=== PATIENT | female | born 1955 | race African-American/Black ===

== ENCOUNTER 2016-12-28 20:18 | Emergency (ER) | payer MEDICARE, MEDICAID ==
--- NOTE | 2016-12-28 20:53 | EKG REPORT ---
SEVERITY:- BORDERLINE ECG - SINUS ARRHYTHMIA, RATE 65-99 PROBABLE LEFT ATRIAL ABNORMALITY BORDERLINE PROLONGED QT INTERVAL : Confirmed by: Deidre Hadley 28-Dec-2016 20:52:47
[2016-12-28] MEDS ORDERED: ASPIRIN 81 MG TABLET, CHEWABLE PO ONE (21:45)
--- NOTE | 2016-12-28 22:20 | RADIOLOGY REPORT (SQ) ---
EXAM DESCRIPTION: CHEST SINGLE VIEW COMPLETED DATE/TIME: 12/28/2016 10:03 pm REASON FOR STUDY: chest pain/cough COMPARISON: 10/28/2015 EXAM PARAMETERS: NUMBER OF VIEWS: One view. TECHNIQUE: Single frontal radiographic view of the chest acquired. RADIATION DOSE: NA LIMITATIONS: None. FINDINGS: LUNGS AND PLEURA: No opacities, masses or pneumothorax. No pleural effusion. MEDIASTINUM AND HILAR STRUCTURES: No masses. Contour normal. HEART AND VASCULAR STRUCTURES: Heart normal in size. Normal vasculature. BONES: No acute findings. HARDWARE: None in the chest. OTHER: No other significant finding. IMPRESSION: NO ACUTE RADIOGRAPHIC FINDING IN THE CHEST. TECHNICAL DOCUMENTATION: JOB ID: [id number]
[2016-12-28 22:25] LABS: ABSOLUTE BASOPHILS # (AUTO) 0.1 10^3/uL (0.0-0.2); ABSOLUTE EOSINOPHILS # (AUTO) 0.2 10^3/uL (0.0-0.6); ABSOLUTE LYMPHOCYTES (AUTO) 3.6 10^3/uL (0.5-4.7); ABSOLUTE MONOCYTES (AUTO) 0.5 10^3/uL (0.1-1.4); ABSOLUTE NEUT (AUTO) 5.3 10^3/uL (1.7-8.2); BASOPHILS % (AUTO) 0.7 % (0-2); EOSINOPHILS % (AUTO) 2.3 % (0-6); HEMATOCRIT 38.8 % (36.0-47.0); HEMOGLOBIN 12.9 g/dL (12.0-15.5); HGB HCT DIFFERENCE -0.1; LYMPHOCYTES % (AUTO) 36.8 % (13-45); MEAN CORPUSCULAR HGB CONC 33.3 g/dL (32.0-36.0); MEAN CORPUSCULAR VOLUME 93 fl (80-97); MONOCYTES % (AUTO) 5.7 % (3-13); RED BLOOD COUNT 4.16 10^6/uL (3.72-5.28); RED CELL DISTRIBUTION WIDTH 13.1 % (11.5-14.0); SEGMENTED NEUTROPHILS % (AUTO) 54.5 % (42-78); WHITE BLOOD COUNT 9.7 10^3/uL (4.0-10.5)
[2016-12-28 22:39] LABS: ALANINE AMINOTRANSFERASE 29 U/L (9-52); ALBUMIN 4.2 g/dL (3.5-5.0); ALKALINE PHOSPHATASE 75 U/L (38-126); ANION GAP 11 (5-19); ASPARTATE AMINO TRANSFERASE 19 U/L (14-36); BILIRUBIN,DIRECT 0.3 mg/dL (0.0-0.4); BILIRUBIN,TOTAL 0.4 mg/dL (0.2-1.3); BLOOD UREA NITROGEN 18 mg/dL (7-20); CALCIUM 9.7 mg/dL (8.4-10.2); CARBON DIOXIDE 29 mmol/L (22-30); CHLORIDE 102 mmol/L (98-107); CREATINE KINASE 91 U/L (30-135); GLUCOSE 157 mg/dL (75-110); POTASSIUM 4.3 mmol/L (3.6-5.0); SODIUM 141.8 mmol/L (137-145); TOTAL PROTEIN 7.5 g/dL (6.3-8.2)
[2016-12-28 22:51] LABS: CREATINE KINASE MB 0.98 ng/mL (<4.55); TROPONIN I < 0.012 ng/mL
[2016-12-28] MEDS ORDERED: IPRATROPIUM/ALBUTEROL 0.5-2.5 MG/3 ML AMPUL NEB ONE ×2 (22:56→22:57)
[2016-12-28] MEDS ORDERED: PREDNISONE 20 MG TABLET PO ONE (22:56)
[2016-12-28] MEDS ORDERED: HYDROCODONE/ACETAMINOPHEN 5-325 MG TABLET PO ONE (22:57)
--- NOTE | 2016-12-28 23:04 | ER Document Report ---
ED Respiratory Problem - General Chief Complaint: Cough Stated Complaint: CHEST AND NECK PAIN Time Seen by Provider: 12/28/16 22:49 Notes: Patient is a 61-year-old female comes emergency department for chief complaint of cough with wheezing and painful cough since yesterday. She states she has coughed up some gaming sputum. She smokes, she states she "probably has COPD", she denies asthma, she denies inhaler use. She also states that she has history of diabetes and was newly placed on a diabetic medication today. She denies any fevers, she denies chest pain outside of cough, she states she feels like she strained her neck with a coughing episode earlier. TRAVEL OUTSIDE OF THE [place] IN LAST 30 DAYS: No - Related Data Allergies/Adverse Reactions: No Known Allergies Allergy (Verified 06/11/16 07:17) Past Medical History - General Information source: Patient - Social History Smoking Status: Current Every Day Smoker Smoking Education Provided: Yes - <3 min Frequency of alcohol use: None Drug Abuse: None Lives with: Family Family History: Reviewed & Not Pertinent Patient has suicidal ideation: No Patient has homicidal ideation: No - Past Medical History Cardiac Medical History: Reports: Hx Hypertension Denies: Hx Heart Attack Pulmonary Medical History: Reports: Hx COPD Denies: Hx Asthma Neurological Medical History: Reports: Hx Migraine. Denies: Hx Cerebrovascular Accident, Hx Seizures Endocrine Medical History: Reports: Hx Diabetes Mellitus Type 2 Renal/ Medical History: Denies: Hx Peritoneal Dialysis GI Medical History: Denies: Hx Hepatitis, Hx Hiatal Hernia, Hx Ulcer Musculoskeltal Medical History: Reports Hx Arthritis - osteoarthritis Psychiatric Medical History: Reports: Hx Anxiety, Hx Depression Infectious Medical History: Denies: Hx Hepatitis Past Surgical History: Reports: Hx Section - 3, Hx Orthopedic Surgery. Denies: Hx Mastectomy, Hx Open Heart Surgery, Hx Pacemaker - Immunizations Immunizations up to date: Yes Hx Diphtheria, Pertussis, Tetanus Vaccination: Yes Hx Pneumococcal Vaccination: 05/31/11 Review of Systems - Review of Systems Constitutional: No symptoms reported EENT: No symptoms reported Cardiovascular: No symptoms reported Respiratory: See HPI Gastrointestinal: No symptoms reported Genitourinary: No symptoms reported Female Genitourinary: No symptoms reported Musculoskeletal: No symptoms reported Skin: No symptoms reported Hematologic/Lymphatic: No symptoms reported Neurological/Psychological: No symptoms reported Physical Exam - Vital signs Vitals: Temp Pulse Resp BP Pulse Ox 98.8 F 71 25 H 185/79 H 94 12/28/16 20:26 12/28/16 20:26 12/28/16 20:26 12/28/16 20:26 12/28/16 20:26 Interpretation: Normal - General General appearance: Appears well In distress: None - HEENT Head: Normocephalic, Atraumatic Eyes: Normal Conjunctiva: Normal Extraocular movements intact: Yes Eyelashes: Normal Pupils: PERRL Mouth/Lips: Normal Mucous membranes: Normal Pharynx: Normal Neck: Normal - Respiratory Respiratory status: No respiratory distress. No: Labored, Tachypnea Chest status: Nontender Breath sounds: Decreased air movement, Wheezing - expiratory wheezes throughout ; occassional congested cough Chest palpation: Normal - Cardiovascular Rhythm: Regular Heart sounds: Normal auscultation Murmur: No - Abdominal Inspection: Normal Distension: No distension Bowel sounds: Normal Tenderness: Nontender. No: Tender Organomegaly: No organomegaly - Back Back: Tender - tender in right trapezius and paracervical muscles (mild); normal back and spine exam otherwise - Extremities General upper extremity: Normal inspection, Nontender, Normal color, Normal ROM , Normal temperature General lower extremity: Normal inspection, Nontender, Normal color, Normal ROM , Normal temperature, Normal weight bearing. No: Shawn's sign - Neurological Neuro grossly intact: Yes Cognition: Normal Orientation: AAOx4 [place] Coma Scale Eye Opening: Spontaneous [place] Coma Scale Verbal: Oriented [place] Coma Scale Motor: Obeys Commands [place] Coma Scale Total: 15 Speech: Normal Motor strength normal: LUE, RUE, LLE, RLE Sensory: Normal - Psychological Associated symptoms: Normal affect, Normal mood - Skin Skin Temperature: Warm Skin Moisture: Dry Skin Color: Normal Course - Re-evaluation Re-evalutation: Some mild tenderness over the chest wall and in the right trapezius area on examination, patient does not have tachypnea, hypoxia, or signs of respiratory distress. Patient has bilateral expiratory wheezes on examination, congested sounding cough. EKG with no ischemic findings, troponin unremarkable, CBC and CMP unremarkable. Chest x-ray does not show pneumonia. Patient examination is consistent with COPD exacerbation. After treatment patient's symptoms completely resolved. She states she feels great and she wants to go home. Discussed prednisone use, patient states she has had good results with this in the past, states she will watch her sugars, patient will be given a quicker taper because of her diabetes , provided with inhaler, discussed close follow-up, discussed return precautions , patient states satisfaction and agreement. - Vital Signs Vital signs: Temp Pulse Resp BP Pulse Ox 98.6 F 83 18 180/92 H 97 12/29/16 00:14 12/29/16 00:14 12/29/16 00:14 12/29/16 00:14 12/29/16 00:14 - Laboratory Result Diagrams: 12/28/16 22:11 12/28/16 22:11 Laboratory results interpreted by me: 12/28/16 22:11 Glucose 157 H Discharge - Discharge Clinical Impression: Wheezing, Cough, Tobacco abuse Condition: Stable Disposition: HOME, SELF-CARE Additional Instructions: Examination is consistent with a COPD exacerbation, take the prednisone as prescribed, avoid sugary foods while taking this, use the provided inhaler, take the [place] if needed for pain/cough, take the stool softener Colace if you do take the pain medicine. Follow-up closely with your primary care provider. Emergency department immediately if you worsen including difficulty breathing, spiking fever, chest pain, or any other concerning symptoms. Prescriptions: Albuterol Sulfate [Proair HFA Inhalation Aerosol 8.5 gm MDI] 2 puff IH Q4H PRN # 1 mdi PRN Reason: Docusate Sodium [Colace 100 mg Capsule] 100 mg PO DAILY #30 capsule Hydrocodone/Acetaminophen [[place] 5-325 mg Tablet] 1 - 2 tab PO ASDIR #8 tablet Prednisone [Deltasone 10 mg Tablet] 10 mg PO ASDIR PRN #21 tablet PRN Reason: Forms: Elevated Blood Pressure
[2016-12-28] MEDS ORDERED: HYDROCODONE/ACETAMINOPHEN 5-325 MG 6 TAB/DSPK PO PRN (23:59)
[2016-12-28] MEDS ORDERED: ALBUTEROL SULFATE HFA (90 MCG/PUFF) 8 GM MDI (1 MDI/ER DISP) IH ONE (23:59)
[2016-12-29 00:15] VITALS: BP 180/92
== END 2016-12-29 00:14 | disposition home or self-care (01) ==
LOC: ER 20:18
DX: J44.9 Chronic obstructive pulmonary disease, unspecified (principal); R05 Cough; F17.200 Nicotine dependence, unspecified, uncomplicated; E11.9 Type 2 diabetes mellitus without complications; I10 Essential (primary) hypertension
CPT/HCPCS: 93005; 94640 ×2; 99284; 36415; 82553; 82550; 85025; 80053; 84484; 71010; 93010; A9270 ×5; J3490; J7512; J7620

== ENCOUNTER → 2017-01-28 | Outpatient (CLI) | payer MEDICARE ==
[2017-01-28 20:07] LABS: ANION GAP 11 (5-19); BLOOD UREA NITROGEN 20 mg/dL (7-20); CALCIUM 9.9 mg/dL (8.4-10.2); CARBON DIOXIDE 28 mmol/L (22-30); CHLORIDE 101 mmol/L (98-107); CREATININE RESULT 0.98 mg/dL (0.52-1.25); GLUCOSE 114 mg/dL (75-110); POTASSIUM 4.6 mmol/L (3.6-5.0); SODIUM 140.4 mmol/L (137-145)
[2017-01-30 11:40] LABS: CREATININE URINE 130.1 mg/dL (Not Estab.); MICROALBUMIN URINE 130.2 ug/mL (Not Estab.)
[2017-01-31 14:40] LABS: EPINEPHRINE <15 pg/mL (0-62); NOREPINEPHRINE 336 pg/mL (0-874)
[2017-01-31 14:58] LABS: DOPAMINE <30 pg/mL (0-48)
[2017-02-01 22:37] LABS: NORMETANEPHRINE 70 pg/mL (0-145)
[2017-02-02 10:48] LABS: METANEPHRINE <10 pg/mL (0-62)
[2017-02-02 10:51] LABS: ALDOSTERONE 5.3 ng/dL (0.0-30.0)
== END ==
LOC: LAB 18:59
PROVIDERS: ATTEND Internal Medicine Nephrology
DX: I10 Essential (primary) hypertension (principal); N28.9 Disorder of kidney and ureter, unspecified
CPT/HCPCS: 36415; 80048; 82043; 82088; 82383; 82533; 82570; 83835; 84244

== ENCOUNTER 2017-04-03 10:14 | Emergency (ER) | payer MEDICARE, MEDICAID ==
--- NOTE | 2017-04-03 10:47 | ER Document Report ---
ED Medical Screen (RME) - General Chief Complaint: Abdominal Pain Stated Complaint: ABDOMINAL PAIN Time Seen by Provider: 04/03/17 10:29 Mode of Arrival: Wheelchair Information source: Patient TRAVEL OUTSIDE OF THE [place] IN LAST 30 DAYS: No - HPI Patient complains to provider of: Abdominal pain, nausea, diarrhea Notes: 04/03/17 10:45 Patient is a 61-year-old female presenting to the emergency room complaining of diffuse crampy abdominal pain with nausea and diarrhea, patient reports that on March 05 of this year she had a left-sided carotid endarterectomy at [facility], since then she has been having trouble having bowel movements, therefore yesterday evening she drank some apple juice and took some milk of magnesia, this morning when she woke up she started having dark colored stools with abdominal pain and nausea - Related Data Allergies/Adverse Reactions: lisinopril Allergy (Verified 04/03/17 10:42) Past Medical History - Past Medical History Cardiac Medical History: Reports: Hx Hypertension Denies: Hx Heart Attack Pulmonary Medical History: Reports: Hx COPD Denies: Hx Asthma Neurological Medical History: Reports: Hx Migraine. Denies: Hx Cerebrovascular Accident, Hx Seizures Endocrine Medical History: Reports: Hx Diabetes Mellitus Type 2 Renal/ Medical History: Denies: Hx Peritoneal Dialysis GI Medical History: Denies: Hx Hepatitis, Hx Hiatal Hernia, Hx Ulcer Musculoskeltal Medical History: Reports Hx Arthritis - osteoarthritis Psychiatric Medical History: Reports: Hx Anxiety, Hx Depression Infectious Medical History: Denies: Hx Hepatitis Past Surgical History: Reports: Hx Section - 3, Hx Orthopedic Surgery. Denies: Hx Mastectomy, Hx Open Heart Surgery, Hx Pacemaker - Immunizations Immunizations up to date: Yes Hx Diphtheria, Pertussis, Tetanus Vaccination: Yes Physical Exam - Vital signs Vitals: Temp Pulse Resp BP Pulse Ox 98.7 F 72 18 159/77 H 96 04/03/17 10:20 04/03/17 10:20 04/03/17 10:20 04/03/17 10:20 04/03/17 10:20 Course - Vital Signs Vital signs: Temp Pulse Resp BP Pulse Ox 98.7 F 72 18 159/77 H 96 04/03/17 10:20 04/03/17 10:20 04/03/17 10:20 04/03/17 10:20 04/03/17 10:20
[2017-04-03 11:31] LABS: ABSOLUTE BASOPHILS # (AUTO) 0.1 10^3/uL (0.0-0.2); ABSOLUTE EOSINOPHILS # (AUTO) 0.1 10^3/uL (0.0-0.6); ABSOLUTE LYMPHOCYTES (AUTO) 2.2 10^3/uL (0.5-4.7); ABSOLUTE MONOCYTES (AUTO) 0.5 10^3/uL (0.1-1.4); ABSOLUTE NEUT (AUTO) 5.6 10^3/uL (1.7-8.2); BASOPHILS % (AUTO) 1.1 % (0-2); EOSINOPHILS % (AUTO) 1.2 % (0-6); HEMATOCRIT 39.2 % (36.0-47.0); HEMOGLOBIN 13.4 g/dL (12.0-15.5); LYMPHOCYTES % (AUTO) 26.4 % (13-45); MEAN CORPUSCULAR HEMOGLOBIN 31.1 pg (27.0-33.4); MEAN CORPUSCULAR VOLUME 91 fl (80-97); MONOCYTES % (AUTO) 5.5 % (3-13); RED BLOOD COUNT 4.29 10^6/uL (3.72-5.28); RED CELL DISTRIBUTION WIDTH 14.1 % (11.5-14.0); SEGMENTED NEUTROPHILS % (AUTO) 65.8 % (42-78); WHITE BLOOD COUNT 8.5 10^3/uL (4.0-10.5)
[2017-04-03 11:39] LABS: PROTHROMBIN TIME 12.9 SEC (11.4-15.4)
[2017-04-03 11:40] LABS: AMORPHOUS SEDIMENT,URINE TRACE /HPF; APPEARANCE,URINE CLOUDY; BILIRUBIN,URINE NEGATIVE (NEGATIVE); GLUCOSE, URINE NEGATIVE (NEGATIVE); KETONES,URINE NEGATIVE (NEGATIVE); LEUKOCYTE ESTERASE,URINE NEGATIVE (NEGATIVE); NITRITE,URINE NEGATIVE (NEGATIVE); PARTIAL THROMBOPLASTIN TIME 33.7 SEC (23.5-35.8); PROTEIN,URINE 100 mg/dL (NEGATIVE); URINE SPECIFIC GRAVITY 1.012; UROBILINOGEN,URINE NEGATIVE mg/dL (<2.0)
[2017-04-03 11:52] LABS: ALANINE AMINOTRANSFERASE 31 U/L (9-52); ALBUMIN 4.9 g/dL (3.5-5.0); ALKALINE PHOSPHATASE 74 U/L (38-126); ANION GAP 12 (5-19); ASPARTATE AMINO TRANSFERASE 22 U/L (14-36); BILIRUBIN,DIRECT 0.3 mg/dL (0.0-0.4); BILIRUBIN,TOTAL 0.5 mg/dL (0.2-1.3); BLOOD UREA NITROGEN 20 mg/dL (7-20); CALCIUM 10.8 mg/dL (8.4-10.2); CARBON DIOXIDE 30 mmol/L (22-30); CHLORIDE 98 mmol/L (98-107); CREATININE RESULT 0.85 mg/dL (0.52-1.25); GLUCOSE 123 mg/dL (75-110); LIPASE 104.1 U/L (23-300); POTASSIUM 4.7 mmol/L (3.6-5.0); SODIUM 140.4 mmol/L (137-145); TOTAL PROTEIN 8.2 g/dL (6.3-8.2)
[2017-04-03] MEDS ORDERED: KETOROLAC TROMETHAMINE INJ/PF 30 MG/1 ML SDV IV ONE (12:40)
[2017-04-03] MEDS ORDERED: ONDANSETRON HCL INJ/PF 4 MG/2 ML SDV IV ONE (12:40)
[2017-04-03] MEDS ORDERED: NORMAL SALINE 1000 ML 1,000 ML IV ONE (12:41)
--- NOTE | 2017-04-03 14:18 | RADIOLOGY REPORT (SQ) ---
EXAM DESCRIPTION: CT ABD/PELVIS WITH IV ONLY COMPLETED DATE/TIME: 04/03/2017 2:03 pm REASON FOR STUDY: abd pain COMPARISON: [address] TECHNIQUE: CT scan of the abdomen and pelvis performed using helical scanning technique with dynamic intravenous contrast injection. No oral contrast. Images reviewed with lung, soft tissue, and bone windows. Reconstructed coronal and sagittal MPR images reviewed. Delayed images for evaluation of the urinary system also acquired. All images stored on PACS. All CT scanners at this facility use dose modulation, iterative reconstruction, and/or weight based d osing when appropriate to reduce radiation dose to as low as reasonably achievable (ALARA). [facility]: Dose Right [facility]: CareDose [facility]: Dose Right [facility]: Teradose 4D [facility]: Virax CONTRAST TYPE AND DOSE: contrast/concentration: Isovue 370.00 mg/ml; Total Contrast Delivered: 100.0 ml; Total Saline Delivered: 52.6 ml RENAL FUNCTION: Creatinine 0.85 RADIATION DOSE: Up-to-date CT equipment and radiation dose reduction techniques were employed. CTDIv ol: 19.5 - 20.6 mGy. DLP: 1984 mGy-cm.. LIMITATIONS: None. FINDINGS: LOWER CHEST: No significant findings. No nodules or infiltrates. LIVER: Normal size. No masses. No dilated ducts. SPLEEN: Normal size. No focal lesions. PANCREAS: No masses. No significant calcifications. No adjacent inflammation or peripancreatic fluid collections. Pancreatic duct not dilated. GALLBLADDER: No identified stones by CT criteria. No inflammatory changes to suggest cholecystitis. ADRENAL GLANDS: No significant masses or asymmetry. RIGHT KIDNEY AND URETER: No solid masses. No significant calcification. No hydronephrosis or hydroure ter. LEFT KIDNEY AND URETER: No solid masses. No significant calcification. No hydronephrosis or hydrouret er. AORTA AND VESSELS: Atherosclerotic non aneurysmal aorta. No dissection. Generally patent major zeus rial branches. No venous clot pre RETROPERITONEUM: No retroperitoneal adenopathy, hemorrhage or masses. BOWEL AND PERITONEAL CAVITY: Moderate stool throughout the proximal 2/3 of the colon. Variable fluid throughout relatively nondistended loops of small bowel. No suspicious wall thickening. No bowel r elated inflammatory process detected. No ascites or abnormal gas. APPENDIX: Normal. PELVIS: Bladder unremarkable. No pelvic mass or free fluid. ABDOMINAL WALL: Small fat containing umbilical hernia. No bowel containing hernia evident. No abdom inal wall mass. BONES: No significant or acute findings. OTHER: No other significant finding. IMPRESSION: No acute or suspicious abdominopelvic abnormality. TECHNICAL DOCUMENTATION: JOB ID: [id number] Quality ID # [id number]: Final reports with documentation of one or more dose reduction techniques (e.g., Au tomated exposure control, adjustment of the mA and/or kV according to patient size, use of iterative reconstruction technique) 2010 [employer]- All Rights Reserved
[2017-04-03 14:22] VITALS: BP 166/109
--- NOTE | 2017-04-03 15:02 | ER Document Report ---
ED General - General Chief Complaint: Abdominal Pain Stated Complaint: ABDOMINAL PAIN Time Seen by Provider: 04/03/17 10:29 Mode of Arrival: Wheelchair TRAVEL OUTSIDE OF THE [place] IN LAST 30 DAYS: No - HPI Patient complains to provider of: Abdominal pain Notes: Patient coming in for evaluation of abdominal pain. Patient states abdominal pain ongoing for quite a few days with intermittent nausea and diarrhea. Patient states last night did take a laxative patient states abdominal pain worsened today therefore came to the ER for further evaluation. Denies any fevers chills chest pain denies any recent antibiotics trauma or recent travel. - Related Data Allergies/Adverse Reactions: lisinopril Allergy (Verified 04/03/17 10:42) Past Medical History - General Information source: Patient - Social History Smoking Status: Former Smoker Chew tobacco use (# tins/day): No Frequency of alcohol use: None Drug Abuse: None Family History: Reviewed & Not Pertinent - Past Medical History Cardiac Medical History: Reports: Hx Hypertension Denies: Hx Heart Attack Pulmonary Medical History: Reports: Hx COPD Denies: Hx Asthma Neurological Medical History: Reports: Hx Migraine. Denies: Hx Cerebrovascular Accident, Hx Seizures Endocrine Medical History: Reports: Hx Diabetes Mellitus Type 2 Renal/ Medical History: Denies: Hx Peritoneal Dialysis GI Medical History: Denies: Hx Hepatitis, Hx Hiatal Hernia, Hx Ulcer Musculoskeltal Medical History: Reports Hx Arthritis - osteoarthritis Psychiatric Medical History: Reports: Hx Anxiety, Hx Depression Infectious Medical History: Denies: Hx Hepatitis Past Surgical History: Reports: Hx Section - 3, Hx Orthopedic Surgery. Denies: Hx Mastectomy, Hx Open Heart Surgery, Hx Pacemaker - Immunizations Immunizations up to date: Yes Hx Diphtheria, Pertussis, Tetanus Vaccination: Yes Hx Pneumococcal Vaccination: 05/31/11 Review of Systems - Review of Systems Constitutional: No symptoms reported EENT: No symptoms reported Cardiovascular: No symptoms reported Respiratory: No symptoms reported Gastrointestinal: Abdominal pain, Diarrhea, Nausea Genitourinary: No symptoms reported Female Genitourinary: No symptoms reported Musculoskeletal: No symptoms reported Skin: No symptoms reported Hematologic/Lymphatic: No symptoms reported Neurological/Psychological: No symptoms reported Physical Exam - Vital signs Vitals: Temp Pulse Resp BP Pulse Ox 98.7 F 72 18 159/77 H 96 04/03/17 10:20 04/03/17 10:20 04/03/17 10:20 04/03/17 10:20 04/03/17 10:20 Interpretation: Normal - General General appearance: Appears well, Alert - HEENT Head: Normocephalic, Atraumatic Eyes: Normal Pupils: PERRL - Respiratory Respiratory status: No respiratory distress Chest status: Nontender Breath sounds: Normal Chest palpation: Normal - Cardiovascular Rhythm: Regular Heart sounds: Normal auscultation Murmur: No - Abdominal Inspection: Normal Distension: No distension Bowel sounds: Normal Tenderness: Nontender Organomegaly: No organomegaly - Back Back: Normal, Nontender - Extremities General upper extremity: Normal inspection, Nontender, Normal color, Normal ROM , Normal temperature General lower extremity: Normal inspection, Nontender, Normal color, Normal ROM , Normal temperature, Normal weight bearing. No: Shawn's sign - Neurological Neuro grossly intact: Yes Cognition: Normal Orientation: AAOx4 [place] Coma Scale Eye Opening: Spontaneous [place] Coma Scale Verbal: Oriented [place] Coma Scale Motor: Obeys Commands [place] Coma Scale Total: 15 Speech: Normal Motor strength normal: LUE, RUE, LLE, RLE Sensory: Normal - Psychological Associated symptoms: Normal affect, Normal mood - Skin Skin Temperature: Warm Skin Moisture: Dry Skin Color: Normal Course - Re-evaluation Re-evalutation: 04/03/17 14:59 The patient presents with abdominal pain without signs of peritonitis or other life-threatening or serious etiology. The patient appears stable for discharge and has been instructed to return immediately if the symptoms worsen in any way , or in 8-12hr if not improved for re-evaluation. The patient has been instructed to return if the symptoms worsen or change in any way. Will treat patient with Grant and Elvis patient was encouraged take stool softener - Vital Signs Vital signs: Temp Pulse Resp BP Pulse Ox 98.7 F 88 16 166/109 H 97 04/03/17 10:20 04/03/17 12:14 04/03/17 14:00 04/03/17 13:02 04/03/17 14:00 - Laboratory Result Diagrams: 04/03/17 11:05 04/03/17 11:05 Laboratory results interpreted by me: 04/03/17 04/03/17 04/03/17 11:05 11:05 11:05 RDW 14.1 H Glucose 123 H Calcium 10.8 H Urine Protein 100 H Discharge - Discharge Clinical Impression: Abdominal pain Qualifiers: Abdominal location: generalized Qualified Code(s): R10.84 - Generalized abdominal pain Constipation Qualifiers: Constipation type: unspecified constipation type Qualified Code(s): K59.00 - Constipation, unspecified Condition: Good Disposition: HOME, SELF-CARE Instructions: Abdominal Pain ([facility]), Constipation ([facility]) Additional Instructions: Your CAT scan today only shows stool retention on the right side of the colon. I recommend drinking plenty of water taking medication Bentyl and Zofran for pain and nausea control also would recommend taking a stool softener. Please follow-up with your primary care physician. Prescriptions: Dicyclomine HCl [Bentyl 20 mg Tablet] 20 mg PO QID #40 tablet Docusate Sodium [Colace 100 mg Capsule] 100 mg PO DAILY #30 capsule Ondansetron [Zofran Odt 4 mg Tablet] 1 - 2 tab PO Q4H PRN #15 tab.rapdis PRN Reason: For Nausea/Vomiting Referrals: RACIEL MONROY MD [Primary Care Provider] - Follow up as needed
== END 2017-04-03 15:13 | disposition home or self-care (01) ==
LOC: ER 10:14
DX: K59.00 Constipation, unspecified (principal); R10.84 Generalized abdominal pain; R11.0 Nausea; R19.7 Diarrhea, unspecified; I10 Essential (primary) hypertension; J44.9 Chronic obstructive pulmonary disease, unspecified; E11.9 Type 2 diabetes mellitus without complications; Z88.8 Allergy status to other drugs, medicaments and biological substances; Z87.891 Personal history of nicotine dependence
CPT/HCPCS: 99284; 96361; 96374; 96375; 36415; 87086; 83690; 85025; 85610; 85730; 80053; 81001; 74177; J1885; J2405; J7030

== ENCOUNTER 2017-04-16 19:40 | Emergency (ER) | payer MEDICARE, MEDICAID ==
--- NOTE | 2017-04-16 22:06 | ER Document Report ---
ED General - General Chief Complaint: High Blood Pressure Stated Complaint: BLOOD PRESSURE PROBLEM Time Seen by Provider: 04/16/17 22:04 Notes: Patient is 61-year-old female presents with complaint of pain in her head. She was at her primary care physician's office. She was also very hypertensive at that time. They therefore called the ambulance and sent her here. Her primary care doctor told her to get a CT scan of her head because of the headache with high blood pressure. She was given labetalol in the paramedics. Her blood pressure since normalized. She says that she has had this recurrent tightness in her head ever since her left carotid endarterectomy which was performed on March 03 of this year. She denies any weakness or numbness into extremities. She denies any slurred speech. She also has a second complaint of some left upper quadrant abdominal pain with some associated loose stools. She said the loose stool started today around 3 PM. She said that approximately a week ago she started Colace because of constipation. She says now that she is going to the bathroom frequently with loose stools. No watery diarrhea. No blood in her stool. He also says that since starting the blood thinner she has felt cold. TRAVEL OUTSIDE OF THE [place] IN LAST 30 DAYS: No - Related Data Allergies/Adverse Reactions: lisinopril Allergy (Verified 04/03/17 10:42) Past Medical History - Social History Smoking Status: Never Smoker Frequency of alcohol use: None Drug Abuse: None Family History: Reviewed & Not Pertinent - Past Medical History Cardiac Medical History: Reports: Hx Hypertension Denies: Hx Heart Attack Pulmonary Medical History: Reports: Hx COPD Denies: Hx Asthma Neurological Medical History: Reports: Hx Migraine. Denies: Hx Cerebrovascular Accident, Hx Seizures Endocrine Medical History: Reports: Hx Diabetes Mellitus Type 2 Renal/ Medical History: Denies: Hx Peritoneal Dialysis GI Medical History: Denies: Hx Hepatitis, Hx Hiatal Hernia, Hx Ulcer Musculoskeltal Medical History: Reports Hx Arthritis - osteoarthritis Psychiatric Medical History: Reports: Hx Anxiety, Hx Depression Infectious Medical History: Denies: Hx Hepatitis Past Surgical History: Reports: Hx Section - 3, Hx Orthopedic Surgery. Denies: Hx Mastectomy, Hx Open Heart Surgery, Hx Pacemaker - Immunizations Immunizations up to date: Yes Hx Diphtheria, Pertussis, Tetanus Vaccination: Yes Hx Pneumococcal Vaccination: 05/31/11 Review of Systems - Review of Systems Notes: My Normal Review Basic REVIEW OF SYSTEMS: CONSTITUTIONAL : Denies fever, chills, or sweats. Denies recent illness. EENT: Denies eye, ear, throat, or mouth pain or symptoms. Denies nasal or sinus congestion. CARDIOVASCULAR: Denies chest pain. RESPIRATORY: Denies cough, cold, or chest congestion. Denies shortness of breath, difficulty breathing, or wheezing. GASTROINTESTINAL: Some abdominal pain. Loose stools. GENITOURINARY: Denies difficulty urinating, painful urination, burning, frequency, or blood in urine. MUSCULOSKELETAL: Denies neck or back pain or joint pain or swelling. SKIN: Denies rash or skin lesions. NEUROLOGICAL: Denies altered mental status or loss of consciousness. Had a headache. Denies weakness or paralysis or loss of use of either side. Denies problems with gait or speech. Denies sensory or motor loss. ALL OTHER SYSTEMS REVIEWED AND NEGATIVE. Physical Exam - Vital signs Vitals: Resp 17 04/16/17 19:48 - Notes Notes: General Appearance: Well nourished, alert, cooperative, no acute distress, no obvious discomfort. Vitals: reviewed, See vital signs table. Head: no swelling or tenderness to the head Eyes: PERRL, EOMI, Conjuctiva clear Mouth: No decreasd moisture Neck: Well-healed incision site to the left neck. No significant swelling. Lungs: No wheezing, No rales, No rhonci, No accessory muscle use, good air exchange bilaterally. Heart: Normal rate, Regular rythm, No murmur, no rub Abdomen: Normal BS, soft, No rigidity, mild left upper quadrant abdominal tenderness palpation. Extremities: strength 5/5 in all extremities, good pulses in all extremities, no swelling or tenderness in the extremities, no edema. Skin: warm, dry, appropriate color, no rash Neuro: speech clear, oriented x 3, normal affect, responds appropriately to questions. Cranial nerves II through XII are intact. Distal sensation intact. Patient moves all extremities without difficulty. Course - Re-evaluation Re-evalutation: 04/16/17 23:40 Patient's family is very upset with the weight. They also upset that patient has had multiple bowel movements and that is when they requested for someone to change the the bedside commode there was a delay in the amount time it took for someone to come change to bedside commode. I attempted to apologize for the delay. Patient is now saying that she is cold. She also mentions that she has been cold ever since starting the blood thinners. She is not anemic and she has had no signs of bleeding. Patient now adds that she has numbness over the incision site of her left neck. When asked if this is been there since the incision she says "I do not know". When I tried to evaluate the patient earlier I will pulled on the blanket to try to evaluate her. She would merely pulled the blanket back up and say that she was cold. I informed her that I need to have the blanket down to be able to properly evaluate her. She eventually let people down the blanket briefly to evaluate her but then was very vague with her responses during my evaluation. I talked her length about the numbness in her neck. It is very hard for me to tell if this is something it has been going on since surgery or if this is something new being that the patient will not give me a true answer. I informed her that if this is something new that we should do a CT scan. Patient then rolls her eyes and says rather get the CT scan tomorrow. Family then becomes upset and says that she needs it now. I informed the patient that if this is a new sensation in her neck that we should just do a scan to make sure that the vasculature of her neck looks okay being that she did have surgery just over a month ago. Patient then tells me that the numbness is old and then after arguing with her family changes her mind and says that it is may be in new. Again it is completely unclear if this numbness is old or new. She is in no distress. She now wants the CT scan. She has had CT scans with IV contrast before. I will obtain a CTA of her neck. 04/17/17 00:[address] of the neck showed no acute concerning findings. I informed parents on the she does have some stenosis of the right carotid artery. I encouraged him to continue follow-up with her doctor in regards to this. I suspect that the vascular surgeon is probably already aware of this being that he does perform surgery in the left carotid artery. Vertebral arteries are patent. Patient mentions now that sometimes she does get dizzy that she was told it could be related to the vessels in her neck. I informed him that the vertebral arteries are normal. And that conclusions of these would typically cause dizziness. Informed her that if she continues to have dizziness despite recovery from her surgery that she should eventually talk to her doctor referral to ear nose and throat doctor to make sure it is not a vestibular problem that is causing her dizziness. They agree with this plan. I suspect that her loose stools is probably related to her chronic Colace use over the last week. I encourage her to continue to withhold the Colace. I will give her some Prilosec being that she did have some left upper quadrant abdominal pain as well. Her doctor just increased her blood pressure medication today after she arrived there with hypertension. I encourage her to take the new dose of blood pressure medication as prescribed into keep a log of her blood pressures this week and to bring this log to her primary care doctor. Encouraged her return to ER immediately if she has severe worsening headache, vomiting, or feels unwell. Dictation of this chart was performed using voice recognition software; therefore, there may be some unintended grammatical errors. - Vital Signs Vital signs: Temp Pulse Resp BP Pulse Ox 22 H 143/81 H 89 L 04/16/17 23:01 04/16/17 23:53 04/16/17 23:52 - Laboratory Result Diagrams: 04/16/17 22:35 04/16/17 22:35 Laboratory results interpreted by me: 04/16/17 22:35 RBC 3.71 L Hgb 11.7 L Hct 34.0 L - EKG Interpretation by Me Additional EKG results interpreted by me: 04/16/17 22:04 EKG is reviewed and interpreted by me. EKG shows normal sinus rhythm with rate of [address] segment elevation or depression. No ischemic T-wave inversions. [place] interval, QRS duration, QTc intervals are within normal range. Old EKG for comparison is from December 28, 2016. Discharge - Discharge Clinical Impression: Dizziness High blood pressure Qualifiers: Hypertension type: unspecified Qualified Code(s): I10 - Essential (primary) hypertension Headache Qualifiers: Headache type: unspecified Headache chronicity pattern: episodic headache Intractability: not intractable Qualified Code(s): R51 - Headache Frequent loose stools Qualifiers: Diarrhea type: unspecified type Qualified Code(s): R19.7 - Diarrhea, unspecified Condition: Good Disposition: HOME, SELF-CARE Additional Instructions: Please keep a log of your blood pressures and bring the log to your doctor. Please check your blood pressure twice a day for a week. Please talke to your doctor about possible referral to a ENT physician if you continue to have dizziness. Please return to the ER if you have intractable headaches, worsening abdominal pain, recurrent vomiting, or worsening diarrhea. Please continue to stop using the Colace. Prescriptions: Omeprazole Magnesium [Prilosec Otc] 20 mg PO DAILY #30 tablet. Referrals: RACIEL MONROY MD [Primary Care Provider] - Follow up in 1 week
[2017-04-16 22:58] LABS: ABSOLUTE BASOPHILS # (AUTO) 0.1 10^3/uL (0.0-0.2); ABSOLUTE EOSINOPHILS # (AUTO) 0.2 10^3/uL (0.0-0.6); ABSOLUTE LYMPHOCYTES (AUTO) 3.3 10^3/uL (0.5-4.7); ABSOLUTE MONOCYTES (AUTO) 0.5 10^3/uL (0.1-1.4); ABSOLUTE NEUT (AUTO) 5.1 10^3/uL (1.7-8.2); BASOPHILS % (AUTO) 0.9 % (0-2); HEMOGLOBIN 11.7 g/dL (12.0-15.5); HGB HCT DIFFERENCE 1.1; LYMPHOCYTES % (AUTO) 36.1 % (13-45); MEAN CORPUSCULAR HEMOGLOBIN 31.5 pg (27.0-33.4); MEAN CORPUSCULAR HGB CONC 34.3 g/dL (32.0-36.0); MEAN CORPUSCULAR VOLUME 92 fl (80-97); MONOCYTES % (AUTO) 5.9 % (3-13); RED BLOOD COUNT 3.71 10^6/uL (3.72-5.28); RED CELL DISTRIBUTION WIDTH 13.7 % (11.5-14.0); SEGMENTED NEUTROPHILS % (AUTO) 55.1 % (42-78); WHITE BLOOD COUNT 9.2 10^3/uL (4.0-10.5)
[2017-04-16 23:17] LABS: ALANINE AMINOTRANSFERASE 40 U/L (9-52); ALKALINE PHOSPHATASE 51 U/L (38-126); ANION GAP 14 (5-19); ASPARTATE AMINO TRANSFERASE 22 U/L (14-36); BILIRUBIN,DIRECT 0.4 mg/dL (0.0-0.4); BILIRUBIN,TOTAL 0.4 mg/dL (0.2-1.3); BLOOD UREA NITROGEN 16 mg/dL (7-20); CALCIUM 9.7 mg/dL (8.4-10.2); CARBON DIOXIDE 24 mmol/L (22-30); CHLORIDE 105 mmol/L (98-107); GLUCOSE 106 mg/dL (75-110); POTASSIUM 3.8 mmol/L (3.6-5.0); SODIUM 142.5 mmol/L (137-145); TOTAL PROTEIN 6.9 g/dL (6.3-8.2)
--- NOTE | 2017-04-16 23:17 | RADIOLOGY REPORT (SQ) ---
EXAM DESCRIPTION: CT HEAD WITHOUT COMPLETED DATE/TIME: 04/16/2017 10:24 pm REASON FOR STUDY: headache COMPARISON: 04/20/2016 TECHNIQUE: Axial images acquired through the brain without intravenous contrast. Images reviewed wi th bone, brain and subdural windows. Images stored on PACS. All CT scanners at this facility use dose modulation, iterative reconstruction, and/or weight based d osing when appropriate to reduce radiation dose to as low as reasonably achievable (ALARA). [facility]: Dose Right [facility]: CareDose [facility]: Dose Right [facility]: Teradose 4D [facility]: [employer] RADIATION DOSE: Up-to-date CT equipment and radiation dose reduction techniques were employed. CTDIv ol: 64.6 mGy. DLP: 1034 mGy-cm.mGy. LIMITATIONS: None. FINDINGS: VENTRICLES: Age-appropriate. CEREBRUM: No masses. No hemorrhage. No midline shift. Areas of low density in the white matter mos t likely due to chronic micro-vascular ischemic change. No evidence for acute infarction. CEREBELLUM: No masses. No hemorrhage. No alteration of density. No evidence for acute infarction. EXTRAAXIAL SPACES: Age-related involutional change. No fluid collections. No masses. ORBITS AND GLOBE: No intra- or extraconal masses. Normal contour of globe without masses. CALVARIUM: No fracture. PARANASAL SINUSES: No fluid or mucosal thickening. SOFT TISSUES: No mass or hematoma. OTHER: No other significant finding. IMPRESSION: CHRONIC CHANGES OF MICROVASCULAR ISCHEMIA. NO ACUTE PROCESS. EVIDENCE OF ACUTE STROKE: NO. TECHNICAL DOCUMENTATION: JOB ID: [id number] Quality ID # [id number]: Final reports with documentation of one or more dose reduction techniques (e.g., Au tomated exposure control, adjustment of the mA and/or kV according to patient size, use of iterative reconstruction technique) 2010 [employer]- All Rights Reserved
[2017-04-16] MEDS ORDERED: NORMAL SALINE 500 ML IV ONE (23:35)
[2017-04-16] MEDS ORDERED: MORPHINE SULFATE 10 MG/ML INJ IV ONE (23:36)
--- NOTE | 2017-04-17 00:36 | RADIOLOGY REPORT (SQ) ---
EXAM DESCRIPTION: CTA NECK COMPLETED DATE/TIME: 04/17/2017 12:14 am REASON FOR STUDY: neck numbness post left carotid endartectomy COMPARISON: CTA neck 09/06/2013, MRA neck 10/28/2015. TECHNIQUE: Axial dynamic scanning technique with dynamic contrast enhancement through the extra-wood scrap handler nial carotid and vertebral arteries. Multiplanar reconstruction. 3-D MIPS and Volume-rendered imag es acquired at the workstation and saved to PACS. Images are reviewed in soft tissue, bone, lung w indows. All CT scanners at this facility use dose modulation, iterative reconstruction, and/or weight based d osing when appropriate to reduce radiation dose to as low as reasonably achievable (ALARA). [facility]: Dose Right [facility]: CareDose [facility]: Dose Right [facility]: Teradose 4D [facility]: [facility] CONTRAST TYPE AND DOSE: contrast/concentration: Isovue 370.00 mg/ml; Total Contrast Delivered: 80.0 ml; Total Saline Delivered: 55.0 ml RENAL FUNCTION: Creatinine 0.80. LIMITATIONS: Streak artifact from the patient's dental hardware. FINDINGS: AORTIC ARCH: Normal three-vessel origin. Bilateral subclavian arteries are patent. No d issection. RIGHT CAROTIDS: Patent common, internal and external carotid arteries. Calcified plaque at the right carotid bifurcation with more than 50 % stenosis of the proximal right internal carotid artery, incr eased in the interval. No dissection. RIGHT VERTEBRAL: Patent. No dissection. LEFT CAROTIDS: Patent common, internal and external carotid arteries. Endarterectomy changes are see n at the left internal carotid artery. No significant stenosis. Adjacent soft tissue stranding may be related to recent surgery. No dissection. LEFT VERTEBRAL: Patent. No dissection. OTHER: There is a 1 cm heterogeneous hypodense nodule at the inferior left lobe of the thyroid. OTHER: 3-D reconstructions confirm findings. IMPRESSION: Status post left-sided carotid endarterectomy. Patent left internal carotid artery. Calcified plaque at the right carotid bifurcation with interval increase in the stenosis at the proxi mal right carotid artery. 1 cm heterogeneous hypodense nodule at the left thyroid lobe. This can be better characterized with nonemergent dedicated thyroid ultrasound. COMMENT: Quality ID #[id number]: Measurements of distal internal carotid diameter were used as the denomina tor for stenosis measurement. TECHNICAL DOCUMENTATION: JOB ID: [id number] [facility] Quality ID # [id number]: Final reports with documentation of one or more dose reduction techniques (e.g., Au tomated exposure control, adjustment of the mA and/or kV according to patient size, use of iterative reconstruction technique) 2010 [employer]- All Rights Reserved
[2017-04-17 02:19] VITALS: BP 177/71
--- NOTE | 2017-04-17 17:37 | EKG REPORT ---
SEVERITY:- NORMAL ECG - SINUS RHYTHM : Confirmed by: Vivian Nuñez MD 17-Apr-2017 17:37:02
== END 2017-04-17 02:19 | disposition home or self-care (01) ==
LOC: ER 19:40
DX: I10 Essential (primary) hypertension (principal); I65.21 Occlusion and stenosis of right carotid artery; R42 Dizziness and giddiness; R51 Headache; Z98.890 Other specified postprocedural states; R20.0 Anesthesia of skin; R10.12 Left upper quadrant pain; R19.4 Change in bowel habit; J44.9 Chronic obstructive pulmonary disease, unspecified; E11.9 Type 2 diabetes mellitus without complications; Z79.01 Long term (current) use of anticoagulants; Z79.899 Other long term (current) drug therapy
CPT/HCPCS: 93005; 99284; 96361; 96374; 36415; 82962; 85025; 80053; 70450; 70498; 93010; J2270; J7040

== ENCOUNTER → 2017-07-15 | Outpatient (CLI) | payer MEDICARE, MEDICAID ==
[2017-07-15 16:48] LABS: ANION GAP 13 (5-19); BLOOD UREA NITROGEN 22 mg/dL (7-20); CALCIUM 10.3 mg/dL (8.4-10.2); CARBON DIOXIDE 30 mmol/L (22-30); CHLORIDE 99 mmol/L (98-107); GLUCOSE 118 mg/dL (75-110); POTASSIUM 4.2 mmol/L (3.6-5.0); SODIUM 142.2 mmol/L (137-145)
[2017-07-17 16:38] LABS: CREATININE URINE 62.4 mg/dL (Not Estab.); MICROALBUMIN URINE 19.7 ug/mL (Not Estab.)
== END ==
LOC: LAB 16:11
PROVIDERS: ATTEND Internal Medicine Nephrology
DX: N18.2 Chronic kidney disease, stage 2 (mild) (principal); R80.9 Proteinuria, unspecified
CPT/HCPCS: 36415; 80048; 82043; 82570

== ENCOUNTER 2017-07-24 21:56 | Emergency (ER) | payer MEDICARE, MEDICAID ==
--- NOTE | 2017-07-25 00:09 | ER Document Report ---
ED Medical Screen (RME) - General Chief Complaint: Stiff Neck Stated Complaint: NECK PAIN Time Seen by Provider: 07/25/17 00:01 Mode of Arrival: Ambulatory Information source: Patient, Relative TRAVEL OUTSIDE OF THE [place] IN LAST 30 DAYS: No - HPI Patient complains to provider of: dizziness Notes: 07/25/17 00:07 Patient arrives with multiple complaints and some difficulty in exactly explaining her reason for her visit. Patient has had prior left endarterectomy is noted to have right carotid stenosis. She states that she has had numbness tingling weakness to the right side of her body for the last few months. She told me the main reason for her visit today was earlier today she was feeling very dizzy and was not able to stand. She feels like this is improved. She denies any chest pain or shortness of breath at this time. She does complain of some stiffness in her neck, but states that this is been present since she had her carotid endarterectomy several months ago. On exam the patient is nontoxic appearing. Cranial nerves are intact. Equal strength to her upper and lower extremities bilaterally. She has difficulty with finger to nose. No pronator drift. Patient was evaluated in triage and was medically screened. Any pertinent orders based on the patient's complaints were ordered at this time. Patient will require further evaluation and will be taken to a room for further evaluation by another provider. This was explained to the patient and/or family at this time. - Related Data Allergies/Adverse Reactions: lisinopril Allergy (Verified 07/24/17 23:59) Past Medical History - Social History Frequency of alcohol use: None Drug Abuse: None - Past Medical History Cardiac Medical History: Reports: Hx Hypertension Denies: Hx Heart Attack Pulmonary Medical History: Reports: Hx COPD Denies: Hx Asthma Neurological Medical History: Reports: Hx Migraine. Denies: Hx Cerebrovascular Accident, Hx Seizures Endocrine Medical History: Reports: Hx Diabetes Mellitus Type 2 Renal/ Medical History: Denies: Hx Peritoneal Dialysis GI Medical History: Denies: Hx Hepatitis, Hx Hiatal Hernia, Hx Ulcer Musculoskeltal Medical History: Reports Hx Arthritis - osteoarthritis Psychiatric Medical History: Reports: Hx Anxiety, Hx Depression Infectious Medical History: Denies: Hx Hepatitis Past Surgical History: Reports: Hx Section - 3, Hx Orthopedic Surgery - right foot. Denies: Hx Mastectomy, Hx Open Heart Surgery, Hx Pacemaker - Immunizations Immunizations up to date: Yes Hx Diphtheria, Pertussis, Tetanus Vaccination: Yes History of Influenza Vaccine for 03/2017 - 08/2017 Season: No Physical Exam - Vital signs Vitals: Temp Pulse Resp BP Pulse Ox 97.8 F 66 20 175/75 H 100 07/24/17 23:17 07/24/17 23:17 07/24/17 23:17 07/24/17 23:17 07/24/17 23:17 Course - Vital Signs Vital signs: Temp Pulse Resp BP Pulse Ox 97.8 F 66 20 153/73 H 100 07/24/17 23:17 07/24/17 23:50 07/24/17 23:17 07/24/17 23:58 07/24/17 23:17
[2017-07-25 01:09] LABS: ABSOLUTE BASOPHILS # (AUTO) 0.1 10^3/uL (0.0-0.2); ABSOLUTE EOSINOPHILS # (AUTO) 0.2 10^3/uL (0.0-0.6); ABSOLUTE MONOCYTES (AUTO) 0.6 10^3/uL (0.1-1.4); ABSOLUTE NEUT (AUTO) 4.6 10^3/uL (1.7-8.2); EOSINOPHILS % (AUTO) 2.6 % (0-6); HEMATOCRIT 35.3 % (36.0-47.0); LYMPHOCYTES % (AUTO) 35.2 % (13-45); MEAN CORPUSCULAR HEMOGLOBIN 31.2 pg (27.0-33.4); MEAN CORPUSCULAR HGB CONC 34.1 g/dL (32.0-36.0); MEAN CORPUSCULAR VOLUME 92 fl (80-97); MONOCYTES % (AUTO) 7.1 % (3-13); PLATELET COUNT 217 10^3/uL (150-450); RED BLOOD COUNT 3.85 10^6/uL (3.72-5.28); RED CELL DISTRIBUTION WIDTH 13.2 % (11.5-14.0); SEGMENTED NEUTROPHILS % (AUTO) 54.1 % (42-78); TOTAL CELLS COUNTED % (AUTO) 100 %; WHITE BLOOD COUNT 8.5 10^3/uL (4.0-10.5)
--- NOTE | 2017-07-25 01:11 | RADIOLOGY REPORT (SQ) ---
EXAM DESCRIPTION: CT HEAD WITHOUT CLINICAL HISTORY: dizziness COMPARISON: 04/16/2017 TECHNIQUE: Axial CT of the head obtained from the skull apex to the skull base without contrast. FINDINGS: No acute intracranial hemorrhage identified. No mass, mass effect, shift of the midline, abnormal extra-axial fluid collection or CT evidence of acute ischemic change identified. The ventricular system and sulcal spaces are mildly enlarged compatible with mild cerebral atrophy. Scattered areas of hypodensity throughout the supratentorial white matter are nonspecific and may be related to chronic small vessel ischemic change. The visualized paranasal sinuses and the mastoids are clear. No skull fracture identified. Visualized orbits and globes are unremarkable. Atherosclerotic calcification of the intracranial internal carotid arteries. DLP:1162.97 mGy-cm IMPRESSION: 1. No acute intracranial abnormality by CT criteria. This exam was performed according to our departmental dose-optimization program, which includes automated exposure control, adjustment of the mA and/or kV according to patient size and/or use of iterative reconstruction technique.
[2017-07-25 01:15] LABS: INTERNATIONAL RATION (INR) 0.91; PROTHROMBIN TIME 12.9 SEC (11.4-15.4)
[2017-07-25 01:16] LABS: PARTIAL THROMBOPLASTIN TIME 24.4 SEC (23.5-35.8)
--- NOTE | 2017-07-25 01:17 | RADIOLOGY REPORT (SQ) ---
EXAM DESCRIPTION: CHEST PA/LAT CLINICAL HISTORY: dizziness COMPARISON: 12/28/2016 FINDINGS: Frontal and lateral views of the chest. Tortuosity of the thoracic aorta. Cardiomegaly. No consolidation, pneumothorax, or pleural effusion. No displaced rib fractures identified. Upper abdominal soft tissues are unremarkable. IMPRESSION: 1. No acute pulmonary process identified.
[2017-07-25 01:30] LABS: ALANINE AMINOTRANSFERASE 58 U/L (9-52); ALBUMIN 4.3 g/dL (3.5-5.0); ALKALINE PHOSPHATASE 55 U/L (38-126); ANION GAP 11 (5-19); ASPARTATE AMINO TRANSFERASE 34 U/L (14-36); BILIRUBIN,DIRECT 0.2 mg/dL (0.0-0.4); BILIRUBIN,TOTAL 0.4 mg/dL (0.2-1.3); BLOOD UREA NITROGEN 30 mg/dL (7-20); CALCIUM 10.1 mg/dL (8.4-10.2); CARBON DIOXIDE 27 mmol/L (22-30); CHLORIDE 106 mmol/L (98-107); GLUCOSE 134 mg/dL (75-110); POTASSIUM 4.7 mmol/L (3.6-5.0); SODIUM 143.5 mmol/L (137-145)
[2017-07-25] MEDS ORDERED: LABETALOL HCL 200 MG TABLET PO ONE (02:37)
--- NOTE | 2017-07-25 02:47 | ER Document Report ---
ED General - General Chief Complaint: Stiff Neck Stated Complaint: NECK PAIN Time Seen by Provider: 07/25/17 00:01 Mode of Arrival: Ambulatory Notes: Patient is a 61-year-old female who presents with multiple complaints. She says that she has stiff neck since her endarterectomy back in March. This was performed by Dr. Gamez in [facility]. She also says that she has had difficulty walking and her gait has been off since the surgery in March. She also says that she is occasionally nauseous since the surgery in March. She says all the symptoms have been occurring since March. She did talk to her surgeon who says it is not related to surgery. She says she is post follow-up with him in 1 year from the time the surgery. She has been following with her doctor about the symptoms but has not gotten any further information. Patient says she also came in today because she has high blood pressure. Patient is on Tribenzor as well as labetalol. She says that the labetalol was make her blood pressure go low and therefore she stopped taking it yesterday. Today her blood pressure became very high therefore she came to the ER. She is unsure what the dose of her labetalol is. She says that she has some intermittent numbness and tingling into her extremities. She also gets a warm feeling that comes over. She says this is also been happening intermittently since the surgery in March. She has no other complaints at this time. TRAVEL OUTSIDE OF THE [place] IN LAST 30 DAYS: No - Related Data Allergies/Adverse Reactions: lisinopril Allergy (Verified 07/24/17 23:59) Past Medical History - General Information source: Patient, Relative - Social History Smoking Status: Former Smoker Frequency of alcohol use: None Drug Abuse: None Family History: Reviewed & Not Pertinent Patient has suicidal ideation: No Patient has homicidal ideation: No - Past Medical History Cardiac Medical History: Reports: Hx Hypertension Denies: Hx Heart Attack Pulmonary Medical History: Reports: Hx COPD Denies: Hx Asthma Neurological Medical History: Reports: Hx Migraine. Denies: Hx Cerebrovascular Accident, Hx Seizures Endocrine Medical History: Reports: Hx Diabetes Mellitus Type 2 Renal/ Medical History: Denies: Hx Peritoneal Dialysis GI Medical History: Denies: Hx Hepatitis, Hx Hiatal Hernia, Hx Ulcer Musculoskeltal Medical History: Reports Hx Arthritis - osteoarthritis Psychiatric Medical History: Reports: Hx Anxiety, Hx Depression Infectious Medical History: Denies: Hx Hepatitis Past Surgical History: Reports: Hx Section - 3, Hx Orthopedic Surgery - right foot. Denies: Hx Mastectomy, Hx Open Heart Surgery, Hx Pacemaker - Immunizations Immunizations up to date: Yes Hx Diphtheria, Pertussis, Tetanus Vaccination: Yes Hx Pneumococcal Vaccination: 05/31/11 Review of Systems - Review of Systems Notes: My Normal Review Basic REVIEW OF SYSTEMS: CONSTITUTIONAL : Denies fever, chills, or sweats. Denies recent illness. EENT: Denies eye, ear, throat, or mouth pain or symptoms. Denies nasal or sinus congestion. CARDIOVASCULAR: Denies chest pain. RESPIRATORY: Denies cough, cold, or chest congestion. Denies shortness of breath, difficulty breathing, or wheezing. GASTROINTESTINAL: Denies abdominal pain. Denies nausea, vomiting, or diarrhea. Denies constipation. Last BM: MUSCULOSKELETAL: chronic neck stiffness since surgery in March. SKIN: Denies rash or skin lesions. HEMATOLOGIC : Denies easy bruising or bleeding. LYMPHATIC: Denies swollen, enlarged glands. NEUROLOGICAL: Denies altered mental status or loss of consciousness. Denies headache. Denies weakness or paralysis or loss of use of either side. Denies problems with gait or speech. Denies sensory or motor loss. ALL OTHER SYSTEMS REVIEWED AND NEGATIVE. Physical Exam - Vital signs Vitals: Temp Pulse Resp BP Pulse Ox 97.8 F 66 20 175/75 H 100 07/24/17 23:17 07/24/17 23:17 07/24/17 23:17 07/24/17 23:17 07/24/17 23:17 - Notes Notes: General Appearance: Well nourished, alert, cooperative, no acute distress, no obvious discomfort. Vitals: reviewed, See vital signs table. Head: no swelling or tenderness to the head Eyes: PERRL, EOMI, Conjuctiva clear Mouth: No decreasd moisture Throat: No tonsillar inflammation, No airway obstruction, No lymphadenopathy Neck: Supple, no neck tenderness, No thyromegaly. Scar on right side of the neck without swelling. Lungs: No wheezing, No rales, No rhonci, No accessory muscle use, good air exchange bilaterally. Heart: Normal rate, Regular rythm, No murmur, no rub Abdomen: Normal BS, soft, No rigidity, No abdominal tenderness, No guarding, no rebound, no abdominal masses, no organomegaly Extremities: strength 5/5 in all extremities, good pulses in all extremities, no swelling or tenderness in the extremities, no edema. Skin: warm, dry, appropriate color, no rash Neuro: speech clear, oriented x 3, normal affect, responds appropriately to questions. Cranial nerves II through XII are intact. Distal sensation intact. Patient has good strength in all 4 extremities. No focal neurologic deficits on exam. Course - Re-evaluation Re-evalutation: 07/25/17 06:57 The patient have this available. Patient is to leave after that. I will informed her that I want to take half her labetalol every day being at full dosing to lower her blood pressure too much and not taking all because her blood pressure was very high. Patient agrees with this plan. Patient does not have any new symptoms. Every symptom that she mentions she says she has had since she has had her and her doctor me. That was done several months ago. I told her I do not know exactly why she has all the symptoms after that. This is sometimes patients can have strokes afterwards but she says that her vascular surgeon told her that she did not have any stroke. Patient was able to stand and walk without difficulty when I talked her about being discharged. - Vital Signs Vital signs: Temp Pulse Resp BP Pulse Ox 97.6 F 69 18 183/84 H 99 07/25/17 03:09 07/25/17 03:09 07/25/17 03:09 07/25/17 03:09 07/25/17 03:09 - Laboratory Result Diagrams: 07/25/17 00:37 07/25/17 00:37 Laboratory results interpreted by me: 07/25/17 07/25/17 00:37 00:37 Hct 35.3 L BUN 30 H Glucose 134 H ALT 58 H Discharge - Discharge Clinical Impression: Hypertension Qualifiers: Hypertension type: unspecified Qualified Code(s): I10 - Essential (primary) hypertension Condition: Good Disposition: HOME, SELF-CARE Additional Instructions: Please return to the ER immediately if you any new weakness in your extremities , recurrent high blood pressure not responding to your medication, or if you feel unwell. Please follow up closely with your primary care doctor in the next 1-2 days. Please take half a tablet of your Labetalol every day instead of a whole tablet. Follow up with Dr. Gamez in regards to your continued neck pain that you have had since your surgery. Referrals: NORA DUTTON, [employer]IDENT[employer]GER[employer] [Primary Care Provider] - Follow up tomorrow
[2017-07-25 03:13] VITALS: BP 183/84
== END 2017-07-25 03:13 | disposition home or self-care (01) ==
LOC: ER 21:56
DX: I10 Essential (primary) hypertension (principal); Z79.899 Other long term (current) drug therapy; M43.6 Torticollis; Z98.890 Other specified postprocedural states; R26.9 Unspecified abnormalities of gait and mobility; R26.2 Difficulty in walking, not elsewhere classified; R11.0 Nausea; R20.0 Anesthesia of skin; R20.2 Paresthesia of skin; E11.9 Type 2 diabetes mellitus without complications; J44.9 Chronic obstructive pulmonary disease, unspecified; Z88.8 Allergy status to other drugs, medicaments and biological substances; Z87.891 Personal history of nicotine dependence
CPT/HCPCS: 99284; 36415; 85025; 85610; 85730; 80053; 84484; 71046; 70450; A9270

== ENCOUNTER 2017-08-14 02:39 | Observation (INO) | payer MEDICARE, MEDICAID ==
[2017-08-14] MEDS ORDERED: ASPIRIN 81 MG TABLET, CHEWABLE PO ONE (03:58)
--- NOTE | 2017-08-14 04:02 | ER Document Report ---
ED Cardiac - General TRAVEL OUTSIDE OF THE [place] IN LAST 30 DAYS: No <FANTA LINDSAY - Last Filed: 08/14/17 06:37> <DEBBY PEREZ - Last Filed: 08/14/17 08:40> - General Chief Complaint: Chest tightness, HTN Stated Complaint: BLOOD PRESSURE PROBLEM Time Seen by Provider: 08/14/17 03:48 Notes: Patient is a 61-year-old female that comes emergency department for chief complaint of a tightness and pressure in her chest. She states it started in the evening after she got off of work. She states that she took a labetalol because she thought it would help, she states she still feels an uncomfortable tightness in her chest. Symptoms have not come and gone, they have been constant. No radiation, no nausea or vomiting, no shortness of breath, she denies cough or fever. She denies UT history, past medical history of type 2 diabetes, hypertension, former smoker. She has had a carotid endarterectomy on the right side, she complains of pain in her neck but states it is the same as always. Positive family history of UT (her parents). (FANTA LINDSAY) - Related Data Allergies/Adverse Reactions: lisinopril Allergy (Verified 07/24/17 23:59) Past Medical History - General Information source: Patient - Social History Smoking Status: Former Smoker Chew tobacco use (# tins/day): No Frequency of alcohol use: None Lives with: Family Family History: Reviewed & Not Pertinent Patient has suicidal ideation: No Patient has homicidal ideation: No - Past Medical History Cardiac Medical History: Reports: Hx Hypertension Denies: Hx Heart Attack Pulmonary Medical History: Reports: Hx COPD Denies: Hx Asthma Neurological Medical History: Reports: Hx Migraine. Denies: Hx Cerebrovascular Accident, Hx Seizures Endocrine Medical History: Reports: Hx Diabetes Mellitus Type 2 Renal/ Medical History: Denies: Hx Peritoneal Dialysis GI Medical History: Denies: Hx Hepatitis, Hx Hiatal Hernia, Hx Ulcer Musculoskeltal Medical History: Reports Hx Arthritis - osteoarthritis Psychiatric Medical History: Reports: Hx Anxiety, Hx Depression Infectious Medical History: Denies: Hx Hepatitis Past Surgical History: Reports: Hx Section - 3, Hx Orthopedic Surgery - right foot. Denies: Hx Mastectomy, Hx Open Heart Surgery, Hx Pacemaker - Immunizations Immunizations up to date: Yes Hx Diphtheria, Pertussis, Tetanus Vaccination: Yes Hx Pneumococcal Vaccination: 05/31/11 <DAFNECELIAJEREFANTA - Last Filed: 08/14/17 06:37> Review of Systems - Review of Systems Constitutional: No symptoms reported EENT: No symptoms reported Cardiovascular: See HPI Respiratory: No symptoms reported Gastrointestinal: No symptoms reported Genitourinary: No symptoms reported Female Genitourinary: No symptoms reported Musculoskeletal: No symptoms reported Skin: No symptoms reported Hematologic/Lymphatic: No symptoms reported Neurological/Psychological: No symptoms reported <FANTA LINDSAY - Last Filed: 08/14/17 06:37> Physical Exam - General General appearance: Appears well In distress: None - HEENT Head: Normocephalic, Atraumatic Eyes: Normal Conjunctiva: Normal Extraocular movements intact: Yes Eyelashes: Normal Pupils: PERRL Mouth/Lips: Normal Mucous membranes: Normal Pharynx: Normal Neck: Normal - Respiratory Respiratory status: No respiratory distress. No: Respiratory distress, Labored , Tachypnea Breath sounds: Normal. No: Decreased air movement, Wheezing - Cardiovascular Rhythm: Regular Heart sounds: Normal auscultation, S1 appreciated, S2 appreciated Murmur: Yes Normal capillary refill: Yes - Abdominal Inspection: Normal Tenderness: Nontender - Back Back: Normal, Nontender. No: Tender - Extremities General upper extremity: Normal inspection, Nontender, Normal ROM, Normal strength General lower extremity: Normal inspection, Nontender, Normal ROM, Normal strength. No: Edema - Neurological Neuro grossly intact: Yes Cognition: Normal Orientation: AAOx4 Preston Coma Scale Eye Opening: Spontaneous Merry Coma Scale Verbal: Oriented Preston Coma Scale Motor: Obeys Commands Merry Coma Scale Total: 15 Speech: Normal Motor strength normal: LUE, RUE, LLE, RLE Sensory: Normal - Psychological Associated symptoms: No: Normal affect - Patient has a slightly flat affect with a somewhat mornful expression, Aggressive, Agitated, Angry - Skin Skin Temperature: Warm Skin Moisture: Dry Skin Color: Normal <DAFNECELIAFANTA - Last Filed: 08/14/17 06:37> - Vital signs Vitals: Temp Pulse Resp BP Pulse Ox 98.4 F 63 18 137/65 H 99 08/14/17 03:09 08/14/17 03:09 08/14/17 03:09 08/14/17 03:09 08/14/17 03:09 Course - Laboratory Result Diagrams: 08/14/17 04:28 08/14/17 04:28 <FANTA LINDSAY - Last Filed: 08/14/17 06:37> - Laboratory Result Diagrams: 08/14/17 04:28 08/14/17 04:28 <DEBBY PEREZ - Last Filed: 08/14/17 08:40> - Re-evaluation Re-evalutation: Chest tightness and pressure resolved after aspirin, still complaining of neck pain, given small dose of fentanyl and symptoms resolved. EKG showing sinus rhythm with no T-wave inversions or ST segment changes in consecutive leads. Chest x-ray unremarkable. CBC, chemistry, cardiac enzymes unremarkable. Patient states she has never had a stress test. She has a heart score of 4, she has had a carotid endarterectomy, she has diabetes, hypertension, former smoker, and positive family history of UT. She had an echocardiogram last year to workup syncope. Discussed with patient, recommended telemetry observation for ACS rule out. (FANTA LINDSAY) - Vital Signs Vital signs: Temp Pulse Resp BP Pulse Ox 98.4 F 63 13 132/60 H 98 08/14/17 03:09 08/14/17 03:09 08/14/17 05:01 08/14/17 07:01 08/14/17 07:01 - Laboratory Laboratory results interpreted by me: 08/14/17 04:28 BUN 21 H Glucose 121 H Calcium 10.4 H Discharge <FANTA LINDSAY - Last Filed: 08/14/17 06:37> - Discharge Admitting Provider: Hospitalist - [facility] [place] Unit Admitted: Telemetry <DEBBY PEREZ - Last Filed: 08/14/17 08:40> - Discharge Clinical Impression: Chest pain Qualifiers: Chest pain type: unspecified Qualified Code(s): R07.9 - Chest pain, unspecified Condition: Stable Disposition: ADMITTED OBSERVATION Referrals: RACIEL MONROY MD [Primary Care Provider] - Follow up as needed
--- NOTE | 2017-08-14 04:27 | RADIOLOGY REPORT (SQ) ---
EXAM DESCRIPTION: CHEST SINGLE VIEW CLINICAL HISTORY: 61 years, Female, chest pain COMPARISON: 07/25/2017 NUMBER OF VIEWS: 1 TECHNIQUE: AP portable upright LIMITATIONS: None. FINDINGS: Normal lung volume, clear parenchyma, normal cardiac silhouette, and mild dextroconvexity. IMPRESSION: No acute cardiopulmonary findings.
[2017-08-14] MEDS ORDERED: NITROGLYCERIN 0.4 MG/TAB 25 TAB/BOTTLE SL ONE (04:33)
[2017-08-14 04:37] LABS: ABSOLUTE BASOPHILS # (AUTO) 0.1 10^3/uL (0.0-0.2); ABSOLUTE EOSINOPHILS # (AUTO) 0.2 10^3/uL (0.0-0.6); ABSOLUTE LYMPHOCYTES (AUTO) 2.8 10^3/uL (0.5-4.7); ABSOLUTE MONOCYTES (AUTO) 0.6 10^3/uL (0.1-1.4); ABSOLUTE NEUT (AUTO) 4.4 10^3/uL (1.7-8.2); BASOPHILS % (AUTO) 0.6 % (0-2); HEMATOCRIT 36.6 % (36.0-47.0); HEMOGLOBIN 12.4 g/dL (12.0-15.5); LYMPHOCYTES % (AUTO) 35.2 % (13-45); MEAN CORPUSCULAR HEMOGLOBIN 31.1 pg (27.0-33.4); MEAN CORPUSCULAR HGB CONC 33.9 g/dL (32.0-36.0); MEAN CORPUSCULAR VOLUME 92 fl (80-97); MONOCYTES % (AUTO) 7.1 % (3-13); PLATELET COUNT 242 10^3/uL (150-450); RED BLOOD COUNT 3.99 10^6/uL (3.72-5.28); SEGMENTED NEUTROPHILS % (AUTO) 55.1 % (42-78); TOTAL CELLS COUNTED % (AUTO) 100 %; WHITE BLOOD COUNT 8.1 10^3/uL (4.0-10.5)
[2017-08-14] MEDS ORDERED: FENTANYL CITRATE INJ/PF 100 MCG/2 ML AMPUL IV ONE (04:48)
[2017-08-14 04:51] LABS: ALANINE AMINOTRANSFERASE 44 U/L (9-52); ALBUMIN 4.4 g/dL (3.5-5.0); ALKALINE PHOSPHATASE 52 U/L (38-126); ANION GAP 12 (5-19); ASPARTATE AMINO TRANSFERASE 27 U/L (14-36); BILIRUBIN,DIRECT 0.4 mg/dL (0.0-0.4); BILIRUBIN,TOTAL 0.4 mg/dL (0.2-1.3); BLOOD UREA NITROGEN 21 mg/dL (7-20); CALCIUM 10.4 mg/dL (8.4-10.2); CARBON DIOXIDE 26 mmol/L (22-30); CHLORIDE 104 mmol/L (98-107); CREATINE KINASE 57 U/L (30-135); GLUCOSE 121 mg/dL (75-110); POTASSIUM 4.3 mmol/L (3.6-5.0); SODIUM 141.9 mmol/L (137-145); TOTAL PROTEIN 7.4 g/dL (6.3-8.2)
[2017-08-14 05:04] LABS: CREATINE KINASE MB 0.43 ng/mL (<4.55)
[2017-08-14 05:05] LABS: TROPONIN I < 0.012 ng/mL
--- NOTE | 2017-08-14 09:37 | EKG REPORT ---
SEVERITY:- NORMAL ECG - SINUS RHYTHM : Confirmed by: Deidre Hadley 14-Aug-2017 09:36:36
[2017-08-14] MEDS ORDERED: NITROGLYCERIN 0.4 MG/TAB 25 TAB/BOTTLE SL PRN (10:01)
[2017-08-14] MEDS ORDERED: (PENDING PHARMACY ID) (Oxycodone Hcl/Acetaminophen [Percocet 10-325 Mg Tablet] 1 TAB) PO PRN (10:12)
[2017-08-14] MEDS ORDERED: DEXTROSE 40% GEL 15 GM TUBE PO PRN ×2 (10:14)
[2017-08-14] MEDS ORDERED: DEXTROSE 50%-WATER 25 GM/50 ML DISP.SYRIN IV PRN ×2 (10:14)
[2017-08-14] MEDS ORDERED: GLUCAGON,HUMAN RECOMB 1 MG INJ SUBCUT PRN (10:14)
[2017-08-14] MEDS ORDERED: INSULIN LISPRO 100 UNIT/ML 3 ML VIAL SUBCUT PRN (10:15)
[2017-08-14] MEDS ORDERED: LORAZEPAM 0.5 MG TABLET PO PRN (10:19)
[2017-08-14] MEDS: OXYCODONE HCL IR 5 MG TABLET PO PRN ×2 (11:38→20:32)
[2017-08-14] MEDS: OXYCODONE-ACETAMINOPHEN 5-325 MG TABLET PO PRN ×2 (11:39→20:33)
[2017-08-14] MEDS ORDERED: LOSARTAN POTASSIUM 50 MG TABLET PO ONE (13:00)
[2017-08-14] MEDS ORDERED: HYDROCHLOROTHIAZIDE 12.5 MG CAPSULE PO ONE (13:00)
[2017-08-14] MEDS ORDERED: FAMOTIDINE 20 MG TABLET PO ONE (13:00)
[2017-08-14] MEDS ORDERED: ASPIRIN 81 MG TABLET, ENT COATED PO ONE (13:00)
[2017-08-14] MEDS ORDERED: AMLODIPINE BESYLATE 10 MG TABLET PO ONE (13:00)
--- NOTE | 2017-08-14 16:22 | PDOC H&P ---
History of Present Illness Admission Date/PCP: 08/14/17 08:43 RACIEL MONROY MD Patient complains of: Chest Pain History of Present Illness: ROSLYN SEAMAN is a 61 year old female with a past medical history of hypertension, diabetes mellitus type 2, irritable bowel syndrome, anxiety, chronic pain, and recent carotid endarterectomy who presented to the emergency department with a complaint of chest pain that began while she was at rest. She states that she noted that her blood pressure was elevated to 172/105 and took labetalol at that time. The patient states that this is the first time she has ever taken her labetalol as she does not typically take her hypertension medications because "I don't like how they make my neck feel." She states that her chest pain gradually resolved following the labetalol. She denies exacerbating factors, did note that the pain seemed to increase while eating. She denies associated symptoms specifically denying headache, dizziness , diaphoresis, radiation of pain, dyspnea, abdominal pain, nausea. Initial workup in the emergency department is unremarkable with a normal chest x -ray, normal EKG, and normal initial troponin. She is referred to the hospitalist service for observational admission under chest pain workup protocols. Past Medical History Cardiac Medical History: Reports: Hypertension Denies: Congestive Heart Failure, Coronary Artery Disease, Myocardial Infarction, Hyperlipidema Pulmonary Medical History: Reports: Chronic Obstructive Pulmonary Disease (COPD) Denies: Asthma EENT Medical History: Reports: None Neurological Medical History: Reports: Migraine Denies: Hemorrhagic CVA, Ischemic CVA, Seizures Endocrine Medical History: Reports: Diabetes Mellitus Type 2 Renal/ Medical History: Reports: None Malignancy Medical History: Reports: None GI Medical History: Reports: Other - IBS Denies: Hepatitis, Hiatal Hernia Musculoskeltal Medical History: Reports: Arthritis - osteoarthritis Skin Medical History: Reports: None Psychiatric Medical History: Reports: Depression, General Anxiety Disorder, Tobacco Dependency Traumatic Medical History: Reports: None Hematology: Denies: Anemia, Sickle Cell Disease Infectious Medical History: Reports: None Past Surgical History Past Surgical History: Reports: Carotid Endarterectomy, Section - 3, Orthopedic Surgery - right foot Denies: Amputation, Mastectomy, Pacemaker Social History Information Source: Patient Lives with: Family Smoking Status: Former Smoker Cigarettes Packs Per Day: 0.5 Number of Years Smokin Last Time Smoked: 8/207 Frequency of Alcohol Use: Rare Hx Recreational Drug Use: No Drugs: None Hx Prescription Drug Abuse: No - Advance Directive Resuscitation Status: Do Not Resuscitate Family History Family History: Hypertension Parental Family History Reviewed: Yes Children Family History Reviewed: Yes Sibling(s) Family History Reviewed.: Yes Medication/Allergy Home Medications: Dicyclomine HCl [Bentyl 20 mg Tablet] 20 mg PO QIDP PRN 08/14/17 Dulaglutide [Trulicity] 0.75 mg SQ FR@1000 08/14/17 Labetalol HCl [Trandate] 100 mg PO BID 08/14/17 Lorazepam [Ativan 1 mg Tablet] 1 mg PO BID 08/14/17 Olmesartan/Amlodipin/Hcthiazid [Tribenzor 40-10-12.5 mg Tablet] 1 tab PO DAILY 08/14/17 Oxycodone HCl/Acetaminophen [Percocet 10-325 mg Tablet] 1 tab PO Q8HP PRN Allergies/Adverse Reactions: lisinopril Allergy (Verified 07/24/17 23:59) Review of Systems Constitutional: ABSENT: chills, fever(s), headache(s), weight gain, weight loss Eyes: ABSENT: visual disturbances Ears: ABSENT: hearing changes Cardiovascular: PRESENT: chest pain. ABSENT: dyspnea on exertion, edema, orthropnea, palpitations Respiratory: ABSENT: cough, hemoptysis Gastrointestinal: ABSENT: abdominal pain, constipation, diarrhea, hematemesis, hematochezia, nausea, vomiting Genitourinary: ABSENT: dysuria, hematuria Musculoskeletal: ABSENT: joint swelling Integumentary: ABSENT: rash, wounds Neurological: ABSENT: abnormal gait, abnormal speech, confusion, dizziness, focal weakness, syncope Psychiatric: ABSENT: anxiety, depression, homidical ideation, suicidal ideation Endocrine: ABSENT: cold intolerance, heat intolerance, polydipsia, polyuria Hematologic/Lymphatic: ABSENT: easy bleeding, easy bruising Physical Exam Vital Signs: Temp Pulse Resp BP Pulse Ox 98.2 F 68 20 110/83 100 08/14/17 12:42 08/14/17 12:42 08/14/17 12:42 08/14/17 12:42 08/14/17 12:42 General appearance: PRESENT: no acute distress, obese, well-developed, well- nourished Head exam: PRESENT: atraumatic, normocephalic Eye exam: PRESENT: conjunctiva pink, EOMI, PERRLA. ABSENT: scleral icterus Ear exam: PRESENT: normal external ear exam Mouth exam: PRESENT: moist, tongue midline Neck exam: ABSENT: carotid bruit, JVD, lymphadenopathy, thyromegaly Respiratory exam: PRESENT: clear to auscultation avel, symmetrical, unlabored. ABSENT: rales, rhonchi, wheezes Cardiovascular exam: PRESENT: RRR, +S1, +S2. ABSENT: diastolic murmur, rubs, systolic murmur Pulses: PRESENT: normal dorsalis pedis pul Vascular exam: PRESENT: normal capillary refill GI/Abdominal exam: PRESENT: normal bowel sounds, soft. ABSENT: distended, guarding, mass, organolmegaly, rebound, tenderness Rectal exam: PRESENT: deferred Extremities exam: PRESENT: full ROM. ABSENT: calf tenderness, clubbing, pedal edema Neurological exam: PRESENT: alert, awake, oriented to person, oriented to place , oriented to time, oriented to situation, CN II-XII grossly intact. ABSENT: motor sensory deficit Psychiatric exam: PRESENT: agitated, anxious, appropriate affect. ABSENT: homicidal ideation, suicidal ideation Skin exam: PRESENT: dry, intact, warm. ABSENT: cyanosis, rash Results Impressions: Chest X-Ray 08/14/17 03:58 IMPRESSION: No acute cardiopulmonary findings. Assessment & Plan - Diagnosis (1) Chest pain Qualifiers: Chest pain type: unspecified Qualified Code(s): R07.9 - Chest pain, unspecified Is this a current diagnosis for this admission?: Yes Plan: The patient is admitted with complaint of substernal chest pain described as pressure with onset while at rest. HEART score of 4 (moderate risk). EKG demonstrated normal sinus rhythm; no evidence of ST segment elevation or depression. No acute processes. Initial troponins are normal. We will complete chest pain protocol with an echocardiogram and a Cardiolite stress test. We will obtain a hemoglobin A1c and lipid panel in the morning to further stratify cardiac risk. The patient is admitted to the floor on continuous cardiac telemetry. Supplemental oxygen as needed to keep oxygen saturations greater than 90%. Sublingual nitro 0.4 mg 3 every 5 minutes as needed pain. Initiate daily aspirin and low-dose atorvastatin nightly. (2) Hypertension Qualifiers: Hypertension type: unspecified Qualified Code(s): I10 - Essential (primary ) hypertension Is this a current diagnosis for this admission?: Yes Plan: The patient is admittedly noncompliant with her home medication regimen. We will continue the patient's prescribed home medication: Tribenzor 40-10-12.5 We will hold on the patient's home medication labetalol 100 mg twice daily as the patient states that she does not normally take this medication and I am concerned that she may actually be of her prescribed antihypertensives giving her noncompliant nature. She is placed on a cardiac diet. (3) Type 2 diabetes mellitus Is this a current diagnosis for this admission?: Yes Plan: The patient states that she typically takes Trulicity once weekly and metformin daily. We will hold these medications while admitted. She is placed on a consistent carb diet. Accu-Cheks before meals and at bedtime with Humalog for sliding scale coverage. (4) Anxiety Is this a current diagnosis for this admission?: Yes Plan: Will provide Ativan twice daily as needed anxiety and agitation. Monitor for evidence of withdrawal. (5) Benzodiazepine dependence, continuous Is this a current diagnosis for this admission?: Yes Plan: As above. (6) Chronic pain Qualifiers: Chronic pain type: other chronic pain Qualified Code(s): G89.29 - Other chronic pain Is this a current diagnosis for this admission?: Yes Plan: We will continue the patient's home medications; Percocet 10-325 every 8 hours as needed pain. (7) Opiate dependence, continuous Is this a current diagnosis for this admission?: Yes Plan: As above. - Time Time Spent: 50 to 70 Minutes Anticipated discharge: Home Within: within 24 hours
[2017-08-14] MEDS ORDERED: ATORVASTATIN CALCIUM 10 MG TABLET PO ONE (18:00)
[2017-08-14] MEDS: FAMOTIDINE 20 MG TABLET PO SCH (21:36)
[2017-08-15 05:29] LABS: HEMATOCRIT 31.6 % (36.0-47.0); HEMOGLOBIN 10.8 g/dL (12.0-15.5); MEAN CORPUSCULAR HEMOGLOBIN 31.6 pg (27.0-33.4); MEAN CORPUSCULAR HGB CONC 34.2 g/dL (32.0-36.0); MEAN CORPUSCULAR VOLUME 92 fl (80-97); PLATELET COUNT 192 10^3/uL (150-450); RED BLOOD COUNT 3.42 10^6/uL (3.72-5.28); RED CELL DISTRIBUTION WIDTH 12.8 % (11.5-14.0); WHITE BLOOD COUNT 8.2 10^3/uL (4.0-10.5)
[2017-08-15 05:51] LABS: ANION GAP 11 (5-19); BLOOD UREA NITROGEN 23 mg/dL (7-20); CALCIUM 9.5 mg/dL (8.4-10.2); CARBON DIOXIDE 27 mmol/L (22-30); CHLORIDE 103 mmol/L (98-107); CHOLESTEROL 166.74 mg/dL (0-200); GLUCOSE 129 mg/dL (75-110); POTASSIUM 4.4 mmol/L (3.6-5.0); SODIUM 141.4 mmol/L (137-145); TRIGLYCERIDES 203 mg/dL (<150)
[2017-08-15 06:02] LABS: DIRECT LDL 94 mg/dL (<100)
[2017-08-15 06:05] LABS: VLDL CHOLESTEROL 40.6 mg/dL (10-31)
[2017-08-15] MEDS: OXYCODONE HCL IR 5 MG TABLET PO PRN (06:51)
[2017-08-15] MEDS ORDERED: LOSARTAN POTASSIUM 50 MG TABLET PO SCH (10:00)
[2017-08-15] MEDS ORDERED: AMLODIPINE BESYLATE 10 MG TABLET PO SCH ×2 (10:00)
[2017-08-15] MEDS ORDERED: OLMESARTAN PO SCH (10:00)
[2017-08-15] MEDS ORDERED: HYDROCHLOROTHIAZIDE 12.5 MG CAPSULE PO SCH (10:00)
[2017-08-15] MEDS ORDERED: AMLODIPIN PO SCH (10:00)
[2017-08-15] MEDS ORDERED: ASPIRIN 81 MG TABLET, ENT COATED PO SCH (10:00)
[2017-08-15] MEDS ORDERED: HCTHIAZID PO SCH (10:00)
[2017-08-15] MEDS ORDERED: [UNRECOGNIZED DRUG - OTHER] PO SCH (10:00)
[2017-08-15] MEDS: FAMOTIDINE 20 MG TABLET PO SCH (10:42)
[2017-08-15] MEDS: OXYCODONE-ACETAMINOPHEN 5-325 MG TABLET PO PRN (10:53)
[2017-08-15] MEDS ORDERED: REGADENOSON INJ 0.4 MG/5 ML DISP.SYRIN IV ONE (12:19)
[2017-08-15] MEDS ORDERED: AMINOPHYLLINE INJ/PF 250 MG/10 ML SDV IV ONE (12:19)
--- NOTE | 2017-08-15 13:51 | DRAGON STRESS TEST REPORT ---
INTRAVENOUS LEXISCAN CARDIOLITE STRESS TEST USING SINGLE PHOTON EMMISION COMPUTERIZED TOMOGRAPHIC. DATE OF PROCEDURE: August 15, 2017, INDICATION : Chest pain CARDIAC RISK FACTORS: Diabetes, hypertension, dyslipidemia RESTING EKG: Sinus rhythm without any baseline ST-T wave changes STRESS EKG: No significant changes noted with LexiScan bolus REASON FOR TERMINATION: Protocol. PROCEDURE REPORT: Baseline heart rate 64 beats per minute with blood pressure of 147/67. Patient had no significant complaints. Heart rate at 2 minutes post bolus 86 with a blood pressure of 115/50. 3 minutes post bolus heart rate 75 with blood pressure of 133/59. No significant EKG changes were noted. Patient had no significant complaints during the procedure or postprocedure. Patient injected with Aminophyllin 75 mg at 3 minutes or later after Lexiscan bolus. CONCLUSIONS: Normal EKG and hemodynamic response to IV LexiScan. NUCLEAR DATA: At rest the patient was given 11.33 millicuries of technetium 99 sestamibi injected intravenously. As per protocol rest gated SPECT images were obtained. On day of stress test, the patient was given intravenous LexiScan at a dose of 0.4 mg in 5 mL intravenously, followed by flush with normal saline. Subsequently the stress dose of 37.9 millicuries of technetium 99 sestamibi was injected intravenously. As per protocol stress gated images were obtained. NUCLEAR INTERPRETATION: Both raw and processed data were used for interpretation. Visual, qualitative, computer-generated quantitative data was used. There was good myocardial uptake of technetium compound. Motion artifact and soft tissue attenuations were noted. Increased visceral uptake was noted. No definitive areas of transient perfusion defect noted, No definitive areas of fixed perfusion defect or scars noted. A small area of mild fixed defect noted in the mid inferior wall but is felt to be artifactual but cannot rule out an area of mild scar. Summed score of just . EKG gated imaging showed LV EF at 64 %, rest and stress gated EF similar visually. T. I D. ratio was 0.87. Lung heart ratio noted to be within normal limits 0.29. No significant extracardiac and abnormal radiotracer activities were noted. RV free wall uptake was noted to be WNL. IMPRESSION: Also refer to comments under nuclear interpretation. Also test results needs to be interpreted in the context of pretest probability. 1. No definitive areas of transient perfusion defect noted. 2. There is no definitive scintigraphic evidence of myocardial infarction/ scar. A small area of mild fixed defect noted in the mid inferior wall but is felt to be artifactual but cannot rule out an area of mild scar. Summed score of just . 3. EKG gated imaging shows left ventricular ejection fraction of approx. 64 %. 4. Clinical correlation requested as occasionally single vessel disease or balanced ischemia could be missed. In approximately 10% of the cases Lexiscan may not cause adequate vasodilatory stress. RECOMMENDATIONS: Aggressive risk factor modification and medical management. Further evaluation may be needed if continued symptoms or other high risk indicators are noted on clinical evaluation. Close cardiology follow-up is also recommended. Clinical correlation with echocardiogram derived ejection fraction. Inability to exercise by itself can lead to increased cardiovascular event risks. Consider cardiology consultation and or follow-up if clinically indicated. I am available for cardiology evaluation and consultation if requested by the blood bank custodian, unless patient already has a marine equipment engineer. PRISCILA
[2017-08-15 15:30] VITALS: BP 136/56
--- NOTE | 2017-08-15 15:55 | PDOC DISCHARGE SUMMARY ---
General - Admit/Disc Date/PCP Admission Date/Primary Care Provider: 08/14/17 08:43 RACIEL MONROY MD Discharge Date: 08/15/17 - Discharge Diagnosis (1) Chest pain Is this a current diagnosis for this admission?: Yes (2) Hypertension Is this a current diagnosis for this admission?: Yes (3) Type 2 diabetes mellitus Is this a current diagnosis for this admission?: Yes (4) Anxiety Is this a current diagnosis for this admission?: Yes (5) Benzodiazepine dependence, continuous Is this a current diagnosis for this admission?: Yes (6) Chronic pain Is this a current diagnosis for this admission?: Yes (7) Opiate dependence, continuous Is this a current diagnosis for this admission?: Yes - Additional Information Resuscitation Status: Do Not Resuscitate Discharge Diet: Cardiac Discharge Activity: Activity As Tolerated, Balance Activity w/Rest, Slowly Increase Activity Prescriptions: Atorvastatin Calcium [Lipitor 10 mg Tablet] 10 mg PO QHS #30 tablet Famotidine [Pepcid 20 mg Tablet] 20 mg PO Q12 #60 tablet Home Medications: Dicyclomine HCl [Bentyl 20 mg Tablet] 20 mg PO QIDP PRN 08/14/17 Dulaglutide [Trulicity] 0.75 mg SQ FR@1000 08/14/17 Labetalol HCl [Trandate] 100 mg PO BID 08/14/17 Lorazepam [Ativan 1 mg Tablet] 1 mg PO BID 08/14/17 Olmesartan/Amlodipin/Hcthiazid [Tribenzor 40-10-12.5 mg Tablet] 1 tab PO DAILY 08/14/17 Oxycodone HCl/Acetaminophen [Percocet 10-325 mg Tablet] 1 tab PO Q8HP PRN Aspirin [Ecotrin 81 mg EC Tablet] 81 mg PO DAILY tabec 08/15/17 Atorvastatin Calcium [Lipitor 10 mg Tablet] 10 mg PO QHS #30 tablet 08/15/17 Famotidine [Pepcid 20 mg Tablet] 20 mg PO Q12 #60 tablet 08/15/17 History of Present Illness History of Present Illness: ROSLYN SEAMAN is a 61 year old female with a past medical history of hypertension, diabetes mellitus type 2, irritable bowel syndrome, anxiety, chronic pain, and recent carotid endarterectomy who presented to the emergency department with a complaint of chest pain that began while she was at rest. She states that she noted that her blood pressure was elevated to 172/105 and took labetalol at that time. The patient states that this is the first time she has ever taken her labetalol as she does not typically take her hypertension medications because "I don't like how they make my neck feel." She states that her chest pain gradually resolved following the labetalol. She denies exacerbating factors, did note that the pain seemed to increase while eating. She denies associated symptoms specifically denying headache, dizziness , diaphoresis, radiation of pain, dyspnea, abdominal pain, nausea. Initial workup in the emergency department is unremarkable with a normal chest x -ray, normal EKG, and normal initial troponin. She is referred to the hospitalist service for observational admission under chest pain workup protocols. Hospital Course Hospital Course: The patient was admitted for complaint of chest pressure. The patient was monitored on continuous cardiac telemetry; she remained in a normal sinus rhythm without abnormal findings. Serial troponins were negative. Lipid panel was obtained with an LDL of 94, HDL of 37, triglycerides of 203, total cholesterol 166. She was started on low-dose atorvastatin encouraged to eat a low-fat diet. Hemoglobin A1c is found to be 6.5%. Dietary and medication compliance are reinforced. Nuclear stress test was completed and demonstrated a normal EKG and hemodynamic response to IV Lexiscan. An echocardiogram was obtained, at the time of this dictation the results are not yet available. The patient has remained pain-free throughout this admission and elects to be discharged home prior to these results being available. Time of discharge, the patient is pain-free, in stable condition, and provided prescriptions for atorvastatin and aspirin, and Pepcid. She is recommended to take all medications as prescribed by her primary care provider and follow-up with them within 1-2 weeks. Physical Exam Vital Signs: Temp Pulse Resp BP Pulse Ox 98.4 F 71 16 136/56 H 100 08/15/17 15:27 08/15/17 15:27 08/15/17 15:27 08/15/17 15:27 08/15/17 15:27 Intake & Output 08/14/17 08/15/17 08/16/17 06:59 06:59 06:59 Intake Total 384 Balance 384 Weight 83.6 kg General appearance: PRESENT: no acute distress, obese, well-developed, well- nourished Head exam: PRESENT: atraumatic, normocephalic Eye exam: PRESENT: conjunctiva pink, EOMI, PERRLA. ABSENT: scleral icterus Ear exam: PRESENT: normal external ear exam Mouth exam: PRESENT: moist, tongue midline Neck exam: ABSENT: carotid bruit, JVD, lymphadenopathy, thyromegaly Respiratory exam: PRESENT: clear to auscultation avel, symmetrical, unlabored. ABSENT: rales, rhonchi, wheezes Cardiovascular exam: PRESENT: RRR, +S1, +S2. ABSENT: diastolic murmur, rubs, systolic murmur Pulses: PRESENT: normal dorsalis pedis pul Vascular exam: PRESENT: normal capillary refill GI/Abdominal exam: PRESENT: normal bowel sounds, soft. ABSENT: distended, guarding, mass, organolmegaly, rebound, tenderness Rectal exam: PRESENT: deferred Extremities exam: PRESENT: full ROM. ABSENT: calf tenderness, clubbing, pedal edema Neurological exam: PRESENT: alert, awake, oriented to person, oriented to place , oriented to time, oriented to situation, CN II-XII grossly intact. ABSENT: motor sensory deficit Psychiatric exam: PRESENT: appropriate affect, normal mood. ABSENT: homicidal ideation, suicidal ideation Skin exam: PRESENT: dry, intact, warm. ABSENT: cyanosis, rash Results Laboratory Results: 08/15/17 04:20 08/15/17 04:20 08/15/17 08/15/17 04:20 04:20 WBC 8.2 RBC 3.42 L Hgb 10.8 L Hct 31.6 L MCV 92 MCH 31.6 MCHC 34.2 RDW 12.8 Plt Count 192 Sodium 141.4 Potassium 4.4 Chloride 103 Carbon Dioxide 27 Anion Gap 11 BUN 23 H Creatinine 1.12 Est GFR ( Amer) 59 L Est GFR (Non-Af Amer) 49 L Glucose 129 H Calcium 9.5 Triglycerides 203 H Cholesterol 166.74 LDL Cholesterol Direct 94 VLDL Cholesterol 40.6 H HDL Cholesterol 37 L 08/14/17 16:10 Troponin I < 0.012 Impressions: Chest X-Ray 08/14/17 03:58 IMPRESSION: No acute cardiopulmonary findings. Qualifiers PATEINT BEING DISCHARGED WITH ANY OF THE FOLLOWING DIAGNOSIS?: No Plan Time Spent: Less than 30 Minutes
--- NOTE | 2017-08-15 19:28 | XCELERA REPORT ---
[address] [address] Transthoracic Echocardiogram Report Name: ROSLYN SEAMAN Age: 61 yrs Gender: Female : 1955 Patient Status: Inpatient Patient Location: [address] [place], [place] [address] Study Date: 08/15/2017 10:09 AM Height: 64 in Weight: 184 lb BSA: 1.9 m2 Procedure: A complete two-dimensional transthoracic echocardiogram was performed (2D, M-mode, spectral and color flow Doppler). The study was technically difficult with many images being suboptimal in quality. Reason For Study: Chest pain Ordering Physician: TAMIKA WILEY Performed By: Lia Barraza Interpretation Summary The left ventricular ejection fraction is normal. Doppler measurements suggest pseudonormalized left ventricular relaxation, which is associated with grade II/IV or mild to moderate diastolic dysfunction There is mild concentric left ventricular hypertrophy. The left ventricle is grossly normal size. Wall motion cannot be accurately commented on, but no definite regional wall motion abnormalities noted. The right ventricular systolic function is normal. The left atrial size is normal. The right atrium is normal in size There is a trace to mild amount of mitral regurgitation There is no mitral valve stenosis. No aortic regurgitation is present. There is no aortic valve stenosis There is a trace or physiologic amount of tricuspid regurgitation Tricuspid regurgitation jet envelope not well defined to measure RV systolic pressure accurately. The aortic root is not well visualized. The inferior vena cava appeared normal and decreased > 50% with respiration (RAP 5-10 mmHg) There is no pericardial effusion. MMode/2D Measurements & Calculations RVDd: 3.1 cm LVIDd: 4.1 cm FS: 31.9 % Ao root diam: 2.4 cm IVSd: 1.3 cm LVIDs: 2.8 cm EDV(Teich): 74.7 ml LVPWd: 1.3 cm ESV(Teich): 29.5 ml Ao root area: 4.7 cm2 EF(Teich): 60.5 % Doppler Measurements & Calculations MV E max rodney: MV dec slope: Ao V2 max: LV V1 max P.4 cm/sec 211.6 cm/sec 9.0 mmHg MV A max rodney: 195.7 cm/sec2 Ao max PG: LV V1 max: 156.9 cm/sec MV dec time: 17.9 mmHg 149.7 cm/sec MV E/A: 0.54 0.43 sec PA V2 max: TR max rodney: 94.9 cm/sec 235.2 cm/sec PA max P.6 mmHgTR max P.1 mmHg Left Ventricle The left ventricle is grossly normal size. There is mild concentric left ventricular hypertrophy. The left ventricular ejection fraction is normal. Doppler measurements suggest pseudonormalized left ventricular relaxation, which is associated with grade II/IV or mild to moderate diastolic dysfunction. Wall motion cannot be accurately commented on, but no definite regional wall motion abnormalities noted. Right Ventricle The right ventricle is grossly normal size. There is normal right ventricular wall thickness. The right ventricular systolic function is normal. Atria The right atrium is normal in size. The left atrial size is normal. Interarterial septum not well visualized and not well dopplered. Cannot comment on ASD/PFO presence. Mitral Valve There is moderate mitral leaflet calcification. There is no mitral valve stenosis. There is a trace to mild amount of mitral regurgitation. Aortic Valve The aortic valve is not well visualized secondary to technical limitations. There is no aortic valve stenosis. No aortic regurgitation is present. Tricuspid Valve The tricuspid valve is not well visualized, but is grossly normal. There is no tricuspid stenosis. There is a trace or physiologic amount of tricuspid regurgitation. Tricuspid regurgitation jet envelope not well defined to measure RV systolic pressure accurately. Pulmonic Valve The pulmonic valve is not well visualized. Great Vessels The aortic root is not well visualized. The inferior vena cava appeared normal and decreased > 50% with respiration (RAP 5-10 mmHg). Effusions There is no pericardial effusion. : TAMIKA WILEY > Deidre Hadley
[2017-08-15] MEDS ORDERED: ATORVASTATIN CALCIUM 10 MG TABLET PO SCH (22:00)
[2017-08-16] MEDS ORDERED: ASPIRIN 81 MG TABLET, ENT COATED PO SCH (10:00)
== END 2017-08-15 15:45 | disposition home or self-care (01) ==
LOC: ER 02:39 → EH 08:43 → 4N 23:22
PROVIDERS: ADMIT Internal Medicine; ATTEND Internal Medicine
DX: R07.89 Other chest pain (principal); I10 Essential (primary) hypertension; E11.9 Type 2 diabetes mellitus without complications; F41.1 Generalized anxiety disorder; F13.20 Sedative, hypnotic or anxiolytic dependence, uncomplicated; G89.29 Other chronic pain; F11.20 Opioid dependence, uncomplicated; Z91.14 Patient's other noncompliance with medication regimen; M19.90 Unspecified osteoarthritis, unspecified site; M54.2 Cervicalgia; R45.1 Restlessness and agitation; Z87.891 Personal history of nicotine dependence; Z66 Do not resuscitate; Z82.49 Family history of ischemic heart disease and other diseases of the circulatory system; Z79.84 Long term (current) use of oral hypoglycemic drugs; Z98.890 Other specified postprocedural states
CPT/HCPCS: 93005; 99285; 96374; 36415 ×2; 82553; 82962 ×2; 82550; 85025; 85027; 80048; 80053; 84484; 83036; 80061; 93306; 93017; 71045; 78452; 93010; G0378 ×3; A9500; J2785; A9270 ×16; J3010; J3490 ×2; J0280; Q9969

== ENCOUNTER 2017-09-11 01:11 | Emergency (ER) | payer MEDICARE, MEDICAID ==
[2017-09-11] MEDS ORDERED: ASPIRIN 81 MG TABLET, CHEWABLE PO ONE (02:42)
[2017-09-11] MEDS ORDERED: ONDANSETRON 4 MG TAB.RAPDIS PO ONE (02:43)
[2017-09-11] MEDS ORDERED: OXYCODONE-ACETAMINOPHEN 5-325 MG TABLET PO ONE (02:43)
--- NOTE | 2017-09-11 02:46 | ER Document Report ---
ED General - General Chief Complaint: Head ache and chest tightness Stated Complaint: HEAD IS HURTING AND CHEST IS TIGHT Time Seen by Provider: 09/11/17 02:31 Notes: Patient is a 61-year-old female who comes emergency department for chief complaint of pain in her neck, head, chest, and abdomen that started tonight after she went to bed. She states that she tried taking Ativan and all seemed to worsen. She states her neck is hurt ever since she had a carotid endarterectomy, she is on Endocet for this, took some this morning but none tonight. She denies fever chills, focal numbness or weakness, nausea or vomiting, shortness of breath, or specific areas of her abdomen or chest that hurt. She also states her head hurts "all over". She denies dizziness or syncope. Past medical history of type 2 diabetes, hypertension, former smoker. Denies history of [place]. TRAVEL OUTSIDE OF THE [place] IN LAST 30 DAYS: No - Related Data Allergies/Adverse Reactions: lisinopril Allergy (Verified 07/24/17 23:59) Past Medical History - General Information source: Patient - Social History Smoking Status: Former Smoker Family History: Hypertension - Past Medical History Cardiac Medical History: Reports: Hx Hypertension Denies: Hx Congestive Heart Failure, Hx Coronary Artery Disease, Hx Heart Attack, Hx Hypercholesterolemia Pulmonary Medical History: Reports: Hx COPD Denies: Hx Asthma Neurological Medical History: Reports: Hx Migraine. Denies: Hx Cerebrovascular Accident, Hx Seizures Endocrine Medical History: Reports: Hx Diabetes Mellitus Type 2 Renal/ Medical History: Denies: Hx Peritoneal Dialysis GI Medical History: Denies: Hx Hepatitis, Hx Hiatal Hernia, Hx Ulcer Musculoskeltal Medical History: Reports Hx Arthritis - osteoarthritis Psychiatric Medical History: Reports: Hx Anxiety, Hx Depression Infectious Medical History: Denies: Hx Hepatitis Past Surgical History: Reports: Hx Carotid Endarterectomy, Hx Section - 3, Hx Orthopedic Surgery - right foot. Denies: Hx Mastectomy, Hx Open Heart Surgery, Hx Pacemaker - Immunizations Immunizations up to date: Yes Hx Diphtheria, Pertussis, Tetanus Vaccination: Yes Hx Pneumococcal Vaccination: 05/31/11 Review of Systems - Review of Systems Constitutional: See HPI EENT: No symptoms reported Cardiovascular: See HPI Respiratory: See HPI Gastrointestinal: See HPI Genitourinary: No symptoms reported Female Genitourinary: No symptoms reported Musculoskeletal: See HPI Skin: No symptoms reported Hematologic/Lymphatic: No symptoms reported Neurological/Psychological: See HPI Physical Exam - Vital signs Vitals: Temp Pulse Resp BP Pulse Ox 98.1 F 65 22 H 150/71 H 97 09/11/17 01:46 09/11/17 01:46 09/11/17 01:46 09/11/17 01:46 09/11/17 01:46 Interpretation: Normal - General General appearance: Appears well, Alert In distress: None - HEENT Head: Normocephalic, Atraumatic Eyes: Normal Pupils: PERRL - Respiratory Respiratory status: No respiratory distress Chest status: Nontender Breath sounds: Normal. No: Decreased air movement, Wheezing Chest palpation: Normal - Cardiovascular Rhythm: Regular. No: Tachycardia Heart sounds: Normal auscultation, S1 appreciated, S2 appreciated Murmur: No Normal capillary refill: Yes - Abdominal Inspection: Normal Distension: No distension Bowel sounds: Normal Tenderness: Nontender. No: Tender, McBurney's point, Carrasco's sign, Guarding Organomegaly: No organomegaly - Back Back: Normal, Nontender. No: Tender, Vertebra tenderness - Extremities General upper extremity: Normal inspection, Nontender, Normal color, Normal ROM , Normal temperature General lower extremity: Normal inspection, Nontender, Normal color, Normal ROM , Normal temperature, Normal weight bearing. No: Edema, Shawn's sign - Neurological Neuro grossly intact: Yes Cognition: Normal Orientation: AAOx4 Merry Coma Scale Eye Opening: Spontaneous [place] Coma Scale Verbal: Oriented [place] Coma Scale Motor: Obeys Commands [place] Coma Scale Total: 15 Speech: Normal Motor strength normal: LUE, RUE, LLE, RLE Sensory: Normal - Psychological Associated symptoms: Normal affect, Normal mood - Skin Skin Temperature: Warm Skin Moisture: Dry Skin Color: Normal Course - Re-evaluation Re-evalutation: Patient very nonspecific with her complaints. Vital signs are generally unremarkable. She appears to be in no distress. Soft abdomen, clear lungs, unremarkable physical examination, no neurological deficits. No nuchal rigidity. No fever. Chest x-ray unremarkable, EKG with no ischemic findings, CBC, chemistry, cardiac enzymes unremarkable. Cycled cardiac enzymes unremarkable. On reevaluation patient stating that the aspirin had upset her stomach, she was given Carafate and Pepcid, after that she was asymptomatic. Discussed workup with patient, patient states she feels great now, she wants to go home. She states that she thinks she felt bad because she took Ativan tonight, states she was recently prescribed this for sleep. Explained she has the option of not taking it, asked her to talk to her primary provider about this. Discussed follow-up and return precautions. Patient states understanding and agreement. - Vital Signs Vital signs: Temp Pulse Resp BP Pulse Ox 98.1 F 65 13 124/60 95 09/11/17 01:46 09/11/17 01:46 09/11/17 04:01 09/11/17 06:01 09/11/17 06:01 - Laboratory Result Diagrams: 09/11/17 02:55 09/11/17 02:55 Laboratory results interpreted by me: 09/11/17 02:55 BUN 25 H Est GFR (Non-Af Amer) 59 L Calcium 10.5 H Discharge - Discharge Clinical Impression: Generalized pain Condition: Stable Disposition: HOME, SELF-CARE Additional Instructions: Your workup does not show any concerning abnormalities. Continue your prescribed medications for pain and general management. Follow-up with primary care. Return if you develop any concerning or worsening symptoms including difficulty breathing, vomiting, fever, worsening pain, or any other concerning or worsening symptoms. Referrals: RACIEL MONROY MD [Primary Care Provider] - Follow up as needed
[2017-09-11 03:33] LABS: ABSOLUTE BASOPHILS # (AUTO) 0.1 10^3/uL (0.0-0.2); ABSOLUTE EOSINOPHILS # (AUTO) 0.1 10^3/uL (0.0-0.6); ABSOLUTE LYMPHOCYTES (AUTO) 3.2 10^3/uL (0.5-4.7); ABSOLUTE MONOCYTES (AUTO) 0.5 10^3/uL (0.1-1.4); ABSOLUTE NEUT (AUTO) 3.8 10^3/uL (1.7-8.2); EOSINOPHILS % (AUTO) 1.7 % (0-6); HEMOGLOBIN 12.1 g/dL (12.0-15.5); LYMPHOCYTES % (AUTO) 41.1 % (13-45); MEAN CORPUSCULAR HEMOGLOBIN 30.8 pg (27.0-33.4); MEAN CORPUSCULAR HGB CONC 33.7 g/dL (32.0-36.0); MEAN CORPUSCULAR VOLUME 91 fl (80-97); PLATELET COUNT 257 10^3/uL (150-450); RED BLOOD COUNT 3.94 10^6/uL (3.72-5.28); RED CELL DISTRIBUTION WIDTH 13.1 % (11.5-14.0); SEGMENTED NEUTROPHILS % (AUTO) 49.2 % (42-78); TOTAL CELLS COUNTED % (AUTO) 100 %; WHITE BLOOD COUNT 7.7 10^3/uL (4.0-10.5)
[2017-09-11 03:46] LABS: ALANINE AMINOTRANSFERASE 41 U/L (9-52); ALBUMIN 4.4 g/dL (3.5-5.0); ALKALINE PHOSPHATASE 56 U/L (38-126); ANION GAP 12 (5-19); ASPARTATE AMINO TRANSFERASE 20 U/L (14-36); BILIRUBIN,DIRECT 0.1 mg/dL (0.0-0.4); BILIRUBIN,TOTAL 0.2 mg/dL (0.2-1.3); BLOOD UREA NITROGEN 25 mg/dL (7-20); CALCIUM 10.5 mg/dL (8.4-10.2); CARBON DIOXIDE 28 mmol/L (22-30); CHLORIDE 101 mmol/L (98-107); CREATINE KINASE 72 U/L (30-135); GLUCOSE 105 mg/dL (75-110); POTASSIUM 4.3 mmol/L (3.6-5.0); SODIUM 140.6 mmol/L (137-145); TOTAL PROTEIN 7.1 g/dL (6.3-8.2)
[2017-09-11 03:58] LABS: CREATINE KINASE MB 0.92 ng/mL (<4.55)
[2017-09-11 03:59] LABS: TROPONIN I < 0.012 ng/mL
--- NOTE | 2017-09-11 04:27 | RADIOLOGY REPORT (SQ) ---
EXAM DESCRIPTION: CHEST SINGLE VIEW CLINICAL HISTORY: 61 years Female, chest pain COMPARISON: 08/14/2017 NUMBER OF VIEWS/TECHNIQUE: 1/AP LIMITATIONS: None. FINDINGS: Normal lung volume, clear parenchyma, normal cardiac silhouette, and intact bony thorax. IMPRESSION: No acute cardiopulmonary findings.
[2017-09-11] MEDS ORDERED: SUCRALFATE 1 GM TABLET PO ONE (04:38)
[2017-09-11] MEDS ORDERED: FAMOTIDINE 20 MG TABLET PO ONE (04:38)
[2017-09-11 06:22] VITALS: BP 124/60
--- NOTE | 2017-09-11 08:26 | EKG REPORT ---
SEVERITY:- NORMAL ECG - SINUS RHYTHM : Confirmed by: Moiz Coker MD 11-Sep-2017 08:25:14
== END 2017-09-11 06:22 | disposition home or self-care (01) ==
LOC: ER 01:11
DX: M79.1 Myalgia (principal); R51 Headache; R07.9 Chest pain, unspecified; R10.9 Unspecified abdominal pain; I10 Essential (primary) hypertension; J44.9 Chronic obstructive pulmonary disease, unspecified; E11.9 Type 2 diabetes mellitus without complications; Z87.891 Personal history of nicotine dependence
CPT/HCPCS: 93005; 99284; 36415; 82553; 82550; 85025; 80053; 84484; 71045; 93010; A9270 ×5; S0119

== ENCOUNTER 2017-09-13 09:13 | Emergency (ER) | payer MEDICARE, MEDICAID ==
--- NOTE | 2017-09-13 09:31 | ER Document Report ---
ED Medical Screen (RME) - General Chief Complaint: Neck Pain < 24hrs old Stated Complaint: NECK PAIN Time Seen by Provider: 09/13/17 09:23 Mode of Arrival: Ambulatory Information source: Patient Notes: Patient is a 61 year old female with a history of a Carotid Endarterectomy presents to the emergency department complaining of right sided neck pain onset last night. Patient states she has pain medication at home but it has not helped. Patient describes her pain as a 5/5. Patient states she had her carotid endarterectomy on 2016. Patient states her PCP is Dr. Ann. GENERAL: Alert, interacts well. No acute distress. HEAD: Normocephalic, Atraumatic. NECK: Full range of motion. Supple. Trachea midline. Well appearing incision on the right. I have greeted and performed a rapid initial assessment of this patient. A comprehensive ED assessment and evaluation of the patient, analysis of test results and completion of the medical decision making process will be conducted by additional ED providers. TRAVEL OUTSIDE OF THE [place] IN LAST 30 DAYS: No - Related Data Allergies/Adverse Reactions: lisinopril Allergy (Verified 09/13/17 09:14) Past Medical History - General Information source: Patient - Social History Chew tobacco use (# tins/day): No Frequency of alcohol use: None Drug Abuse: None - Past Medical History Cardiac Medical History: Reports: Hx Hypertension Pulmonary Medical History: Reports: Hx COPD Neurological Medical History: Reports: Hx Migraine Endocrine Medical History: Reports: Hx Diabetes Mellitus Type 2 Musculoskeltal Medical History: Reports Hx Arthritis - osteoarthritis Psychiatric Medical History: Reports: Hx Anxiety, Hx Depression Past Surgical History: Reports: Hx Carotid Endarterectomy, Hx Section - 3, Hx Orthopedic Surgery - right foot - Immunizations Immunizations up to date: Yes Hx Diphtheria, Pertussis, Tetanus Vaccination: Yes History of Influenza Vaccine for 03/2017 - 08/2017 Season: No Physical Exam - Vital signs Vitals: Temp Pulse Resp BP Pulse Ox 98.7 F 74 16 142/68 H 99 09/13/17 09:18 09/13/17 09:18 09/13/17 09:18 09/13/17 09:18 09/13/17 09:18 Course - Vital Signs Vital signs: Temp Pulse Resp BP Pulse Ox 98.7 F 74 16 142/68 H 99 09/13/17 09:18 09/13/17 09:18 09/13/17 09:18 09/13/17 09:18 09/13/17 09:18 Scribe Documentation - Scribe Written by Nadine:: Nadine Madrid, 09/13/2017 09:31 acting as scribe for :: Mak
--- NOTE | 2017-09-13 11:21 | ER Document Report ---
ED General - General Chief Complaint: Neck Pain < 24hrs old Stated Complaint: NECK PAIN Time Seen by Provider: 09/13/17 09:23 Mode of Arrival: Ambulatory Notes: Patient is here complaining of tightness and pain and pressure under her neck that has been present since she had a carotid endarterectomy in March,. She says the swelling and pain is getting worse over the past week and particularly worse today. She says her voice is not quite the same but she can swallow. Denies fever. Patient says she saw Dr. Feldman in his office yesterday. I spoke with Dr. Feldman by phone and he says that he spent about 3 hours with this patient in his office yesterday and gave her a prescription for Vistaril. I question the patient about that and she says she has not filled the prescription for the Vistaril yet. Patient says that she went to [facility] last week and had an MRI and was told that she has MS. Patient also says she is having abdominal pains for about 3 months. She has been prescribed Bentyl, but says it is not helping. Does have nausea but not vomiting. TRAVEL OUTSIDE OF THE [place] IN LAST 30 DAYS: No - Related Data Allergies/Adverse Reactions: lisinopril Allergy (Verified 09/13/17 09:14) Past Medical History - General Information source: Patient - Social History Smoking Status: Never Smoker Chew tobacco use (# tins/day): No Frequency of alcohol use: None Drug Abuse: None Family History: Hypertension Patient has suicidal ideation: No Patient has homicidal ideation: No - Past Medical History Cardiac Medical History: Reports: Hx Hypertension Pulmonary Medical History: Reports: Hx COPD Neurological Medical History: Reports: Hx Migraine Endocrine Medical History: Reports: Hx Diabetes Mellitus Type 2 Musculoskeltal Medical History: Reports Hx Arthritis - osteoarthritis Psychiatric Medical History: Reports: Hx Anxiety, Hx Depression Past Surgical History: Reports: Hx Carotid Endarterectomy, Hx Section - 3, Hx Orthopedic Surgery - right foot - Immunizations Immunizations up to date: Yes Hx Diphtheria, Pertussis, Tetanus Vaccination: Yes Hx Pneumococcal Vaccination: 05/31/11 Review of Systems - Review of Systems Notes: REVIEW OF SYSTEMS: CONSTITUTIONAL : Denies fever. EENT: Denies eye, ear, nose pain or other symptoms. See HPI regarding mouth and throat. CARDIOVASCULAR: Denies chest pain. RESPIRATORY: Denies cough, chest congestion, or shortness of breath. GASTROINTESTINAL: Says she has been having abdominal pain for 3 months, but denies vomiting or diarrhea. GENITOURINARY: Denies difficulty or painful urinating, urinary frequency, blood in urine. MUSCULOSKELETAL: Denies back or neck pain. Denies joint pain or swelling. SKIN: Denies rash or skin lesions. NEUROLOGICAL: Not sure exactly what symptoms patient was having that prompted her to get the MRI study at [facility] last week. Does not have any specific neurological deficits reported. ALL OTHER SYSTEMS REVIEWED AND NEGATIVE. Physical Exam - Vital signs Vitals: Temp Pulse Resp BP Pulse Ox 98.7 F 74 16 142/68 H 99 09/13/17 09:18 09/13/17 09:18 09/13/17 09:18 09/13/17 09:18 09/13/17 09:18 Interpretation: Normal - Notes Notes: PHYSICAL EXAMINATION: GENERAL: Well-appearing, in no acute distress. Voice sounds normal to me. HEAD: Atraumatic, normocephalic. EYES: Pupils equal round and reactive to light, extraocular movements intact. ENT: oropharynx clear without exudates. No swelling or airway impingement. Moist mucous membranes. NECK: Normal range of motion, supple. Patient's skin under her chin does look a bit puffy. However, it is very soft and movable and not hard or firm. No fluctuance noted. LUNGS: Breath sounds clear and equal bilaterally. HEART: Regular rate and rhythm without murmurs. ABDOMEN: Soft, nontender. No guarding or rebound. No masses. BACK: No tenderness throughout entire back. EXTREMITIES: Normal range of motion without pain. NEUROLOGICAL: Normal speech, normal gait. Normal sensory, motor, and reflex exams. Awake, alert, and oriented x3. Cranial nerves normal. PSYCH: Normal mood, normal affect. Patient seems to be depressed to me. SKIN: Warm, dry, no rashes. Course - Re-evaluation Re-evalutation: 09/13/17 19:32 Patient is disappointed that I declined to give her a different medication for her abdominal pain. I advised her to see the doctor who prescribed her the Bentyl to consider changing to another medication. This problem is not an emergency medical condition because the patient's been having this discomfort for 3 months. There is no impingement on her airway or difficulty with her swallowing. She is not drooling. She is not having problems having her saliva. She is not having any obvious difficulty breathing or swallowing. I advised her to get the prescription for the Vistaril filled that Dr. Feldman gave her yesterday and see if that helps her symptoms. I did offer to give her a prescription for Zofran for her nausea. I also said that I would give her a prescription for some Ativan or diazepam, but the patient says it does not work and she is allergic to it. So I wrote her a prescription for the Zofran. Patient and her son are upset that I have indicated that I cannot spend any more time going over her chronic medical problems and that we have already offered a solution of me prescribing some nausea medications in the Zofran and she has a prescription for Vistaril to try that Dr. Feldman gave her. I recommended she try both of those and if that does not help her symptoms to follow-up with her primary care physician. - Vital Signs Vital signs: Temp Pulse Resp BP Pulse Ox 98.7 F 75 18 136/82 H 99 09/13/17 11:33 09/13/17 11:33 09/13/17 11:33 09/13/17 11:33 09/13/17 11:33 Discharge - Discharge Clinical Impression: Neck pain, Neck swelling Condition: Stable Disposition: HOME, SELF-CARE Additional Instructions: You have chronic neck pain and swelling secondary to the your previous surgery for a carotid endarterectomy last March. Dr. Feldman prescribed Vistaril when you saw him yesterday, but you have not filled the prescription yet. Your examination shows no acute processes and we feel you can be discharged to follow-up with your primary care. In particular, if you continue having her abdominal pain in spite of the Bentyl that your primary care physician prescribed, you need to follow-up with that primary care provider for further evaluation and treatment. Fill the prescription for Vistaril that you were given yesterday by Dr. Feldman. FOLLOW-UP CARE: If you have been referred to a physician for follow-up care, call the physician s office for an appointment as you were instructed or within the next two days. If you experience worsening or a significant change in your symptoms, notify the physician immediately or return to the Emergency Department at any time for re-evaluation. Prescriptions: Ondansetron [Zofran Odt 4 mg Tablet] 1 - 2 tab PO Q4H PRN #10 tab.rapdis PRN Reason: For Nausea/Vomiting Referrals: LEONOR FELDMAN MD [Primary Care Provider] - Follow up as needed
[2017-09-13 11:33] VITALS: BP 136/82
== END 2017-09-13 11:49 | disposition home or self-care (01) ==
LOC: ER 09:13
DX: M54.2 Cervicalgia (principal); R22.1 Localized swelling, mass and lump, neck; R11.0 Nausea; Z98.890 Other specified postprocedural states; I10 Essential (primary) hypertension; J44.9 Chronic obstructive pulmonary disease, unspecified; E11.9 Type 2 diabetes mellitus without complications
CPT/HCPCS: 99283

== ENCOUNTER 2017-09-17 00:13 | Inpatient (IN) | payer MEDICARE, MEDICAID ==
[2017-09-17] MEDS ORDERED: CALCIUM GLUCONATE 1000 MG/10 ML INJ IV ONE (00:35)
[2017-09-17] MEDS ORDERED: NORMAL SALINE 1000 ML 1,000 ML IV ONE ×2 (00:39→00:48)
[2017-09-17] MEDS ORDERED: INSULIN REG, HUMAN 100 UNIT/ML 3 ML VIAL (PYX) IV ONE ×2 (00:48→01:52)
[2017-09-17] MEDS ORDERED: DEXTROSE 50%-WATER 25 GM/50 ML DISP.SYRIN IV ONE (00:48)
[2017-09-17 00:54] LABS: ABSOLUTE EOSINOPHILS # (AUTO) 0.1 10^3/uL (0.0-0.6); ABSOLUTE LYMPHOCYTES (AUTO) 1.8 10^3/uL (0.5-4.7); ABSOLUTE MONOCYTES (AUTO) 0.4 10^3/uL (0.1-1.4); ABSOLUTE NEUT (AUTO) 5.9 10^3/uL (1.7-8.2); BASOPHILS % (AUTO) 0.3 % (0-2); EOSINOPHILS % (AUTO) 0.9 % (0-6); HEMATOCRIT 35.5 % (36.0-47.0); HEMOGLOBIN 12.1 g/dL (12.0-15.5); LYMPHOCYTES % (AUTO) 21.8 % (13-45); MEAN CORPUSCULAR HEMOGLOBIN 31.3 pg (27.0-33.4); MEAN CORPUSCULAR HGB CONC 33.9 g/dL (32.0-36.0); MEAN CORPUSCULAR VOLUME 92 fl (80-97); MONOCYTES % (AUTO) 4.9 % (3-13); PLATELET COUNT 207 10^3/uL (150-450); RED BLOOD COUNT 3.86 10^6/uL (3.72-5.28); RED CELL DISTRIBUTION WIDTH 13.3 % (11.5-14.0); SEGMENTED NEUTROPHILS % (AUTO) 72.1 % (42-78); TOTAL CELLS COUNTED % (AUTO) 100 %; WHITE BLOOD COUNT 8.2 10^3/uL (4.0-10.5)
[2017-09-17 00:58] LABS: INTERNATIONAL RATION (INR) 0.98
[2017-09-17 00:59] LABS: PROTHROMBIN TIME 13.7 SEC (11.4-15.4)
[2017-09-17 01:07] LABS: ALANINE AMINOTRANSFERASE 31 U/L (9-52); ALBUMIN 4.1 g/dL (3.5-5.0); ALKALINE PHOSPHATASE 52 U/L (38-126); ANION GAP 14 (5-19); ASPARTATE AMINO TRANSFERASE 32 U/L (14-36); BILIRUBIN,DIRECT 0.2 mg/dL (0.0-0.4); BILIRUBIN,TOTAL 0.4 mg/dL (0.2-1.3); BLOOD UREA NITROGEN 19 mg/dL (7-20); CARBON DIOXIDE 25 mmol/L (22-30); CHLORIDE 100 mmol/L (98-107); GLUCOSE 171 mg/dL (75-110); SODIUM 139.3 mmol/L (137-145); TOTAL PROTEIN 6.6 g/dL (6.3-8.2)
[2017-09-17 01:08] LABS: ACETAMINOPHEN < 10 ug/mL (10-30); ALCOHOL < 10 mg/dL (NONE DETECTED); SALICYLATE < 1.0 mg/dL (2.0-20.0)
[2017-09-17 01:18] LABS: CREATINE KINASE MB 0.67 ng/mL (<4.55); NT PRO BNP 148 pg/mL (5-900)
[2017-09-17 01:22] LABS: TROPONIN I < 0.012 ng/mL
[2017-09-17 01:34] LABS: VENOUS BLOOD BASE EXCESS -2.3 mmol/L; VENOUS BLOOD HCO3 23.9 mmol/L (20-32); VENOUS BLOOD PCO2 47.2 mmHg (35-63); VENOUS BLOOD PH 7.32 (7.30-7.42)
[2017-09-17] MEDS ORDERED: ONDANSETRON HCL INJ/PF 4 MG/2 ML SDV IV ONE (01:39)
[2017-09-17] MEDS ORDERED: GLUCAGON,HUMAN RECOMB 1 MG INJ IV ONE ×2 (01:43→03:50)
[2017-09-17] MEDS ORDERED: DEXTROSE 5%-WATER 1000 ML 1,000 ML IV ONE (01:53)
--- NOTE | 2017-09-17 02:07 | ER Document Report ---
ED General - General Chief Complaint: Overdose Stated Complaint: UNRESPONSIVE Time Seen by Provider: 09/17/17 00:31 Mode of Arrival: Ambulatory Information source: Patient, Relative, Emergency Med Personnel Cannot obtain history due to: Uncooperative Notes: 61-year-old female with history of diabetes, hypertension, CVA, depression and anxiety presents via EMS after a reported intentional beta anton overdose. EMS and family states that the patient was alone in her room when the family heard a big thump and when they entered the room she was found on the floor unresponsive. Next to her was a note that said DNR a bottle of labetalol. Son is at the bedside and states she thinks that she took 5 100 mg labetalol at an unclear time. Patient is uncooperative with history but complains of right hip and neck pain. TRAVEL OUTSIDE OF THE [place] IN LAST 30 DAYS: No - HPI Onset: Just prior to arrival Onset/Duration: Sudden Quality of pain: Throbbing Severity: Mild - Related Data Allergies/Adverse Reactions: lisinopril Allergy (Verified 09/13/17 09:14) Past Medical History - General Information source: Patient, Relative - Social History Smoking Status: Never Smoker Frequency of alcohol use: None Drug Abuse: None Lives with: Family Family History: Hypertension Patient has suicidal ideation: Yes Patient has homicidal ideation: No - Past Medical History Cardiac Medical History: Reports: Hx Hypertension Pulmonary Medical History: Reports: Hx COPD Neurological Medical History: Reports: Hx Migraine Endocrine Medical History: Reports: Hx Diabetes Mellitus Type 2 Renal/ Medical History: Denies: Hx Peritoneal Dialysis Musculoskeltal Medical History: Reports Hx Arthritis - osteoarthritis, Reports Hx Multiple Sclerosis Psychiatric Medical History: Reports: Hx Anxiety, Hx Depression Past Surgical History: Reports: Hx Carotid Endarterectomy, Hx Section - 3, Hx Orthopedic Surgery - right foot - Immunizations Immunizations up to date: Yes Hx Diphtheria, Pertussis, Tetanus Vaccination: Yes Hx Pneumococcal Vaccination: 05/31/11 Review of Systems - Review of Systems -: Yes ROS unobtainable due to patient's medical condition Musculoskeletal: Joint pain, Neck pain Physical Exam - Vital signs Vitals: Temp 97.5 F 09/17/17 00:28 Interpretation: Normal, Hypotensive, Bradycardic - General General appearance: Appears well, Lethargic In distress: Mild - HEENT Head: Normocephalic, Atraumatic Eyes: Normal Extraocular movements intact: Yes Pupils: PERRL Ears: Normal External canal: Normal Tympanic membrane: Normal Sinus: Normal Mouth/Lips: Normal Mucous membranes: Normal - Respiratory Respiratory status: No respiratory distress. No: Respiratory distress Chest status: Nontender Breath sounds: Normal Chest palpation: Normal - Cardiovascular Rhythm: Regular, Bradycardia Heart sounds: Normal auscultation Murmur: No Pulses: Normal: Radial, Dorsalis pedis - Abdominal Inspection: Normal Distension: No distension Bowel sounds: Normal Tenderness: Nontender Organomegaly: No organomegaly - Extremities General upper extremity: Normal inspection, Nontender, Normal color, Normal ROM , Normal temperature General lower extremity: Normal inspection, Nontender, Normal color, Normal ROM , Normal temperature, Normal weight bearing. No: Shawn's sign Hip: Tender, Pain with ROM. No: Deformity, Ecchymosis, Instability - Neurological Neuro grossly intact: Yes Cognition: Normal Orientation: AAOx4 [place] Coma Scale Eye Opening: To Voice [place] Coma Scale Verbal: Oriented [place] Coma Scale Motor: Obeys Commands [place] Coma Scale Total: 14 Speech: Normal Cranial nerves: Normal Motor strength normal: LUE, RUE, LLE, RLE Additional motor exam normals: Equal outpatient interviewing clerk Sensory: Normal - Psychological Associated symptoms: Normal affect, Normal mood, Irritable, Uncooperative - suicide attempt Course - Re-evaluation Re-evalutation: 09/17/17 02:43 Poison control called upon patient's arrival. Recs faxed Patient is now alert awake and answering questions. She denies intentional overdose. She claims that she wants to be DNR. I had multiple conversations with her and her son and will have a phone call put out to the legal department to determine whether patient has capacity. 09/17/17 02:57 Again with all 3 of her sons who do not believe that the patient intentionally overdosed. We have tried to contact legal. Emergency medical apparatus model maker was contacted. We will get a psychiatric eval to assess for capacity but at this time patient shows capacity, she is alert and oriented 4. And is refusing treatment. 09/17/17 03:21 IVC petition initiated. 09/17/17 04:51 61-year-old female with a history of hypertension, diabetes, MS presents via EMS from home with concern for suicide attempts with beta-anton. Upon arrival vitals reviewed. Patient is bradycardic, hypotensive. She initially is not cooperative with exam. She will not tell me whether she intentionally took the medication to kill herself or not. Sons are at the bedside and do not believe that she would intentionally try to hurt herself but they are not sure. Patient was found with a labetalol bottle next to her bed. Speculation from the son is that she took approximately 4-5 100mg pills. This was a difficult patient to treat initially because it is unclear whether this was a suicide attempt with the patient and family adamantly denying it. After speaking to my medical apparatus model maker and nursing environmental services supervisor and reading the note that was found by her bed which stated "Dr. Bee from [facility] said the MRI showed my surgery to my neck is my problem. I am sorry". we have decided to initiate IVC petition. Dr Mcadams consulted for psych eval. received high-dose insulin, glucagon, calcium gluconate, IV fluids and norepinephrine. Patient's blood pressure and heart rate improved prior to admission to the intensive care unit. Laboratory 09/17/17 09/17/17 09/17/17 00:25 00:25 00:25 WBC 8.2 RBC 3.86 Hgb 12.1 Hct 35.5 L MCV 92 MCH 31.3 MCHC 33.9 RDW 13.3 Plt Count 207 Seg Neutrophils % 72.1 Lymphocytes % 21.8 Monocytes % 4.9 Eosinophils % 0.9 Basophils % 0.3 Absolute Neutrophils 5.9 Absolute Lymphocytes 1.8 Absolute Monocytes 0.4 Absolute Eosinophils 0.1 Absolute Basophils 0.0 PT INR APTT VBG pH VBG pCO2 VBG HCO3 VBG Base Excess Sodium 139.3 Potassium 4.0 Chloride 100 Carbon Dioxide 25 Anion Gap 14 BUN 19 Creatinine 1.19 Est GFR ( Amer) 55 L Est GFR (Non-Af Amer) 46 L Glucose 171 H POC Glucose Lactic Acid Calcium 10.0 Total Bilirubin 0.4 Direct Bilirubin 0.2 Neonat Total Bilirubin Not Reportable Neonat Direct Bilirubin Not Reportable Neonat Indirect Bili Not Reportable AST 32 ALT 31 Alkaline Phosphatase 52 CK-MB (CK-2) 0.67 Troponin I < 0.012 NT-Pro-B Natriuret Pep 148 Total Protein 6.6 Albumin 4.1 Lipase 95.0 Salicylates < 1.0 L Acetaminophen < 10 L Serum Alcohol < 10 09/17/17 09/17/17 09/17/17 00:25 00:55 01:24 WBC RBC Hgb Hct MCV MCH MCHC RDW Plt Count Seg Neutrophils % Lymphocytes % Monocytes % Eosinophils % Basophils % Absolute Neutrophils Absolute Lymphocytes Absolute Monocytes Absolute Eosinophils Absolute Basophils PT 13.7 INR 0.98 APTT 27.0 VBG pH 7.32 VBG pCO2 47.2 VBG HCO3 23.9 VBG Base Excess -2.3 Sodium Potassium Chloride Carbon Dioxide Anion Gap BUN Creatinine Est GFR ( Amer) Est GFR (Non-Af Amer) Glucose POC Glucose Lactic Acid 2.4 H Calcium Total Bilirubin Direct Bilirubin Neonat Total Bilirubin Neonat Direct Bilirubin Neonat Indirect Bili AST ALT Alkaline Phosphatase CK-MB (CK-2) Troponin I NT-Pro-B Natriuret Pep Total Protein Albumin Lipase Salicylates Acetaminophen Serum Alcohol 09/17/17 09/17/17 02:47 03:49 WBC RBC Hgb Hct MCV MCH MCHC RDW Plt Count Seg Neutrophils % Lymphocytes % Monocytes % Eosinophils % Basophils % Absolute Neutrophils Absolute Lymphocytes Absolute Monocytes Absolute Eosinophils Absolute Basophils PT INR APTT VBG pH VBG pCO2 VBG HCO3 VBG Base Excess Sodium Potassium Chloride Carbon Dioxide Anion Gap BUN Creatinine Est GFR ( Amer) Est GFR (Non-Af Amer) Glucose POC Glucose 219 H 210 H Lactic Acid Calcium Total Bilirubin Direct Bilirubin Neonat Total Bilirubin Neonat Direct Bilirubin Neonat Indirect Bili AST ALT Alkaline Phosphatase CK-MB (CK-2) Troponin I NT-Pro-B Natriuret Pep Total Protein Albumin Lipase Salicylates Acetaminophen Serum Alcohol 09/17/17 06:24 09/17/17 18:37 - Vital Signs Vital signs: Temp Pulse Resp BP Pulse Ox 97.5 F 53 L 12 109/54 L 98 09/17/17 00:28 09/17/17 07:59 09/17/17 14:02 09/17/17 14:02 09/17/17 13:42 - Laboratory Result Diagrams: 09/17/17 00:25 09/17/17 00:25 Laboratory results interpreted by me: 09/17/17 09/17/17 09/17/17 00:25 00:25 00:50 Hct 35.5 L Est GFR ( Amer) 55 L Est GFR (Non-Af Amer) 46 L Glucose 171 H POC Glucose 175 H Lactic Acid Salicylates < 1.0 L Acetaminophen < 10 L 09/17/17 09/17/17 09/17/17 00:55 02:47 03:49 Hct Est GFR ( Amer) Est GFR (Non-Af Amer) Glucose POC Glucose 219 H 210 H Lactic Acid 2.4 H Salicylates Acetaminophen 09/17/17 09/17/17 04:45 04:45 Hct Est GFR ( Amer) Est GFR (Non-Af Amer) Glucose POC Glucose 244 H Lactic Acid 2.6 H Salicylates Acetaminophen - Diagnostic Test Radiology reviewed: Pending Critical Care Note - Critical Care Note Total time excluding time spent on procedures (mins): 50 - minutes of critical care time spent in direct contact evaluating and reevaluating the patient, treating symptoms, reviewing labs and studies and speaking with family and consultants excluding any procedures Discharge - Discharge Clinical Impression: Suicide attempt by beta anton overdose Qualifiers: Encounter type: initial encounter Qualified Code(s): T44.7X2A - Poisoning by beta-adrenoreceptor antagonists, intentional self-harm, initial encounter Hypotension Qualifiers: Hypotension type: other hypotension type Qualified Code(s): I95.89 - Other hypotension Condition: Critical Disposition: ADMITTED INPATIENT Admitting Provider: Hospitalist Unit Admitted: ICU
[2017-09-17] MEDS ORDERED: FENTANYL CITRATE INJ/PF 100 MCG/2 ML AMPUL IV ONE (02:58)
[2017-09-17] MEDS ORDERED: DEXTROSE 40% GEL 15 GM TUBE PO PRN ×2 (03:52)
[2017-09-17] MEDS ORDERED: GLUCAGON,HUMAN RECOMB 1 MG INJ IM PRN (03:52)
[2017-09-17] MEDS ORDERED: DEXTROSE 50%-WATER 25 GM/50 ML DISP.SYRIN IV PRN (03:52)
[2017-09-17] MEDS ORDERED: INSULIN REG, HUMAN 100 UNIT/ML 3 ML VIAL (PYX) ONE (04:22)
[2017-09-17] MEDS: NORMAL SALINE 100 ML with INSULIN REGULAR, HUMAN 100 UNIT IV PRN ×8 (04:27→21:55)
[2017-09-17] MEDS ORDERED: NOREPINEPHRINE BITARTRATE INJ/PF 4 MG/4 ML SDV IV ONE ×3 (04:31→11:53)
[2017-09-17] MEDS: DEXTROSE 5%-WATER 250 ML with NOREPINEPHRINE BITARTRATE 4 MG IV PRN ×10 (04:39→21:56)
[2017-09-17] MEDS ORDERED: NALOXONE HCL INJ 2 MG/2 ML DISP.SYRIN IV ONE (04:49)
[2017-09-17] MEDS ORDERED: MAGNESIUM HYDROXIDE SUSP 30 ML UDCUP PO PRN (04:56)
[2017-09-17] MEDS ORDERED: MAG HYDROX/AL HYDROX/SIMETH SUSP 30 ML UDCUP PO PRN (04:56)
[2017-09-17] MEDS ORDERED: IPRATROPIUM/ALBUTEROL 0.5-2.5 MG/3 ML AMPUL NEB PRN (04:56)
[2017-09-17] MEDS ORDERED: DICYCLOMINE HCL 20 MG TABLET PO PRN (04:59)
[2017-09-17] MEDS ORDERED: KETOROLAC TROMETHAMINE INJ/PF 30 MG/1 ML SDV IV PRN (05:00)
[2017-09-17] MEDS ORDERED: NORMAL SALINE 1000 ML 1,000 ML IV PRN (05:00)
[2017-09-17] MEDS ORDERED: INSULIN LISPRO 100 UNIT/ML 3 ML VIAL SUBCUT PRN (05:15)
--- NOTE | 2017-09-17 06:12 | PDOC H&P ---
History of Present Illness Admission Date/PCP: 09/17/17 04:56 Patient complains of: Altered mental status History of Present Illness: ROSLYN SEAMAN is a 61 year old female with a history of morbid obesity, diabetes, chronic pain, depression, anxiety and irritable bowel syndrome. Patient presents after family hearing a big bump upon entering the room she was found on the floor unresponsive with a empty bottle of labetalol and a note expressing her DNR wishes. Patient is unable or unwilling to cooperate and is involuntarily committed requiring calcium, glucagon, levo fed, Narcan and IV fluid challenge for hypotension with bradycardia. Patient remains unable or unwilling to cooperate and concern for possible hypercapnic respiratory failure BiPAP and ABG is ordered. Family is unaware of previous history of suicide attempt. Patient had been complaining of acute on chronic neck pain. Past Medical History Cardiac Medical History: Reports: Hypertension Pulmonary Medical History: Reports: Chronic Obstructive Pulmonary Disease (COPD) Neurological Medical History: Reports: Migraine Endocrine Medical History: Reports: Diabetes Mellitus Type 2 Musculoskeltal Medical History: Reports: Arthritis - osteoarthritis Psychiatric Medical History: Reports: Depression, General Anxiety Disorder Hematology: Denies: Anemia, Sickle Cell Disease Past Surgical History Past Surgical History: Reports: Carotid Endarterectomy, Section - 3, Orthopedic Surgery - right foot Denies: Amputation Social History Information Source: Patient Smoking Status: Unknown if Ever Smoked Frequency of Alcohol Use: Rare Hx Recreational Drug Use: No Drugs: None Hx Prescription Drug Abuse: No - Advance Directive Resuscitation Status: Full Code Family History Family History: Hypertension Parental Family History Reviewed: Yes Children Family History Reviewed: Yes Sibling(s) Family History Reviewed.: Yes Medication/Allergy Home Medications: Dicyclomine HCl [Bentyl 20 mg Tablet] 20 mg PO QIDP PRN 08/14/17 Dulaglutide [Trulicity] 0.75 mg SQ FR@1000 08/14/17 Labetalol HCl [Trandate] 100 mg PO BID 08/14/17 Lorazepam [Ativan 1 mg Tablet] 1 mg PO BID 08/14/17 Olmesartan/Amlodipin/Hcthiazid [Tribenzor 40-10-12.5 mg Tablet] 1 tab PO DAILY 08/14/17 Oxycodone HCl/Acetaminophen [Percocet 10-325 mg Tablet] 1 tab PO Q8HP PRN Aspirin [Ecotrin 81 mg EC Tablet] 81 mg PO DAILY tabec 08/15/17 Atorvastatin Calcium [Lipitor 10 mg Tablet] 10 mg PO QHS #30 tablet 08/15/17 Famotidine [Pepcid 20 mg Tablet] 20 mg PO Q12 #60 tablet 08/15/17 Ondansetron [Zofran Odt 4 mg Tablet] 1 - 2 tab PO Q4H PRN #10 tab.rapdis Allergies/Adverse Reactions: lisinopril Allergy (Verified 09/13/17 09:14) Review of Systems ROS unobtainable: Due to mental status Physical Exam Vital Signs: Temp Pulse Resp BP Pulse Ox 97.5 F 20 97/66 L 100 09/17/17 00:28 09/17/17 05:59 09/17/17 05:22 09/17/17 05:59 General appearance: PRESENT: mild distress, morbidly obese. ABSENT: no acute distress, cooperative, disheveled Head exam: PRESENT: atraumatic, normocephalic Eye exam: PRESENT: conjunctiva pink, EOMI, PERRLA. ABSENT: scleral icterus Ear exam: PRESENT: normal external ear exam Mouth exam: PRESENT: moist, tongue midline Neck exam: ABSENT: carotid bruit, JVD, lymphadenopathy, thyromegaly Respiratory exam: PRESENT: clear to auscultation avel, prolonged expiratory phas. ABSENT: accessory muscle use, chest wall tenderness, crackles, decreased breath sounds Cardiovascular exam: PRESENT: bradycardia. ABSENT: clicks, diastolic murmur, gallop Pulses: PRESENT: normal dorsalis pedis pul GI/Abdominal exam: PRESENT: normal bowel sounds, soft. ABSENT: distended, guarding, mass, organolmegaly, rebound, tenderness Rectal exam: PRESENT: deferred Extremities exam: PRESENT: full ROM. ABSENT: calf tenderness, clubbing, pedal edema Neurological exam: PRESENT: altered, reflexes normal, CN II-XII grossly intact. ABSENT: alert, awake, oriented to person, oriented to place, oriented to time , oriented to situation Psychiatric exam: PRESENT: flat affect Skin exam: PRESENT: dry, intact, warm. ABSENT: cyanosis, rash Results Laboratory Results: 09/17/17 05:40 Carbonic Acid Cancelled HCO3/H2CO3 Ratio Cancelled ABG pH Cancelled ABG pCO2 Cancelled ABG pO2 Cancelled ABG HCO3 Cancelled ABG O2 Saturation Cancelled ABG Base Excess Cancelled FiO2 Cancelled Assessment & Plan - Diagnosis (1) Encephalopathy Is this a current diagnosis for this admission?: Yes Plan: Hypotension versus benzodiazepine versus hypercapnia. Supportive care, BiPAP, IV fluid challenge and levo fed initiated. Mental health consult ordered, involuntary commitment papers initiated. (2) Diabetes Is this a current diagnosis for this admission?: Yes Plan: Humalog sliding scale q. before meals (3) Hypotension Qualifiers: Hypotension type: other hypotension type Qualified Code(s): I95.89 - Other hypotension Is this a current diagnosis for this admission?: Yes Plan: Calcium, glucagon, IV fluid challenge, levo fed (4) Suicide attempt by beta anton overdose Qualifiers: Encounter type: initial encounter Qualified Code(s): T44.7X2A - Poisoning by beta-adrenoreceptor antagonists, intentional self-harm, initial encounter Is this a current diagnosis for this admission?: Yes Plan: Mental health consult (5) Benzodiazepine dependence, continuous Is this a current diagnosis for this admission?: Yes Plan: Supportive care, consider Romazicon - Time Time Spent: 50 to 70 Minutes - Inpatient Certification Medical Necessity: Need Close Monitoring Due to Risk of Patient Decompensation
[2017-09-17 06:29] LABS: ARTERIAL BLOOD BASE EXCESS -1.2 mmol/L; ARTERIAL BLOOD HCO3 24.2 mmol/L (20-26); ARTERIAL BLOOD PCO2 43.1 mmHg (35-45); ARTERIAL BLOOD PH 7.37 (7.35-7.45); ARTERIAL BLOOD PO2 45.5 mmHg (80-100); ARTERIAL BLOOD TOTAL CO2 25.5 mmol/L (21-25)
[2017-09-17 06:30] LABS: ARTERIAL BLOOD FIO2 30%
[2017-09-17] MEDS ORDERED: DOPAMINE HCL/DEXTROSE 5%-WATER 800 MG/250 ML RTUINJ IV PRN (06:49)
[2017-09-17 07:26] LABS: TROPONIN I < 0.012 ng/mL
[2017-09-17] MEDS: IPRATROPIUM/ALBUTEROL 0.5-2.5 MG/3 ML AMPUL NEB SCH ×2 (07:58→16:30)
--- NOTE | 2017-09-17 09:35 | EKG REPORT ---
SEVERITY:- ABNORMAL ECG - SINUS RHYTHM PROLONGED QT INTERVAL : Confirmed by: Deidre Hadley 17-Sep-2017 09:34:42
[2017-09-17] MEDS: HEPARIN SOD (PORCINE) 5,000 UNIT/ML 1 ML SYRINGE SUBCUT SCH ×3 (10:00→21:57)
[2017-09-17] MEDS: GABAPENTIN 100 MG CAPSULE PO SCH ×3 (10:04→18:02)
[2017-09-17] MEDS: ASPIRIN 81 MG TABLET, ENT COATED PO SCH (10:04)
[2017-09-17] MEDS: FAMOTIDINE 20 MG TABLET PO SCH ×2 (10:04→21:57)
[2017-09-17] MEDS: DOCUSATE SODIUM 100 MG CAPSULE PO SCH ×2 (10:04→18:02)
[2017-09-17] MEDS ORDERED: DEXTROSE 5%-WATER 250 ML with EPINEPHRINE/PF 1 MG IV PRN ×2 (10:55)
[2017-09-17] MEDS ORDERED: EPINEPHRINE INJ/PF 1 MG/1 ML AMPULE ONE ×3 (11:04→12:37)
--- NOTE | 2017-09-17 11:09 | Progress Note ---
Provider Note Provider Note: Poison control was contacted by Gunjan DRAKE and Dr. Lui. Poison control recommended the following discontinuing dopamine which was started by night physician and adding epinephrine. Poison control stated that there was no Max on epinephrine or norepinephrine. Poison control recommended obtaining echo stat. Order has been placed for stat Echo and will consult cardiology. If 2D echo demonstrates decreased contractility plan will be to increase insulin and add D50 and do not replace potassium. Also Poison control will send over their algorithm for beta-anton toxicity. Spoke with patient who denies suicidal ideation. Patient is sleepy but able to be awakened with stimulation.
--- NOTE | 2017-09-17 11:11 | PSYCHOLOGICAL NOTE ---
Psych Note - Psych Note Psych Note: Reason for consult: Alleged intentional overdose Eval: 8:20 am Final Disposition 1:23 pm Patient is a 61-year-old female. Patient is uncooperative with the behavioral health team. Patient has flat affect, lethargic, and guarded. Behavioral health to reassess at a later time. Collateral information: Per patient's nurse Crystal. Patient's nurse reports that patient is able to talk, and was alert and awake prior to behavioral health team arriving. Patient's nurse suggests that patient is intentionally not talking to psych. Patient's nurse reports that patient will talk about anything other than why she took the medications, and will not answer any questions regarding suicidal ideation. Patient's nurse reports that the information provided by patient's son is in the documents. Clinician attempted to gather collateral information from patient's son Kwan Pinedo at 9:11 AM on 09/17/2017. During the beginning of the conversation patient's son hung up the telephone, and did not answer when clinician called him back. Only information provided by Kwan Pinedo was that he found his mother unconscious and is unsure as to the events leading up to finding her unconscious. Through comprehensive chart review, patient was found unconscious near an empty pill bottle that was labeled for blood pressure medication. Physicians document stated patient was found with a note that had DO NOT RESUSCITATE instructions and the words "I am sorry". Impression/plan: Due to patient being uncooperative and unable to answer assessment questions Behavioral health team will reassess at a later time. Consulted with Dr. Mcadams regarding the management and care of patient.
--- NOTE | 2017-09-17 11:17 | Progress Note ---
Provider Note Provider Note: Attempted to contact patient's next of kin listed on form Mr. Pinedo however no answer. Will try to contact him later.
[2017-09-17] MEDS ORDERED: GLUCAGON HUMAN RECOMBINANT IV PRN (11:27)
[2017-09-17] MEDS ORDERED: DEXTROSE 5% IV PRN (11:27)
[2017-09-17] MEDS ORDERED: WATER IV PRN (11:27)
[2017-09-17] MEDS ORDERED: NORMAL SALINE INJ/PF 0.9% 10 ML SDV IV PRN (12:02)
[2017-09-17] MEDS: DEXTROSE 50%-WATER 25 GM/50 ML DISP.SYRIN IV PRN (12:04)
--- NOTE | 2017-09-17 12:05 | PDOC PROGRESS REPORT ---
Bedside Procedure - History of Present Illness History of Present Illness: multiple vasopressors Indication for Procedure: septic shock - Central Line Right Internal jugular Time completed: 12:05 Consent obtained: Yes Central line pre-insertion: Sterile PPE donned, Betadine prep applied, Chloraprep applied, Sterile drapes applied Central line lumen type: Triple Anesthetic type: 1% Lidocaine Ultrasound guided: Yes Line secured with sutures: Yes Central line post-insertion: Blood return from lumens, Biopatch applied, Sutured , Sterile dressing applied, Position confirmed w/ CXR Complications: No
--- NOTE | 2017-09-17 12:13 | PDOC CONSULTATION ---
Consultation Consult Date: 09/17/17 Attending physician:: KESHIA MURRAY Consult reason:: hypotension/overdose History of Present Illness Admission Date/PCP: 09/17/17 04:56 History of Present Illness: 61-year-old female taking large dose of beta blockers as well as presents to respond to questions at this time Past Medical History Cardiac Medical History: Reports: Hypertension Pulmonary Medical History: Reports: Chronic Obstructive Pulmonary Disease (COPD) Neurological Medical History: Reports: Migraine Endocrine Medical History: Reports: Diabetes Mellitus Type 2 Musculoskeltal Medical History: Reports: Arthritis - osteoarthritis Psychiatric Medical History: Reports: Depression, General Anxiety Disorder Hematology: Denies: Anemia, Sickle Cell Disease Past Surgical History Past Surgical History: Reports: Carotid Endarterectomy, Section - 3, Orthopedic Surgery - right foot Denies: Amputation Social History Information Source: [facility] Records Lives with: Family Smoking Status: Former Smoker Last Time Smoked: 2015 Frequency of Alcohol Use: None Hx Recreational Drug Use: No Drugs: None Hx Prescription Drug Abuse: No - Advance Directive Resuscitation Status: Full Code Family History Family History: Hypertension Parental Family History Reviewed: No Children Family History Reviewed: No Sibling(s) Family History Reviewed.: No Medication/Allergy Home Medications: Diclofenac Sodium [Voltaren] 4 gm TOP DAILY 09/17/17 Dicyclomine HCl [Bentyl 20 mg Tablet] 20 mg PO QIDP PRN 09/17/17 Dulaglutide [Trulicity] 0.75 mg SQ Q7D 09/17/17 Escitalopram Oxalate [Lexapro 10 mg Tablet] 10 mg PO DAILY 09/17/17 Hydroxyzine Pamoate [Vistaril 25 mg Capsule] 25 mg PO Q6 09/17/17 Labetalol HCl [Trandate] 100 mg PO Q12 09/17/17 Lorazepam [Ativan 1 mg Tablet] 1 mg PO Q12 09/17/17 Olmesartan/Amlodipin/Hcthiazid [Tribenzor 40-10-12.5 mg Tablet] 1 tab PO DAILY 09/17/17 Ondansetron [Zofran Odt 4 mg Tablet] 4 mg SL Q4HP PRN 09/17/17 Oxycodone HCl/Acetaminophen [Oxycodone-Acetaminophen 10-325] 1 tab PO Q6HP PRN 09/17/17 Allergies/Adverse Reactions: lisinopril Allergy (Verified 09/13/17 09:14) Review of Systems ROS unobtainable: Due to mental status Physical Exam Vital Signs: Temp Pulse Resp BP Pulse Ox 97.5 F 53 L 17 79/50 L 100 09/17/17 00:28 09/17/17 07:59 09/17/17 11:22 09/17/17 11:22 09/17/17 11:22 Intake & Output 09/16/17 09/17/17 09/18/17 06:59 06:59 06:59 Intake Total 60 Output Total 1 Balance 59 Weight 86 kg General appearance: PRESENT: no acute distress, disheveled, obese, well- developed Head exam: PRESENT: atraumatic, normocephalic Eye exam: PRESENT: conjunctiva pale, EOMI, PERRLA. ABSENT: nystagmus, periorbital swelling, scleral icterus Mouth exam: PRESENT: dry mucosa, neck supple, tongue midline Neck exam: ABSENT: carotid bruit, JVD, lymphadenopathy, thyromegaly, tracheal deviation, tracheostomy Respiratory exam: PRESENT: decreased breath sounds, prolonged expiratory phas, rhonchi, symmetrical, unlabored. ABSENT: crackles, rales, retraction, stridor, tachypnea Cardiovascular exam: PRESENT: RRR, +S1, +S2 Pulses: PRESENT: normal radial pulses GI/Abdominal exam: PRESENT: diminished bowel sounds, soft Extremities exam: ABSENT: calf tenderness, clubbing, pedal edema Musculoskeletal exam: ABSENT: ambulatory, dislocation Neurological exam: PRESENT: altered. ABSENT: alert Skin exam: PRESENT: dry, warm Results Laboratory Results: 09/17/17 09/17/17 05:40 06:12 Carbonic Acid Cancelled 1.30 HCO3/H2CO3 Ratio Cancelled 18:1 ABG pH Cancelled 7.37 ABG pCO2 Cancelled 43.1 ABG pO2 Cancelled 45.5 L ABG HCO3 Cancelled 24.2 ABG O2 Saturation Cancelled 80.0 L ABG Base Excess Cancelled -1.2 FiO2 Cancelled 30% 09/17/17 09/17/17 06:41 06:41 Creatine Kinase 63 CK-MB (CK-2) 0.80 Troponin I < 0.012 Assessment & Plan - Diagnosis (1) Suicide attempt by beta anton overdose Qualifiers: Encounter type: initial encounter Qualified Code(s): T44.7X2A - Poisoning by beta-adrenoreceptor antagonists, intentional self-harm, initial encounter Is this a current diagnosis for this admission?: Yes Plan: Significantly hypotensive decreased to depression vasopressor agents is recommended by poison control (2) Benzodiazepine dependence, continuous Is this a current diagnosis for this admission?: Yes (3) Hypertension Qualifiers: Hypertension type: unspecified Qualified Code(s): I10 - Essential (primary ) hypertension Is this a current diagnosis for this admission?: Yes (4) Opiate dependence, continuous Is this a current diagnosis for this admission?: Yes Plan: Low-dose benzodiazepines to avoid low-dose opiates to avoid withdrawal - Time Total Critical Time (Minutes): 50
--- NOTE | 2017-09-17 12:43 | RADIOLOGY REPORT (SQ) ---
EXAM DESCRIPTION: CHEST SINGLE VIEW COMPLETED DATE/TIME: 09/17/2017 12:13 pm REASON FOR STUDY: CENTRAL LINE PLACEMENT COMPARISON: Chest films 12/28/2016, 07/27/2017, 08/14/2017, 09/11/2017 EXAM PARAMETERS: NUMBER OF VIEWS: One view. TECHNIQUE: Single frontal radiographic view of the chest acquired. RADIATION DOSE: NA LIMITATIONS: Portable film, large patient, defibrillator pads over the chest FINDINGS: LUNGS AND PLEURA: Bandlike opacity left base, new compared to prior studies likely atelect asis. No pneumothorax. No pleural effusions. MEDIASTINUM AND HILAR STRUCTURES: No masses. Contour normal. HEART AND VASCULAR STRUCTURES: Stable mild cardiomegaly BONES: No acute findings. HARDWARE: Right jugular central line tip in the right atrium. No pneumothorax OTHER: No other significant finding. IMPRESSION: Right jugular central line tip in the right atrium. No pneumothorax. Basilar airspace disease likely atelectasis. Pneumonia not entirely excluded TECHNICAL DOCUMENTATION: JOB ID: [id number] [employer]- All Rights Reserved Reading location - IP/workstation name: [email or web address]
[2017-09-17 12:50] LABS: CREATINE KINASE MB 0.79 ng/mL (<4.55)
[2017-09-17 12:55] LABS: TROPONIN I < 0.012 ng/mL
[2017-09-17 13:23] LABS: ARTERIAL BLOOD BASE EXCESS -2.9 mmol/L; ARTERIAL BLOOD FIO2 6 L; ARTERIAL BLOOD H2CO3 1.45 mmol/L (1.05-1.35); ARTERIAL BLOOD HCO3 23.6 mmol/L (20-26); ARTERIAL BLOOD PCO2 48.1 mmHg (35-45); ARTERIAL BLOOD PH 7.31 (7.35-7.45); ARTERIAL BLOOD PO2 45.5 mmHg (80-100)
[2017-09-17] MEDS: EPINEPHRINE IV PRN ×14 (13:24→23:21)
[2017-09-17] MEDS: WATER IV PRN ×14 (13:24→23:21)
[2017-09-17] MEDS: DEXTROSE 5% IV PRN ×14 (13:24→23:21)
--- NOTE | 2017-09-17 14:05 | RADIOLOGY REPORT (SQ) ---
EXAM DESCRIPTION: HIP RIGHT AP/LATERAL COMPLETED DATE/TIME: 09/17/2017 1:56 pm REASON FOR STUDY: fall COMPARISON: None. NUMBER OF VIEWS: Two views. TECHNIQUE: AP pelvis and additional frog-leg view of the right hip. LIMITATIONS: None. FINDINGS: MINERALIZATION: Osteopenia. RIGHT HIP: Mild degenerative narrowing of the hip joint. Femoral head normal in contour. LEFT HIP: Mild degenerative narrowing of the hip joint. PUBIS AND ISCHIUM: No fracture. PELVIS: No fracture. SACRUM: No fracture or dislocation. No worrisome bone lesions. LOWER LUMBAR SPINE: Degenerative changes L4-L5-L5-S1. SOFT TISSUES: No findings. OTHER: No other significant finding. IMPRESSION: Mild symmetrical degenerative narrowing of the hip joints. No other hip pathology. Deg enerative changes lower lumbar spine. TECHNICAL DOCUMENTATION: JOB ID: [id number] [email or web address]- All Rights Reserved Reading location - IP/workstation name: [email or web address]
[2017-09-17] MEDS: DEXTROSE 5%-WATER 1000 ML 1,000 ML IV PRN ×2 (16:50→23:31)
--- NOTE | 2017-09-17 18:46 | XCELERA REPORT ---
[address] [address] Transthoracic Echocardiogram Report Name: ROSLYN SEAMAN Age: 61 yrs Gender: Female : 1955 Patient Status: Inpatient Patient Location: ICU^[facility]^A Study Date: 09/17/2017 11:59 AM Height: 64 in Weight: 189 lb BSA: 1.9 m2 Procedure: A complete two-dimensional transthoracic echocardiogram was performed (2D, M-mode, spectral and color flow Doppler). The study was technically difficult with many images being suboptimal in quality. Reason For Study: Metoprolol overdose Ordering Physician: KESHIA MURRAY Performed By: Lia Barraza Interpretation Summary The study was technically difficult with many images being suboptimal in quality. The left ventricular ejection fraction is normal. Consider additional methods to assess LVEF such as MUGA scan, CTA heart, cardiac MRI, GEOVANNY, etc. if clinically indicated. Doppler measurements suggest pseudonormalized left ventricular relaxation, which is associated with grade II/IV or mild to moderate diastolic dysfunction There is mild to moderate concentric left ventricular hypertrophy. The left ventricle is grossly normal size. Regional wall motion abnormalities cannot be excluded due to limited visualization. The right ventricular systolic function is normal. The left atrium is mildly dilated. The right atrium is normal in size There is a trace to mild amount of mitral regurgitation There is no mitral valve stenosis. No aortic regurgitation is present. There is mild aortic stenosis. Peak Gradient 15-20 mmHg There is no tricuspid stenosis. No tricuspid regurgitation. The aortic root is not well visualized but is probably normal size. The inferior vena cava appeared normal and decreased < 50% with respiration (RAP 10-15 mmHg) Minimal pericardial effusion. MMode/2D Measurements & Calculations RVDd: 1.8 cm LVIDd: 5.3 cm FS: 51.2 % Ao root diam: 2.1 cm IVSd: 1.5 cm LVIDs: 2.6 cm EDV(Teich): 135.7 ml LVPWd: 1.4 cm ESV(Teich): 24.4 ml Ao root area: 3.6 cm2 EF(Teich): 82.1 % Doppler Measurements & Calculations MV E max rodney: MV dec slope: Ao V2 max: LV V1 max P.8 cm/sec 207.5 cm/sec 9.9 mmHg MV A max rodney: 428.4 cm/sec2 Ao max PG: LV V1 max: 147.8 cm/sec MV dec time: 17.2 mmHg 157.4 cm/sec MV E/A: 0.77 0.27 sec PA V2 max: TR max rodney: 118.3 cm/sec 222.1 cm/sec PA max P.6 mmHgTR max P.7 mmHg Left Ventricle The left ventricle is grossly normal size. There is mild to moderate concentric left ventricular hypertrophy. The left ventricular ejection fraction is normal. Consider additional methods to assess LVEF such as MUGA scan, CTA heart, cardiac MRI, GEOVANNY, etc. if clinically indicated. Doppler measurements suggest pseudonormalized left ventricular relaxation, which is associated with grade II/IV or mild to moderate diastolic dysfunction. Regional wall motion abnormalities cannot be excluded due to limited visualization. Right Ventricle The right ventricle is grossly normal size. The right ventricular systolic function is normal. Atria The right atrium is normal in size. The left atrium is mildly dilated. Mitral Valve There is moderate mitral leaflet calcification. There is moderate to severe mitral annular calcification. There is no mitral valve stenosis. There is a trace to mild amount of mitral regurgitation. Aortic Valve The aortic valve is not well visualized secondary to technical limitations. The aortic valve is moderately calcified. There is mild aortic stenosis. No aortic regurgitation is present. Tricuspid Valve The tricuspid valve is not well visualized secondary to technical limitations. There is no tricuspid stenosis. No tricuspid regurgitation. Pulmonic Valve The pulmonic valve is not well visualized. Great Vessels The aortic root is not well visualized but is probably normal size. The inferior vena cava appeared normal and decreased < 50% with respiration (RAP 10-15 mmHg). Effusions Minimal pericardial effusion. : KESHIA MURRAY > Deidre Hadley
[2017-09-17 19:28] LABS: CREATINE KINASE MB 1.14 ng/mL (<4.55)
[2017-09-17 19:31] LABS: TROPONIN I < 0.012 ng/mL
[2017-09-18] MEDS: IPRATROPIUM/ALBUTEROL 0.5-2.5 MG/3 ML AMPUL NEB SCH ×3 (00:06→16:03)
[2017-09-18] MEDS: EPINEPHRINE IV PRN ×18 (00:54→16:57)
[2017-09-18] MEDS: DEXTROSE 5% IV PRN ×10 (00:54→08:23)
[2017-09-18] MEDS: WATER IV PRN ×10 (00:54→08:23)
[2017-09-18] MEDS: DEXTROSE 5%-WATER 250 ML with NOREPINEPHRINE BITARTRATE 4 MG IV PRN ×4 (03:08→07:26)
[2017-09-18] MEDS: NORMAL SALINE 100 ML with INSULIN REGULAR, HUMAN 100 UNIT IV PRN ×4 (03:53→09:56)
[2017-09-18] MEDS: DEXTROSE 5%-WATER 1000 ML 1,000 ML IV PRN (04:59)
[2017-09-18 05:04] LABS: ARTERIAL BLOOD BASE EXCESS -0.3 mmol/L; ARTERIAL BLOOD H2CO3 1.16 mmol/L (1.05-1.35); ARTERIAL BLOOD HCO3 24.1 mmol/L (20-26); ARTERIAL BLOOD O2 SATURATION 96.8 % (94-98); ARTERIAL BLOOD PCO2 38.7 mmHg (35-45); ARTERIAL BLOOD PH 7.41 (7.35-7.45); ARTERIAL BLOOD PO2 87.2 mmHg (80-100); ARTERIAL BLOOD TOTAL CO2 25.3 mmol/L (21-25)
[2017-09-18 05:06] LABS: ABSOLUTE LYMPHOCYTES (AUTO) 1.8 10^3/uL (0.5-4.7); ABSOLUTE MONOCYTES (AUTO) 0.8 10^3/uL (0.1-1.4); ABSOLUTE NEUT (AUTO) 11.9 10^3/uL (1.7-8.2); BASOPHILS % (AUTO) 0.3 % (0-2); EOSINOPHILS % (AUTO) 0.3 % (0-6); HEMOGLOBIN 10.8 g/dL (12.0-15.5); LYMPHOCYTES % (AUTO) 12.4 % (13-45); MEAN CORPUSCULAR VOLUME 89 fl (80-97); MONOCYTES % (AUTO) 5.4 % (3-13); PLATELET COUNT 184 10^3/uL (150-450); RED BLOOD COUNT 3.49 10^6/uL (3.72-5.28); RED CELL DISTRIBUTION WIDTH 12.7 % (11.5-14.0); SEGMENTED NEUTROPHILS % (AUTO) 81.6 % (42-78); TOTAL CELLS COUNTED % (AUTO) 100 %; WHITE BLOOD COUNT 14.6 10^3/uL (4.0-10.5)
[2017-09-18 05:08] LABS: ARTERIAL BLOOD FIO2 4L
[2017-09-18 05:16] LABS: ANION GAP 10 (5-19); BLOOD UREA NITROGEN 10 mg/dL (7-20); CALCIUM 8.4 mg/dL (8.4-10.2); CARBON DIOXIDE 23 mmol/L (22-30); CHLORIDE 84 mmol/L (98-107); GLUCOSE 106 mg/dL (75-110); PHOSPHORUS 3.1 mg/dL (2.5-4.5)
[2017-09-18 05:29] LABS: POTASSIUM 2.8 mmol/L (3.6-5.0); SODIUM 117.3 mmol/L (137-145)
[2017-09-18] MEDS ORDERED: MAGNESIUM SULFATE/D5W 2 GM/200 ML RTUPB IV ONE (05:54)
[2017-09-18] MEDS: HEPARIN SOD (PORCINE) 5,000 UNIT/ML 1 ML SYRINGE SUBCUT SCH ×3 (05:55→21:30)
[2017-09-18] MEDS: DEXTROSE 5%-NORMAL SALINE 1,000 ML IV PRN (05:59)
[2017-09-18] MEDS: MAGNESIUM SULFATE 1 GM/D5W 100 ML IV SCH ×2 (06:00→06:40)
--- NOTE | 2017-09-18 06:38 | RADIOLOGY REPORT (SQ) ---
EXAM DESCRIPTION: CHEST SINGLE VIEW CLINICAL HISTORY: aspiration COMPARISON: 09/17/2017 FINDINGS: Single frontal view of the chest. Right IJ central venous catheter with tip in the right atrium. Leads overlie the chest. Low lung volumes. Heart is not enlarged. No pneumothorax or definite pleural effusion. Improved aeration the left lung base with minimal residual left basilar linear opacity. No acute osseous abnormalities. Upper abdominal soft tissues are unremarkable. IMPRESSION: 1. Improved aeration of the left lung base with minimal residual opacity possibly representing atelectasis. The right IJ central venous catheter tip is in the low right atrium. Consider pulling back 2-3 cm.
--- NOTE | 2017-09-18 08:18 | PDOC PROGRESS REPORT ---
Subjective Progress Note for:: 09/18/17 Subjective:: Pt states that she is ok for now. Nursing states that pt's sodium is low. Nursing states that pt is 8 liters fluid balance positive. Nursing states that she has not had any new issues with patient this morning. Reason For Visit: BETABLOCKER OD, SUICIDE ATTEMPT, CHRONIC PAIN, Physical Exam Vital Signs: Temp Pulse Resp BP Pulse Ox 98.6 F 76 26 H 128/56 H 99 09/18/17 07:47 09/18/17 07:47 09/18/17 07:47 09/18/17 07:47 09/18/17 07:47 Intake & Output 09/17/17 09/18/17 09/19/17 06:59 06:59 06:59 Intake Total 84144 Output Total 4451 200 Balance 8709 -200 Weight 94.4 kg General appearance: PRESENT: no acute distress, well-developed, well-nourished, other - laying in bed looking around room Head exam: PRESENT: atraumatic, normocephalic Eye exam: PRESENT: conjunctiva pink, EOMI. ABSENT: scleral icterus Ear exam: PRESENT: bleeding Mouth exam: PRESENT: moist, tongue midline Neck exam: ABSENT: carotid bruit, JVD, lymphadenopathy, thyromegaly Respiratory exam: PRESENT: clear to auscultation avel. ABSENT: rales, rhonchi, wheezes Cardiovascular exam: PRESENT: RRR. ABSENT: diastolic murmur, rubs, systolic murmur Pulses: PRESENT: normal dorsalis pedis pul Vascular exam: PRESENT: normal capillary refill GI/Abdominal exam: PRESENT: normal bowel sounds, soft. ABSENT: distended, guarding, mass, organolmegaly, rebound, tenderness Rectal exam: PRESENT: deferred Extremities exam: PRESENT: full ROM. ABSENT: calf tenderness, clubbing, pedal edema Musculoskeletal exam: PRESENT: full ROM Neurological exam: PRESENT: alert, awake, oriented to person, oriented to place , oriented to time, oriented to situation, CN II-XII grossly intact. ABSENT: motor sensory deficit Psychiatric exam: PRESENT: appropriate affect, normal mood. ABSENT: homicidal ideation, suicidal ideation Skin exam: PRESENT: dry, intact, warm. ABSENT: cyanosis, rash Results Laboratory Results: 09/18/17 04:52 09/18/17 04:52 09/17/17 09/18/17 09/18/17 13:00 04:52 04:52 WBC RBC Hgb Hct MCV MCH MCHC RDW Plt Count Seg Neutrophils % Lymphocytes % Monocytes % Eosinophils % Basophils % Absolute Neutrophils Absolute Lymphocytes Absolute Monocytes Absolute Eosinophils Absolute Basophils Carbonic Acid 1.45 H 1.16 HCO3/H2CO3 Ratio 16:1 20:1 ABG pH 7.31 L 7.41 ABG pCO2 48.1 H 38.7 ABG pO2 45.5 L 87.2 ABG HCO3 23.6 24.1 ABG O2 Saturation 77.0 L 96.8 ABG Base Excess -2.9 -0.3 FiO2 6 L 4L Sodium 117.3 L* Potassium 2.8 L* Chloride 84 L Carbon Dioxide 23 Anion Gap 10 BUN 10 Creatinine 0.73 Est GFR ( Amer) > 60 Est GFR (Non-Af Amer) > 60 Glucose 106 Calcium 8.4 Phosphorus 3.1 Magnesium 1.2 L* 09/18/17 04:52 WBC 14.6 H RBC 3.49 L Hgb 10.8 L Hct 31.0 L MCV 89 MCH 31.0 MCHC 35.0 RDW 12.7 Plt Count 184 Seg Neutrophils % 81.6 H Lymphocytes % 12.4 L Monocytes % 5.4 Eosinophils % 0.3 Basophils % 0.3 Absolute Neutrophils 11.9 H Absolute Lymphocytes 1.8 Absolute Monocytes 0.8 Absolute Eosinophils 0.0 Absolute Basophils 0.0 Carbonic Acid HCO3/H2CO3 Ratio ABG pH ABG pCO2 ABG pO2 ABG HCO3 ABG O2 Saturation ABG Base Excess FiO2 Sodium Potassium Chloride Carbon Dioxide Anion Gap BUN Creatinine Est GFR ( Amer) Est GFR (Non-Af Amer) Glucose Calcium Phosphorus Magnesium 09/17/17 09/17/17 09/17/17 06:41 06:41 12:08 Creatine Kinase 63 67 CK-MB (CK-2) 0.80 Troponin I < 0.012 09/17/17 09/17/17 09/17/17 12:08 18:40 18:40 Creatine Kinase 85 CK-MB (CK-2) 0.79 1.14 Troponin I < 0.012 < 0.012 Impressions: Hip/Pelvis X-Ray 09/17/17 01:38 IMPRESSION: Mild symmetrical degenerative narrowing of the hip joints. No other hip pathology. Degenerative changes lower lumbar spine. Chest X-Ray 09/18/17 06:00 IMPRESSION: 1. Improved aeration of the left lung base with minimal residual opacity possibly representing atelectasis. The right IJ central venous catheter tip is in the low right atrium. Consider pulling back 2-3 cm. Assessment & Plan - Diagnosis (1) Hypomagnesemia Is this a current diagnosis for this admission?: Yes Plan: Will give 2 grams of Magnesium. Will check Magnesium level in am. (2) Hypokalemia Is this a current diagnosis for this admission?: Yes Plan: Will continue to monitor. Pt is currently on Insulin drip which will force potassium to move intracellularly. (3) Hyponatremia Is this a current diagnosis for this admission?: Yes Plan: Secondary to Hypervolemia: Will give Lasix IV X 1, Sodium replacement, and change IVFs. Will check BMP frequently and monitor for seizure activity. (4) Diabetes Is this a current diagnosis for this admission?: Yes Plan: Will continue current insulin regimen. (5) Encephalopathy Is this a current diagnosis for this admission?: Yes Plan: Acute Metabolic Encephalopathy: Resolving. Will continue to monitor. (6) Hypotension Qualifiers: Hypotension type: other hypotension type Qualified Code(s): I95.89 - Other hypotension Is this a current diagnosis for this admission?: Yes Plan: Secondary to Beta Anton Overdose: Will continue current treatment. Pt vital signs are improving. Pt will need another 24 hours to stabilize out. (7) Suicide attempt by beta anton overdose Qualifiers: Encounter type: initial encounter Qualified Code(s): T44.7X2A - Poisoning by beta-adrenoreceptor antagonists, intentional self-harm, initial encounter Is this a current diagnosis for this admission?: Yes Plan: Pt being evaluated by mental health. (8) Benzodiazepine dependence, continuous Is this a current diagnosis for this admission?: Yes Plan: Supportive care. (9) Leukocytosis Is this a current diagnosis for this admission?: Yes Plan: Will continue to monitor. Will check CT of chest. (10) DVT prophylaxis Is this a current diagnosis for this admission?: Yes Plan: Heparin - Time Time Spent with patient: 25-34 minutes
[2017-09-18] MEDS ORDERED: SODIUM CHLORIDE 1 GM TABLET PO ONE (08:45)
[2017-09-18] MEDS ORDERED: FUROSEMIDE INJ/PF 20 MG/2 ML SDV IV ONE (09:00)
[2017-09-18] MEDS ORDERED: MAGNESIUM SULFATE/D5W 1 GM/100 ML RTUPB IV SCH (09:00)
--- NOTE | 2017-09-18 09:02 | EKG REPORT ---
SEVERITY:- ABNORMAL ECG - SINUS RHYTHM PROBABLE INFERIOR INFARCT, AGE INDETERMINATE BORDERLINE PROLONGED QT INTERVAL : Confirmed by: Deidre Hadley 18-Sep-2017 09:01:45
[2017-09-18 09:45] LABS: ANION GAP 9 (5-19); BLOOD UREA NITROGEN 8 mg/dL (7-20); CALCIUM 8.2 mg/dL (8.4-10.2); CARBON DIOXIDE 23 mmol/L (22-30); CHLORIDE 81 mmol/L (98-107); GLUCOSE 111 mg/dL (75-110)
[2017-09-18 09:51] LABS: POTASSIUM 2.7 mmol/L (3.6-5.0); SODIUM 112.8 mmol/L (137-145)
[2017-09-18] MEDS: ASPIRIN 81 MG TABLET, ENT COATED PO SCH (10:05)
[2017-09-18] MEDS: DOCUSATE SODIUM 100 MG CAPSULE PO SCH ×2 (10:05→17:49)
[2017-09-18] MEDS: FAMOTIDINE 20 MG TABLET PO SCH ×2 (10:05→21:30)
[2017-09-18] MEDS ORDERED: LORAZEPAM INJ 2 MG/1 ML VIAL ONE (11:14)
[2017-09-18] MEDS ORDERED: LORAZEPAM INJ 2 MG/1 ML VIAL IV ONE ×2 (12:00→12:15)
[2017-09-18] MEDS ORDERED: SODIUM CHLORIDE 3% 500 ML IV ONE ×2 (12:00→18:00)
[2017-09-18] MEDS: DEXTROSE 50%-WATER 25 GM/50 ML DISP.SYRIN IV PRN (12:07)
[2017-09-18 12:32] LABS: ANION GAP 9 (5-19); BLOOD UREA NITROGEN 8 mg/dL (7-20); CALCIUM 7.8 mg/dL (8.4-10.2); CARBON DIOXIDE 23 mmol/L (22-30); CHLORIDE 80 mmol/L (98-107); GLUCOSE 62 mg/dL (75-110)
[2017-09-18] MEDS: MIDAZOLAM HCL 50 MG/100 ML RTUINJ IV PRN ×2 (12:40→23:26)
[2017-09-18] MEDS: NORMAL SALINE IV PRN ×8 (12:40→16:57)
[2017-09-18 12:41] LABS: POTASSIUM 2.7 mmol/L (3.6-5.0); SODIUM 111.7 mmol/L (137-145)
--- NOTE | 2017-09-18 12:57 | RADIOLOGY REPORT (SQ) ---
EXAM DESCRIPTION: CHEST SINGLE VIEW COMPLETED DATE/TIME: 09/18/2017 12:45 pm REASON FOR STUDY: ET TUBE PLACEMENT COMPARISON: Earlier the same day. NUMBER OF VIEWS: One view. TECHNIQUE: Single frontal radiographic image of the chest acquired. LIMITATIONS: None. FINDINGS: LUNGS AND PLEURA: Increasing airspace disease left lower lobe. No pneumothorax. MEDIASTINUM AND HEART: Stable heart size and mediastinal structures. SUPPORT DEVICES: Stable position of right central line. Interval placement of nasogastric tube exten ding into the left upper quadrant. Endotracheal tube tip between thoracic inlet and moshe. BONY STRUCTURES: No acute findings. HARDWARE: None. OTHER: No other significant finding. IMPRESSION: Satisfactory position of support apparatus. No pneumothorax. Reading location - IP/workstation name: [email or web address]
--- NOTE | 2017-09-18 13:00 | RADIOLOGY REPORT (SQ) ---
EXAM DESCRIPTION: KUB/ABDOMEN (SINGLE VIEW) COMPLETED DATE/TIME: 09/18/2017 12:45 pm REASON FOR STUDY: NGT PLACEMENT COMPARISON: None. NUMBER OF VIEWS: One view. TECHNIQUE: Supine radiographic image of the abdomen acquired. LIMITATIONS: None. FINDINGS: BOWEL GAS PATTERN: Normal bowel gas pattern. No dilated loops. CALCIFICATIONS: No suspicious calcifications. SOFT TISSUES: No gross mass or suggestion of organomegaly. HARDWARE: None. BONES: No bone lesions or fracture. OTHER: Nasogastric tube in the stomach. IMPRESSION: Nasogastric tube in the stomach. Reading location - IP/workstation name: [email or web address]
[2017-09-18 13:51] LABS: ARTERIAL BLOOD FIO2 35%; ARTERIAL BLOOD H2CO3 0.91 mmol/L (1.05-1.35); ARTERIAL BLOOD HCO3 20.3 mmol/L (20-26); ARTERIAL BLOOD O2 SATURATION 97.4 % (94-98); ARTERIAL BLOOD PCO2 30.3 mmHg (35-45); ARTERIAL BLOOD PH 7.44 (7.35-7.45); ARTERIAL BLOOD PO2 91.1 mmHg (80-100); ARTERIAL BLOOD TOTAL CO2 21.2 mmol/L (21-25)
[2017-09-18 13:54] LABS: ANION GAP 8 (5-19); BLOOD UREA NITROGEN 8 mg/dL (7-20); CALCIUM 7.6 mg/dL (8.4-10.2); CARBON DIOXIDE 22 mmol/L (22-30); CHLORIDE 82 mmol/L (98-107); GLUCOSE 101 mg/dL (75-110)
[2017-09-18] MEDS ORDERED: LORAZEPAM INJ 2 MG/1 ML VIAL IV SCH (14:00)
[2017-09-18] MEDS ORDERED: OXYCODONE-ACETAMINOPHEN 5-325 MG TABLET NG SCH (14:00)
[2017-09-18 14:02] LABS: POTASSIUM 2.6 mmol/L (3.6-5.0); SODIUM 111.7 mmol/L (137-145)
[2017-09-18] MEDS: SODIUM CHLORIDE 1 GM TABLET PO SCH ×2 (14:36→21:30)
[2017-09-18] MEDS: GABAPENTIN 100 MG CAPSULE PO SCH ×2 (14:36→21:30)
[2017-09-18 15:36] LABS: ANION GAP 8 (5-19); BLOOD UREA NITROGEN 8 mg/dL (7-20); CALCIUM 7.8 mg/dL (8.4-10.2); CARBON DIOXIDE 21 mmol/L (22-30); CHLORIDE 85 mmol/L (98-107); GLUCOSE 89 mg/dL (75-110)
[2017-09-18 15:41] LABS: POTASSIUM 2.7 mmol/L (3.6-5.0); SODIUM 113.9 mmol/L (137-145)
[2017-09-18] MEDS ORDERED: SUCCINYLCHOLINE CHLORIDE INJ 200 MG/10 ML VIAL ONE (15:50)
--- NOTE | 2017-09-18 16:46 | PSYCHOLOGICAL NOTE ---
Psych Note - Psych Note Psych Note: Reason for consult: Overdose Eval ( via comprehensive chart review ) 12:30 pm Patient is a 61 year old female. Patient is not medically cleared, behavioral health unable to conduct assessment due to patient being unable to answer assessment questions. Clinician conducted a comprehensive chart review the information gathered below are from nursing notes in patient's chart. Patient was unable to speak clear complete sentences in the morning, before noon had a seizure, and due to medical complications needed to be intubated. Impression/Plan: Due to patient not being medically cleared, behavioral health will need to conduct reassess at a later time. Our recommendation is to allow the involuntary commitment petition to . Please re-consult behavioral health when patient is extubated and able to participate. Clinician contacted ICU attending nurse Gunjan and provided out recommendation via phone. Consulted with Dr. Mcadams regarding the management and care of patient.
[2017-09-18] MEDS: MAGNESIUM SULFATE/D5W 1 GM/100 ML RTUPB IV SCH ×3 (16:55→17:50)
--- NOTE | 2017-09-18 18:02 | RADIOLOGY REPORT (SQ) ---
EXAM DESCRIPTION: CT HEAD WITHOUT COMPLETED DATE/TIME: 09/18/2017 5:40 pm REASON FOR STUDY: fall COMPARISON: 07/25/2017 TECHNIQUE: Axial images acquired through the brain without intravenous contrast. Images reviewed wi th bone, brain and subdural windows. All Images stored on PACS. All CT scanners at this facility use dose modulation, iterative reconstruction, and/or weight based d osing when appropriate to reduce radiation dose to as low as reasonably achievable (ALARA). [facility]: Dose Right [facility]: CareDose [facility]: Dose Right [facility]: Teradose 4D [facility]: Smart [employer] RADIATION DOSE: CT Rad equipment meets quality standard of care and radiation dose reduction techniq ues were employed. CTDIvol: 64.6 mGy. DLP: 1163 mGy-cm. mGy. LIMITATIONS: None. FINDINGS: VENTRICLES: Prominent. CEREBRUM: No masses. No hemorrhage. No midline shift. Areas of low density in the white matter mos t likely due to chronic micro-vascular ischemic change. No evidence for acute infarction. CEREBELLUM: No masses. No hemorrhage. No alteration of density. No evidence for acute infarction. EXTRAAXIAL SPACES: Mild age-related involutional change. No fluid collections. No masses. ORBITS AND GLOBE: No intra- or extraconal masses. Normal contour of globe without masses. CALVARIUM: No fracture. PARANASAL SINUSES: No fluid or mucosal thickening. SOFT TISSUES: No mass or hematoma. OTHER: No other significant finding. IMPRESSION: MILD CHRONIC CHANGES OF ATROPHY AND MICROVASCULAR ISCHEMIA. NO ACUTE PROCESS. EVIDENCE OF ACUTE STROKE: No TECHNICAL DOCUMENTATION: JOB ID: [id number] Quality ID # [id number]: Final reports with documentation of one or more dose reduction techniques (e.g., Au tomated exposure control, adjustment of the mA and/or kV according to patient size, use of iterative reconstruction technique) 2010 [employer]- All Rights Reserved Reading location - IP/workstation name: [email or web address]
--- NOTE | 2017-09-18 18:06 | RADIOLOGY REPORT (SQ) ---
EXAM DESCRIPTION: CT CERVICAL SPINE WITHOUT COMPLETED DATE/TIME: 09/18/2017 5:40 pm REASON FOR STUDY: fall COMPARISON: 06/13/2012 TECHNIQUE: Axial images acquired through the cervical spine without intravenous contrast. Images re viewed with lung, soft tissue and bone windows. Reconstructed coronal and sagittal MPR images review ed. Images stored on PACS. All CT scanners at this facility use dose modulation, iterative reconstruction, and/or weight based d osing when appropriate to reduce radiation dose to as low as reasonably achievable (ALARA). [facility]: Dose Right [facility]: CareDose [facility]: Dose Right [facility]: Teradose 4D [facility]: [employer] RADIATION DOSE: CT Rad equipment meets quality standard of care and radiation dose reduction techniq ues were employed. CTDIvol: 24.7 mGy. DLP: 509 mGy-cm. mGy. LIMITATIONS: None. FINDINGS: ALIGNMENT: Anatomic. MINERALIZATION: Osteopenia VERTEBRAL BODIES: No fractures or dislocation. DISCS: Disc spaces are narrowed from C4-T2. Anterior posterior marginal osteophytes are present. Th ere is calcification in the posterior longitudinal ligament at C7-T1. FACETS, LATERAL MASSES, POSTERIOR ELEMENTS: No fractures. No dislocation. No acute findings. HARDWARE: None in the spine. An NG tube and endotracheal tube are in place. VISUALIZED RIBS: No fractures. LUNG APICES AND SOFT TISSUES: No significant or acute findings. OTHER: No other significant finding. IMPRESSION: Multilevel degenerative disc disease and spondylosis. TECHNICAL DOCUMENTATION: JOB ID: [id number] Quality ID # [id number]: Final reports with documentation of one or more dose reduction techniques (e.g., Au tomated exposure control, adjustment of the mA and/or kV according to patient size, use of iterative reconstruction technique) 2010 [employer]- All Rights Reserved Reading location - IP/workstation name: [email or web address]
--- NOTE | 2017-09-18 18:33 | RADIOLOGY REPORT (SQ) ---
EXAM DESCRIPTION: CT CHEST WITHOUT COMPLETED DATE/TIME: 09/18/2017 5:40 pm REASON FOR STUDY: leukocytosis COMPARISON: 09/18/2017 TECHNIQUE: CT scan performed of the chest without intravenous contrast. Images reviewed with lung, soft tissue and bone windows. Reconstructed coronal and sagittal MPR images reviewed. All images st ored on PACS. All CT scanners at this facility use dose modulation, iterative reconstruction, and/or weight based d osing when appropriate to reduce radiation dose to as low as reasonably achievable (ALARA). [facility]: Dose Right [facility]: CareDose [facility]: Dose Right [facility]: Teradose 4D [facility]: [employer] RADIATION DOSE: CT Rad equipment meets quality standard of care and radiation dose reduction techniq ues were employed. CTDIvol: 14.4 mGy. DLP: 473 mGy-cm. mGy. LIMITATIONS: No technical limitations. FINDINGS: LUNGS AND PLEURA: Bilateral pleural effusions, right more than left. Mild compressive ate lectasis. No pulmonary infiltrate or mass. HILAR AND MEDIASTINAL STRUCTURES: No identified masses or abnormal nodes. No obvious aneurysm. HEART AND VASCULAR STRUCTURES: No aneurysm. No pericardial effusion. UPPER ABDOMEN: No significant findings. Limited exam. THYROID AND OTHER SOFT TISSUES: No masses. No adenopathy. BONES: No significant finding. HARDWARE: NG tube. Right internal jugular catheter. Endotracheal tube. OTHER: No other significant findings. IMPRESSION: Bilateral pleural effusions with mild associated atelectasis. No acute pulmonary infilt rate is appreciated. Tubes and catheters as described. TECHNICAL DOCUMENTATION: JOB ID: [id number] Quality ID # [id number]: Final reports with documentation of one or more dose reduction techniques (e.g., Au tomated exposure control, adjustment of the mA and/or kV according to patient size, use of iterative reconstruction technique) 2010 [employer]- All Rights Reserved Reading location - IP/workstation name: [email or web address]
[2017-09-18 18:57] LABS: ANION GAP 7 (5-19); BLOOD UREA NITROGEN 9 mg/dL (7-20); CALCIUM 7.8 mg/dL (8.4-10.2); CARBON DIOXIDE 21 mmol/L (22-30); CHLORIDE 86 mmol/L (98-107); GLUCOSE 174 mg/dL (75-110)
[2017-09-18 19:05] LABS: POTASSIUM 2.9 mmol/L (3.6-5.0); SODIUM 114.2 mmol/L (137-145)
--- NOTE | 2017-09-18 20:34 | PDOC PROGRESS REPORT ---
Subjective Progress Note for:: 09/18/17 Subjective:: Patient deteriorated and got intubated. He was noted to have seizure disorder. Patient was having significant electrolyte imbalance with significant hyponatremia. Currently still on Levophed and insulin drip. Patient off epinephrine drip. Reason For Visit: BETABLOCKER OD, SUICIDE ATTEMPT, CHRONIC PAIN, Physical Exam Vital Signs: Temp Pulse Resp BP Pulse Ox 101.8 F H 90 22 H 128/54 H 98 09/18/17 19:47 09/18/17 19:50 09/18/17 18:13 09/18/17 18:13 09/18/17 18:13 Intake & Output 09/17/17 09/18/17 09/19/17 06:59 06:59 06:59 Intake Total 95208 3252 Output Total 4451 2600 Balance 8709 652 Weight 94.4 kg Exam: GENERAL: well-nourished and in no acute distress. Patient is intubated and sedated. Orientation cannot be checked HEAD: Atraumatic, normocephalic. EYES: Pupils equal round and reactive to light, extraocular movements could not be checked, sclera anicteric, conjunctiva are normal. ENT: TMs normal, nares patent, oropharynx clear without exudates. Moist mucous membranes. No oral ulcerations or bleeding gums noted NECK: supple without lymphadenopathy or JVD. Trachea is central. No cervical or axillary lymphadenopathy noted. Carotids are 2+ LUNGS: Breath sounds mostly clear to auscultation patient is noted to have bibasal crackles at the extreme bases CHEST: Palpation of the chest wall shows no significant chest wall tenderness or abnormalities. 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 ABDOMEN: Soft, no significant tenderness appreciated, normoactive bowel sounds. No guarding, no rebound. No rigidity noted . No masses appreciated. EXTREMITIES: Pedal pulses are 1-2+, no calf tenderness noted, 1+ pedal edema noted. No clubbing or cyanosis. NEUROLOGICAL: The patient cannot participate in the neurological exam but no facial asymmetry noted. Extremities slightly hypotonic PSYCH: This cannot be evaluated. Patient cannot participate. SKIN: No significant ecchymosis, rash, or signs of pruritus noted. MUSCULOSKELETAL EXAM: No significant joint swelling noted. Patient cannot participate in musculoskeletal exam Results Laboratory Results: 09/18/17 04:52 09/18/17 18:00 09/18/17 09/18/17 09/18/17 04:52 04:52 04:52 WBC 14.6 H RBC 3.49 L Hgb 10.8 L Hct 31.0 L MCV 89 MCH 31.0 MCHC 35.0 RDW 12.7 Plt Count 184 Seg Neutrophils % 81.6 H Lymphocytes % 12.4 L Monocytes % 5.4 Eosinophils % 0.3 Basophils % 0.3 Absolute Neutrophils 11.9 H Absolute Lymphocytes 1.8 Absolute Monocytes 0.8 Absolute Eosinophils 0.0 Absolute Basophils 0.0 Carbonic Acid 1.16 HCO3/H2CO3 Ratio 20:1 ABG pH 7.41 ABG pCO2 38.7 ABG pO2 87.2 ABG HCO3 24.1 ABG O2 Saturation 96.8 ABG Base Excess -0.3 FiO2 4L Sodium 117.3 L* Potassium 2.8 L* Chloride 84 L Carbon Dioxide 23 Anion Gap 10 BUN 10 Creatinine 0.73 Est GFR ( Amer) > 60 Est GFR (Non-Af Amer) > 60 Glucose 106 Serum Osmolality Calcium 8.4 Phosphorus 3.1 Magnesium 1.2 L* 09/18/17 09/18/17 09/18/17 09:00 09:00 12:00 WBC RBC Hgb Hct MCV MCH MCHC RDW Plt Count Seg Neutrophils % Lymphocytes % Monocytes % Eosinophils % Basophils % Absolute Neutrophils Absolute Lymphocytes Absolute Monocytes Absolute Eosinophils Absolute Basophils Carbonic Acid HCO3/H2CO3 Ratio ABG pH ABG pCO2 ABG pO2 ABG HCO3 ABG O2 Saturation ABG Base Excess FiO2 Sodium 112.8 L* 111.7 L* Potassium 2.7 L* 2.7 L* Chloride 81 L 80 L Carbon Dioxide 23 23 Anion Gap 9 9 BUN 8 8 Creatinine 0.76 0.83 Est GFR ( Amer) > 60 > 60 Est GFR (Non-Af Amer) > 60 > 60 Glucose 111 H 62 L Serum Osmolality 231 L Calcium 8.2 L 7.8 L Phosphorus Magnesium 09/18/17 09/18/17 09/18/17 13:00 13:40 15:00 WBC RBC Hgb Hct MCV MCH MCHC RDW Plt Count Seg Neutrophils % Lymphocytes % Monocytes % Eosinophils % Basophils % Absolute Neutrophils Absolute Lymphocytes Absolute Monocytes Absolute Eosinophils Absolute Basophils Carbonic Acid 0.91 L HCO3/H2CO3 Ratio 22:1 ABG pH 7.44 ABG pCO2 30.3 L ABG pO2 91.1 ABG HCO3 20.3 ABG O2 Saturation 97.4 ABG Base Excess -3.0 FiO2 35% Sodium 111.7 L* 113.9 L* Potassium 2.6 L* 2.7 L* Chloride 82 L 85 L Carbon Dioxide 22 21 L Anion Gap 8 8 BUN 8 8 Creatinine 0.82 0.87 Est GFR ( Amer) > 60 > 60 Est GFR (Non-Af Amer) > 60 > 60 Glucose 101 89 Serum Osmolality Calcium 7.6 L 7.8 L Phosphorus Magnesium 09/18/17 18:00 WBC RBC Hgb Hct MCV MCH MCHC RDW Plt Count Seg Neutrophils % Lymphocytes % Monocytes % Eosinophils % Basophils % Absolute Neutrophils Absolute Lymphocytes Absolute Monocytes Absolute Eosinophils Absolute Basophils Carbonic Acid HCO3/H2CO3 Ratio ABG pH ABG pCO2 ABG pO2 ABG HCO3 ABG O2 Saturation ABG Base Excess FiO2 Sodium 114.2 L* Potassium 2.9 L* Chloride 86 L Carbon Dioxide 21 L Anion Gap 7 BUN 9 Creatinine 0.87 Est GFR ( Amer) > 60 Est GFR (Non-Af Amer) > 60 Glucose 174 H Serum Osmolality Calcium 7.8 L Phosphorus Magnesium 09/17/17 09/17/17 09/17/17 06:41 06:41 12:08 Creatine Kinase 63 67 CK-MB (CK-2) 0.80 Troponin I < 0.012 09/17/17 09/17/17 09/17/17 12:08 18:40 18:40 Creatine Kinase 85 CK-MB (CK-2) 0.79 1.14 Troponin I < 0.012 < 0.012 EKG Comments: Telemetry strip shows sinus rhythm, no sustained tachycardia or bradycardia arrhythmias noted. Impressions: Hip/Pelvis X-Ray 09/17/17 01:38 IMPRESSION: Mild symmetrical degenerative narrowing of the hip joints. No other hip pathology. Degenerative changes lower lumbar spine. Chest CT 09/18/17 00:00 IMPRESSION: Bilateral pleural effusions with mild associated atelectasis. No acute pulmonary infiltrate is appreciated. Tubes and catheters as described. KUB X-Ray 09/18/17 00:00 IMPRESSION: Nasogastric tube in the stomach. Chest X-Ray 09/18/17 06:00 IMPRESSION: 1. Improved aeration of the left lung base with minimal residual opacity possibly representing atelectasis. The right IJ central venous catheter tip is in the low right atrium. Consider pulling back 2-[address] 09/18/17 08:00 IMPRESSION: Multilevel degenerative disc disease and spondylosis. Head CT 09/18/17 08:00 IMPRESSION: MILD CHRONIC CHANGES OF ATROPHY AND MICROVASCULAR ISCHEMIA. NO ACUTE PROCESS. EVIDENCE OF ACUTE STROKE: No Assessment & Plan - Diagnosis (1) Suicide attempt by beta anton overdose Qualifiers: Encounter type: subsequent encounter Qualified Code(s): T44.7X2D - Poisoning by beta-adrenoreceptor antagonists, intentional self-harm, subsequent encounter Is this a current diagnosis for this admission?: Yes (2) Seizure Is this a current diagnosis for this admission?: Yes (3) Diabetes Qualifiers: Diabetes mellitus type: type 2 Diabetes mellitus custodial insulin use: unspecified custodial insulin use status Diabetes mellitus complication status : with unspecified complications Qualified Code(s): E11.8 - Type 2 diabetes mellitus with unspecified complications Is this a current diagnosis for this admission?: Yes (4) Hypertension Qualifiers: Hypertension type: unspecified Qualified Code(s): I10 - Essential (primary ) hypertension Is this a current diagnosis for this admission?: Yes (5) Opiate dependence, continuous Is this a current diagnosis for this admission?: Yes - Notes Notes: Suicide attempt by beta-anton overdose: Patient being managed according to protocol set up by the Poison Control Center. Seizure disorder: Patient was intubated because of this condition. Exact etiology not clear. Hospitalist has instituted evaluation and management plans. Diabetes: Currently stable. Patient also on insulin drip for beta-anton overdose. Hypertension: Currently under reasonable control. Patient on Levophed drip as part of beta-anton overdose management. Opiate dependence: This is a chronic problem - Time Time with patient: 15-25 minutes - CODE STATUS was discussed, patient remains full code. Surrogate decision-maker patient's son. Multiple medical problems were addressed. More than 50% of the time spent coordinating care, discussing management plans with involved caregivers. Management plans discussed with involved personnels. Medical decision making was of moderate to high complexity , patient's has multiple comorbidities. Medications reviewed and adjusted accordingly: Yes
[2017-09-18] MEDS: ACETAMINOPHEN 325 MG TABLET PO PRN (20:39)
--- NOTE | 2017-09-18 20:41 | PDOC CONSULTATION ---
Consultation Consult Date: 09/17/17 Attending physician:: KESHIA MURRAY Consult reason:: Beta-anton toxicity History of Present Illness Admission Date/PCP: 09/17/17 04:56 Patient complains of: No complaints, patient came with attempted suicide History of Present Illness: ROSLYN SEAMAN is a 61 year old female with a history of morbid obesity, diabetes, chronic pain, depression, anxiety and irritable bowel syndrome. Patient presents after family hearing a big bump upon entering the room she was found on the floor unresponsive with a empty bottle of labetalol and a note expressing her DNR wishes. Patient is unable or unwilling to cooperate and is involuntarily committed requiring calcium, glucagon, levo fed, Narcan and IV fluid challenge for hypotension with bradycardia. Patient remains unable or unwilling to cooperate and concern for possible hypercapnic respiratory failure BiPAP and ABG is ordered. Family is unaware of previous history of suicide attempt. Patient had been complaining of acute on chronic neck pain. Patient is alert but unwilling to talk or give any additional information. Previous notes reviewed. Discussed with nurse and hospitalist. 2D echo results were reviewed and discussed. Patient is suspected to have labetalol overdose of unclear amounts. Management of labetalol overdose is being directed per protocol from poison control as related to me by hospitalist and the nurse. Patient on insulin drip, epinephrine drip and also Levophed drip. She was noted to be hypotensive yesterday but currently blood pressure is stable. Patient is noted to be agitated. Past Medical History Cardiac Medical History: Reports: Hypertension Pulmonary Medical History: Reports: Chronic Obstructive Pulmonary Disease (COPD) Neurological Medical History: Reports: Migraine Endocrine Medical History: Reports: Diabetes Mellitus Type 2 Musculoskeltal Medical History: Reports: Arthritis - osteoarthritis Psychiatric Medical History: Reports: Depression, General Anxiety Disorder Hematology: Denies: Anemia, Sickle Cell Disease Past Surgical History Past Surgical History: Reports: Carotid Endarterectomy, Section - 3, Orthopedic Surgery - right foot Denies: Amputation Social History Information Source: [facility] Records Lives with: Family Smoking Status: Never Smoker Last Time Smoked: 2015 Frequency of Alcohol Use: None Hx Recreational Drug Use: No Drugs: None Hx Prescription Drug Abuse: No - Advance Directive Resuscitation Status: Full Code Surrogate healthcare decision maker:: Patient 3 sons at the surrogate decision-maker. Family History Family History: Hypertension Parental Family History Reviewed: Yes Children Family History Reviewed: Yes Sibling(s) Family History Reviewed.: Yes Medication/Allergy Home Medications: Diclofenac Sodium [Voltaren] 4 gm TOP DAILY 09/17/17 Dicyclomine HCl [Bentyl 20 mg Tablet] 20 mg PO QIDP PRN 09/17/17 Dulaglutide [Trulicity] 0.75 mg SQ Q7D 09/17/17 Escitalopram Oxalate [Lexapro 10 mg Tablet] 10 mg PO DAILY 09/17/17 Hydroxyzine Pamoate [Vistaril 25 mg Capsule] 25 mg PO Q6 09/17/17 Labetalol HCl [Trandate] 100 mg PO Q12 09/17/17 Lorazepam [Ativan 1 mg Tablet] 1 mg PO Q12 09/17/17 Olmesartan/Amlodipin/Hcthiazid [Tribenzor 40-10-12.5 mg Tablet] 1 tab PO DAILY 09/17/17 Ondansetron [Zofran Odt 4 mg Tablet] 4 mg SL Q4HP PRN 09/17/17 Oxycodone HCl/Acetaminophen [Oxycodone-Acetaminophen 10-325] 1 tab PO Q6HP PRN 09/17/17 Allergies/Adverse Reactions: lisinopril Allergy (Verified 09/13/17 09:14) Review of Systems ROS unobtainable: Due to mental status, Other - Patient did not want to provide any medical history. Physical Exam Vital Signs: Temp Pulse Resp BP Pulse Ox 98.1 F 62 22 H 101/65 98 09/17/17 19:44 09/17/17 16:00 09/17/17 18:47 09/17/17 18:47 09/17/17 18:47 Intake & Output 09/16/17 09/17/17 09/18/17 06:59 06:59 06:59 Intake Total 7034 Output Total 2576 Balance 4458 Weight 86 kg Exam: Patient did not want to be examined. But patient looks comfortable with good perfusion peripherally. She did however make eye contact and seems to be neurologically intact. A full exam was not performed. Results Laboratory Results: 09/17/17 09/17/17 09/17/17 05:40 06:12 13:00 Carbonic Acid Cancelled 1.30 1.45 H HCO3/H2CO3 Ratio Cancelled 18:1 16:1 ABG pH Cancelled 7.37 7.31 L ABG pCO2 Cancelled 43.1 48.1 H ABG pO2 Cancelled 45.5 L 45.5 L ABG HCO3 Cancelled 24.2 23.6 ABG O2 Saturation Cancelled 80.0 L 77.0 L ABG Base Excess Cancelled -1.2 -2.9 FiO2 Cancelled 30% 6 L 09/17/17 09/17/17 09/17/17 06:41 06:41 12:08 Creatine Kinase 63 67 CK-MB (CK-2) 0.80 Troponin I < 0.012 09/17/17 09/17/17 09/17/17 12:08 18:40 18:40 Creatine Kinase 85 CK-MB (CK-2) 0.79 1.14 Troponin I < 0.012 < 0.012 EKG Comments: Sinus rhythm, no acute ST-T wave changes were noted. Impressions: Chest X-Ray 09/17/17 00:00 IMPRESSION: Right jugular central line tip in the right atrium. No pneumothorax. Basilar airspace disease likely atelectasis. Pneumonia not entirely excluded Hip/Pelvis X-Ray 09/17/17 01:38 IMPRESSION: Mild symmetrical degenerative narrowing of the hip joints. No other hip pathology. Degenerative changes lower lumbar spine. Assessment & Plan - Diagnosis (1) Suicide attempt by beta anton overdose Qualifiers: Encounter type: subsequent encounter Qualified Code(s): T44.7X2D - Poisoning by beta-adrenoreceptor antagonists, intentional self-harm, subsequent encounter Is this a current diagnosis for this admission?: Yes (2) Hypotension Qualifiers: Hypotension type: other hypotension type Qualified Code(s): I95.89 - Other hypotension Is this a current diagnosis for this admission?: Yes (3) Hypertension Qualifiers: Hypertension type: unspecified Qualified Code(s): I10 - Essential (primary ) hypertension Is this a current diagnosis for this admission?: Yes (4) Opiate dependence, continuous Is this a current diagnosis for this admission?: Yes (5) Type 2 diabetes mellitus Qualifiers: Diabetes mellitus fpc insulin use: 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 Currently patient seems stabilizing. She has significant psychiatric issues and is unwilling to talk or be examined at this point. Chart was reviewed. I am told by the nurse that management is being directed by poison control. Hypotension: Blood pressure was noted to be stable. Continue current management plans. Hypertension: Currently stable. Opioid dependence: Currently stable. Diabetes: Patient currently on insulin drip as part of protocol for beta- blockers overdose management. 2D echo did show a normal LVEF. We will repeat an EKG in the morning. So far no heart blocks noted. - Time Time Spent: 30 to 50 Minutes - CODE STATUS was discussed, patient remains full code. Surrogate decision-maker patient's son. Multiple medical problems were addressed. More than 50% of the time spent coordinating care, discussing management plans with involved caregivers. Management plans discussed with involved personnels. Medical decision making was of moderate to high complexity , patient's has multiple comorbidities. Medications reviewed and adjusted accordingly: Yes
[2017-09-18 21:01] LABS: ANION GAP 12 (5-19); BLOOD UREA NITROGEN 9 mg/dL (7-20); CALCIUM 7.9 mg/dL (8.4-10.2); CARBON DIOXIDE 21 mmol/L (22-30); CHLORIDE 86 mmol/L (98-107); GLUCOSE 157 mg/dL (75-110)
[2017-09-18 21:23] LABS: POTASSIUM 2.8 mmol/L (3.6-5.0); SODIUM 118.7 mmol/L (137-145)
[2017-09-18] MEDS ORDERED: VANCOMYCIN HCL 0 MG in DEXTROSE 5%-WATER 250 ML IV NR (21:30)
[2017-09-18 22:40] LABS: BLOOD UREA NITROGEN 9 mg/dL (7-20); CARBON DIOXIDE 23 mmol/L (22-30); CHLORIDE 88 mmol/L (98-107); GLUCOSE 117 mg/dL (75-110)
[2017-09-18] MEDS: VANCOMYCIN HCL 750 MG in DEXTROSE 5%-WATER 250 ML IV SCH (22:42)
[2017-09-18 22:47] LABS: ANION GAP 11 (5-19)
[2017-09-18 22:52] LABS: SODIUM 121.6 mmol/L (137-145)
[2017-09-18 22:53] LABS: POTASSIUM 2.5 mmol/L (3.6-5.0)
[2017-09-18 23:17] LABS: HEMATOCRIT 28.2 % (36.0-47.0); MEAN CORPUSCULAR HEMOGLOBIN 31.2 pg (27.0-33.4); MEAN CORPUSCULAR HGB CONC 35.4 g/dL (32.0-36.0); MEAN CORPUSCULAR VOLUME 88 fl (80-97); PLATELET COUNT 157 10^3/uL (150-450); RED BLOOD COUNT 3.19 10^6/uL (3.72-5.28); RED CELL DISTRIBUTION WIDTH 12.7 % (11.5-14.0); WHITE BLOOD COUNT 12.2 10^3/uL (4.0-10.5)
[2017-09-19] MEDS ORDERED: PIPERACILLIN SODIUM/TAZOBACTAM 3.375 GM in NORMAL SALINE 100 ML IV SCH ×2
[2017-09-19] MEDS: IPRATROPIUM/ALBUTEROL 0.5-2.5 MG/3 ML AMPUL NEB SCH ×3 (00:01→16:36)
[2017-09-19 00:38] LABS: ANION GAP 11 (5-19); BLOOD UREA NITROGEN 9 mg/dL (7-20); CALCIUM 8.1 mg/dL (8.4-10.2); CARBON DIOXIDE 23 mmol/L (22-30); CHLORIDE 88 mmol/L (98-107); GLUCOSE 121 mg/dL (75-110); SODIUM 121.9 mmol/L (137-145)
[2017-09-19 00:44] LABS: POTASSIUM 2.7 mmol/L (3.6-5.0)
[2017-09-19] MEDS: PIPERACILLIN SODIUM/TAZOBACTAM 3.375 GM in NORMAL SALINE 100 ML IV SCH ×4 (01:13→17:43)
[2017-09-19] MEDS: ACETAMINOPHEN 325 MG TABLET PO PRN ×3 (01:14→15:54)
[2017-09-19 02:29] LABS: ANION GAP 8 (5-19); BLOOD UREA NITROGEN 9 mg/dL (7-20); CALCIUM 7.8 mg/dL (8.4-10.2); CARBON DIOXIDE 24 mmol/L (22-30); CHLORIDE 92 mmol/L (98-107); GLUCOSE 107 mg/dL (75-110); SODIUM 123.9 mmol/L (137-145)
[2017-09-19 02:31] LABS: POTASSIUM 2.5 mmol/L (3.6-5.0)
[2017-09-19] MEDS ORDERED: IBUPROFEN SUSP 100 MG/5 ML ORAL SYRINGE NG PRN (02:49)
[2017-09-19] MEDS ORDERED: IBUPROFEN SUSP 100 MG/5 ML ORAL SYRINGE ONE (04:05)
[2017-09-19] MEDS ORDERED: IBUPROFEN SUSP 20 MG/1 ML 118 ML ONE (04:05)
[2017-09-19 04:26] LABS: ANION GAP 11 (5-19); BLOOD UREA NITROGEN 8 mg/dL (7-20); CALCIUM 7.9 mg/dL (8.4-10.2); CARBON DIOXIDE 24 mmol/L (22-30); CHLORIDE 89 mmol/L (98-107); GLUCOSE 115 mg/dL (75-110); SODIUM 123.5 mmol/L (137-145)
[2017-09-19 04:32] LABS: POTASSIUM 2.5 mmol/L (3.6-5.0)
[2017-09-19] MEDS: MIDAZOLAM HCL 50 MG/100 ML RTUINJ IV PRN ×5 (04:33→22:48)
[2017-09-19] MEDS ORDERED: POTASSIUM CHLORIDE 20 MEQ/50 ML RTU IV ONE (04:45)
[2017-09-19 05:45] LABS: ARTERIAL BLOOD BASE EXCESS 0.6 mmol/L; ARTERIAL BLOOD H2CO3 0.85 mmol/L (1.05-1.35); ARTERIAL BLOOD HCO3 22.4 mmol/L (20-26); ARTERIAL BLOOD O2 SATURATION 97.4 % (94-98); ARTERIAL BLOOD PCO2 28.1 mmHg (35-45); ARTERIAL BLOOD PH 7.52 (7.35-7.45); ARTERIAL BLOOD PO2 84.9 mmHg (80-100); ARTERIAL BLOOD TOTAL CO2 23.3 mmol/L (21-25)
[2017-09-19] MEDS: GABAPENTIN 100 MG CAPSULE PO SCH ×3 (05:45→22:55)
[2017-09-19 05:46] LABS: ARTERIAL BLOOD FIO2 30%
[2017-09-19] MEDS: HEPARIN SOD (PORCINE) 5,000 UNIT/ML 1 ML SYRINGE SUBCUT SCH ×3 (05:49→22:53)
[2017-09-19] MEDS: SODIUM CHLORIDE 1 GM TABLET PO SCH (05:51)
--- NOTE | 2017-09-19 06:12 | RADIOLOGY REPORT (SQ) ---
EXAM DESCRIPTION: CHEST SINGLE VIEW CLINICAL HISTORY: resp failure COMPARISON: 09/18/2017 FINDINGS: Single frontal view of the chest. Endotracheal tube with tip at the level of the clavicles. NG tube with tip below the diaphragm. Right IJ central venous catheter with tip in the right atrium. Leads overlie the chest. Low lung volumes. Heart is not enlarged. No pneumothorax or definite pleural effusion. Improved aeration the left lung base with minimal residual left basilar linear opacity. No acute osseous abnormalities. Upper abdominal soft tissues are unremarkable. IMPRESSION: 1. Stable appearance of the chest. Electronically signed by: Miguel Angel Beard 09/19/2017 5:11 AM
[2017-09-19 06:26] LABS: ABSOLUTE LYMPHOCYTES (AUTO) 1.2 10^3/uL (0.5-4.7); ABSOLUTE MONOCYTES (AUTO) 0.9 10^3/uL (0.1-1.4); ABSOLUTE NEUT (AUTO) 11.1 10^3/uL (1.7-8.2); BASOPHILS % (AUTO) 0.1 % (0-2); HEMOGLOBIN 9.9 g/dL (12.0-15.5); LYMPHOCYTES % (AUTO) 8.7 % (13-45); MEAN CORPUSCULAR HGB CONC 35.4 g/dL (32.0-36.0); MEAN CORPUSCULAR VOLUME 88 fl (80-97); MONOCYTES % (AUTO) 7.1 % (3-13); PLATELET COUNT 151 10^3/uL (150-450); RED BLOOD COUNT 3.19 10^6/uL (3.72-5.28); RED CELL DISTRIBUTION WIDTH 12.7 % (11.5-14.0); SEGMENTED NEUTROPHILS % (AUTO) 84.1 % (42-78); TOTAL CELLS COUNTED % (AUTO) 100 %; WHITE BLOOD COUNT 13.3 10^3/uL (4.0-10.5)
[2017-09-19 06:48] LABS: ANION GAP 10 (5-19); BLOOD UREA NITROGEN 9 mg/dL (7-20); CALCIUM 7.9 mg/dL (8.4-10.2); CARBON DIOXIDE 23 mmol/L (22-30); CHLORIDE 90 mmol/L (98-107); GLUCOSE 119 mg/dL (75-110)
[2017-09-19 06:50] LABS: POTASSIUM 2.7 mmol/L (3.6-5.0)
[2017-09-19] MEDS: DOCUSATE SODIUM 100 MG CAPSULE PO SCH ×2 (08:55→12:58)
--- NOTE | 2017-09-19 09:12 | EKG REPORT ---
SEVERITY:- ABNORMAL ECG - SINUS TACHYCARDIA VENTRICULAR PREMATURE COMPLEX ABNRM R PROG, CONSIDER ASMI OR LEAD PLACEMENT NONSPECIFIC T ABNORMALITIES, LATERAL LEADS PROLONGED QT INTERVAL : Confirmed by: Deidre Hadley 19-Sep-2017 09:12:04
[2017-09-19] MEDS: ASPIRIN 81 MG TABLET, ENT COATED PO SCH (09:22)
[2017-09-19] MEDS: VANCOMYCIN HCL 750 MG in DEXTROSE 5%-WATER 250 ML IV SCH ×2 (09:23→22:55)
[2017-09-19] MEDS: FAMOTIDINE 20 MG TABLET PO SCH ×2 (09:23→22:55)
--- NOTE | 2017-09-19 10:01 | PDOC PROGRESS REPORT ---
Subjective Progress Note for:: 09/19/17 Subjective:: Nursing states that pt's blood pressure and heart rate have been good. Nursing states that pt has been febrile overnight. Nursing states that pt's sodium was 123. Reason For Visit: BETABLOCKER OD, SUICIDE ATTEMPT, CHRONIC PAIN, Physical Exam Vital Signs: Temp Pulse Resp BP Pulse Ox 100.6 F H 106 H 20 121/67 99 09/19/17 08:00 09/19/17 08:00 09/19/17 08:21 09/19/17 08:21 09/19/17 08:21 Intake & Output 09/18/17 09/19/17 09/20/17 06:59 06:59 06:59 Intake Total 29641 4372 Output Total 4451 3825 375 Balance 8709 547 -375 Weight 94.4 kg 94.7 kg General appearance: PRESENT: other - intubation, sedated Head exam: PRESENT: atraumatic, normocephalic Eye exam: ABSENT: scleral icterus Ear exam: PRESENT: normal external ear exam Mouth exam: PRESENT: moist, tongue midline Neck exam: ABSENT: carotid bruit, JVD, lymphadenopathy, thyromegaly Respiratory exam: PRESENT: clear to auscultation avel. ABSENT: rales, rhonchi, wheezes Cardiovascular exam: PRESENT: RRR. ABSENT: diastolic murmur, rubs, systolic murmur Pulses: PRESENT: normal dorsalis pedis pul Vascular exam: PRESENT: normal capillary refill GI/Abdominal exam: PRESENT: normal bowel sounds, soft. ABSENT: distended, guarding, mass, organolmegaly, rebound, tenderness Rectal exam: PRESENT: deferred Extremities exam: PRESENT: full ROM. ABSENT: calf tenderness, clubbing, pedal edema Neurological exam: PRESENT: other - sedated Psychiatric exam: PRESENT: other - sedation Skin exam: PRESENT: dry, intact, warm. ABSENT: cyanosis, rash Results Laboratory Results: 09/19/17 06:05 09/19/17 06:05 09/18/17 09/18/17 09/18/17 09:00 09:00 12:00 WBC RBC Hgb Hct MCV MCH MCHC RDW Plt Count Seg Neutrophils % Lymphocytes % Monocytes % Eosinophils % Basophils % Absolute Neutrophils Absolute Lymphocytes Absolute Monocytes Absolute Eosinophils Absolute Basophils Carbonic Acid HCO3/H2CO3 Ratio ABG pH ABG pCO2 ABG pO2 ABG HCO3 ABG O2 Saturation ABG Base Excess FiO2 Sodium 112.8 L* 111.7 L* Potassium 2.7 L* 2.7 L* Chloride 81 L 80 L Carbon Dioxide 23 23 Anion Gap 9 9 BUN 8 8 Creatinine 0.76 0.83 Est GFR ( Amer) > 60 > 60 Est GFR (Non-Af Amer) > 60 > 60 Glucose 111 H 62 L Serum Osmolality 231 L Calcium 8.2 L 7.8 L Magnesium Stool Occult Blood 09/18/17 09/18/17 09/18/17 13:00 13:40 15:00 WBC RBC Hgb Hct MCV MCH MCHC RDW Plt Count Seg Neutrophils % Lymphocytes % Monocytes % Eosinophils % Basophils % Absolute Neutrophils Absolute Lymphocytes Absolute Monocytes Absolute Eosinophils Absolute Basophils Carbonic Acid 0.91 L HCO3/H2CO3 Ratio 22:1 ABG pH 7.44 ABG pCO2 30.3 L ABG pO2 91.1 ABG HCO3 20.3 ABG O2 Saturation 97.4 ABG Base Excess -3.0 FiO2 35% Sodium 111.7 L* 113.9 L* Potassium 2.6 L* 2.7 L* Chloride 82 L 85 L Carbon Dioxide 22 21 L Anion Gap 8 8 BUN 8 8 Creatinine 0.82 0.87 Est GFR ( Amer) > 60 > 60 Est GFR (Non-Af Amer) > 60 > 60 Glucose 101 89 Serum Osmolality Calcium 7.6 L 7.8 L Magnesium Stool Occult Blood 09/18/17 09/18/17 09/18/17 18:00 20:25 20:55 WBC RBC Hgb Hct MCV MCH MCHC RDW Plt Count Seg Neutrophils % Lymphocytes % Monocytes % Eosinophils % Basophils % Absolute Neutrophils Absolute Lymphocytes Absolute Monocytes Absolute Eosinophils Absolute Basophils Carbonic Acid HCO3/H2CO3 Ratio ABG pH ABG pCO2 ABG pO2 ABG HCO3 ABG O2 Saturation ABG Base Excess FiO2 Sodium 114.2 L* 118.7 L* Potassium 2.9 L* 2.8 L* Chloride 86 L 86 L Carbon Dioxide 21 L 21 L Anion Gap 7 12 BUN 9 9 Creatinine 0.87 0.89 Est GFR ( Amer) > 60 > 60 Est GFR (Non-Af Amer) > 60 > 60 Glucose 174 H 157 H Serum Osmolality Calcium 7.8 L 7.9 L Magnesium Stool Occult Blood POSITIVE 09/18/17 09/18/17 09/19/17 22:10 22:50 00:05 WBC 12.2 H RBC 3.19 L Hgb 10.0 L Hct 28.2 L MCV 88 MCH 31.2 MCHC 35.4 RDW 12.7 Plt Count 157 Seg Neutrophils % Lymphocytes % Monocytes % Eosinophils % Basophils % Absolute Neutrophils Absolute Lymphocytes Absolute Monocytes Absolute Eosinophils Absolute Basophils Carbonic Acid HCO3/H2CO3 Ratio ABG pH ABG pCO2 ABG pO2 ABG HCO3 ABG O2 Saturation ABG Base Excess FiO2 Sodium 121.6 L 121.9 L Potassium 2.5 L* 2.7 L* Chloride 88 L 88 L Carbon Dioxide 23 23 Anion Gap 11 11 BUN 9 9 Creatinine 0.89 0.86 Est GFR ( Amer) > 60 > 60 Est GFR (Non-Af Amer) > 60 > 60 Glucose 117 H 121 H Serum Osmolality Calcium 8.0 L 8.1 L Magnesium Stool Occult Blood 09/19/17 09/19/17 09/19/17 02:05 04:03 05:13 WBC RBC Hgb Hct MCV MCH MCHC RDW Plt Count Seg Neutrophils % Lymphocytes % Monocytes % Eosinophils % Basophils % Absolute Neutrophils Absolute Lymphocytes Absolute Monocytes Absolute Eosinophils Absolute Basophils Carbonic Acid 0.85 L HCO3/H2CO3 Ratio 26:1 ABG pH 7.52 H ABG pCO2 28.1 L ABG pO2 84.9 ABG HCO3 22.4 ABG O2 Saturation 97.4 ABG Base Excess 0.6 FiO2 30% Sodium 123.9 L 123.5 L Potassium 2.5 L* 2.5 L* Chloride 92 L 89 L Carbon Dioxide 24 24 Anion Gap 8 11 BUN 9 8 Creatinine 0.91 0.90 Est GFR ( Amer) > 60 > 60 Est GFR (Non-Af Amer) > 60 > 60 Glucose 107 115 H Serum Osmolality Calcium 7.8 L 7.9 L Magnesium Stool Occult Blood 09/19/17 09/19/17 06:05 06:05 WBC 13.3 H RBC 3.19 L Hgb 9.9 L Hct 28.0 L MCV 88 MCH 31.0 MCHC 35.4 RDW 12.7 Plt Count 151 Seg Neutrophils % 84.1 H Lymphocytes % 8.7 L Monocytes % 7.1 Eosinophils % 0.0 Basophils % 0.1 Absolute Neutrophils 11.1 H Absolute Lymphocytes 1.2 Absolute Monocytes 0.9 Absolute Eosinophils 0.0 Absolute Basophils 0.0 Carbonic Acid HCO3/H2CO3 Ratio ABG pH ABG pCO2 ABG pO2 ABG HCO3 ABG O2 Saturation ABG Base Excess FiO2 Sodium 123.0 L Potassium 2.7 L* Chloride 90 L Carbon Dioxide 23 Anion Gap 10 BUN 9 Creatinine 0.87 Est GFR ( Amer) > 60 Est GFR (Non-Af Amer) > 60 Glucose 119 H Serum Osmolality Calcium 7.9 L Magnesium 1.7 Stool Occult Blood 09/17/17 09/17/17 09/17/17 06:41 06:41 12:08 Creatine Kinase 63 67 CK-MB (CK-2) 0.80 Troponin I < 0.012 09/17/17 09/17/17 09/17/17 12:08 18:40 18:40 Creatine Kinase 85 CK-MB (CK-2) 0.79 1.14 Troponin I < 0.012 < 0.012 Impressions: Hip/Pelvis X-Ray 09/17/17 01:38 IMPRESSION: Mild symmetrical degenerative narrowing of the hip joints. No other hip pathology. Degenerative changes lower lumbar spine. Chest CT 09/18/17 00:00 IMPRESSION: Bilateral pleural effusions with mild associated atelectasis. No acute pulmonary infiltrate is appreciated. Tubes and catheters as described. KUB X-Ray 09/18/17 00:00 IMPRESSION: Nasogastric tube in the stomach. Cervical Spine CT 09/18/17 08:00 IMPRESSION: Multilevel degenerative disc disease and spondylosis. Head CT 09/18/17 08:00 IMPRESSION: MILD CHRONIC CHANGES OF ATROPHY AND MICROVASCULAR ISCHEMIA. NO ACUTE PROCESS. EVIDENCE OF ACUTE STROKE: No Chest X-Ray 09/19/17 06:00 IMPRESSION: 1. Stable appearance of the chest. Assessment & Plan - Diagnosis (1) Acute respiratory failure Is this a current diagnosis for this admission?: Yes Plan: Secondary to seizure: Pulmonary recommended intubating patient to help protect airway. (2) Seizure Is this a current diagnosis for this admission?: Yes Plan: Secondary to Severe Hyponatremia: Patient was given 3% hypertonic saline yesterday and during the night. Patient's sodium is currently 123 no additional fluids have been ordered at this time patient has corrected approximately 10-12 mmol. Will monitor and continue to check serial sodiums and consider restarting replacement tomorrow if sodium remains at current level. (3) Aspiration pneumonia Is this a current diagnosis for this admission?: Yes Plan: Most likely Gram Positive: Will continue with current antibiotics. (4) Hypomagnesemia Is this a current diagnosis for this admission?: Yes Plan: Will give additional 2 grams of Magnesium. Will check Magnesium level in am. (5) Hypokalemia Is this a current diagnosis for this admission?: Yes Plan: Will give potassium replacement. BMP and Mg in a.m. (6) Hyponatremia Is this a current diagnosis for this admission?: Yes Plan: Secondary to Hypervolemia: Na 123. Will continue to monitor. (7) Diabetes Qualifiers: Diabetes mellitus type: type 2 Diabetes mellitus senior care insulin use: unspecified senior care insulin use status Diabetes mellitus complication status : with unspecified complications Qualified Code(s): E11.8 - Type 2 diabetes mellitus with unspecified complications Is this a current diagnosis for this admission?: Yes Plan: Will continue current insulin regimen. (8) Encephalopathy Is this a current diagnosis for this admission?: Yes Plan: Acute Metabolic Encephalopathy: Sedated. (9) Hypotension Qualifiers: Hypotension type: other hypotension type Qualified Code(s): I95.89 - Other hypotension Is this a current diagnosis for this admission?: Yes Plan: Secondary to Beta Anton Overdose: Resolving. (10) Suicide attempt by beta anton overdose Qualifiers: Encounter type: subsequent encounter Qualified Code(s): T44.7X2D - Poisoning by beta-adrenoreceptor antagonists, intentional self-harm, subsequent encounter Is this a current diagnosis for this admission?: Yes Plan: Pt being evaluated by mental health. (11) Benzodiazepine dependence, continuous Is this a current diagnosis for this admission?: Yes Plan: Supportive care. (12) Leukocytosis Is this a current diagnosis for this admission?: Yes Plan: CT of chest demonstrated bilateral pleural effusions with mild atelectasis. (13) DVT prophylaxis Is this a current diagnosis for this admission?: Yes Plan: Heparin - Time Time Spent with patient: 25-34 minutes
[2017-09-19] MEDS: MAGNESIUM SULFATE/D5W 1 GM/100 ML RTUPB IV SCH ×2 (10:31→11:06)
[2017-09-19] MEDS: POTASSI CL 20 MEQ/50 ML RIDER 20 MEQ/50 ML RTUPB IV SCH ×3 (10:41→13:01)
--- NOTE | 2017-09-19 14:07 | PDOC PROGRESS REPORT ---
Subjective Progress Note for:: 09/19/17 Subjective:: Patient deteriorated and got intubated yesterday. She was noted to have seizure disorder. Patient was having significant electrolyte imbalance with significant hyponatremia. Today off all vasopressors drip. Heart rate has been satisfactory. Blood pressure has been satisfactory. Serum sodium has improved.. Reason For Visit: BETABLOCKER OD, SUICIDE ATTEMPT, CHRONIC PAIN, Physical Exam Vital Signs: Temp Pulse Resp BP Pulse Ox 100.2 F 107 H 19 116/70 99 09/19/17 12:00 09/19/17 12:00 09/19/17 12:51 09/19/17 12:51 09/19/17 12:51 Intake & Output 09/18/17 09/19/17 09/20/17 06:59 06:59 06:59 Intake Total 41391 4372 545 Output Total 4451 3825 840 Balance 8709 547 -295 Weight 94.4 kg 94.7 kg Exam: GENERAL: well-nourished and in no acute distress. Patient is intubated and sedated. Orientation cannot be checked HEAD: Atraumatic, normocephalic. EYES: Pupils equal round and reactive to light, extraocular movements could not be checked, sclera anicteric, conjunctiva are normal. ENT: TMs normal, nares patent, oropharynx clear without exudates. Moist mucous membranes. No oral ulcerations or bleeding gums noted NECK: supple without lymphadenopathy or JVD. Trachea is central. No cervical or axillary lymphadenopathy noted. Carotids are 2+ LUNGS: Breath sounds mostly clear to auscultation patient is noted to have bibasal crackles at the extreme bases CHEST: Palpation of the chest wall shows no significant chest wall tenderness or abnormalities. HEART: [employer], No PSH, 2/6 HERVE aortic area, 1/6 mcdonough systolic murmur mitral area , no rubs or gallops. ABDOMEN: Soft, no significant tenderness appreciated, normoactive bowel sounds. No guarding, no rebound. No rigidity noted . No masses appreciated. EXTREMITIES: Pedal pulses are 1-2+, no calf tenderness noted, 1+ pedal edema noted. No clubbing or cyanosis. NEUROLOGICAL: The patient cannot participate in the neurological exam but no facial asymmetry noted. Extremities slightly hypotonic PSYCH: This cannot be evaluated. Patient cannot participate. SKIN: No significant ecchymosis, rash, or signs of pruritus noted. MUSCULOSKELETAL EXAM: No significant joint swelling noted. Patient cannot participate in musculoskeletal exam Results Laboratory Results: 09/19/17 06:05 09/19/17 06:05 09/18/17 09/18/17 09/18/17 15:00 18:00 20:25 WBC RBC Hgb Hct MCV MCH MCHC RDW Plt Count Seg Neutrophils % Lymphocytes % Monocytes % Eosinophils % Basophils % Absolute Neutrophils Absolute Lymphocytes Absolute Monocytes Absolute Eosinophils Absolute Basophils Carbonic Acid HCO3/H2CO3 Ratio ABG pH ABG pCO2 ABG pO2 ABG HCO3 ABG O2 Saturation ABG Base Excess FiO2 Sodium 113.9 L* 114.2 L* 118.7 L* Potassium 2.7 L* 2.9 L* 2.8 L* Chloride 85 L 86 L 86 L Carbon Dioxide 21 L 21 L 21 L Anion Gap 8 7 12 BUN 8 9 9 Creatinine 0.87 0.87 0.89 Est GFR ( Amer) > 60 > 60 > 60 Est GFR (Non-Af Amer) > 60 > 60 > 60 Glucose 89 174 H 157 H Calcium 7.8 L 7.8 L 7.9 L Magnesium Stool Occult Blood 09/18/17 09/18/17 09/18/17 20:55 22:10 22:50 WBC 12.2 H RBC 3.19 L Hgb 10.0 L Hct 28.2 L MCV 88 MCH 31.2 MCHC 35.4 RDW 12.7 Plt Count 157 Seg Neutrophils % Lymphocytes % Monocytes % Eosinophils % Basophils % Absolute Neutrophils Absolute Lymphocytes Absolute Monocytes Absolute Eosinophils Absolute Basophils Carbonic Acid HCO3/H2CO3 Ratio ABG pH ABG pCO2 ABG pO2 ABG HCO3 ABG O2 Saturation ABG Base Excess FiO2 Sodium 121.6 L Potassium 2.5 L* Chloride 88 L Carbon Dioxide 23 Anion Gap 11 BUN 9 Creatinine 0.89 Est GFR ( Amer) > 60 Est GFR (Non-Af Amer) > 60 Glucose 117 H Calcium 8.0 L Magnesium Stool Occult Blood POSITIVE 09/19/17 09/19/17 09/19/17 00:05 02:05 04:03 WBC RBC Hgb Hct MCV MCH MCHC RDW Plt Count Seg Neutrophils % Lymphocytes % Monocytes % Eosinophils % Basophils % Absolute Neutrophils Absolute Lymphocytes Absolute Monocytes Absolute Eosinophils Absolute Basophils Carbonic Acid HCO3/H2CO3 Ratio ABG pH ABG pCO2 ABG pO2 ABG HCO3 ABG O2 Saturation ABG Base Excess FiO2 Sodium 121.9 L 123.9 L 123.5 L Potassium 2.7 L* 2.5 L* 2.5 L* Chloride 88 L 92 L 89 L Carbon Dioxide 23 24 24 Anion Gap 11 8 11 BUN 9 9 8 Creatinine 0.86 0.91 0.90 Est GFR ( Amer) > 60 > 60 > 60 Est GFR (Non-Af Amer) > 60 > 60 > 60 Glucose 121 H 107 115 H Calcium 8.1 L 7.8 L 7.9 L Magnesium Stool Occult Blood 09/19/17 09/19/17 09/19/17 05:13 06:05 06:05 WBC 13.3 H RBC 3.19 L Hgb 9.9 L Hct 28.0 L MCV 88 MCH 31.0 MCHC 35.4 RDW 12.7 Plt Count 151 Seg Neutrophils % 84.1 H Lymphocytes % 8.7 L Monocytes % 7.1 Eosinophils % 0.0 Basophils % 0.1 Absolute Neutrophils 11.1 H Absolute Lymphocytes 1.2 Absolute Monocytes 0.9 Absolute Eosinophils 0.0 Absolute Basophils 0.0 Carbonic Acid 0.85 L HCO3/H2CO3 Ratio 26:1 ABG pH 7.52 H ABG pCO2 28.1 L ABG pO2 84.9 ABG HCO3 22.4 ABG O2 Saturation 97.4 ABG Base Excess 0.6 FiO2 30% Sodium 123.0 L Potassium 2.7 L* Chloride 90 L Carbon Dioxide 23 Anion Gap 10 BUN 9 Creatinine 0.87 Est GFR ( Amer) > 60 Est GFR (Non-Af Amer) > 60 Glucose 119 H Calcium 7.9 L Magnesium 1.7 Stool Occult Blood 09/17/17 09/17/17 09/17/17 06:41 06:41 12:08 Creatine Kinase 63 67 CK-MB (CK-2) 0.80 Troponin I < 0.012 09/17/17 09/17/17 09/17/17 12:08 18:40 18:40 Creatine Kinase 85 CK-MB (CK-2) 0.79 1.14 Troponin I < 0.012 < 0.012 EKG Comments: Twelve-lead EKG shows sinus rhythm to mild sinus tachycardia, occasional VPCs noted Impressions: Hip/Pelvis X-Ray 09/17/17 01:38 IMPRESSION: Mild symmetrical degenerative narrowing of the hip joints. No other hip pathology. Degenerative changes lower lumbar spine. Chest CT 09/18/17 00:00 IMPRESSION: Bilateral pleural effusions with mild associated atelectasis. No acute pulmonary infiltrate is appreciated. Tubes and catheters as described. KUB X-Ray 09/18/17 00:00 IMPRESSION: Nasogastric tube in the stomach. Cervical Spine CT 09/18/17 08:00 IMPRESSION: Multilevel degenerative disc disease and spondylosis. Head CT 09/18/17 08:00 IMPRESSION: MILD CHRONIC CHANGES OF ATROPHY AND MICROVASCULAR ISCHEMIA. NO ACUTE PROCESS. EVIDENCE OF ACUTE STROKE: No Chest X-Ray 09/19/17 06:00 IMPRESSION: 1. Stable appearance of the chest. Assessment & Plan - Diagnosis (1) Suicide attempt by beta anton overdose Qualifiers: Encounter type: subsequent encounter Qualified Code(s): T44.7X2D - Poisoning by beta-adrenoreceptor antagonists, intentional self-harm, subsequent encounter Is this a current diagnosis for this admission?: Yes (2) Hypotension Qualifiers: Hypotension type: other hypotension type Qualified Code(s): I95.89 - Other hypotension Is this a current diagnosis for this admission?: Yes (3) Hypertension Qualifiers: Hypertension type: unspecified Qualified Code(s): I10 - Essential (primary ) hypertension Is this a current diagnosis for this admission?: Yes (4) Opiate dependence, continuous Is this a current diagnosis for this admission?: Yes (5) Type 2 diabetes mellitus Qualifiers: Diabetes mellitus intermediate insulin use: unspecified long term acute care registered nurse insulin use status Diabetes mellitus complication status: with unspecified complications Qualified Code(s): E11.8 - Type 2 diabetes mellitus with unspecified complications Is this a current diagnosis for this admission?: Yes - Notes Notes: Suicide attempt by beta-anton overdose: seems like patient is now 5 half-life times away. Now off all vasopressors. Blood pressure and heart rate has been stable. Seizure disorder: Patient was intubated because of this condition. Exact etiology not clear. Hospitalist has instituted evaluation and management plans. Possibly withdrawals could be causing this. Diabetes: Currently stable. Patient being well managed by hospitalist Hypertension: Currently under reasonable control. Resume previous antihypertensives. Opiate dependence: This is a chronic problem. Patient noted to have urine growing gram-negative rods. Patient on antibiotics. - Time Time with patient: 15-25 minutes - Patient now felt generally stable from cardiac standpoint. Will see patient on as needed basis. Please call me if further help is needed. Medications reviewed and adjusted accordingly: Yes
--- NOTE | 2017-09-19 14:31 | Physician Advisory Note ---
Physician Advisor ProgressNote .: Pursuant to the plan for [facility], I have reviewed the medical record for this patient. Physician Advisor Statement: Please consider documenting, if you agree: 1. "Shock, due to poisoning from beta-anton overdose" (pt on pressor + IVF, initial MAPs <60) 2. Please clarify whether pt has had 'aspiration pneumonia' this visit, or if this dx has been ruled out. - If not ruled out, please document the hx/findings that support this dx (to help prevent payer insisting after the fact that it wasn't there). 3. Please continue to document the causes of the acute toxic-metabolic encephalopathy (beta-anton OD, hyponatremia, ...), & clarify what findings were due to this vs what findings were due to post- ictal state (so payer can't assert that all mental status changes were just post -ictal, & deny the dx of encephalopathy). Thanks! CK
--- NOTE | 2017-09-19 22:06 | EKG REPORT ---
SEVERITY:- ABNORMAL ECG - SINUS TACHYCARDIA PROBABLE ANTEROSEPTAL INFARCT, OLD BORDERLINE PROLONGED QT INTERVAL : Confirmed by: Deidre Hadley 19-Sep-2017 22:05:10
[2017-09-20] MEDS: IPRATROPIUM/ALBUTEROL 0.5-2.5 MG/3 ML AMPUL NEB SCH ×4 (00:01→23:48)
[2017-09-20] MEDS: PIPERACILLIN SODIUM/TAZOBACTAM 3.375 GM in NORMAL SALINE 100 ML IV SCH ×5 (00:56→23:12)
[2017-09-20] MEDS: MIDAZOLAM HCL 50 MG/100 ML RTUINJ IV PRN ×3 (02:45→23:12)
[2017-09-20 05:23] LABS: ABSOLUTE MONOCYTES (AUTO) 0.6 10^3/uL (0.1-1.4); ABSOLUTE NEUT (AUTO) 11.2 10^3/uL (1.7-8.2); ARTERIAL BLOOD BASE EXCESS 0.8 mmol/L; ARTERIAL BLOOD H2CO3 0.98 mmol/L (1.05-1.35); ARTERIAL BLOOD O2 SATURATION 97.5 % (94-98); ARTERIAL BLOOD PCO2 32.6 mmHg (35-45); ARTERIAL BLOOD PH 7.49 (7.35-7.45); BASOPHILS % (AUTO) 0.3 % (0-2); EOSINOPHILS % (AUTO) 0.3 % (0-6); HEMATOCRIT 25.5 % (36.0-47.0); HEMOGLOBIN 8.7 g/dL (12.0-15.5); LYMPHOCYTES % (AUTO) 14.3 % (13-45); MEAN CORPUSCULAR HEMOGLOBIN 31.1 pg (27.0-33.4); MEAN CORPUSCULAR HGB CONC 34.2 g/dL (32.0-36.0); MEAN CORPUSCULAR VOLUME 91 fl (80-97); MONOCYTES % (AUTO) 4.5 % (3-13); PLATELET COUNT 135 10^3/uL (150-450); RED BLOOD COUNT 2.81 10^6/uL (3.72-5.28); RED CELL DISTRIBUTION WIDTH 12.8 % (11.5-14.0); SEGMENTED NEUTROPHILS % (AUTO) 80.6 % (42-78); TOTAL CELLS COUNTED % (AUTO) 100 %; WHITE BLOOD COUNT 13.9 10^3/uL (4.0-10.5)
[2017-09-20 05:27] LABS: ARTERIAL BLOOD FIO2 30%
[2017-09-20] MEDS: HEPARIN SOD (PORCINE) 5,000 UNIT/ML 1 ML SYRINGE SUBCUT SCH ×3 (05:40→21:03)
[2017-09-20 05:42] LABS: ANION GAP 5 (5-19); BLOOD UREA NITROGEN 9 mg/dL (7-20); CALCIUM 7.9 mg/dL (8.4-10.2); CARBON DIOXIDE 27 mmol/L (22-30); CHLORIDE 102 mmol/L (98-107); GLUCOSE 109 mg/dL (75-110); POTASSIUM 3.1 mmol/L (3.6-5.0); SODIUM 134.3 mmol/L (137-145)
[2017-09-20] MEDS: GABAPENTIN 100 MG CAPSULE PO SCH ×3 (05:42→21:03)
--- NOTE | 2017-09-20 07:18 | RADIOLOGY REPORT (SQ) ---
EXAM DESCRIPTION: CHEST SINGLE VIEW CLINICAL HISTORY: resp failure COMPARISON: 09/19/2017 FINDINGS: Single frontal view of the chest. Endotracheal tube with tip at the level of the clavicles. NG tube with tip below the diaphragm. Right IJ central venous catheter with tip in the right atrium. Leads overlie the chest. Low lung volumes. Heart is not enlarged. No pneumothorax or definite pleural effusion. Minimal residual left basilar opacities are stable. No acute osseous abnormalities. Upper abdominal soft tissues are unremarkable. IMPRESSION: 1. Stable appearance of the chest. Electronically signed by: Miguel Angel Beard 09/20/2017 6:17 AM CDT
--- NOTE | 2017-09-20 07:40 | PDOC PROGRESS REPORT ---
Subjective Progress Note for:: 09/20/17 Subjective:: Nursing states the patient is doing well overnight. Nursing states that blood pressure did drop but has corrected on its own. Patient states that heart rate has improved on its own as well. Nursing reports that patient is on Versed for sedation. Reason For Visit: BETABLOCKER OD, SUICIDE ATTEMPT, CHRONIC PAIN, Physical Exam Vital Signs: Temp Pulse Resp BP Pulse Ox 98.8 F 88 20 88/74 L 100 09/20/17 05:47 09/20/17 01:43 09/20/17 06:21 09/20/17 06:21 09/20/17 06:21 Intake & Output 09/19/17 09/20/17 09/21/17 06:59 06:59 06:59 Intake Total 4372 2615 Output Total 3825 3630 Balance 547 -1015 Weight 94.7 kg 91.8 kg General appearance: PRESENT: well-developed, well-nourished, other - intubated, sedated Head exam: PRESENT: atraumatic, normocephalic Eye exam: PRESENT: conjunctiva pink Ear exam: PRESENT: normal external ear exam Mouth exam: PRESENT: moist, tongue midline, other - intubated Neck exam: ABSENT: carotid bruit, JVD, lymphadenopathy, thyromegaly Respiratory exam: PRESENT: clear to auscultation avel. ABSENT: rales, rhonchi, wheezes Cardiovascular exam: PRESENT: RRR. ABSENT: diastolic murmur, rubs, systolic murmur Pulses: PRESENT: normal dorsalis pedis pul Vascular exam: PRESENT: normal capillary refill GI/Abdominal exam: PRESENT: normal bowel sounds, soft. ABSENT: distended, guarding, mass, organolmegaly, rebound, tenderness Rectal exam: PRESENT: deferred Extremities exam: ABSENT: calf tenderness, clubbing, pedal edema Neurological exam: PRESENT: other - sedated Skin exam: PRESENT: dry, intact, warm. ABSENT: cyanosis, rash Results Laboratory Results: 09/20/17 05:10 09/20/17 05:10 09/20/17 09/20/17 09/20/17 05:10 05:10 05:10 WBC 13.9 H RBC 2.81 L Hgb 8.7 L Hct 25.5 L MCV 91 MCH 31.1 MCHC 34.2 RDW 12.8 Plt Count 135 L Seg Neutrophils % 80.6 H Lymphocytes % 14.3 Monocytes % 4.5 Eosinophils % 0.3 Basophils % 0.3 Absolute Neutrophils 11.2 H Absolute Lymphocytes 2.0 Absolute Monocytes 0.6 Absolute Eosinophils 0.0 Absolute Basophils 0.0 Carbonic Acid 0.98 L HCO3/H2CO3 Ratio 24:1 ABG pH 7.49 H ABG pCO2 32.6 L ABG pO2 91.0 ABG HCO3 24.0 ABG O2 Saturation 97.5 ABG Base Excess 0.8 FiO2 30% Sodium 134.3 L Potassium 3.1 L Chloride 102 Carbon Dioxide 27 Anion Gap 5 BUN 9 Creatinine 0.98 Est GFR ( Amer) > 60 Est GFR (Non-Af Amer) 57 L Glucose 109 Calcium 7.9 L Magnesium 2.5 H 09/17/17 09/17/17 09/17/17 06:41 06:41 12:08 Creatine Kinase 63 67 CK-MB (CK-2) 0.80 Troponin I < 0.012 09/17/17 09/17/17 09/17/17 12:08 18:40 18:40 Creatine Kinase 85 CK-MB (CK-2) 0.79 1.14 Troponin I < 0.012 < 0.012 Impressions: Hip/Pelvis X-Ray 09/17/17 01:38 IMPRESSION: Mild symmetrical degenerative narrowing of the hip joints. No other hip pathology. Degenerative changes lower lumbar spine. Chest CT 09/18/17 00:00 IMPRESSION: Bilateral pleural effusions with mild associated atelectasis. No acute pulmonary infiltrate is appreciated. Tubes and catheters as described. KUB X-Ray 09/18/17 00:00 IMPRESSION: Nasogastric tube in the stomach. Cervical Spine CT 09/18/17 08:00 IMPRESSION: Multilevel degenerative disc disease and spondylosis. Head CT 09/18/17 08:00 IMPRESSION: MILD CHRONIC CHANGES OF ATROPHY AND MICROVASCULAR ISCHEMIA. NO ACUTE PROCESS. EVIDENCE OF ACUTE STROKE: No Chest X-Ray 09/20/17 06:00 IMPRESSION: 1. Stable appearance of the chest. Assessment & Plan - Diagnosis (1) Acute respiratory failure Is this a current diagnosis for this admission?: Yes Plan: Secondary to seizure: Pulmonary recommended intubating patient to help protect airway. (2) Seizure Is this a current diagnosis for this admission?: Yes Plan: Secondary to Severe Hyponatremia: Resolved. (3) Aspiration pneumonia Is this a current diagnosis for this admission?: Yes Plan: Most likely Gram Positive: Will continue with current antibiotics. CXR no acute process found. (4) Hypomagnesemia Is this a current diagnosis for this admission?: Yes Plan: Resolved. (5) Hypokalemia Is this a current diagnosis for this admission?: Yes Plan: Will give Potassium replacement. Will check BMP in am (6) Hyponatremia Is this a current diagnosis for this admission?: Yes Plan: Secondary to Hypervolemia: Na 134. Will continue to monitor. (7) Diabetes Qualifiers: Diabetes mellitus type: type 2 Diabetes mellitus half-way insulin use: unspecified half-way insulin use status Diabetes mellitus complication status : with unspecified complications Qualified Code(s): E11.8 - Type 2 diabetes mellitus with unspecified complications Is this a current diagnosis for this admission?: Yes Plan: Will continue current insulin regimen. (8) Encephalopathy Is this a current diagnosis for this admission?: Yes Plan: Acute Metabolic Encephalopathy due to Hyponatremia and Seizure: Sedated. (9) Hypotension Qualifiers: Hypotension type: other hypotension type Qualified Code(s): I95.89 - Other hypotension Is this a current diagnosis for this admission?: Yes Plan: Secondary to Beta Anton Overdose: Resolved. (10) Suicide attempt by beta anton overdose Qualifiers: Encounter type: subsequent encounter Qualified Code(s): T44.7X2D - Poisoning by beta-adrenoreceptor antagonists, intentional self-harm, subsequent encounter Is this a current diagnosis for this admission?: Yes Plan: Pt being evaluated by mental health. (11) Benzodiazepine dependence, continuous Is this a current diagnosis for this admission?: Yes Plan: Supportive care. (12) Leukocytosis Is this a current diagnosis for this admission?: Yes Plan: CXR demonstrates no evidence of pneumonia. Will discontinue antibiotic after 72 hours. (13) DVT prophylaxis Is this a current diagnosis for this admission?: Yes Plan: Heparin (14) Acute cystitis Is this a current diagnosis for this admission?: Yes Plan: Secondary Gram negative Rods: Zosyn. - Time Time Spent with patient: 25-34 minutes
[2017-09-20] MEDS ORDERED: METOPROLOL TARTRATE PF/INJ 5 MG/5 ML SDV IV ONE ×2 (08:48→10:00)
[2017-09-20] MEDS: POTASSI CL 20 MEQ/50 ML RIDER 20 MEQ/50 ML RTUPB IV SCH ×4 (08:57→20:59)
[2017-09-20] MEDS ORDERED: DIGOXIN INJ 0.5 MG/2 ML AMPULE ONE (09:23)
[2017-09-20] MEDS ORDERED: DILTIAZEM HCL INJ 25 MG/5 ML VIAL ONE (09:24)
[2017-09-20] MEDS ORDERED: DILTIAZEM HCL/D5W 125 MG/125 ML RTUINJ IV PRN (09:24)
[2017-09-20] MEDS ORDERED: DILTIAZEM HCL/D5W 125 MG/125 ML RTUINJ IV ONE (09:24)
[2017-09-20] MEDS: ASPIRIN 81 MG TABLET, ENT COATED PO SCH (09:30)
[2017-09-20] MEDS: FAMOTIDINE 20 MG TABLET PO SCH ×2 (09:30→21:03)
[2017-09-20] MEDS: VANCOMYCIN HCL 750 MG in DEXTROSE 5%-WATER 250 ML IV SCH (09:39)
[2017-09-20] MEDS: DEXTROSE 5%-NORMAL SALINE 1,000 ML IV PRN (09:42)
[2017-09-20] MEDS: DOCUSATE SODIUM 100 MG CAPSULE PO SCH ×2 (09:53→18:08)
[2017-09-20] MEDS ORDERED: DIGOXIN INJ 0.5 MG/2 ML AMPULE IV ONE (10:00)
[2017-09-20] MEDS ORDERED: DILTIAZEM HCL INJ 25 MG/5 ML VIAL IV ONE (10:30)
[2017-09-20 10:47] LABS: VANCOMYCIN,TROUGH 8.2 ug/mL (5.0-20.0)
[2017-09-20] MEDS ORDERED: OLANZAPINE 5 MG TABLET PO ONE (11:00)
[2017-09-20 14:01] LABS: BLOOD UREA NITROGEN 9 mg/dL (7-20); CALCIUM 7.6 mg/dL (8.4-10.2); CARBON DIOXIDE 27 mmol/L (22-30); GLUCOSE 137 mg/dL (75-110); POTASSIUM 3.3 mmol/L (3.6-5.0)
[2017-09-20 14:07] LABS: CHLORIDE 103 mmol/L (98-107)
[2017-09-20 14:10] LABS: ANION GAP 3 (5-19)
[2017-09-20] MEDS ORDERED: DEXTROSE 50%-WATER SYRINGE 12.5 GM/25 ML DOSE IV PRN (16:21)
[2017-09-20] MEDS ORDERED: DEXTROSE 40% GEL 15 GM TUBE X 2 PO PRN (16:21)
[2017-09-20] MEDS ORDERED: DEXTROSE 40% GEL 15 GM TUBE PO PRN (16:21)
[2017-09-20] MEDS ORDERED: DEXTROSE 50%-WATER SYRINGE 25 GM/50 ML DOSE IV PRN (16:21)
[2017-09-20] MEDS ORDERED: GLUCAGON,HUMAN RECOMB 1 MG INJ IM PRN (16:21)
[2017-09-20] MEDS ORDERED: INSULIN LISPRO 100 UNIT/ML 3 ML VIAL SUBCUT SCH (18:00)
[2017-09-20] MEDS: RINGERS SOLUTION,LACTATED 1,000 ML IV PRN (18:12)
[2017-09-20] MEDS: VANCOMYCIN HCL 1,500 MG in DEXTROSE 5%-WATER 250 ML IV SCH (21:01)
[2017-09-20] MEDS ORDERED: OLANZAPINE 2.5 MG TABLET PO SCH (22:00)
--- NOTE | 2017-09-20 22:18 | EKG REPORT ---
SEVERITY:- ABNORMAL ECG - ATRIAL FIBRILLATION PROLONGED QT INTERVAL NON SPECIFIC ST-T CHANGES : Confirmed by: Deidre Hadley 20-Sep-2017 22:17:48
[2017-09-21] MEDS ORDERED: ADENOSINE INJ/PF 6 MG/2 ML SDV IV ONE ×3 (00:51→01:15)
[2017-09-21] MEDS ORDERED: AMIODARONE HCL INJ 150 MG/3 ML VIAL IV ONE (01:12)
[2017-09-21 01:26] LABS: ANION GAP 5 (5-19); BLOOD UREA NITROGEN 10 mg/dL (7-20); CALCIUM 8.1 mg/dL (8.4-10.2); CARBON DIOXIDE 24 mmol/L (22-30); CHLORIDE 106 mmol/L (98-107); GLUCOSE 145 mg/dL (75-110); POTASSIUM 3.7 mmol/L (3.6-5.0); SODIUM 135.2 mmol/L (137-145)
[2017-09-21] MEDS: DEXTROSE 5%-WATER 500 ML with AMIODARONE HCL 900 MG IV PRN ×2 (01:31)
[2017-09-21] MEDS: HEPARIN SOD (PORCINE) 5,000 UNIT/ML 1 ML SYRINGE SUBCUT SCH (05:51)
[2017-09-21] MEDS: GABAPENTIN 100 MG CAPSULE PO SCH ×3 (05:53→21:35)
[2017-09-21] MEDS: PIPERACILLIN SODIUM/TAZOBACTAM 3.375 GM in NORMAL SALINE 100 ML IV SCH ×4 (05:54→23:24)
[2017-09-21 06:06] LABS: ABSOLUTE EOSINOPHILS # (AUTO) 0.1 10^3/uL (0.0-0.6); ABSOLUTE LYMPHOCYTES (AUTO) 2.4 10^3/uL (0.5-4.7); ABSOLUTE MONOCYTES (AUTO) 0.7 10^3/uL (0.1-1.4); ABSOLUTE NEUT (AUTO) 8.8 10^3/uL (1.7-8.2); BASOPHILS % (AUTO) 0.1 % (0-2); HEMATOCRIT 24.8 % (36.0-47.0); HEMOGLOBIN 8.5 g/dL (12.0-15.5); LYMPHOCYTES % (AUTO) 19.9 % (13-45); MEAN CORPUSCULAR HEMOGLOBIN 31.3 pg (27.0-33.4); MEAN CORPUSCULAR HGB CONC 34.1 g/dL (32.0-36.0); MEAN CORPUSCULAR VOLUME 92 fl (80-97); MONOCYTES % (AUTO) 6.1 % (3-13); PLATELET COUNT 149 10^3/uL (150-450); RED BLOOD COUNT 2.71 10^6/uL (3.72-5.28); RED CELL DISTRIBUTION WIDTH 13.4 % (11.5-14.0); SEGMENTED NEUTROPHILS % (AUTO) 72.9 % (42-78); TOTAL CELLS COUNTED % (AUTO) 100 %; WHITE BLOOD COUNT 12.1 10^3/uL (4.0-10.5)
[2017-09-21 06:10] LABS: ARTERIAL BLOOD BASE EXCESS 0.9 mmol/L; ARTERIAL BLOOD H2CO3 1.02 mmol/L (1.05-1.35); ARTERIAL BLOOD HCO3 24.4 mmol/L (20-26); ARTERIAL BLOOD O2 SATURATION 97.7 % (94-98); ARTERIAL BLOOD PCO2 33.8 mmHg (35-45); ARTERIAL BLOOD PH 7.48 (7.35-7.45); ARTERIAL BLOOD PO2 95.5 mmHg (80-100); ARTERIAL BLOOD TOTAL CO2 25.4 mmol/L (21-25)
[2017-09-21 06:14] LABS: ARTERIAL BLOOD FIO2 30%
[2017-09-21 06:21] LABS: ALANINE AMINOTRANSFERASE 46 U/L (9-52); ALBUMIN 2.4 g/dL (3.5-5.0); ALKALINE PHOSPHATASE 56 U/L (38-126); ANION GAP 6 (5-19); ASPARTATE AMINO TRANSFERASE 67 U/L (14-36); BILIRUBIN,DIRECT 0.1 mg/dL (0.0-0.4); BILIRUBIN,TOTAL 0.3 mg/dL (0.2-1.3); BLOOD UREA NITROGEN 10 mg/dL (7-20); CALCIUM 8.1 mg/dL (8.4-10.2); CARBON DIOXIDE 26 mmol/L (22-30); CHLORIDE 103 mmol/L (98-107); GLUCOSE 140 mg/dL (75-110); POTASSIUM 3.6 mmol/L (3.6-5.0); SODIUM 135.2 mmol/L (137-145); TOTAL PROTEIN 4.6 g/dL (6.3-8.2)
--- NOTE | 2017-09-21 08:30 | RADIOLOGY REPORT (SQ) ---
EXAM DESCRIPTION: CHEST SINGLE VIEW COMPLETED DATE/TIME: 09/21/2017 6:26 am REASON FOR STUDY: resp failure COMPARISON: CT chest 09/18/2017 Chest films 09/18/2017, 09/19/2017, 09/20/2017 EXAM PARAMETERS: NUMBER OF VIEWS: One view. TECHNIQUE: Single frontal radiographic view of the chest acquired. RADIATION DOSE: NA LIMITATIONS: None. FINDINGS: LUNGS AND PLEURA: No opacities, masses or pneumothorax. No pleural effusion. MEDIASTINUM AND HILAR STRUCTURES: No masses. Contour normal. HEART AND VASCULAR STRUCTURES: Heart normal in size. Normal vasculature. BONES: No acute findings. HARDWARE: Endotracheal tube tip 4 cm above the moshe. Nasogastric tube tip and side port in the sto mach. Right jugular central line tip right atrium. OTHER: No other significant finding. IMPRESSION: Tubes and lines in good positioning. No acute infiltrates TECHNICAL DOCUMENTATION: JOB ID: [id number] [employer]- All Rights Reserved Reading location - IP/workstation name: [email or web address]
[2017-09-21] MEDS: IPRATROPIUM/ALBUTEROL 0.5-2.5 MG/3 ML AMPUL NEB SCH ×2 (08:54→16:35)
[2017-09-21] MEDS: FAMOTIDINE 20 MG TABLET PO SCH ×2 (09:26→21:35)
[2017-09-21] MEDS: VANCOMYCIN HCL 1,500 MG in DEXTROSE 5%-WATER 250 ML IV SCH (09:26)
[2017-09-21] MEDS: ASPIRIN 81 MG TABLET, ENT COATED PO SCH (09:31)
[2017-09-21] MEDS: DOCUSATE SODIUM 100 MG CAPSULE PO SCH ×2 (09:31→17:34)
--- NOTE | 2017-09-21 10:43 | PDOC PROGRESS REPORT ---
Subjective Progress Note for:: 09/20/17 Subjective:: Patient remains intubated. Patient was noted to go into atrial fibrillation with rapid ventricular response. Twelve-lead EKG obtained confirmed this. Patient was placed on diltiazem bolus and drip protocol with titration as needed according to heart rate response. Patient otherwise noted to be comfortable. Reason For Visit: BETABLOCKER OD, SUICIDE ATTEMPT, CHRONIC PAIN, Physical Exam Vital Signs: Temp Pulse Resp BP Pulse Ox 98.8 F 112 H 15 87/60 L 100 09/20/17 05:47 09/20/17 19:36 09/20/17 18:06 09/20/17 18:06 09/20/17 17:50 Intake & Output 09/19/17 09/20/17 09/21/17 06:59 06:59 06:59 Intake Total 4372 2615 1144 Output Total 3825 3630 625 Balance 547 -1015 519 Weight 94.7 kg 91.8 kg 91.8 kg Exam: GENERAL: well-nourished and in no acute distress. Patient is intubated and sedated. Orientation cannot be checked HEAD: Atraumatic, normocephalic. EYES: Pupils equal round and reactive to light, extraocular movements could not be checked, sclera anicteric, conjunctiva are normal. ENT: TMs normal, nares patent, oropharynx clear without exudates. Moist mucous membranes. No oral ulcerations or bleeding gums noted NECK: supple without lymphadenopathy or JVD. Trachea is central. No cervical or axillary lymphadenopathy noted. Carotids are 2+ LUNGS: Breath sounds mostly clear to auscultation patient is noted to have bibasal crackles at the extreme bases CHEST: Palpation of the chest wall shows no significant chest wall tenderness or abnormalities. 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 ABDOMEN: Soft, no significant tenderness appreciated, normoactive bowel sounds. No guarding, no rebound. No rigidity noted . No masses appreciated. EXTREMITIES: Pedal pulses are 1-2+, no calf tenderness noted, 1+ pedal edema noted. No clubbing or cyanosis. NEUROLOGICAL: The patient cannot participate in the neurological exam but no facial asymmetry noted. Extremities slightly hypotonic PSYCH: This cannot be evaluated. Patient cannot participate. SKIN: No significant ecchymosis, rash, or signs of pruritus noted. MUSCULOSKELETAL EXAM: No significant joint swelling noted. Patient cannot participate in musculoskeletal exam Results Laboratory Results: 09/20/17 05:10 09/20/17 13:25 09/20/17 09/20/17 09/20/17 05:10 05:10 05:10 WBC 13.9 H RBC 2.81 L Hgb 8.7 L Hct 25.5 L MCV 91 MCH 31.1 MCHC 34.2 RDW 12.8 Plt Count 135 L Seg Neutrophils % 80.6 H Lymphocytes % 14.3 Monocytes % 4.5 Eosinophils % 0.3 Basophils % 0.3 Absolute Neutrophils 11.2 H Absolute Lymphocytes 2.0 Absolute Monocytes 0.6 Absolute Eosinophils 0.0 Absolute Basophils 0.0 Carbonic Acid 0.98 L HCO3/H2CO3 Ratio 24:1 ABG pH 7.49 H ABG pCO2 32.6 L ABG pO2 91.0 ABG HCO3 24.0 ABG O2 Saturation 97.5 ABG Base Excess 0.8 FiO2 30% Sodium 134.3 L Potassium 3.1 L Chloride 102 Carbon Dioxide 27 Anion Gap 5 BUN 9 Creatinine 0.98 Est GFR ( Amer) > 60 Est GFR (Non-Af Amer) 57 L Glucose 109 Calcium 7.9 L Magnesium 2.5 H 09/20/17 09/20/17 09:55 13:25 WBC RBC Hgb Hct MCV MCH MCHC RDW Plt Count Seg Neutrophils % Lymphocytes % Monocytes % Eosinophils % Basophils % Absolute Neutrophils Absolute Lymphocytes Absolute Monocytes Absolute Eosinophils Absolute Basophils Carbonic Acid HCO3/H2CO3 Ratio ABG pH ABG pCO2 ABG pO2 ABG HCO3 ABG O2 Saturation ABG Base Excess FiO2 Sodium 133.0 L Potassium 3.3 L Chloride 103 Carbon Dioxide 27 Anion Gap 3 L BUN 9 Creatinine 0.90 0.94 Est GFR ( Amer) > 60 > 60 Est GFR (Non-Af Amer) > 60 > 60 Glucose 137 H Calcium 7.6 L Magnesium 09/18/17 20:55 Catheterized Urine Urine Culture - Final Escherichia Coli 09/18/17 20:55 Tracheal Aspirate Gram Stain - Final 09/18/17 20:55 Tracheal Aspirate Sputum Culture - Final NORMAL SKYE 09/17/17 09/17/17 09/17/17 06:41 06:41 12:08 Creatine Kinase 63 67 CK-MB (CK-2) 0.80 Troponin I < 0.012 09/17/17 09/17/17 09/17/17 12:08 18:40 18:40 Creatine Kinase 85 CK-MB (CK-2) 0.79 1.14 Troponin I < 0.012 < 0.012 Impressions: Hip/Pelvis X-Ray 09/17/17 01:38 IMPRESSION: Mild symmetrical degenerative narrowing of the hip joints. No other hip pathology. Degenerative changes lower lumbar spine. Chest CT 09/18/17 00:00 IMPRESSION: Bilateral pleural effusions with mild associated atelectasis. No acute pulmonary infiltrate is appreciated. Tubes and catheters as described. KUB X-Ray 09/18/17 00:00 IMPRESSION: Nasogastric tube in the stomach. Cervical Spine CT 09/18/17 08:00 IMPRESSION: Multilevel degenerative disc disease and spondylosis. Head CT 09/18/17 08:00 IMPRESSION: MILD CHRONIC CHANGES OF ATROPHY AND MICROVASCULAR ISCHEMIA. NO ACUTE PROCESS. EVIDENCE OF ACUTE STROKE: No Chest X-Ray 09/20/17 06:00 IMPRESSION: 1. Stable appearance of the chest. Assessment & Plan - Diagnosis (1) Atrial fibrillation Qualifiers: Atrial fibrillation type: unspecified Qualified Code(s): I48.91 - Unspecified atrial fibrillation Is this a current diagnosis for this admission?: Yes (2) Suicide attempt by beta anton overdose Qualifiers: Encounter type: subsequent encounter Qualified Code(s): T44.7X2D - Poisoning by beta-adrenoreceptor antagonists, intentional self-harm, subsequent encounter Is this a current diagnosis for this admission?: Yes (3) Hypotension Qualifiers: Hypotension type: other hypotension type Qualified Code(s): I95.89 - Other hypotension Is this a current diagnosis for this admission?: Yes (4) Hypertension Qualifiers: Hypertension type: unspecified Qualified Code(s): I10 - Essential (primary ) hypertension Is this a current diagnosis for this admission?: Yes (5) Opiate dependence, continuous Is this a current diagnosis for this admission?: Yes (6) Type 2 diabetes mellitus Qualifiers: 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 Patient would be a candidate for chronic anticoagulation based on [id number], however feel that patient would be a poor candidate due to her noncompliance and suicide attempt. At this point, patient is being treated with Cardizem bolus and drip protocol. Suicide attempt by beta-anton overdose: seems like patient is now more than 5 half-life times away. Now off all vasopressors. Blood pressure and heart rate has been stable. Seizure disorder: Patient was intubated because of this condition. Exact etiology not clear. Hospitalist has instituted evaluation and management plans. Possibly withdrawals could be causing this. Diabetes: Currently stable. Patient being well managed by hospitalist Hypertension: Currently under reasonable control. Resume previous antihypertensives. Opiate dependence: This is a chronic problem. Patient noted to have urine growing gram-negative rods, currently E. coli. Patient on antibiotics. - Time Time with patient: Greater than 35 minutes - CODE STATUS was discussed, patient remains full code. Surrogate decision-maker unchanged. Multiple medical problems were addressed. More than 50% of the time spent coordinating care, discussing management plans with involved caregivers. Management plans discussed with involved personnels. Medical decision making was of moderate to high complexity, patient's has multiple comorbidities. Medications reviewed and adjusted accordingly: Yes
--- NOTE | 2017-09-21 10:56 | PDOC PROGRESS REPORT ---
Subjective Progress Note for:: 09/21/17 Subjective:: Patient remains intubated. Patient was noted to go into atrial fibrillation with rapid ventricular response. Twelve-lead EKG obtained confirmed this. Patient was placed on diltiazem bolus and drip protocol with titration as needed according to heart rate response. However during the night, patient had rapid ventricular response and was given IV adenosine 2 which showed underlying atrial flutter. Patient subsequently started on amiodarone drip. This morning patient noted to be in sinus rhythm. Patient otherwise seems comfortable.. Reason For Visit: BETABLOCKER OD, SUICIDE ATTEMPT, CHRONIC PAIN, Physical Exam Vital Signs: Temp Pulse Resp BP Pulse Ox 98.2 F 75 11 L 96/49 L 100 09/21/17 06:00 09/21/17 07:31 09/21/17 10:27 09/21/17 10:27 09/21/17 10:27 Intake & Output 09/20/17 09/21/17 09/22/17 06:59 06:59 06:59 Intake Total 2615 3220 Output Total 3630 1545 125 Balance -1015 1675 -125 Weight 91.8 kg 93.3 kg Exam: GENERAL: well-nourished and in no acute distress. Patient is intubated and sedated. Orientation cannot be checked HEAD: Atraumatic, normocephalic. EYES: Pupils equal round and reactive to light, extraocular movements could not be checked, sclera anicteric, conjunctiva are normal. ENT: TMs normal, nares patent, oropharynx clear without exudates. Moist mucous membranes. No oral ulcerations or bleeding gums noted NECK: supple without lymphadenopathy or JVD. Trachea is central. No cervical or axillary lymphadenopathy noted. Carotids are 2+ LUNGS: Breath sounds mostly clear to auscultation patient is noted to have bibasal crackles at the extreme bases CHEST: Palpation of the chest wall shows no significant chest wall tenderness or abnormalities. 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 ABDOMEN: Soft, no significant tenderness appreciated, normoactive bowel sounds. No guarding, no rebound. No rigidity noted . No masses appreciated. EXTREMITIES: Pedal pulses are 1-2+, no calf tenderness noted, 1+ pedal edema noted. No clubbing or cyanosis. NEUROLOGICAL: The patient cannot participate in the neurological exam but no facial asymmetry noted. Extremities slightly hypotonic PSYCH: This cannot be evaluated. Patient cannot participate. SKIN: No significant ecchymosis, rash, or signs of pruritus noted. MUSCULOSKELETAL EXAM: No significant joint swelling noted. Patient cannot participate in musculoskeletal exam Results Laboratory Results: 09/21/17 05:35 09/21/17 05:35 09/20/17 09/20/17 09/21/17 09:55 13:25 00:55 WBC RBC Hgb Hct MCV MCH MCHC RDW Plt Count Seg Neutrophils % Lymphocytes % Monocytes % Eosinophils % Basophils % Absolute Neutrophils Absolute Lymphocytes Absolute Monocytes Absolute Eosinophils Absolute Basophils Carbonic Acid HCO3/H2CO3 Ratio ABG pH ABG pCO2 ABG pO2 ABG HCO3 ABG O2 Saturation ABG Base Excess FiO2 Sodium 133.0 L 135.2 L Potassium 3.3 L 3.7 Chloride 103 106 Carbon Dioxide 27 24 Anion Gap 3 L 5 BUN 9 10 Creatinine 0.90 0.94 0.99 Est GFR ( Amer) > 60 > 60 > 60 Est GFR (Non-Af Amer) > 60 > 60 57 L Glucose 137 H 145 H Calcium 7.6 L 8.1 L Magnesium 2.5 H Total Bilirubin AST ALT Alkaline Phosphatase Total Protein Albumin 09/21/17 09/21/17 09/21/17 05:35 05:35 05:35 WBC 12.1 H RBC 2.71 L Hgb 8.5 L Hct 24.8 L MCV 92 MCH 31.3 MCHC 34.1 RDW 13.4 Plt Count 149 L Seg Neutrophils % 72.9 Lymphocytes % 19.9 Monocytes % 6.1 Eosinophils % 1.0 Basophils % 0.1 Absolute Neutrophils 8.8 H Absolute Lymphocytes 2.4 Absolute Monocytes 0.7 Absolute Eosinophils 0.1 Absolute Basophils 0.0 Carbonic Acid 1.02 L HCO3/H2CO3 Ratio 23:1 ABG pH 7.48 H ABG pCO2 33.8 L ABG pO2 95.5 ABG HCO3 24.4 ABG O2 Saturation 97.7 ABG Base Excess 0.9 FiO2 30% Sodium 135.2 L Potassium 3.6 Chloride 103 Carbon Dioxide 26 Anion Gap 6 BUN 10 Creatinine 1.14 Est GFR ( Amer) 58 L Est GFR (Non-Af Amer) 48 L Glucose 140 H Calcium 8.1 L Magnesium 2.4 H Total Bilirubin 0.3 AST 67 H ALT 46 Alkaline Phosphatase 56 Total Protein 4.6 L Albumin 2.4 L 09/18/17 20:55 Catheterized Urine Urine Culture - Final Escherichia Coli 09/18/17 20:55 Tracheal Aspirate Gram Stain - Final 09/18/17 20:55 Tracheal Aspirate Sputum Culture - Final NORMAL SKYE 09/17/17 09/17/17 09/17/17 06:41 06:41 12:08 Creatine Kinase 63 67 CK-MB (CK-2) 0.80 Troponin I < 0.012 09/17/17 09/17/17 09/17/17 12:08 18:40 18:40 Creatine Kinase 85 CK-MB (CK-2) 0.79 1.14 Troponin I < 0.012 < 0.012 EKG Comments: Last night shows atrial flutter with rapid ventricular response. This morning patient noted to be in sinus rhythm. Impressions: Hip/Pelvis X-Ray 09/17/17 01:38 IMPRESSION: Mild symmetrical degenerative narrowing of the hip joints. No other hip pathology. Degenerative changes lower lumbar spine. Chest CT 09/18/17 00:00 IMPRESSION: Bilateral pleural effusions with mild associated atelectasis. No acute pulmonary infiltrate is appreciated. Tubes and catheters as described. KUB X-Ray 09/18/17 00:00 IMPRESSION: Nasogastric tube in the stomach. Cervical Spine CT 09/18/17 08:00 IMPRESSION: Multilevel degenerative disc disease and spondylosis. Head CT 09/18/17 08:00 IMPRESSION: MILD CHRONIC CHANGES OF ATROPHY AND MICROVASCULAR ISCHEMIA. NO ACUTE PROCESS. EVIDENCE OF ACUTE STROKE: No Chest X-Ray 09/21/17 06:00 IMPRESSION: Tubes and lines in good positioning. No acute infiltrates Assessment & Plan - Diagnosis (1) Atrial fibrillation Qualifiers: Atrial fibrillation type: unspecified Qualified Code(s): I48.91 - Unspecified atrial fibrillation Is this a current diagnosis for this admission?: Yes (2) Suicide attempt by beta anton overdose Qualifiers: Encounter type: subsequent encounter Qualified Code(s): T44.7X2D - Poisoning by beta-adrenoreceptor antagonists, intentional self-harm, subsequent encounter Is this a current diagnosis for this admission?: Yes (3) Hypotension Qualifiers: Hypotension type: other hypotension type Qualified Code(s): I95.89 - Other hypotension Is this a current diagnosis for this admission?: Yes (4) Hypertension Qualifiers: Hypertension type: unspecified Qualified Code(s): I10 - Essential (primary ) hypertension Is this a current diagnosis for this admission?: Yes (5) Opiate dependence, continuous Is this a current diagnosis for this admission?: Yes (6) Type 2 diabetes mellitus Qualifiers: 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 Recommend amiodarone 200 p.o. twice daily for 1 month. Patient would be a candidate for chronic anticoagulation based on [id number], however feel that patient would be a poor candidate due to her noncompliance and suicide attempt. Recommend additional rate lowering agents such as beta- anton or Cardizem as tolerated by blood pressure. Suicide attempt by beta-anton overdose: seems like patient is now more than 5 half-life times away. Now off all vasopressors. Blood pressure and heart rate has been stable. Seizure disorder: Patient was intubated because of this condition. Exact etiology not clear. Hospitalist has instituted evaluation and management plans. Possibly withdrawals could be causing this. Diabetes: Currently stable. Patient being well managed by hospitalist Hypertension: Currently under reasonable control. Resume previous antihypertensives. Opiate dependence: This is a chronic problem. Patient noted to have urine growing gram-negative rods, currently E. coli. Patient on antibiotics. - Time Time with patient: 15-25 minutes - CODE STATUS was discussed, patient remains full code. Surrogate decision-maker unchanged. Multiple medical problems were addressed. More than 50% of the time spent coordinating care, discussing management plans with involved caregivers. Management plans discussed with involved personnels. Medical decision making was of moderate to high complexity , patient's has multiple comorbidities. Medications reviewed and adjusted accordingly: Yes
--- NOTE | 2017-09-21 12:10 | PDOC PROGRESS REPORT ---
Subjective Progress Note for:: 09/21/17 Subjective:: Pt sedated. Overnight patient's heart rate was in the 140s 150s and patient was found to be in atrial flutter. Patient was placed on amiodarone and converted to normal sinus rhythm. Patient has been off of Versed since 5:00 and is waking up. Nursing states the plan is to extubate patient today. Nursing states that patient is still having diarrhea. Reason For Visit: BETABLOCKER OD, SUICIDE ATTEMPT, CHRONIC PAIN, Physical Exam Vital Signs: Temp Pulse Resp BP Pulse Ox 98.2 F 75 11 L 96/49 L 100 09/21/17 06:00 09/21/17 07:31 09/21/17 10:27 09/21/17 10:27 09/21/17 10:27 Intake & Output 09/20/17 09/21/17 09/22/17 06:59 06:59 06:59 Intake Total 2615 3220 Output Total 3630 1545 125 Balance -1015 1675 -125 Weight 91.8 kg 93.3 kg General appearance: PRESENT: other - sedated, intubated Head exam: PRESENT: atraumatic, normocephalic Eye exam: PRESENT: conjunctiva pink, EOMI. ABSENT: scleral icterus Ear exam: PRESENT: normal external ear exam Mouth exam: PRESENT: moist, tongue midline Neck exam: ABSENT: carotid bruit, JVD, lymphadenopathy, thyromegaly Respiratory exam: PRESENT: other - coarse breath sounds at bases.. ABSENT: rales, rhonchi, wheezes Cardiovascular exam: PRESENT: RRR. ABSENT: diastolic murmur, rubs, systolic murmur Pulses: PRESENT: normal dorsalis pedis pul Vascular exam: PRESENT: normal capillary refill GI/Abdominal exam: PRESENT: normal bowel sounds, soft. ABSENT: distended, guarding, mass, organolmegaly, rebound, tenderness Rectal exam: PRESENT: deferred Extremities exam: ABSENT: calf tenderness, clubbing, pedal edema Neurological exam: PRESENT: awake Psychiatric exam: PRESENT: other - No acute distress. Skin exam: PRESENT: dry, intact, warm. ABSENT: cyanosis, rash Results Laboratory Results: 09/21/17 05:35 09/21/17 05:35 09/20/17 09/21/17 09/21/17 13:25 00:55 05:35 WBC RBC Hgb Hct MCV MCH MCHC RDW Plt Count Seg Neutrophils % Lymphocytes % Monocytes % Eosinophils % Basophils % Absolute Neutrophils Absolute Lymphocytes Absolute Monocytes Absolute Eosinophils Absolute Basophils Carbonic Acid 1.02 L HCO3/H2CO3 Ratio 23:1 ABG pH 7.48 H ABG pCO2 33.8 L ABG pO2 95.5 ABG HCO3 24.4 ABG O2 Saturation 97.7 ABG Base Excess 0.9 FiO2 30% Sodium 133.0 L 135.2 L Potassium 3.3 L 3.7 Chloride 103 106 Carbon Dioxide 27 24 Anion Gap 3 L 5 BUN 9 10 Creatinine 0.94 0.99 Est GFR ( Amer) > 60 > 60 Est GFR (Non-Af Amer) > 60 57 L Glucose 137 H 145 H Calcium 7.6 L 8.1 L Magnesium 2.5 H Total Bilirubin AST ALT Alkaline Phosphatase Total Protein Albumin 09/21/17 09/21/17 05:35 05:35 WBC 12.1 H RBC 2.71 L Hgb 8.5 L Hct 24.8 L MCV 92 MCH 31.3 MCHC 34.1 RDW 13.4 Plt Count 149 L Seg Neutrophils % 72.9 Lymphocytes % 19.9 Monocytes % 6.1 Eosinophils % 1.0 Basophils % 0.1 Absolute Neutrophils 8.8 H Absolute Lymphocytes 2.4 Absolute Monocytes 0.7 Absolute Eosinophils 0.1 Absolute Basophils 0.0 Carbonic Acid HCO3/H2CO3 Ratio ABG pH ABG pCO2 ABG pO2 ABG HCO3 ABG O2 Saturation ABG Base Excess FiO2 Sodium 135.2 L Potassium 3.6 Chloride 103 Carbon Dioxide 26 Anion Gap 6 BUN 10 Creatinine 1.14 Est GFR ( Amer) 58 L Est GFR (Non-Af Amer) 48 L Glucose 140 H Calcium 8.1 L Magnesium 2.4 H Total Bilirubin 0.3 AST 67 H ALT 46 Alkaline Phosphatase 56 Total Protein 4.6 L Albumin 2.4 L 09/18/17 20:55 Catheterized Urine Urine Culture - Final Escherichia Coli 09/18/17 20:55 Tracheal Aspirate Gram Stain - Final 09/18/17 20:55 Tracheal Aspirate Sputum Culture - Final NORMAL SKYE 09/17/17 09/17/17 09/17/17 06:41 06:41 12:08 Creatine Kinase 63 67 CK-MB (CK-2) 0.80 Troponin I < 0.012 09/17/17 09/17/17 09/17/17 12:08 18:40 18:40 Creatine Kinase 85 CK-MB (CK-2) 0.79 1.14 Troponin I < 0.012 < 0.012 Impressions: Hip/Pelvis X-Ray 09/17/17 01:38 IMPRESSION: Mild symmetrical degenerative narrowing of the hip joints. No other hip pathology. Degenerative changes lower lumbar spine. Chest CT 09/18/17 00:00 IMPRESSION: Bilateral pleural effusions with mild associated atelectasis. No acute pulmonary infiltrate is appreciated. Tubes and catheters as described. KUB X-Ray 09/18/17 00:00 IMPRESSION: Nasogastric tube in the stomach. Cervical Spine CT 09/18/17 08:00 IMPRESSION: Multilevel degenerative disc disease and spondylosis. Head CT 09/18/17 08:00 IMPRESSION: MILD CHRONIC CHANGES OF ATROPHY AND MICROVASCULAR ISCHEMIA. NO ACUTE PROCESS. EVIDENCE OF ACUTE STROKE: No Chest X-Ray 09/21/17 06:00 IMPRESSION: Tubes and lines in good positioning. No acute infiltrates Assessment & Plan - Diagnosis (1) Acute respiratory failure Is this a current diagnosis for this admission?: Yes Plan: Secondary to seizure: Plan is to extubate today. Patient's chest x-ray still does not demonstrate infiltrate. Patient has been afebrile. (2) Seizure Is this a current diagnosis for this admission?: Yes Plan: Secondary to Severe Hyponatremia: Resolved. (3) Acute cystitis Is this a current diagnosis for this admission?: Yes Plan: Secondary E. coli: Zosyn. (4) Aspiration pneumonia Is this a current diagnosis for this admission?: Yes Plan: Most likely Gram Positive: Will continue with current antibiotics. CXR no acute process found. (5) Hypomagnesemia Is this a current diagnosis for this admission?: Yes Plan: Resolved. (6) Hypokalemia Is this a current diagnosis for this admission?: Yes Plan: Resolved (7) Hyponatremia Is this a current diagnosis for this admission?: Yes Plan: Secondary to Hypervolemia: Na 135. Will continue to monitor. 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 (9) Encephalopathy Is this a current diagnosis for this admission?: Yes Plan: Acute Metabolic Encephalopathy due to Hyponatremia and Seizure: Sedated. (10) Hypotension Qualifiers: Hypotension type: other hypotension type Qualified Code(s): I95.89 - Other hypotension Is this a current diagnosis for this admission?: Yes Plan: Secondary to Beta Anton Overdose: Resolved. (11) Suicide attempt by beta anton overdose Qualifiers: Encounter type: subsequent encounter Qualified Code(s): T44.7X2D - Poisoning by beta-adrenoreceptor antagonists, intentional self-harm, subsequent encounter Is this a current diagnosis for this admission?: Yes Plan: Pt being evaluated by mental health. (12) Benzodiazepine dependence, continuous Is this a current diagnosis for this admission?: Yes Plan: Supportive care. (13) Leukocytosis Is this a current diagnosis for this admission?: Yes Plan: CXR demonstrates no evidence of pneumonia. Will discontinue antibiotic after 72 hours. (14) DVT prophylaxis Is this a current diagnosis for this admission?: Yes Plan: Heparin - Time Time Spent with patient: 25-34 minutes
[2017-09-21] MEDS: RINGERS SOLUTION,LACTATED 1,000 ML IV PRN (22:41)
[2017-09-21] MEDS: KETOROLAC TROMETHAMINE INJ/PF 30 MG/1 ML SDV IV PRN (23:23)
[2017-09-22] MEDS: IPRATROPIUM/ALBUTEROL 0.5-2.5 MG/3 ML AMPUL NEB SCH ×3 (00:21→16:10)
[2017-09-22] MEDS: DEXTROSE 5%-WATER 500 ML with AMIODARONE HCL 900 MG IV PRN ×2 (01:55)
[2017-09-22] MEDS: PIPERACILLIN SODIUM/TAZOBACTAM 3.375 GM in NORMAL SALINE 100 ML IV SCH (05:03)
[2017-09-22] MEDS: GABAPENTIN 100 MG CAPSULE PO SCH ×3 (05:04→20:57)
[2017-09-22 06:08] LABS: ABSOLUTE BASOPHILS # (AUTO) 0.1 10^3/uL (0.0-0.2); ABSOLUTE EOSINOPHILS # (AUTO) 0.2 10^3/uL (0.0-0.6); ABSOLUTE LYMPHOCYTES (AUTO) 1.9 10^3/uL (0.5-4.7); ABSOLUTE MONOCYTES (AUTO) 0.8 10^3/uL (0.1-1.4); ABSOLUTE NEUT (AUTO) 6.3 10^3/uL (1.7-8.2); BASOPHILS % (AUTO) 0.6 % (0-2); EOSINOPHILS % (AUTO) 2.3 % (0-6); HEMATOCRIT 22.8 % (36.0-47.0); LYMPHOCYTES % (AUTO) 20.1 % (13-45); MEAN CORPUSCULAR HEMOGLOBIN 31.4 pg (27.0-33.4); MEAN CORPUSCULAR HGB CONC 34.1 g/dL (32.0-36.0); MEAN CORPUSCULAR VOLUME 92 fl (80-97); MONOCYTES % (AUTO) 8.7 % (3-13); PLATELET COUNT 156 10^3/uL (150-450); RED BLOOD COUNT 2.47 10^6/uL (3.72-5.28); RED CELL DISTRIBUTION WIDTH 13.2 % (11.5-14.0); SEGMENTED NEUTROPHILS % (AUTO) 68.3 % (42-78); TOTAL CELLS COUNTED % (AUTO) 100 %; WHITE BLOOD COUNT 9.3 10^3/uL (4.0-10.5)
[2017-09-22 06:12] LABS: HEMOGLOBIN 7.8 g/dL (12.0-15.5)
[2017-09-22 06:15] LABS: ARTERIAL BLOOD BASE EXCESS 0.4 mmol/L; ARTERIAL BLOOD H2CO3 1.11 mmol/L (1.05-1.35); ARTERIAL BLOOD HCO3 24.4 mmol/L (20-26); ARTERIAL BLOOD O2 SATURATION 98.5 % (94-98); ARTERIAL BLOOD PCO2 36.9 mmHg (35-45); ARTERIAL BLOOD PH 7.44 (7.35-7.45); ARTERIAL BLOOD PO2 119.6 mmHg (80-100); ARTERIAL BLOOD TOTAL CO2 25.6 mmol/L (21-25)
[2017-09-22 06:23] LABS: ARTERIAL BLOOD FIO2 40%
--- NOTE | 2017-09-22 06:30 | RADIOLOGY REPORT (SQ) ---
EXAM DESCRIPTION: CHEST SINGLE VIEW CLINICAL HISTORY: resp failure COMPARISON: 09/20/2017 FINDINGS: Single frontal view of the chest. Interval removal of endotracheal tube and NG tube. Right IJ central venous catheter with tip in the right atrium. Leads overlie the chest. Low lung volumes. Heart is not enlarged. No pneumothorax or definite pleural effusion. Minimal residual left basilar opacities are stable. No acute osseous abnormalities. Upper abdominal soft tissues are unremarkable. IMPRESSION: 1. Stable appearance of the chest. Electronically signed by: Miguel Angel Beard 09/22/2017 5:28 AM CDT
[2017-09-22 06:35] LABS: ANION GAP 7 (5-19); BLOOD UREA NITROGEN 10 mg/dL (7-20); CALCIUM 8.5 mg/dL (8.4-10.2); CARBON DIOXIDE 28 mmol/L (22-30); CHLORIDE 107 mmol/L (98-107); GLUCOSE 119 mg/dL (75-110); POTASSIUM 3.6 mmol/L (3.6-5.0); SODIUM 141.7 mmol/L (137-145)
[2017-09-22] MEDS ORDERED: RINGERS SOLUTION,LACTATED 1,000 ML IV ONE (07:35)
[2017-09-22] MEDS: ASPIRIN 81 MG TABLET, ENT COATED PO SCH (09:41)
[2017-09-22] MEDS: DOCUSATE SODIUM 100 MG CAPSULE PO SCH ×2 (09:41→17:54)
[2017-09-22] MEDS: PANTOPRAZOLE SODIUM 40 MG VIAL IV SCH (10:10)
[2017-09-22] MEDS: KETOROLAC TROMETHAMINE INJ/PF 30 MG/1 ML SDV IV PRN ×3 (10:27→22:13)
[2017-09-22 10:38] LABS: HEMATOCRIT 23.3 % (36.0-47.0); MEAN CORPUSCULAR HEMOGLOBIN 31.7 pg (27.0-33.4); MEAN CORPUSCULAR HGB CONC 34.5 g/dL (32.0-36.0); MEAN CORPUSCULAR VOLUME 92 fl (80-97); PLATELET COUNT 168 10^3/uL (150-450); RED BLOOD COUNT 2.53 10^6/uL (3.72-5.28); RED CELL DISTRIBUTION WIDTH 13.8 % (11.5-14.0); WHITE BLOOD COUNT 9.3 10^3/uL (4.0-10.5)
[2017-09-22 11:00] LABS: ANION GAP 6 (5-19); BLOOD UREA NITROGEN 10 mg/dL (7-20); CALCIUM 8.5 mg/dL (8.4-10.2); CARBON DIOXIDE 27 mmol/L (22-30); CHLORIDE 110 mmol/L (98-107); GLUCOSE 119 mg/dL (75-110); POTASSIUM 3.5 mmol/L (3.6-5.0)
[2017-09-22] MEDS ORDERED: RINGERS SOLUTION,LACTATED 1,000 ML IV PRN (11:37)
[2017-09-22] MEDS ORDERED: POTASSIUM CHLORIDE 10 MEQ TABLET.SA PO ONE (11:59)
[2017-09-22] MEDS ORDERED: NORMAL SALINE 250 ML IV PRN ×2 (12:03)
--- NOTE | 2017-09-22 12:03 | PDOC PROGRESS REPORT ---
Subjective Progress Note for:: 09/22/17 Subjective:: Pt seen earlier this morning. Nursing states that pt has done well overnight. Nursing state that pt Hemoglobin has dropped. Nursing states that pt has had good urine output. Patient's son is requested for FMLA forms to be completed. Reason For Visit: BETABLOCKER OD, SUICIDE ATTEMPT, CHRONIC PAIN, Physical Exam Vital Signs: Temp Pulse Resp BP Pulse Ox 98.4 F 88 15 143/68 H 96 09/22/17 06:00 09/22/17 08:34 09/22/17 10:00 09/22/17 09:14 09/22/17 10:00 Intake & Output 09/21/17 09/22/17 09/23/17 06:59 06:59 06:59 Intake Total 3220 3073 Output Total 1545 2440 660 Balance 1675 633 -660 Weight 93.3 kg 94 kg General appearance: PRESENT: other - Sleeping, with BiPAP in place, appeared in no acute distress Head exam: PRESENT: atraumatic, normocephalic Eye exam: PRESENT: other - Eyes closed Ear exam: PRESENT: normal external ear exam Mouth exam: PRESENT: other - BiPAP in place Neck exam: ABSENT: carotid bruit, JVD, lymphadenopathy, thyromegaly Respiratory exam: PRESENT: clear to auscultation avel, decreased breath sounds - At bases. ABSENT: rales, rhonchi, wheezes Cardiovascular exam: PRESENT: RRR, systolic murmur. ABSENT: diastolic murmur, rubs Pulses: PRESENT: normal dorsalis pedis pul Vascular exam: PRESENT: normal capillary refill GI/Abdominal exam: PRESENT: normal bowel sounds, soft. ABSENT: distended, guarding, mass, organolmegaly, rebound, tenderness Rectal exam: PRESENT: deferred Extremities exam: PRESENT: full ROM. ABSENT: calf tenderness, clubbing, pedal edema Neurological exam: PRESENT: other - Sleeping Psychiatric exam: PRESENT: other - resting comfortably Skin exam: PRESENT: dry, intact, warm. ABSENT: cyanosis, rash Results Laboratory Results: 09/22/17 10:05 09/22/17 10:05 09/22/17 09/22/17 09/22/17 05:50 05:50 05:50 WBC 9.3 RBC 2.47 L Hgb 7.8 L Hct 22.8 L MCV 92 MCH 31.4 MCHC 34.1 RDW 13.2 Plt Count 156 Seg Neutrophils % 68.3 Lymphocytes % 20.1 Monocytes % 8.7 Eosinophils % 2.3 Basophils % 0.6 Absolute Neutrophils 6.3 Absolute Lymphocytes 1.9 Absolute Monocytes 0.8 Absolute Eosinophils 0.2 Absolute Basophils 0.1 Carbonic Acid 1.11 HCO3/H2CO3 Ratio 21:1 ABG pH 7.44 ABG pCO2 36.9 ABG pO2 119.6 H ABG HCO3 24.4 ABG O2 Saturation 98.5 H ABG Base Excess 0.4 FiO2 40% Sodium 141.7 Potassium 3.6 Chloride 107 Carbon Dioxide 28 Anion Gap 7 BUN 10 Creatinine 1.84 H Est GFR ( Amer) 34 L Est GFR (Non-Af Amer) 28 L Glucose 119 H Calcium 8.5 Magnesium 2.5 H 09/22/17 09/22/17 10:05 10:05 WBC 9.3 RBC 2.53 L Hgb 8.0 L Hct 23.3 L MCV 92 MCH 31.7 MCHC 34.5 RDW 13.8 Plt Count 168 Seg Neutrophils % Lymphocytes % Monocytes % Eosinophils % Basophils % Absolute Neutrophils Absolute Lymphocytes Absolute Monocytes Absolute Eosinophils Absolute Basophils Carbonic Acid HCO3/H2CO3 Ratio ABG pH ABG pCO2 ABG pO2 ABG HCO3 ABG O2 Saturation ABG Base Excess FiO2 Sodium 143.0 Potassium 3.5 L Chloride 110 H Carbon Dioxide 27 Anion Gap 6 BUN 10 Creatinine 1.80 H Est GFR ( Amer) 34 L Est GFR (Non-Af Amer) 28 L Glucose 119 H Calcium 8.5 Magnesium 09/17/17 09/17/17 09/17/17 06:41 06:41 12:08 Creatine Kinase 63 67 CK-MB (CK-2) 0.80 Troponin I < 0.012 09/17/17 09/17/17 09/17/17 12:08 18:40 18:40 Creatine Kinase 85 CK-MB (CK-2) 0.79 1.14 Troponin I < 0.012 < 0.012 Impressions: Hip/Pelvis X-Ray 09/17/17 01:38 IMPRESSION: Mild symmetrical degenerative narrowing of the hip joints. No other hip pathology. Degenerative changes lower lumbar spine. Chest CT 09/18/17 00:00 IMPRESSION: Bilateral pleural effusions with mild associated atelectasis. No acute pulmonary infiltrate is appreciated. Tubes and catheters as described. KUB X-Ray 09/18/17 00:00 IMPRESSION: Nasogastric tube in the stomach. Cervical Spine CT 09/18/17 08:00 IMPRESSION: Multilevel degenerative disc disease and spondylosis. Head CT 09/18/17 08:00 IMPRESSION: MILD CHRONIC CHANGES OF ATROPHY AND MICROVASCULAR ISCHEMIA. NO ACUTE PROCESS. EVIDENCE OF ACUTE STROKE: No Chest X-Ray 09/22/17 06:00 IMPRESSION: 1. Stable appearance of the chest. Assessment & Plan - Diagnosis (1) Acute renal injury Is this a current diagnosis for this admission?: Yes Plan: Most likely secondary to ATN: We will check renal ultrasound, give 1 L normal saline bolus, increase patient's maintenance fluids to 125 cc/h, strict ins and outs. Will check UA. (2) Anemia Is this a current diagnosis for this admission?: Yes Plan: We will consult surgery for EGD and colonoscopy. Patient does have A. fib and would benefit from being on anticoagulation however source of anemia is unclear at this time. Patient was found to be Hemoccult positive in setting of profuse diarrhea. Will order anemia workup. Will type and screen pt for 2 units on Hold. (3) Atrial fibrillation Qualifiers: Atrial fibrillation type: unspecified Qualified Code(s): I48.91 - Unspecified atrial fibrillation Is this a current diagnosis for this admission?: Yes Plan: We will continue amiodarone. Anticoagulation has not been initiated due to anemia. Patient's CHADS 2 score is 3 and should be a candidate for anticoagulation. Will consult surgery for EGD and colonoscopy. (4) Acute respiratory failure Is this a current diagnosis for this admission?: Yes Plan: Secondary to seizure patient was extubated on 09/21/2017: Patient is currently doing well. Chest x-ray demonstrates no infiltrates. Will discontinue Zosyn. (5) Seizure Is this a current diagnosis for this admission?: Yes Plan: Secondary to Severe Hyponatremia: Resolved. (6) Diarrhea Is this a current diagnosis for this admission?: Yes Plan: C. difficile PCR negative. Bentyl was discontinued. Will place patient on probiotics. We will continue to monitor. Fecal management system was removed. (7) Acute cystitis Is this a current diagnosis for this admission?: Yes Plan: Secondary E. coli: Zosyn discontinued. Patient was placed on Keflex (8) Aspiration pneumonia Is this a current diagnosis for this admission?: Yes Plan: Most likely Gram Positive: Ruled out (9) Hypomagnesemia Is this a current diagnosis for this admission?: Yes Plan: Resolved. (10) Hypokalemia Is this a current diagnosis for this admission?: Yes Plan: Will give Potassium replacement. Will check BMP in am (11) Hyponatremia Is this a current diagnosis for this admission?: Yes Plan: Secondary to Hypervolemia: Na 143. Will continue to monitor. 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 (13) Encephalopathy Is this a current diagnosis for this admission?: Yes Plan: Acute Metabolic Encephalopathy due to Hyponatremia and Seizure: Sedated. (14) Hypotension Qualifiers: Hypotension type: other hypotension type Qualified Code(s): I95.89 - Other hypotension Is this a current diagnosis for this admission?: Yes Plan: Secondary to Beta Anton Overdose: Resolved. (15) Suicide attempt by beta anton overdose Qualifiers: Encounter type: subsequent encounter Qualified Code(s): T44.7X2D - Poisoning by beta-adrenoreceptor antagonists, intentional self-harm, subsequent encounter Is this a current diagnosis for this admission?: Yes Plan: Pt being evaluated by mental health. (16) Benzodiazepine dependence, continuous Is this a current diagnosis for this admission?: Yes Plan: Supportive care. (17) Leukocytosis Is this a current diagnosis for this admission?: Yes Plan: Secondary to Acute Cystitis: Resolved. (18) DVT prophylaxis Is this a current diagnosis for this admission?: Yes Plan: Heparin - Time Time Spent with patient: 25-34 minutes
[2017-09-22 12:16] LABS: ABSOLUTE RETICS # 0.038 10^6/uL (0.028-0.122)
[2017-09-22 12:19] LABS: IRON(TIBC) 26.8 ug/dL (37-170)
--- NOTE | 2017-09-22 12:49 | PSYCHOLOGICAL NOTE ---
Psych Note - Psych Note Psych Note: Reason for evaluation: Allegedly intentional overdose Eval: 12:05 PM final disposition:12:50 pm Contact permissions ; patient's son's Kwan Pinedo ([phone]), Ken Haley ( [phone]) , and Israel Mccain. Patient is a 61-year-old female. Patient reports "I do not remember" when asked assessment questions. Patient reports she remembers writing the DNR note. Patient reports she has chronic neck pain and received surgery one month ago. Collateral information: Patient's 2 sons Ken Haley and Kwan Pinedo ( present in room). Patient's son reports patient took an unknown amount of pills stating that it was the blood pressure medication. Patient' son reports that they found the DNR note dated before she overdosed on the medications the date was September 14, 2017. Patient's son reports that prior to the attempted suicide patient was seen in the hospital over the last month at least more than 5 times for medical issues. Patient's son reports that patient had surgery in her neck to address the pain and carotid arteries. Patient's son reports the surgery was an endarterectomy. Patient's son reports that they feel the attempted overdose and mental health issues are related to the patient not getting proper blood to her brain. Patient's son reports that patient has a history of depression and anxiety received prescription for the medications but refuses to take psych meds. Patient's son reports patient has not had any psychiatric hospital stays. Patient's son reports that they feel her attempted suicide has to do with the pain she experienced and not wanting to fill it anymore. Patient's son reports that patient was seen 2 weeks prior to the incident at [facility] and received an MRI. Patient's son reports that the doctor told patient that she had multiple sclerosis, and stated her neck was "messed up from the surgery done by Dr. Iverson". Patient's son reports patient told him she had something neurologically wrong but did not state it was MS. Patient's son reports patient told yazdanism members about the MS diagnosis given at [facility]. Patient's son reports on top of the pain, patient has a diagnosis of irritable bowel syndrome. Patient's son reports that there were no signs that patient was having suicidal ideation prior to her overdose. Patient's son reports while in the emergency room they witnessed patient having regrets that she was not . Patient's son reports patient was refusing treatment in the emergency department. 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 Patient's son reports they do not feel as if patient is safe to discharge. Patient's son reports that once she is medically cleared they feel she needs more assistance at home with a health care nurse to assist with daily living and med management ( for pain and psych). Patient's son reports that all of her sons are unable to provide the care patient needs at home. Medication recommendations made by [facility] contracted psychiatric provider Dr. Bernabe MD includes: None Diagnosis: Per Hx 311 (F32.9)Unspecified Depressive Disorder Per Hx 799.59 ( R41.) Unspecified neurocognitive disorder Impression/plan: Recommendation for involuntary commitment due to patient meeting criteria [place] GS 122C; patient is harm to self. Patient attempted suicide by taking more than prescribed amount of blood pressure medications. Patient wrote a do not resuscitate note, with the words " I'm sorry" dated prior to the attempt. Clinician observed patient displays flat affect, depressed mood, and is guarded. Behavioral health to reassess at a later time. Attending hospitalist in agreement with disposition. Consulted with Dr. Mcadams regarding the management and care of patient.
--- NOTE | 2017-09-22 12:52 | PDOC PROGRESS REPORT ---
Subjective Progress Note for:: 09/22/17 Subjective:: Patient had episode of atrial fibrillation for which she was started on drip protocol. Currently she is maintaining sinus rhythm. Patient also has been extubated and is maintaining good respiration and oxygenation. Patient however still somewhat reluctant to engage in conversation. Heart rate has been satisfactory. Blood pressure has been satisfactory. Serum sodium has improved.. Reason For Visit: BETABLOCKER OD, SUICIDE ATTEMPT, CHRONIC PAIN, Physical Exam Vital Signs: Temp Pulse Resp BP Pulse Ox 98.4 F 88 15 143/68 H 96 09/22/17 06:00 09/22/17 08:34 09/22/17 10:00 09/22/17 09:14 09/22/17 10:00 Intake & Output 09/21/17 09/22/17 09/23/17 06:59 06:59 06:59 Intake Total 3220 3073 Output Total 1545 2440 660 Balance 1675 633 -660 Weight 93.3 kg 94 kg Exam: Take a picture of you GENERAL: well-nourished and in no acute distress. Alert and oriented x1 HEAD: Atraumatic, normocephalic. EYES: Pupils equal round and reactive to light, extraocular movements intact, sclera anicteric, conjunctiva are normal. ENT: TMs normal, nares patent, oropharynx clear without exudates. Moist mucous membranes. No oral ulcerations or bleeding gums noted NECK: supple without lymphadenopathy. Trachea is central. No cervical or axillary lymphadenopathy noted. Carotids are 2+, JVD WNL LUNGS: Respiration seems nonlabored, no significant accessory muscle action noted. Breath sounds clear to auscultation bilaterally and equal noted. No wheezes rales or rhonchi noted. No significant dullness noted on percussion. CHEST: Palpation of the chest wall shows no significant chest wall tenderness. No other significant abnormalities noted. HEART: [place], No PSH, 1/6 HERVE aortic area, 1/6 mcdonough systolic murmur mitral area, no rubs, no gallops. ABDOMEN: Soft, no significant tenderness appreciated, normoactive bowel sounds. No guarding, no rebound. No rigidity noted . No masses appreciated. EXTREMITIES: Pedal pulses are 1-2+, no calf tenderness noted. No clubbing or cyanosis.trace to 1+ pedal edema noted NEUROLOGICAL: Focused neurological exam showed no significant neurologic deficit. Normal speech, no focal weakness appreciated. PSYCH: Could not be assessed. Judgment is probably impaired. SKIN: No significant ecchymosis, skin is noted to be warm. MUSCULOSKELETAL EXAM: No significant acute joint swelling noted. Results Laboratory Results: 09/22/17 10:05 09/22/17 10:05 09/22/17 09/22/17 09/22/17 05:50 05:50 05:50 WBC 9.3 RBC 2.47 L Hgb 7.8 L Hct 22.8 L MCV 92 MCH 31.4 MCHC 34.1 RDW 13.2 Plt Count 156 Seg Neutrophils % 68.3 Lymphocytes % 20.1 Monocytes % 8.7 Eosinophils % 2.3 Basophils % 0.6 Absolute Neutrophils 6.3 Absolute Lymphocytes 1.9 Absolute Monocytes 0.8 Absolute Eosinophils 0.2 Absolute Basophils 0.1 Retic Count (auto) Absolute Retic Carbonic Acid 1.11 HCO3/H2CO3 Ratio 21:1 ABG pH 7.44 ABG pCO2 36.9 ABG pO2 119.6 H ABG HCO3 24.4 ABG O2 Saturation 98.5 H ABG Base Excess 0.4 FiO2 40% Sodium 141.7 Potassium 3.6 Chloride 107 Carbon Dioxide 28 Anion Gap 7 BUN 10 Creatinine 1.84 H Est GFR ( Amer) 34 L Est GFR (Non-Af Amer) 28 L Glucose 119 H Calcium 8.5 Magnesium 2.5 H 09/22/17 09/22/17 09/22/17 10:05 10:05 10:05 WBC 9.3 RBC 2.53 L Hgb 8.0 L Hct 23.3 L MCV 92 MCH 31.7 MCHC 34.5 RDW 13.8 Plt Count 168 Seg Neutrophils % Lymphocytes % Monocytes % Eosinophils % Basophils % Absolute Neutrophils Absolute Lymphocytes Absolute Monocytes Absolute Eosinophils Absolute Basophils Retic Count (auto) 1.50 Absolute Retic 0.038 Carbonic Acid HCO3/H2CO3 Ratio ABG pH ABG pCO2 ABG pO2 ABG HCO3 ABG O2 Saturation ABG Base Excess FiO2 Sodium 143.0 Potassium 3.5 L Chloride 110 H Carbon Dioxide 27 Anion Gap 6 BUN 10 Creatinine 1.80 H Est GFR ( Amer) 34 L Est GFR (Non-Af Amer) 28 L Glucose 119 H Calcium 8.5 Magnesium 03/20/18 03/20/18 03/20/18 06:41 06:41 12:08 Creatine Kinase 63 67 CK-MB (CK-2) 0.80 Troponin I < 0.012 09/17/17 09/17/17 09/17/17 12:08 18:40 18:40 Creatine Kinase 85 CK-MB (CK-2) 0.79 1.14 Troponin I < 0.012 < 0.012 EKG Comments: Telemetry shows sinus rhythm. Impressions: Hip/Pelvis X-Ray 09/17/17 01:38 IMPRESSION: Mild symmetrical degenerative narrowing of the hip joints. No other hip pathology. Degenerative changes lower lumbar spine. Chest CT 09/18/17 00:00 IMPRESSION: Bilateral pleural effusions with mild associated atelectasis. No acute pulmonary infiltrate is appreciated. Tubes and catheters as described. KUB X-Ray 09/18/17 00:00 IMPRESSION: Nasogastric tube in the stomach. Cervical Spine CT 09/18/17 08:00 IMPRESSION: Multilevel degenerative disc disease and spondylosis. Head CT 09/18/17 08:00 IMPRESSION: MILD CHRONIC CHANGES OF ATROPHY AND MICROVASCULAR ISCHEMIA. NO ACUTE PROCESS. EVIDENCE OF ACUTE STROKE: No Chest X-Ray 09/22/17 06:00 IMPRESSION: 1. Stable appearance of the chest. Assessment & Plan - Diagnosis (1) Atrial fibrillation Qualifiers: Atrial fibrillation type: unspecified Qualified Code(s): I48.91 - Unspecified atrial fibrillation Is this a current diagnosis for this admission?: Yes (2) Suicide attempt by beta anton overdose Qualifiers: Encounter type: subsequent encounter Qualified Code(s): T44.7X2D - Poisoning by beta-adrenoreceptor antagonists, intentional self-harm, subsequent encounter Is this a current diagnosis for this admission?: Yes (3) Hypotension Qualifiers: Hypotension type: other hypotension type Qualified Code(s): I95.89 - Other hypotension Is this a current diagnosis for this admission?: Yes (4) Hypertension Qualifiers: Hypertension type: unspecified Qualified Code(s): I10 - Essential (primary ) hypertension Is this a current diagnosis for this admission?: Yes (5) Opiate dependence, continuous Is this a current diagnosis for this admission?: Yes (6) Type 2 diabetes mellitus Qualifiers: Diabetes mellitus ad terminal makeup operator insulin use: unspecified ad terminal makeup operator insulin use status Diabetes mellitus complication status: with unspecified complications Qualified Code(s): E11.8 - Type 2 diabetes mellitus with unspecified complications Is this a current diagnosis for this admission?: Yes - Notes Notes: Atrial fibrillation: Currently patient in sinus rhythm with amiodarone drip protocol ongoing. Recommend amiodarone 200 p.o. twice daily for 1 month. Patient would be a candidate for chronic anticoagulation based on [id number], however feel that patient would be a poor candidate due to her noncompliance and suicide attempt. Recommend additional rate lowering agents such as beta- anton or Cardizem as tolerated by blood pressure. Suicide attempt by beta-anton overdose: seems like patient is now more than 5 half-life times away. Now off all vasopressors. Blood pressure and heart rate has been stable. Seizure disorder: No recurrence noted. Possibly withdrawals from multidrug use could be causing this. Diabetes: Currently stable. Patient being well managed by hospitalist Hypertension: Currently under reasonable control. Resume previous antihypertensives. Opiate dependence: This is a chronic problem. Patient noted to have urine growing gram-negative rods, currently E. coli. Patient on antibiotics. - Time Time with patient: 15-25 minutes - CODE STATUS was discussed, patient remains full code. Surrogate decision-maker unchanged. Multiple medical problems were addressed. More than 50% of the time spent coordinating care, discussing management plans with involved caregivers. Management plans discussed with involved personnels. Medical decision making was of moderate to high complexity , patient's has multiple comorbidities. Medications reviewed and adjusted accordingly: Yes
[2017-09-22] MEDS ORDERED: AMIODARONE HCL 200 MG TABLET PO ONE (13:00)
[2017-09-22 14:28] LABS: APPEARANCE,URINE CLEAR; BILIRUBIN,URINE NEGATIVE (NEGATIVE); COLOR,URINE COLORLESS; GLUCOSE, URINE 50 mg/dL (NEGATIVE); KETONES,URINE NEGATIVE (NEGATIVE); LEUKOCYTE ESTERASE,URINE TRACE (NEGATIVE); NITRITE,URINE NEGATIVE (NEGATIVE); PROTEIN,URINE NEGATIVE (NEGATIVE); URINE SPECIFIC GRAVITY 1.004; UROBILINOGEN,URINE NEGATIVE mg/dL (<2.0)
[2017-09-22] MEDS ORDERED: PEG 3350/NA SULF,BICARB,CL/KCL 4000 ML PO ONE (15:30)
--- NOTE | 2017-09-22 16:20 | PDOC PROGRESS REPORT ---
Subjective Progress Note for:: 09/18/17 Subjective:: AWAKE;OBTUNDED REPORTED TO HAVE HAD A SEIZURE Reason For Visit: BETABLOCKER OD, SUICIDE ATTEMPT, CHRONIC PAIN, Physical Exam Vital Signs: Temp Pulse Resp BP Pulse Ox 98.6 F 78 26 H 128/56 H 99 09/18/17 07:47 09/18/17 08:20 09/18/17 07:47 09/18/17 07:47 09/18/17 07:47 Intake & Output 09/17/17 09/18/17 09/19/17 06:59 06:59 06:59 Intake Total 67267 Output Total 4451 200 Balance 8709 -200 Weight 94.4 kg General appearance: PRESENT: no acute distress, disheveled, obese Head exam: PRESENT: atraumatic, normocephalic Eye exam: PRESENT: conjunctiva pale, EOMI. ABSENT: nystagmus, periorbital swelling, scleral icterus Mouth exam: PRESENT: moist, neck supple, tongue midline Neck exam: ABSENT: carotid bruit, JVD, lymphadenopathy, thyromegaly, tracheal deviation, tracheostomy Respiratory exam: PRESENT: decreased breath sounds, prolonged expiratory phas, rales, rhonchi, symmetrical, unlabored. ABSENT: retraction, stridor, tachypnea Cardiovascular exam: PRESENT: RRR, +S1, +S2 Pulses: PRESENT: normal radial pulses GI/Abdominal exam: PRESENT: diminished bowel sounds, soft Extremities exam: ABSENT: clubbing, joint swelling Musculoskeletal exam: ABSENT: ambulatory, deformity, dislocation Neurological exam: PRESENT: altered, awake. ABSENT: alert Psychiatric exam: PRESENT: flat affect Skin exam: PRESENT: dry, warm Results Laboratory Results: 09/18/17 04:52 09/18/17 04:52 09/17/17 09/18/17 09/18/17 13:00 04:52 04:52 WBC RBC Hgb Hct MCV MCH MCHC RDW Plt Count Seg Neutrophils % Lymphocytes % Monocytes % Eosinophils % Basophils % Absolute Neutrophils Absolute Lymphocytes Absolute Monocytes Absolute Eosinophils Absolute Basophils Carbonic Acid 1.45 H 1.16 HCO3/H2CO3 Ratio 16:1 20:1 ABG pH 7.31 L 7.41 ABG pCO2 48.1 H 38.7 ABG pO2 45.5 L 87.2 ABG HCO3 23.6 24.1 ABG O2 Saturation 77.0 L 96.8 ABG Base Excess -2.9 -0.3 FiO2 6 L 4L Sodium 117.3 L* Potassium 2.8 L* Chloride 84 L Carbon Dioxide 23 Anion Gap 10 BUN 10 Creatinine 0.73 Est GFR ( Amer) > 60 Est GFR (Non-Af Amer) > 60 Glucose 106 Calcium 8.4 Phosphorus 3.1 Magnesium 1.2 L* 09/18/17 04:52 WBC 14.6 H RBC 3.49 L Hgb 10.8 L Hct 31.0 L MCV 89 MCH 31.0 MCHC 35.0 RDW 12.7 Plt Count 184 Seg Neutrophils % 81.6 H Lymphocytes % 12.4 L Monocytes % 5.4 Eosinophils % 0.3 Basophils % 0.3 Absolute Neutrophils 11.9 H Absolute Lymphocytes 1.8 Absolute Monocytes 0.8 Absolute Eosinophils 0.0 Absolute Basophils 0.0 Carbonic Acid HCO3/H2CO3 Ratio ABG pH ABG pCO2 ABG pO2 ABG HCO3 ABG O2 Saturation ABG Base Excess FiO2 Sodium Potassium Chloride Carbon Dioxide Anion Gap BUN Creatinine Est GFR ( Amer) Est GFR (Non-Af Amer) Glucose Calcium Phosphorus Magnesium 09/17/17 09/17/17 09/17/17 06:41 06:41 12:08 Creatine Kinase 63 67 CK-MB (CK-2) 0.80 Troponin I < 0.012 09/17/17 09/17/17 09/17/17 12:08 18:40 18:40 Creatine Kinase 85 CK-MB (CK-2) 0.79 1.14 Troponin I < 0.012 < 0.012 Impressions: Hip/Pelvis X-Ray 09/17/17 01:38 IMPRESSION: Mild symmetrical degenerative narrowing of the hip joints. No other hip pathology. Degenerative changes lower lumbar spine. Chest X-Ray 09/18/17 06:00 IMPRESSION: 1. Improved aeration of the left lung base with minimal residual opacity possibly representing atelectasis. The right IJ central venous catheter tip is in the low right atrium. Consider pulling back 2-3 cm. Assessment & Plan - Diagnosis (1) Suicide attempt by beta anton overdose Qualifiers: Encounter type: subsequent encounter Qualified Code(s): T44.7X2D - Poisoning by beta-adrenoreceptor antagonists, intentional self-harm, subsequent encounter Is this a current diagnosis for this admission?: Yes Plan: vasopressor agents is recommended by poison control (2) Benzodiazepine dependence, continuous Is this a current diagnosis for this admission?: Yes Plan: SUPP BENZODIAZEPAM (3) Hypertension Qualifiers: Hypertension type: unspecified Qualified Code(s): I10 - Essential (primary ) hypertension Is this a current diagnosis for this admission?: Yes (4) Opiate dependence, continuous Is this a current diagnosis for this admission?: Yes Plan: Low-dose benzodiazepines to avoid low-dose opiates to avoid withdrawal - Time Total Critical Time (Minutes): 40 - Plan Summary Plan Summary: PATIENT REPORTEDLY HAD A SEIZURE DOES NOT CURRENTLY APPEAR ABLE TO PROTECT AIRWAY WILL INTUBATE TO PROTECT AIRWAY
--- NOTE | 2017-09-22 16:26 | PDOC PROGRESS REPORT ---
Subjective Progress Note for:: 09/19/17 Subjective:: INTUBATED SEDATED Reason For Visit: BETABLOCKER OD, SUICIDE ATTEMPT, CHRONIC PAIN, Physical Exam Vital Signs: Temp Pulse Resp BP Pulse Ox 100.6 F H 106 H 20 121/67 99 09/19/17 08:00 09/19/17 08:00 09/19/17 08:21 09/19/17 08:21 09/19/17 08:21 Intake & Output 09/18/17 09/19/17 09/20/17 06:59 06:59 06:59 Intake Total 12109 4372 Output Total 4451 3825 375 Balance 8709 547 -375 Weight 94.4 kg 94.7 kg General appearance: PRESENT: no acute distress, disheveled, obese Head exam: PRESENT: atraumatic, normocephalic Eye exam: PRESENT: conjunctiva pale. ABSENT: nystagmus, periorbital swelling, scleral icterus Mouth exam: PRESENT: dry mucosa, neck supple, tongue midline, other - ET Neck exam: ABSENT: carotid bruit, JVD, lymphadenopathy, thyromegaly, tracheal deviation, tracheostomy Respiratory exam: PRESENT: decreased breath sounds, prolonged expiratory phas, rales, rhonchi, symmetrical, unlabored. ABSENT: retraction, stridor, tachypnea Cardiovascular exam: PRESENT: RRR, +S1, +S2 Pulses: PRESENT: normal radial pulses GI/Abdominal exam: PRESENT: diminished bowel sounds, soft Gentrourinary exam: PRESENT: indwelling catheter Extremities exam: ABSENT: clubbing, joint swelling Musculoskeletal exam: ABSENT: ambulatory, deformity, dislocation Neurological exam: ABSENT: alert, awake, oriented to person Skin exam: PRESENT: dry, warm Results Laboratory Results: 09/19/17 06:05 09/19/17 06:05 09/18/17 09/18/17 09/18/17 09:00 09:00 12:00 WBC RBC Hgb Hct MCV MCH MCHC RDW Plt Count Seg Neutrophils % Lymphocytes % Monocytes % Eosinophils % Basophils % Absolute Neutrophils Absolute Lymphocytes Absolute Monocytes Absolute Eosinophils Absolute Basophils Carbonic Acid HCO3/H2CO3 Ratio ABG pH ABG pCO2 ABG pO2 ABG HCO3 ABG O2 Saturation ABG Base Excess FiO2 Sodium 112.8 L* 111.7 L* Potassium 2.7 L* 2.7 L* Chloride 81 L 80 L Carbon Dioxide 23 23 Anion Gap 9 9 BUN 8 8 Creatinine 0.76 0.83 Est GFR ( Amer) > 60 > 60 Est GFR (Non-Af Amer) > 60 > 60 Glucose 111 H 62 L Serum Osmolality 231 L Calcium 8.2 L 7.8 L Magnesium Stool Occult Blood 09/18/17 09/18/17 09/18/17 13:00 13:40 15:00 WBC RBC Hgb Hct MCV MCH MCHC RDW Plt Count Seg Neutrophils % Lymphocytes % Monocytes % Eosinophils % Basophils % Absolute Neutrophils Absolute Lymphocytes Absolute Monocytes Absolute Eosinophils Absolute Basophils Carbonic Acid 0.91 L HCO3/H2CO3 Ratio 22:1 ABG pH 7.44 ABG pCO2 30.3 L ABG pO2 91.1 ABG HCO3 20.3 ABG O2 Saturation 97.4 ABG Base Excess -3.0 FiO2 35% Sodium 111.7 L* 113.9 L* Potassium 2.6 L* 2.7 L* Chloride 82 L 85 L Carbon Dioxide 22 21 L Anion Gap 8 8 BUN 8 8 Creatinine 0.82 0.87 Est GFR ( Amer) > 60 > 60 Est GFR (Non-Af Amer) > 60 > 60 Glucose 101 89 Serum Osmolality Calcium 7.6 L 7.8 L Magnesium Stool Occult Blood 09/18/17 09/18/17 09/18/17 18:00 20:25 20:55 WBC RBC Hgb Hct MCV MCH MCHC RDW Plt Count Seg Neutrophils % Lymphocytes % Monocytes % Eosinophils % Basophils % Absolute Neutrophils Absolute Lymphocytes Absolute Monocytes Absolute Eosinophils Absolute Basophils Carbonic Acid HCO3/H2CO3 Ratio ABG pH ABG pCO2 ABG pO2 ABG HCO3 ABG O2 Saturation ABG Base Excess FiO2 Sodium 114.2 L* 118.7 L* Potassium 2.9 L* 2.8 L* Chloride 86 L 86 L Carbon Dioxide 21 L 21 L Anion Gap 7 12 BUN 9 9 Creatinine 0.87 0.89 Est GFR ( Amer) > 60 > 60 Est GFR (Non-Af Amer) > 60 > 60 Glucose 174 H 157 H Serum Osmolality Calcium 7.8 L 7.9 L Magnesium Stool Occult Blood POSITIVE 09/18/17 09/18/17 09/19/17 22:10 22:50 00:05 WBC 12.2 H RBC 3.19 L Hgb 10.0 L Hct 28.2 L MCV 88 MCH 31.2 MCHC 35.4 RDW 12.7 Plt Count 157 Seg Neutrophils % Lymphocytes % Monocytes % Eosinophils % Basophils % Absolute Neutrophils Absolute Lymphocytes Absolute Monocytes Absolute Eosinophils Absolute Basophils Carbonic Acid HCO3/H2CO3 Ratio ABG pH ABG pCO2 ABG pO2 ABG HCO3 ABG O2 Saturation ABG Base Excess FiO2 Sodium 121.6 L 121.9 L Potassium 2.5 L* 2.7 L* Chloride 88 L 88 L Carbon Dioxide 23 23 Anion Gap 11 11 BUN 9 9 Creatinine 0.89 0.86 Est GFR ( Amer) > 60 > 60 Est GFR (Non-Af Amer) > 60 > 60 Glucose 117 H 121 H Serum Osmolality Calcium 8.0 L 8.1 L Magnesium Stool Occult Blood 09/19/17 09/19/17 09/19/17 02:05 04:03 05:13 WBC RBC Hgb Hct MCV MCH MCHC RDW Plt Count Seg Neutrophils % Lymphocytes % Monocytes % Eosinophils % Basophils % Absolute Neutrophils Absolute Lymphocytes Absolute Monocytes Absolute Eosinophils Absolute Basophils Carbonic Acid 0.85 L HCO3/H2CO3 Ratio 26:1 ABG pH 7.52 H ABG pCO2 28.1 L ABG pO2 84.9 ABG HCO3 22.4 ABG O2 Saturation 97.4 ABG Base Excess 0.6 FiO2 30% Sodium 123.9 L 123.5 L Potassium 2.5 L* 2.5 L* Chloride 92 L 89 L Carbon Dioxide 24 24 Anion Gap 8 11 BUN 9 8 Creatinine 0.91 0.90 Est GFR ( Amer) > 60 > 60 Est GFR (Non-Af Amer) > 60 > 60 Glucose 107 115 H Serum Osmolality Calcium 7.8 L 7.9 L Magnesium Stool Occult Blood 09/19/17 09/19/17 06:05 06:05 WBC 13.3 H RBC 3.19 L Hgb 9.9 L Hct 28.0 L MCV 88 MCH 31.0 MCHC 35.4 RDW 12.7 Plt Count 151 Seg Neutrophils % 84.1 H Lymphocytes % 8.7 L Monocytes % 7.1 Eosinophils % 0.0 Basophils % 0.1 Absolute Neutrophils 11.1 H Absolute Lymphocytes 1.2 Absolute Monocytes 0.9 Absolute Eosinophils 0.0 Absolute Basophils 0.0 Carbonic Acid HCO3/H2CO3 Ratio ABG pH ABG pCO2 ABG pO2 ABG HCO3 ABG O2 Saturation ABG Base Excess FiO2 Sodium 123.0 L Potassium 2.7 L* Chloride 90 L Carbon Dioxide 23 Anion Gap 10 BUN 9 Creatinine 0.87 Est GFR ( Amer) > 60 Est GFR (Non-Af Amer) > 60 Glucose 119 H Serum Osmolality Calcium 7.9 L Magnesium 1.7 Stool Occult Blood 09/17/17 09/17/17 09/17/17 06:41 06:41 12:08 Creatine Kinase 63 67 CK-MB (CK-2) 0.80 Troponin I < 0.012 09/17/17 09/17/17 09/17/17 12:08 18:40 18:40 Creatine Kinase 85 CK-MB (CK-2) 0.79 1.14 Troponin I < 0.012 < 0.012 Impressions: Hip/Pelvis X-Ray 09/17/17 01:38 IMPRESSION: Mild symmetrical degenerative narrowing of the hip joints. No other hip pathology. Degenerative changes lower lumbar spine. Chest CT 09/18/17 00:00 IMPRESSION: Bilateral pleural effusions with mild associated atelectasis. No acute pulmonary infiltrate is appreciated. Tubes and catheters as described. KUB X-Ray 09/18/17 00:00 IMPRESSION: Nasogastric tube in the stomach. Cervical Spine CT 09/18/17 08:00 IMPRESSION: Multilevel degenerative disc disease and spondylosis. Head CT 09/18/17 08:00 IMPRESSION: MILD CHRONIC CHANGES OF ATROPHY AND MICROVASCULAR ISCHEMIA. NO ACUTE PROCESS. EVIDENCE OF ACUTE STROKE: No Chest X-Ray 09/19/17 06:00 IMPRESSION: 1. Stable appearance of the chest. Assessment & Plan - Diagnosis (1) Suicide attempt by beta anton overdose Qualifiers: Encounter type: subsequent encounter Qualified Code(s): T44.7X2D - Poisoning by beta-adrenoreceptor antagonists, intentional self-harm, subsequent encounter Is this a current diagnosis for this admission?: Yes Plan: vasopressor agents is recommended by poison control (2) Benzodiazepine dependence, continuous Is this a current diagnosis for this admission?: Yes Plan: SUPP BENZODIAZEPAM (3) Hypertension Qualifiers: Hypertension type: unspecified Qualified Code(s): I10 - Essential (primary ) hypertension Is this a current diagnosis for this admission?: Yes (4) Opiate dependence, continuous Is this a current diagnosis for this admission?: Yes (5) Acute respiratory failure Qualifiers: Respiratory failure complication: unspecified whether with hypoxia or hypercapnia Qualified Code(s): J96.00 - Acute respiratory failure, unspecified whether with hypoxia or hypercapnia Is this a current diagnosis for this admission?: Yes Plan: UNCHANGED - Time Total Critical Time (Minutes): 35
--- NOTE | 2017-09-22 16:27 | PDOC PROGRESS REPORT ---
Subjective Progress Note for:: 09/20/17 Subjective:: INTUBATED SEDATED Reason For Visit: BETABLOCKER OD, SUICIDE ATTEMPT, CHRONIC PAIN, Physical Exam Vital Signs: Temp Pulse Resp BP Pulse Ox 98.8 F 88 20 88/74 L 100 09/20/17 05:47 09/20/17 01:43 09/20/17 06:21 09/20/17 06:21 09/20/17 06:21 Intake & Output 09/19/17 09/20/17 09/21/17 06:59 06:59 06:59 Intake Total 4372 2615 Output Total 3825 4510 325 Balance 547 -1015 -325 Weight 94.7 kg 91.8 kg General appearance: PRESENT: no acute distress, disheveled, obese Head exam: PRESENT: atraumatic, normocephalic Eye exam: PRESENT: conjunctiva pale. ABSENT: nystagmus, scleral icterus Mouth exam: PRESENT: dry mucosa, neck supple, tongue midline, other Neck exam: ABSENT: carotid bruit, JVD, lymphadenopathy, thyromegaly, tracheal deviation, tracheostomy Respiratory exam: PRESENT: decreased breath sounds, prolonged expiratory phas, rhonchi, symmetrical, unlabored, wheezes Cardiovascular exam: PRESENT: RRR, +S1, +S2 Pulses: PRESENT: normal radial pulses GI/Abdominal exam: PRESENT: diminished bowel sounds, soft Gentrourinary exam: PRESENT: indwelling catheter Extremities exam: ABSENT: clubbing, joint swelling Musculoskeletal exam: ABSENT: deformity, dislocation Neurological exam: ABSENT: awake Skin exam: PRESENT: dry, warm Results Laboratory Results: 09/20/17 05:10 09/20/17 05:10 09/20/17 09/20/17 09/20/17 05:10 05:10 05:10 WBC 13.9 H RBC 2.81 L Hgb 8.7 L Hct 25.5 L MCV 91 MCH 31.1 MCHC 34.2 RDW 12.8 Plt Count 135 L Seg Neutrophils % 80.6 H Lymphocytes % 14.3 Monocytes % 4.5 Eosinophils % 0.3 Basophils % 0.3 Absolute Neutrophils 11.2 H Absolute Lymphocytes 2.0 Absolute Monocytes 0.6 Absolute Eosinophils 0.0 Absolute Basophils 0.0 Carbonic Acid 0.98 L HCO3/H2CO3 Ratio 24:1 ABG pH 7.49 H ABG pCO2 32.6 L ABG pO2 91.0 ABG HCO3 24.0 ABG O2 Saturation 97.5 ABG Base Excess 0.8 FiO2 30% Sodium 134.3 L Potassium 3.1 L Chloride 102 Carbon Dioxide 27 Anion Gap 5 BUN 9 Creatinine 0.98 Est GFR ( Amer) > 60 Est GFR (Non-Af Amer) 57 L Glucose 109 Calcium 7.9 L Magnesium 2.5 H 09/17/17 09/17/17 09/17/17 06:41 06:41 12:08 Creatine Kinase 63 67 CK-MB (CK-2) 0.80 Troponin I < 0.012 09/17/17 09/17/17 09/17/17 12:08 18:40 18:40 Creatine Kinase 85 CK-MB (CK-2) 0.79 1.14 Troponin I < 0.012 < 0.012 Impressions: Hip/Pelvis X-Ray 09/17/17 01:38 IMPRESSION: Mild symmetrical degenerative narrowing of the hip joints. No other hip pathology. Degenerative changes lower lumbar spine. Chest CT 09/18/17 00:00 IMPRESSION: Bilateral pleural effusions with mild associated atelectasis. No acute pulmonary infiltrate is appreciated. Tubes and catheters as described. KUB X-Ray 09/18/17 00:00 IMPRESSION: Nasogastric tube in the stomach. Cervical Spine CT 09/18/17 08:00 IMPRESSION: Multilevel degenerative disc disease and spondylosis. Head CT 09/18/17 08:00 IMPRESSION: MILD CHRONIC CHANGES OF ATROPHY AND MICROVASCULAR ISCHEMIA. NO ACUTE PROCESS. EVIDENCE OF ACUTE STROKE: No Chest X-Ray 09/20/17 06:00 IMPRESSION: 1. Stable appearance of the chest. Assessment & Plan - Diagnosis (1) Suicide attempt by beta anton overdose Qualifiers: Encounter type: subsequent encounter Qualified Code(s): T44.7X2D - Poisoning by beta-adrenoreceptor antagonists, intentional self-harm, subsequent encounter Is this a current diagnosis for this admission?: Yes Plan: vasopressor agents is recommended by poison control (2) Benzodiazepine dependence, continuous Is this a current diagnosis for this admission?: Yes (3) Hypertension Qualifiers: Hypertension type: unspecified Qualified Code(s): I10 - Essential (primary ) hypertension Is this a current diagnosis for this admission?: Yes (4) Opiate dependence, continuous Is this a current diagnosis for this admission?: Yes (5) Acute respiratory failure Qualifiers: Respiratory failure complication: unspecified whether with hypoxia or hypercapnia Qualified Code(s): J96.00 - Acute respiratory failure, unspecified whether with hypoxia or hypercapnia Is this a current diagnosis for this admission?: Yes - Time Total Critical Time (Minutes): 35
--- NOTE | 2017-09-22 16:34 | PDOC PROGRESS REPORT ---
Subjective Progress Note for:: 09/21/17 Subjective:: STABLE Reason For Visit: BETABLOCKER OD, SUICIDE ATTEMPT, CHRONIC PAIN, Physical Exam Vital Signs: Temp Pulse Resp BP Pulse Ox 98.2 F 75 18 116/60 100 09/21/17 06:00 09/21/17 07:31 09/21/17 08:00 09/21/17 07:58 09/21/17 08:00 Intake & Output 09/20/17 09/21/17 09/22/17 06:59 06:59 06:59 Intake Total 2615 3220 Output Total 3630 1545 125 Balance -1015 1675 -125 Weight 91.8 kg 93.3 kg General appearance: PRESENT: no acute distress, disheveled, obese Head exam: PRESENT: atraumatic, normocephalic Eye exam: PRESENT: conjunctiva pale. ABSENT: nystagmus, periorbital swelling, scleral icterus Mouth exam: PRESENT: dry mucosa, neck supple, tongue midline, other - ET Neck exam: ABSENT: carotid bruit, JVD, lymphadenopathy, thyromegaly, tracheal deviation, tracheostomy Respiratory exam: PRESENT: decreased breath sounds, prolonged expiratory phas, rhonchi, symmetrical, unlabored. ABSENT: retraction, stridor, tachypnea Cardiovascular exam: PRESENT: RRR, +S1, +S2 Pulses: PRESENT: normal radial pulses GI/Abdominal exam: PRESENT: diminished bowel sounds, soft Extremities exam: ABSENT: clubbing, joint swelling Musculoskeletal exam: ABSENT: ambulatory, deformity, dislocation Neurological exam: PRESENT: awake Skin exam: PRESENT: dry, warm Results Laboratory Results: 09/21/17 05:35 09/21/17 05:35 09/20/17 09/20/17 09/21/17 09:55 13:25 00:55 WBC RBC Hgb Hct MCV MCH MCHC RDW Plt Count Seg Neutrophils % Lymphocytes % Monocytes % Eosinophils % Basophils % Absolute Neutrophils Absolute Lymphocytes Absolute Monocytes Absolute Eosinophils Absolute Basophils Carbonic Acid HCO3/H2CO3 Ratio ABG pH ABG pCO2 ABG pO2 ABG HCO3 ABG O2 Saturation ABG Base Excess FiO2 Sodium 133.0 L 135.2 L Potassium 3.3 L 3.7 Chloride 103 106 Carbon Dioxide 27 24 Anion Gap 3 L 5 BUN 9 10 Creatinine 0.90 0.94 0.99 Est GFR ( Amer) > 60 > 60 > 60 Est GFR (Non-Af Amer) > 60 > 60 57 L Glucose 137 H 145 H Calcium 7.6 L 8.1 L Magnesium 2.5 H Total Bilirubin AST ALT Alkaline Phosphatase Total Protein Albumin 09/21/17 09/21/17 09/21/17 05:35 05:35 05:35 WBC 12.1 H RBC 2.71 L Hgb 8.5 L Hct 24.8 L MCV 92 MCH 31.3 MCHC 34.1 RDW 13.4 Plt Count 149 L Seg Neutrophils % 72.9 Lymphocytes % 19.9 Monocytes % 6.1 Eosinophils % 1.0 Basophils % 0.1 Absolute Neutrophils 8.8 H Absolute Lymphocytes 2.4 Absolute Monocytes 0.7 Absolute Eosinophils 0.1 Absolute Basophils 0.0 Carbonic Acid 1.02 L HCO3/H2CO3 Ratio 23:1 ABG pH 7.48 H ABG pCO2 33.8 L ABG pO2 95.5 ABG HCO3 24.4 ABG O2 Saturation 97.7 ABG Base Excess 0.9 FiO2 30% Sodium 135.2 L Potassium 3.6 Chloride 103 Carbon Dioxide 26 Anion Gap 6 BUN 10 Creatinine 1.14 Est GFR ( Amer) 58 L Est GFR (Non-Af Amer) 48 L Glucose 140 H Calcium 8.1 L Magnesium 2.4 H Total Bilirubin 0.3 AST 67 H ALT 46 Alkaline Phosphatase 56 Total Protein 4.6 L Albumin 2.4 L 09/18/17 20:55 Catheterized Urine Urine Culture - Final Escherichia Coli 09/18/17 20:55 Tracheal Aspirate Gram Stain - Final 09/18/17 20:55 Tracheal Aspirate Sputum Culture - Final NORMAL SKYE 09/17/17 09/17/17 09/17/17 06:41 06:41 12:08 Creatine Kinase 63 67 CK-MB (CK-2) 0.80 Troponin I < 0.012 09/17/17 09/17/17 09/17/17 12:08 18:40 18:40 Creatine Kinase 85 CK-MB (CK-2) 0.79 1.14 Troponin I < 0.012 < 0.012 Impressions: Hip/Pelvis X-Ray 09/17/17 01:38 IMPRESSION: Mild symmetrical degenerative narrowing of the hip joints. No other hip pathology. Degenerative changes lower lumbar spine. Chest CT 09/18/17 00:00 IMPRESSION: Bilateral pleural effusions with mild associated atelectasis. No acute pulmonary infiltrate is appreciated. Tubes and catheters as described. KUB X-Ray 09/18/17 00:00 IMPRESSION: Nasogastric tube in the stomach. Cervical Spine CT 09/18/17 08:00 IMPRESSION: Multilevel degenerative disc disease and spondylosis. Head CT 09/18/17 08:00 IMPRESSION: MILD CHRONIC CHANGES OF ATROPHY AND MICROVASCULAR ISCHEMIA. NO ACUTE PROCESS. EVIDENCE OF ACUTE STROKE: No Chest X-Ray 09/21/17 06:00 IMPRESSION: Tubes and lines in good positioning. No acute infiltrates Assessment & Plan - Diagnosis (1) Suicide attempt by beta anton overdose Qualifiers: Encounter type: subsequent encounter Qualified Code(s): T44.7X2D - Poisoning by beta-adrenoreceptor antagonists, intentional self-harm, subsequent encounter Is this a current diagnosis for this admission?: Yes Plan: vasopressor agents is recommended by poison control (2) Benzodiazepine dependence, continuous Is this a current diagnosis for this admission?: Yes Plan: SUPP BENZODIAZEPAM (3) Hypertension Qualifiers: Hypertension type: unspecified Qualified Code(s): I10 - Essential (primary ) hypertension Is this a current diagnosis for this admission?: Yes (4) Opiate dependence, continuous Is this a current diagnosis for this admission?: Yes (5) Acute respiratory failure Qualifiers: Respiratory failure complication: unspecified whether with hypoxia or hypercapnia Qualified Code(s): J96.00 - Acute respiratory failure, unspecified whether with hypoxia or hypercapnia Is this a current diagnosis for this admission?: Yes Plan: NO REPORT OF ADDITIONAL SEIZURE ACTIVITY RR MIN VENT FIO2 OK WILL EXTUBATE - Time Total Critical Time (Minutes): 55
--- NOTE | 2017-09-22 16:38 | PDOC PROGRESS REPORT ---
Subjective Progress Note for:: 09/22/17 Subjective:: 24HRS S/P EXTUBATION STABLE Reason For Visit: BETABLOCKER OD, SUICIDE ATTEMPT, CHRONIC PAIN, Physical Exam Vital Signs: Temp Pulse Resp BP Pulse Ox 98.4 F 88 19 162/69 H 97 09/22/17 06:00 09/22/17 08:34 09/22/17 15:13 09/22/17 15:13 09/22/17 15:13 Intake & Output 09/21/17 09/22/17 09/23/17 06:59 06:59 06:59 Intake Total 3220 3073 Output Total 1545 2440 2410 Balance 1675 633 -2410 Weight 93.3 kg 94 kg General appearance: PRESENT: no acute distress, disheveled, obese Head exam: PRESENT: atraumatic, normocephalic Eye exam: PRESENT: conjunctiva pale. ABSENT: nystagmus, periorbital swelling, scleral icterus Mouth exam: PRESENT: moist, neck supple, tongue midline Respiratory exam: PRESENT: decreased breath sounds, prolonged expiratory phas, rhonchi, symmetrical, unlabored. ABSENT: rales, retraction, stridor, tachypnea Cardiovascular exam: PRESENT: RRR, +S1, +S2 Pulses: PRESENT: normal radial pulses GI/Abdominal exam: PRESENT: diminished bowel sounds, soft Gentrourinary exam: PRESENT: indwelling catheter Extremities exam: ABSENT: clubbing, joint swelling Musculoskeletal exam: ABSENT: ambulatory, deformity, dislocation Neurological exam: PRESENT: awake Skin exam: PRESENT: dry, warm Results Laboratory Results: 09/22/17 10:05 09/22/17 10:05 09/22/17 09/22/17 09/22/17 05:50 05:50 05:50 WBC 9.3 RBC 2.47 L Hgb 7.8 L Hct 22.8 L MCV 92 MCH 31.4 MCHC 34.1 RDW 13.2 Plt Count 156 Seg Neutrophils % 68.3 Lymphocytes % 20.1 Monocytes % 8.7 Eosinophils % 2.3 Basophils % 0.6 Absolute Neutrophils 6.3 Absolute Lymphocytes 1.9 Absolute Monocytes 0.8 Absolute Eosinophils 0.2 Absolute Basophils 0.1 Retic Count (auto) Absolute Retic Carbonic Acid 1.11 HCO3/H2CO3 Ratio 21:1 ABG pH 7.44 ABG pCO2 36.9 ABG pO2 119.6 H ABG HCO3 24.4 ABG O2 Saturation 98.5 H ABG Base Excess 0.4 FiO2 40% Sodium 141.7 Potassium 3.6 Chloride 107 Carbon Dioxide 28 Anion Gap 7 BUN 10 Creatinine 1.84 H Est GFR ( Amer) 34 L Est GFR (Non-Af Amer) 28 L Glucose 119 H Calcium 8.5 Magnesium 2.5 H Iron TIBC % Saturation Ferritin Vitamin B12 Folate Urine Color Urine Appearance Urine pH Ur Specific [place] Urine Protein Urine Glucose (UA) Urine Ketones Urine Blood Urine Nitrite Ur Leukocyte Esterase Urine WBC (Auto) Urine RBC (Auto) Blood Type Antibody Screen 09/22/17 09/22/17 09/22/17 10:05 10:05 10:05 WBC 9.3 RBC 2.53 L Hgb 8.0 L Hct 23.3 L MCV 92 MCH 31.7 MCHC 34.5 RDW 13.8 Plt Count 168 Seg Neutrophils % Lymphocytes % Monocytes % Eosinophils % Basophils % Absolute Neutrophils Absolute Lymphocytes Absolute Monocytes Absolute Eosinophils Absolute Basophils Retic Count (auto) 1.50 Absolute Retic 0.038 Carbonic Acid HCO3/H2CO3 Ratio ABG pH ABG pCO2 ABG pO2 ABG HCO3 ABG O2 Saturation ABG Base Excess FiO2 Sodium 143.0 Potassium 3.5 L Chloride 110 H Carbon Dioxide 27 Anion Gap 6 BUN 10 Creatinine 1.80 H Est GFR ( Amer) 34 L Est GFR (Non-Af Amer) 28 L Glucose 119 H Calcium 8.5 Magnesium Iron TIBC % Saturation Ferritin Vitamin B12 Folate Urine Color Urine Appearance Urine pH Ur Specific [place] Urine Protein Urine Glucose (UA) Urine Ketones Urine Blood Urine Nitrite Ur Leukocyte Esterase Urine WBC (Auto) Urine RBC (Auto) Blood Type Antibody Screen 09/22/17 09/22/17 09/22/17 10:05 13:50 14:10 WBC RBC Hgb Hct MCV MCH MCHC RDW Plt Count Seg Neutrophils % Lymphocytes % Monocytes % Eosinophils % Basophils % Absolute Neutrophils Absolute Lymphocytes Absolute Monocytes Absolute Eosinophils Absolute Basophils Retic Count (auto) Absolute Retic Carbonic Acid HCO3/H2CO3 Ratio ABG pH ABG pCO2 ABG pO2 ABG HCO3 ABG O2 Saturation ABG Base Excess FiO2 Sodium Potassium Chloride Carbon Dioxide Anion Gap BUN Creatinine Est GFR ( Amer) Est GFR (Non-Af Amer) Glucose Calcium Magnesium Iron 26.8 L TIBC 187 L % Saturation 14 Ferritin 263.00 Vitamin B12 898.0 Folate 11.40 Urine Color COLORLESS Urine Appearance CLEAR Urine pH 6.0 Ur Specific [place] 1.004 Urine Protein NEGATIVE Urine Glucose (UA) 50 H Urine Ketones NEGATIVE Urine Blood MODERATE H Urine Nitrite NEGATIVE Ur Leukocyte Esterase TRACE H Urine WBC (Auto) 5 Urine RBC (Auto) 5 Blood Type A POSITIVE Antibody Screen NEGATIVE 09/17/17 09/17/17 09/17/17 06:41 06:41 12:08 Creatine Kinase 63 67 CK-MB (CK-2) 0.80 Troponin I < 0.012 09/17/17 09/17/17 09/17/17 12:08 18:40 18:40 Creatine Kinase 85 CK-MB (CK-2) 0.79 1.14 Troponin I < 0.012 < 0.012 Impressions: Hip/Pelvis X-Ray 09/17/17 01:38 IMPRESSION: Mild symmetrical degenerative narrowing of the hip joints. No other hip pathology. Degenerative changes lower lumbar spine. Chest CT 09/18/17 00:00 IMPRESSION: Bilateral pleural effusions with mild associated atelectasis. No acute pulmonary infiltrate is appreciated. Tubes and catheters as described. KUB X-Ray 09/18/17 00:00 IMPRESSION: Nasogastric tube in the stomach. Cervical Spine CT 09/18/17 08:00 IMPRESSION: Multilevel degenerative disc disease and spondylosis. Head CT 09/18/17 08:00 IMPRESSION: MILD CHRONIC CHANGES OF ATROPHY AND MICROVASCULAR ISCHEMIA. NO ACUTE PROCESS. EVIDENCE OF ACUTE STROKE: No Chest X-Ray 09/22/17 06:00 IMPRESSION: 1. Stable appearance of the chest. Assessment & Plan - Diagnosis (1) Suicide attempt by beta anton overdose Qualifiers: Encounter type: subsequent encounter Qualified Code(s): T44.7X2D - Poisoning by beta-adrenoreceptor antagonists, intentional self-harm, subsequent encounter Is this a current diagnosis for this admission?: Yes (2) Benzodiazepine dependence, continuous Is this a current diagnosis for this admission?: Yes (3) Hypertension Qualifiers: Hypertension type: unspecified Qualified Code(s): I10 - Essential (primary ) hypertension Is this a current diagnosis for this admission?: Yes (4) Opiate dependence, continuous Is this a current diagnosis for this admission?: Yes (5) Acute respiratory failure Qualifiers: Respiratory failure complication: unspecified whether with hypoxia or hypercapnia Qualified Code(s): J96.00 - Acute respiratory failure, unspecified whether with hypoxia or hypercapnia Is this a current diagnosis for this admission?: Yes Plan: 24HRS S/P EXTUBATION
[2017-09-22] MEDS: LACTOBACILLUS ACIDOPHILUS 250 MG TAB PO SCH (17:49)
--- NOTE | 2017-09-22 20:27 | RADIOLOGY REPORT (SQ) ---
EXAM DESCRIPTION: [employer] COMPLETED DATE/TIME: 09/22/2017 8:12 pm REASON FOR STUDY: acute renal injury COMPARISON: CT chest 09/18/2017 CT abdomen pelvis 04/03/2017 TECHNIQUE: Dynamic and static grayscale images acquired of the kidneys and bladder and recorded on P ACS. Additional selected color Doppler and spectral images recorded. LIMITATIONS: Body habitus FINDINGS: Limited visualization due to body habitus. Both kidneys are 12 cm in length with grossly normal cortical thickness. No hydronephrosis or stones. Bladder is distended. No gross bladder calculi Incidental finding of stones in the gallbladder IMPRESSION: Distended urinary bladder No gross hydronephrosis Incidental finding of gallstones TECHNICAL DOCUMENTATION: JOB ID: [id number] [employer]- All Rights Reserved Reading location - IP/workstation name: [email or web address]
[2017-09-22] MEDS ORDERED: CEPHALEXIN 500 MG CAPSULE ONE (20:40)
[2017-09-22] MEDS: CEPHALEXIN 500 MG CAPSULE PO SCH (20:56)
[2017-09-22] MEDS: AMIODARONE HCL 200 MG TABLET PO SCH (20:57)
--- NOTE | 2017-09-22 23:57 | PDOC CONSULTATION ---
Consultation Consult Date: 09/22/17 Attending physician:: JYOTSNA AN Consult reason:: possible occult GI bleed History of Present Illness Admission Date/PCP: 09/17/17 04:56 History of Present Illness: This is a 61 yr old F admitted to the hospitalist after a suicide attempt with labetalol. She became obtunded and was intubated the second on admission, extubated 2 days later (yesterday). She has atrial fibrillation and would benefit from anticoagulation however there has been a downward trend in her hemoglobin from about 12g/dl on admission to 7.8 today and a hemoccult test was positive. A consult was placed by the hospitalist for an EGD and colonoscopy to assess for possible occult GI bleed. She has not had any obvious bleeding from any orifices, Does not use anticoagulants. Denies abdominal pain or prior GI bleeds. No history of abdominal malignancy. Not sure if she has had a colonoscopy or EGD before. Past Medical History Cardiac Medical History: Reports: Hypertension Pulmonary Medical History: Reports: Chronic Obstructive Pulmonary Disease (COPD) Neurological Medical History: Reports: Migraine Endocrine Medical History: Reports: Diabetes Mellitus Type 2 GI Medical History: Musculoskeltal Medical History: Reports: Arthritis - osteoarthritis Psychiatric Medical History: Reports: Depression, General Anxiety Disorder Hematology: Denies: Anemia, Sickle Cell Disease Past Surgical History Past Surgical History: Reports: Carotid Endarterectomy, Section - 3, Orthopedic Surgery - right foot Denies: Amputation Social History Lives with: Family Smoking Status: Never Smoker Last Time Smoked: 2015 Frequency of Alcohol Use: None Hx Recreational Drug Use: No Drugs: None Hx Prescription Drug Abuse: No - Advance Directive Resuscitation Status: Full Code Family History Family History: Hypertension Parental Family History Reviewed: Yes Children Family History Reviewed: Yes Sibling(s) Family History Reviewed.: Yes Medication/Allergy Home Medications: Diclofenac Sodium [Voltaren] 4 gm TOP DAILY 09/17/17 Dicyclomine HCl [Bentyl 20 mg Tablet] 20 mg PO QIDP PRN 09/17/17 Dulaglutide [Trulicity] 0.75 mg SQ Q7D 09/17/17 Escitalopram Oxalate [Lexapro 10 mg Tablet] 10 mg PO DAILY 09/17/17 Hydroxyzine Pamoate [Vistaril 25 mg Capsule] 25 mg PO Q6 09/17/17 Labetalol HCl [Trandate] 100 mg PO Q12 09/17/17 Lorazepam [Ativan 1 mg Tablet] 1 mg PO Q12 09/17/17 Olmesartan/Amlodipin/Hcthiazid [Tribenzor 40-10-12.5 mg Tablet] 1 tab PO DAILY 09/17/17 Ondansetron [Zofran Odt 4 mg Tablet] 4 mg SL Q4HP PRN 09/17/17 Oxycodone HCl/Acetaminophen [Oxycodone-Acetaminophen 10-325] 1 tab PO Q6HP PRN 09/17/17 Allergies/Adverse Reactions: lisinopril Allergy (Verified 09/13/17 09:14) Review of Systems Constitutional: ABSENT: chills, fever(s), headache(s), weight gain, weight loss Eyes: ABSENT: visual disturbances Ears: ABSENT: hearing changes Cardiovascular: ABSENT: chest pain, dyspnea on exertion, edema, orthropnea, palpitations Respiratory: ABSENT: cough, hemoptysis Gastrointestinal: ABSENT: abdominal pain, constipation, diarrhea, hematemesis, hematochezia, nausea, vomiting Musculoskeletal: ABSENT: joint swelling Integumentary: ABSENT: rash, wounds Neurological: PRESENT: convulsions, syncope Psychiatric: PRESENT: suicidal ideation Physical Exam Vital Signs: Temp Pulse Resp BP Pulse Ox 98.7 F 95 24 H 191/81 H 93 09/22/17 20:00 09/22/17 19:25 09/22/17 23:14 09/22/17 23:14 09/22/17 23:14 Intake & Output 09/21/17 09/22/17 09/23/17 06:59 06:59 06:59 Intake Total 3220 3073 2391 Output Total 1545 2440 4160 Balance 1675 633 -1769 Weight 93.3 kg 94 kg General appearance: PRESENT: no acute distress, cooperative, obese Head exam: PRESENT: atraumatic, normocephalic Eye exam: PRESENT: conjunctiva pink, EOMI, PERRLA. ABSENT: scleral icterus Ear exam: PRESENT: normal external ear exam Respiratory exam: PRESENT: clear to auscultation avel. ABSENT: rales, rhonchi, wheezes Cardiovascular exam: PRESENT: irregular rhythm, +S1, +S2. ABSENT: diastolic murmur, rubs, systolic murmur GI/Abdominal exam: PRESENT: normal bowel sounds, soft, other - Vertical midline infraumbilical surgical scar from umbilicus to symphysis pubis.no cough impulse. ABSENT: distended, guarding, mass, organolmegaly, rebound, tenderness Rectal exam: PRESENT: decreased rectal tone, hemorrhoids. ABSENT: black stool, bloody stool, fecal impaction, laceration, mass, normal inspection - there is mild perianal maceration, normal rectal tone, tenderness Gentrourinary exam: PRESENT: indwelling catheter Neurological exam: PRESENT: alert, awake, oriented to person, oriented to place , oriented to time, oriented to situation, CN II-XII grossly intact. ABSENT: motor sensory deficit Psychiatric exam: PRESENT: flat affect Results Laboratory Results: 09/22/17 10:05 09/22/17 10:05 09/22/17 09/22/17 09/22/17 05:50 05:50 05:50 WBC 9.3 RBC 2.47 L Hgb 7.8 L Hct 22.8 L MCV 92 MCH 31.4 MCHC 34.1 RDW 13.2 Plt Count 156 Seg Neutrophils % 68.3 Lymphocytes % 20.1 Monocytes % 8.7 Eosinophils % 2.3 Basophils % 0.6 Absolute Neutrophils 6.3 Absolute Lymphocytes 1.9 Absolute Monocytes 0.8 Absolute Eosinophils 0.2 Absolute Basophils 0.1 Retic Count (auto) Absolute Retic Carbonic Acid 1.11 HCO3/H2CO3 Ratio 21:1 ABG pH 7.44 ABG pCO2 36.9 ABG pO2 119.6 H ABG HCO3 24.4 ABG O2 Saturation 98.5 H ABG Base Excess 0.4 FiO2 40% Sodium 141.7 Potassium 3.6 Chloride 107 Carbon Dioxide 28 Anion Gap 7 BUN 10 Creatinine 1.84 H Est GFR ( Amer) 34 L Est GFR (Non-Af Amer) 28 L Glucose 119 H Calcium 8.5 Magnesium 2.5 H Iron TIBC % Saturation Ferritin Vitamin B12 Folate Urine Color Urine Appearance Urine pH Ur Specific [place] Urine Protein Urine Glucose (UA) Urine Ketones Urine Blood Urine Nitrite Ur Leukocyte Esterase Urine WBC (Auto) Urine RBC (Auto) Blood Type Antibody Screen 09/22/17 09/22/17 09/22/17 10:05 10:05 10:05 WBC 9.3 RBC 2.53 L Hgb 8.0 L Hct 23.3 L MCV 92 MCH 31.7 MCHC 34.5 RDW 13.8 Plt Count 168 Seg Neutrophils % Lymphocytes % Monocytes % Eosinophils % Basophils % Absolute Neutrophils Absolute Lymphocytes Absolute Monocytes Absolute Eosinophils Absolute Basophils Retic Count (auto) 1.50 Absolute Retic 0.038 Carbonic Acid HCO3/H2CO3 Ratio ABG pH ABG pCO2 ABG pO2 ABG HCO3 ABG O2 Saturation ABG Base Excess FiO2 Sodium 143.0 Potassium 3.5 L Chloride 110 H Carbon Dioxide 27 Anion Gap 6 BUN 10 Creatinine 1.80 H Est GFR ( Amer) 34 L Est GFR (Non-Af Amer) 28 L Glucose 119 H Calcium 8.5 Magnesium Iron TIBC % Saturation Ferritin Vitamin B12 Folate Urine Color Urine Appearance Urine pH Ur Specific [place] Urine Protein Urine Glucose (UA) Urine Ketones Urine Blood Urine Nitrite Ur Leukocyte Esterase Urine WBC (Auto) Urine RBC (Auto) Blood Type Antibody Screen 09/22/17 09/22/17 09/22/17 10:05 13:50 14:10 WBC RBC Hgb Hct MCV MCH MCHC RDW Plt Count Seg Neutrophils % Lymphocytes % Monocytes % Eosinophils % Basophils % Absolute Neutrophils Absolute Lymphocytes Absolute Monocytes Absolute Eosinophils Absolute Basophils Retic Count (auto) Absolute Retic Carbonic Acid HCO3/H2CO3 Ratio ABG pH ABG pCO2 ABG pO2 ABG HCO3 ABG O2 Saturation ABG Base Excess FiO2 Sodium Potassium Chloride Carbon Dioxide Anion Gap BUN Creatinine Est GFR ( Amer) Est GFR (Non-Af Amer) Glucose Calcium Magnesium Iron 26.8 L TIBC 187 L % Saturation 14 Ferritin 263.00 Vitamin B12 898.0 Folate 11.40 Urine Color COLORLESS Urine Appearance CLEAR Urine pH 6.0 Ur Specific [place] 1.004 Urine Protein NEGATIVE Urine Glucose (UA) 50 H Urine Ketones NEGATIVE Urine Blood MODERATE H Urine Nitrite NEGATIVE Ur Leukocyte Esterase TRACE H Urine WBC (Auto) 5 Urine RBC (Auto) 5 Blood Type A POSITIVE Antibody Screen NEGATIVE 09/17/17 09/17/17 09/17/17 06:41 06:41 12:08 Creatine Kinase 63 67 CK-MB (CK-2) 0.80 Troponin I < 0.012 09/17/17 09/17/17 09/17/17 12:08 18:40 18:40 Creatine Kinase 85 CK-MB (CK-2) 0.79 1.14 Troponin I < 0.012 < 0.012 Impressions: Hip/Pelvis X-Ray 09/17/17 01:38 IMPRESSION: Mild symmetrical degenerative narrowing of the hip joints. No other hip pathology. Degenerative changes lower lumbar spine. Chest CT 09/18/17 00:00 IMPRESSION: Bilateral pleural effusions with mild associated atelectasis. No acute pulmonary infiltrate is appreciated. Tubes and catheters as described. KUB X-Ray 09/18/17 00:00 IMPRESSION: Nasogastric tube in the stomach. Cervical Spine CT 09/18/17 08:00 IMPRESSION: Multilevel degenerative disc disease and spondylosis. Head CT 09/18/17 08:00 IMPRESSION: MILD CHRONIC CHANGES OF ATROPHY AND MICROVASCULAR ISCHEMIA. NO ACUTE PROCESS. EVIDENCE OF ACUTE STROKE: No Renal Ultrasound 09/22/17 00:00 IMPRESSION: Distended urinary bladder No gross hydronephrosis Incidental finding of gallstones Chest X-Ray 09/22/17 06:00 IMPRESSION: 1. Stable appearance of the chest. Assessment & Plan - Diagnosis (1) Anemia Is this a current diagnosis for this admission?: Yes (2) Suicide attempt by beta anton overdose Qualifiers: Encounter type: subsequent encounter Qualified Code(s): T44.7X2D - Poisoning by beta-adrenoreceptor antagonists, intentional self-harm, subsequent encounter Is this a current diagnosis for this admission?: Yes - Plan Summary Plan Summary: Will prerp and schedule for EGD and colonoscopy in AM.
[2017-09-23] MEDS ORDERED: ISOSORBIDE MONONITRATE 30 MG TAB.ER.24H PO ONE (00:30)
[2017-09-23] MEDS: IPRATROPIUM/ALBUTEROL 0.5-2.5 MG/3 ML AMPUL NEB SCH ×4 (00:33→23:38)
[2017-09-23] MEDS: KETOROLAC TROMETHAMINE INJ/PF 30 MG/1 ML SDV IV PRN ×3 (04:40→21:33)
[2017-09-23] MEDS: GABAPENTIN 100 MG CAPSULE PO SCH ×3 (05:42→21:28)
[2017-09-23 06:01] LABS: ABSOLUTE BASOPHILS # (AUTO) 0.1 10^3/uL (0.0-0.2); ABSOLUTE EOSINOPHILS # (AUTO) 0.2 10^3/uL (0.0-0.6); ABSOLUTE LYMPHOCYTES (AUTO) 1.4 10^3/uL (0.5-4.7); ABSOLUTE MONOCYTES (AUTO) 0.9 10^3/uL (0.1-1.4); ABSOLUTE NEUT (AUTO) 6.5 10^3/uL (1.7-8.2); BASOPHILS % (AUTO) 0.7 % (0-2); HEMATOCRIT 23.6 % (36.0-47.0); HEMOGLOBIN 8.1 g/dL (12.0-15.5); LYMPHOCYTES % (AUTO) 15.1 % (13-45); MEAN CORPUSCULAR HEMOGLOBIN 31.4 pg (27.0-33.4); MEAN CORPUSCULAR HGB CONC 34.2 g/dL (32.0-36.0); MEAN CORPUSCULAR VOLUME 92 fl (80-97); MONOCYTES % (AUTO) 9.6 % (3-13); PLATELET COUNT 192 10^3/uL (150-450); RED BLOOD COUNT 2.57 10^6/uL (3.72-5.28); RED CELL DISTRIBUTION WIDTH 13.7 % (11.5-14.0); SEGMENTED NEUTROPHILS % (AUTO) 72.6 % (42-78); TOTAL CELLS COUNTED % (AUTO) 100 %
[2017-09-23 06:17] LABS: ALANINE AMINOTRANSFERASE 59 U/L (9-52); ALKALINE PHOSPHATASE 83 U/L (38-126); ANION GAP 10 (5-19); ASPARTATE AMINO TRANSFERASE 84 U/L (14-36); BILIRUBIN,DIRECT 0.1 mg/dL (0.0-0.4); BILIRUBIN,TOTAL 0.2 mg/dL (0.2-1.3); BLOOD UREA NITROGEN 8 mg/dL (7-20); CALCIUM 9.2 mg/dL (8.4-10.2); CARBON DIOXIDE 31 mmol/L (22-30); CHLORIDE 107 mmol/L (98-107); GLUCOSE 132 mg/dL (75-110); POTASSIUM 3.8 mmol/L (3.6-5.0); SODIUM 147.5 mmol/L (137-145); TOTAL PROTEIN 5.3 g/dL (6.3-8.2)
[2017-09-23] MEDS ORDERED: DEXTROSE 5%-1/2 NORMAL SALINE 1,000 ML IV PRN (07:10)
[2017-09-23] MEDS ORDERED: LIDOCAINE 2% INJ-PF (20 MG/ML) 10 ML AMPUL ONE (07:35)
[2017-09-23] MEDS ORDERED: PROPOFOL INJ 200 MG/20 ML VIAL IV ONE (07:35)
[2017-09-23] MEDS ORDERED: ONDANSETRON HCL INJ/PF 4 MG/2 ML SDV ONE (07:35)
[2017-09-23] MEDS ORDERED: MIDAZOLAM 2 MG/2 ML INJ ONE (07:35)
[2017-09-23] MEDS: DEXTROSE 5%-1/2 NORMAL SALINE 1,000 ML IV PRN ×3 (07:51→21:28)
--- NOTE | 2017-09-23 07:53 | PDOC PROGRESS REPORT ---
Subjective Progress Note for:: 09/23/17 Subjective:: Patient states that she is doing okay this morning. Patient states that she had a colonoscopy about 5 years ago which demonstrated polyps. Patient states that she does not have history of dark stools. Nursing states that patient has done well overnight without any issues. FMLA forms were left with nurse. Reason For Visit: BETABLOCKER OD, SUICIDE ATTEMPT, CHRONIC PAIN, Physical Exam Vital Signs: Temp Pulse Resp BP Pulse Ox 99.5 F 98 18 157/77 H 98 09/23/17 04:46 09/23/17 00:30 09/23/17 06:14 09/23/17 06:14 09/23/17 06:14 Intake & Output 09/22/17 09/23/17 09/24/17 06:59 06:59 06:59 Intake Total 3073 7164 Output Total 2440 9610 Balance 633 -2446 Weight 94 kg 90.3 kg General appearance: PRESENT: no acute distress, well-developed, well-nourished Head exam: PRESENT: atraumatic, normocephalic Eye exam: PRESENT: conjunctiva pink, EOMI. ABSENT: scleral icterus Ear exam: PRESENT: normal external ear exam Mouth exam: PRESENT: moist, tongue midline Neck exam: ABSENT: carotid bruit, JVD, lymphadenopathy, thyromegaly Respiratory exam: PRESENT: clear to auscultation avel. ABSENT: rales, rhonchi, wheezes Cardiovascular exam: PRESENT: RRR. ABSENT: diastolic murmur, rubs, systolic murmur Pulses: PRESENT: normal dorsalis pedis pul Vascular exam: PRESENT: normal capillary refill GI/Abdominal exam: PRESENT: normal bowel sounds, soft. ABSENT: distended, guarding, mass, organolmegaly, rebound, tenderness Rectal exam: PRESENT: deferred Extremities exam: PRESENT: full ROM. ABSENT: calf tenderness, clubbing, pedal edema Musculoskeletal exam: PRESENT: full ROM Neurological exam: PRESENT: alert, awake, oriented to person, oriented to place , oriented to time, oriented to situation, CN II-XII grossly intact. ABSENT: motor sensory deficit Psychiatric exam: PRESENT: appropriate affect, normal mood. ABSENT: homicidal ideation, suicidal ideation Skin exam: PRESENT: dry, intact, warm. ABSENT: cyanosis, rash Results Laboratory Results: 09/23/17 05:53 09/23/17 05:53 09/22/17 09/22/17 09/22/17 10:05 10:05 10:05 WBC 9.3 RBC 2.53 L Hgb 8.0 L Hct 23.3 L MCV 92 MCH 31.7 MCHC 34.5 RDW 13.8 Plt Count 168 Seg Neutrophils % Lymphocytes % Monocytes % Eosinophils % Basophils % Absolute Neutrophils Absolute Lymphocytes Absolute Monocytes Absolute Eosinophils Absolute Basophils Retic Count (auto) 1.50 Absolute Retic 0.038 Sodium 143.0 Potassium 3.5 L Chloride 110 H Carbon Dioxide 27 Anion Gap 6 BUN 10 Creatinine 1.80 H Est GFR ( Amer) 34 L Est GFR (Non-Af Amer) 28 L Glucose 119 H Calcium 8.5 Iron TIBC % Saturation Ferritin Total Bilirubin AST ALT Alkaline Phosphatase Total Protein Albumin Vitamin B12 Folate Urine Color Urine Appearance Urine pH Ur Specific [place] Urine Protein Urine Glucose (UA) Urine Ketones Urine Blood Urine Nitrite Ur Leukocyte Esterase Urine WBC (Auto) Urine RBC (Auto) Blood Type Antibody Screen 09/22/17 09/22/17 09/22/17 10:05 13:50 14:10 WBC RBC Hgb Hct MCV MCH MCHC RDW Plt Count Seg Neutrophils % Lymphocytes % Monocytes % Eosinophils % Basophils % Absolute Neutrophils Absolute Lymphocytes Absolute Monocytes Absolute Eosinophils Absolute Basophils Retic Count (auto) Absolute Retic Sodium Potassium Chloride Carbon Dioxide Anion Gap BUN Creatinine Est GFR ( Amer) Est GFR (Non-Af Amer) Glucose Calcium Iron 26.8 L TIBC 187 L % Saturation 14 Ferritin 263.00 Total Bilirubin AST ALT Alkaline Phosphatase Total Protein Albumin Vitamin B12 898.0 Folate 11.40 Urine Color COLORLESS Urine Appearance CLEAR Urine pH 6.0 Ur Specific [place] 1.004 Urine Protein NEGATIVE Urine Glucose (UA) 50 H Urine Ketones NEGATIVE Urine Blood MODERATE H Urine Nitrite NEGATIVE Ur Leukocyte Esterase TRACE H Urine WBC (Auto) 5 Urine RBC (Auto) 5 Blood Type A POSITIVE Antibody Screen NEGATIVE 09/23/17 09/23/17 05:53 05:53 WBC 9.0 RBC 2.57 L Hgb 8.1 L Hct 23.6 L MCV 92 MCH 31.4 MCHC 34.2 RDW 13.7 Plt Count 192 Seg Neutrophils % 72.6 Lymphocytes % 15.1 Monocytes % 9.6 Eosinophils % 2.0 Basophils % 0.7 Absolute Neutrophils 6.5 Absolute Lymphocytes 1.4 Absolute Monocytes 0.9 Absolute Eosinophils 0.2 Absolute Basophils 0.1 Retic Count (auto) Absolute Retic Sodium 147.5 H Potassium 3.8 Chloride 107 Carbon Dioxide 31 H Anion Gap 10 BUN 8 Creatinine 1.53 H Est GFR ( Amer) 41 L Est GFR (Non-Af Amer) 34 L Glucose 132 H Calcium 9.2 Iron TIBC % Saturation Ferritin Total Bilirubin 0.2 AST 84 H ALT 59 H Alkaline Phosphatase 83 Total Protein 5.3 L Albumin 3.0 L Vitamin B12 Folate Urine Color Urine Appearance Urine pH Ur Specific [place] Urine Protein Urine Glucose (UA) Urine Ketones Urine Blood Urine Nitrite Ur Leukocyte Esterase Urine WBC (Auto) Urine RBC (Auto) Blood Type Antibody Screen 09/17/17 09/17/17 09/17/17 06:41 06:41 12:08 Creatine Kinase 63 67 CK-MB (CK-2) 0.80 Troponin I < 0.012 09/17/17 09/17/17 09/17/17 12:08 18:40 18:40 Creatine Kinase 85 CK-MB (CK-2) 0.79 1.14 Troponin I < 0.012 < 0.012 Impressions: Hip/Pelvis X-Ray 09/17/17 01:38 IMPRESSION: Mild symmetrical degenerative narrowing of the hip joints. No other hip pathology. Degenerative changes lower lumbar spine. Chest CT 09/18/17 00:00 IMPRESSION: Bilateral pleural effusions with mild associated atelectasis. No acute pulmonary infiltrate is appreciated. Tubes and catheters as described. KUB X-Ray 09/18/17 00:00 IMPRESSION: Nasogastric tube in the stomach. Cervical Spine CT 09/18/17 08:00 IMPRESSION: Multilevel degenerative disc disease and spondylosis. Head CT 09/18/17 08:00 IMPRESSION: MILD CHRONIC CHANGES OF ATROPHY AND MICROVASCULAR ISCHEMIA. NO ACUTE PROCESS. EVIDENCE OF ACUTE STROKE: No Renal Ultrasound 09/22/17 00:00 IMPRESSION: Distended urinary bladder No gross hydronephrosis Incidental finding of gallstones Chest X-Ray 09/22/17 06:00 IMPRESSION: 1. Stable appearance of the chest. Assessment & Plan - Diagnosis (1) Hypernatremia Is this a current diagnosis for this admission?: Yes Plan: We will discontinue normal saline. Will place patient on D5 half-normal saline. Will check sodium in a.m. (2) Acute renal injury Is this a current diagnosis for this admission?: Yes Plan: Most likely secondary to ATN: We will continue IV fluids. Patient's renal function is improving. Will check postvoid residuals (3) Anemia Is this a current diagnosis for this admission?: Yes Plan: Secondary to iron deficiency anemia: Patient's iron level was 26.8. Will give iron replacement. Patient prepped by surgery for EGD and colonoscopy today. Patient found to have positive Hemoccult. Patient typed and crossed for 2 units of packed RBCs on hold. (4) Atrial fibrillation Qualifiers: Atrial fibrillation type: unspecified Qualified Code(s): I48.91 - Unspecified atrial fibrillation Is this a current diagnosis for this admission?: Yes Plan: We will continue amiodarone. Anticoagulation has not been initiated due to anemia. Patient's CHADS 2 score is 3 and candidate for anticoagulation. Will consult surgery for EGD and colonoscopy. (5) Acute respiratory failure Qualifiers: Respiratory failure complication: unspecified whether with hypoxia or hypercapnia Qualified Code(s): J96.00 - Acute respiratory failure, unspecified whether with hypoxia or hypercapnia Is this a current diagnosis for this admission?: Yes Plan: Secondary to seizure patient was extubated on 09/21/2017: Patient is currently doing well. Chest x-ray demonstrates no infiltrates. (6) Seizure Is this a current diagnosis for this admission?: Yes Plan: Secondary to Severe Hyponatremia: Resolved. (7) Diarrhea Is this a current diagnosis for this admission?: Yes Plan: C. difficile PCR negative. Bentyl was discontinued. Will place patient on probiotics. We will continue to monitor. (8) Acute cystitis Is this a current diagnosis for this admission?: Yes Plan: Secondary E. coli: Keflex 4/5 (9) Aspiration pneumonia Is this a current diagnosis for this admission?: Yes Plan: Most likely Gram Positive: Ruled out (10) Hypomagnesemia Is this a current diagnosis for this admission?: Yes Plan: Resolved. (11) Hypokalemia Is this a current diagnosis for this admission?: Yes Plan: Resolved. (12) Hyponatremia Is this a current diagnosis for this admission?: Yes Plan: Secondary to Hypervolemia: resolved. 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 (14) Encephalopathy Is this a current diagnosis for this admission?: Yes Plan: Acute Metabolic Encephalopathy due to Hyponatremia and Seizure: Resolved. Pt alert and oriented X 3. (15) Hypotension Qualifiers: Hypotension type: other hypotension type Qualified Code(s): I95.89 - Other hypotension Is this a current diagnosis for this admission?: Yes Plan: Secondary to Beta Anton Overdose: Resolved. (16) Suicide attempt by beta anton overdose Qualifiers: Encounter type: subsequent encounter Qualified Code(s): T44.7X2D - Poisoning by beta-adrenoreceptor antagonists, intentional self-harm, subsequent encounter Is this a current diagnosis for this admission?: Yes Plan: Pt being evaluated by mental health. (17) Benzodiazepine dependence, continuous Is this a current diagnosis for this admission?: Yes Plan: Supportive care. (18) Leukocytosis Is this a current diagnosis for this admission?: Yes Plan: Secondary to Acute Cystitis: Resolved. (19) DVT prophylaxis Is this a current diagnosis for this admission?: Yes Plan: Heparin - Time Time Spent with patient: 25-34 minutes
--- NOTE | 2017-09-23 09:31 | Operative Report ---
Operative Report DATE OF SURGERY: 09/23/17 PREOPERATIVE DIAGNOSIS: 1. History of GI bleed. 2. Blood loss anemia POSTOPERATIVE DIAGNOSIS: 1. Diffuse upper esophagitis. 2. Hiatal hernia. 3. Multiple small proximal gastric ulcers [place] source of recent bleed. 4. Her diverticulosis of the colon. 5. Left-sided colitis with early erosive changes OPERATION: 1. Esophagogastroduodenoscopy with photodocumentation. 2. Total colonoscopy to cecum with photodocumentation. 3. Cold forceps biopsy of left colon mucosa SURGEON: MAHI MONTANO ANESTHESIA: LMAC TISSUE REMOVED OR ALTERED: Clonic biopsy COMPLICATIONS: None ESTIMATED BLOOD LOSS: None INTRAOPERATIVE FINDINGS: See below PROCEDURE: The patient was taken from the preop holding area to the main operating room where she was assessed, monitoring devices attached, oral mouthpiece inserted. Of note this patient had obese body habitus, poor pulmonary effort, and some depressed level of consciousness. We started LMAC sedation and surgical timeout was conducted. The patient desaturated and required facemask bagging to improve her saturations. Thereafter the patient tolerated the procedure reasonably well although saturations did fluctuate requiring vigorous attentiveness on the part of the bailing machine operator. The upper endoscopy was performed first. The patient is in the left lateral decubitus position. The adult flexible upper endoscope was advanced to the oropharynx, down the esophagus through the stomach into the duodenum. Again the patient had a fair amount of coughing, eructations, and excessive amount of secretions. The duodenum was normal. There is no evidence of blood tumor stricture or polyp. The scope was brought back to the pylorus which was essentially normal. There was no blood in the stomach. In the proximal stomach there approximately 5 small ulcers, with some heaped up mucosa peripherally, and centrally there were necrotic eschar. We did not biopsy any of these small ulcers. Photos were taken. There was no evidence of gastritis tumor polyp or clots. Suspect the patient may have bled from these ulcers. There was a small hiatal hernia upon retroflexion of the scope. The scope was brought back through the esophagus. The esophagus was significant for diffuse esophagitis involving the proximal third to one half. No evidence of tumor stricture bleeding. The esophagitis was diffuse, circumferential and almost ulcerated in areas. Photos were taken. The scope was withdrawn to the patient's oropharynx. She tolerated procedure well Instrumentation was set up for colonoscopy. The patient's rectal tube was removed. She was found to have external hemorrhoids, large and collapsed nonthrombosed. Exam was performed. No palpable pathology identified. The flexible adult colonoscope was advanced to the anal rectal canal all the way to the cecum. This was actually a good study as the patient had a reasonably good bowel prep and there was minimal green flakes and residual fluid which aspirated easily. Transillumination anterior abdominal wall was achieved. The scope was was a linear area of colitis patchy, non-circumferential, with early erosive changes but no ulceration. A biopsy was taken of this area. Photos were taken as well. Scope was brought back to the sigmoid colon where there are a few scattered diverticulosis. Scope was removed from the patient's anus. She tolerated procedure well. In summary the patient appears to have had GI bleed likely from upper GI source. Appropriate medical management is recommended my: Also suggest following up on biopsies. The above findings discussed with Dr. Lui
[2017-09-23] MEDS: LACTOBACILLUS ACIDOPHILUS 250 MG TAB PO SCH ×2 (10:13→18:28)
[2017-09-23] MEDS: PANTOPRAZOLE SODIUM 40 MG VIAL IV SCH (10:13)
[2017-09-23] MEDS: ISOSORBIDE MONONITRATE 30 MG TAB.ER.24H PO SCH (10:13)
[2017-09-23] MEDS: AMIODARONE HCL 200 MG TABLET PO SCH ×2 (10:14→21:27)
[2017-09-23] MEDS: FERROUS SULFATE 325 MG TABLET PO SCH ×3 (10:14→18:28)
[2017-09-23] MEDS: ASPIRIN 81 MG TABLET, ENT COATED PO SCH (10:14)
[2017-09-23] MEDS: DOCUSATE SODIUM 100 MG CAPSULE PO SCH ×2 (10:18→18:31)
[2017-09-23] MEDS: CEPHALEXIN 500 MG CAPSULE PO SCH ×2 (11:46→21:27)
[2017-09-23] MEDS: SUCRALFATE 1 GM TABLET PO SCH ×2 (18:28→21:27)
[2017-09-23] MEDS: LANSOPRAZOLE 30 MG TAB.RAP.DR PO SCH (18:29)
[2017-09-24 04:51] LABS: ABSOLUTE BASOPHILS # (AUTO) 0.1 10^3/uL (0.0-0.2); ABSOLUTE EOSINOPHILS # (AUTO) 0.2 10^3/uL (0.0-0.6); ABSOLUTE LYMPHOCYTES (AUTO) 1.9 10^3/uL (0.5-4.7); ABSOLUTE MONOCYTES (AUTO) 0.7 10^3/uL (0.1-1.4); ABSOLUTE NEUT (AUTO) 6.3 10^3/uL (1.7-8.2); BASOPHILS % (AUTO) 0.9 % (0-2); EOSINOPHILS % (AUTO) 2.4 % (0-6); HEMATOCRIT 23.1 % (36.0-47.0); LYMPHOCYTES % (AUTO) 20.1 % (13-45); MEAN CORPUSCULAR HEMOGLOBIN 31.5 pg (27.0-33.4); MEAN CORPUSCULAR VOLUME 93 fl (80-97); PLATELET COUNT 204 10^3/uL (150-450); RED BLOOD COUNT 2.49 10^6/uL (3.72-5.28); RED CELL DISTRIBUTION WIDTH 14.1 % (11.5-14.0); SEGMENTED NEUTROPHILS % (AUTO) 68.6 % (42-78); TOTAL CELLS COUNTED % (AUTO) 100 %; WHITE BLOOD COUNT 9.2 10^3/uL (4.0-10.5)
[2017-09-24 04:58] LABS: HEMOGLOBIN 7.8 g/dL (12.0-15.5)
[2017-09-24 05:09] LABS: ANION GAP 8 (5-19); BLOOD UREA NITROGEN 9 mg/dL (7-20); CALCIUM 8.6 mg/dL (8.4-10.2); CARBON DIOXIDE 32 mmol/L (22-30); CHLORIDE 99 mmol/L (98-107); GLUCOSE 171 mg/dL (75-110); POTASSIUM 3.6 mmol/L (3.6-5.0); SODIUM 138.7 mmol/L (137-145)
[2017-09-24] MEDS: LANSOPRAZOLE 30 MG TAB.RAP.DR PO SCH ×2 (05:25→17:15)
[2017-09-24] MEDS: GABAPENTIN 100 MG CAPSULE PO SCH ×3 (05:25→21:59)
[2017-09-24 07:10] LABS: ARTERIAL BLOOD BASE EXCESS 5.3 mmol/L; ARTERIAL BLOOD H2CO3 1.25 mmol/L (1.05-1.35); ARTERIAL BLOOD HCO3 29.5 mmol/L (20-26); ARTERIAL BLOOD O2 SATURATION 96.1 % (94-98); ARTERIAL BLOOD PCO2 41.5 mmHg (35-45); ARTERIAL BLOOD PH 7.47 (7.35-7.45); ARTERIAL BLOOD PO2 77.2 mmHg (80-100); ARTERIAL BLOOD TOTAL CO2 30.7 mmol/L (21-25)
[2017-09-24 07:12] LABS: ARTERIAL BLOOD FIO2 1.5L
[2017-09-24] MEDS: SUCRALFATE 1 GM TABLET PO SCH ×4 (08:10→21:59)
[2017-09-24] MEDS: FERROUS SULFATE 325 MG TABLET PO SCH ×3 (08:10→17:09)
--- NOTE | 2017-09-24 08:37 | RADIOLOGY REPORT (SQ) ---
EXAM DESCRIPTION: CHEST SINGLE VIEW COMPLETED DATE/TIME: 09/24/2017 8:10 am REASON FOR STUDY: pna COMPARISON: 09/22/2017 NUMBER OF VIEWS: One view. TECHNIQUE: Single frontal radiographic image of the chest acquired. LIMITATIONS: None. FINDINGS: LUNGS AND PLEURA: Improved aeration in the lower lobes. Residual small pleural effusions. MEDIASTINUM AND HEART: Stable heart size and mediastinal structures. SUPPORT DEVICES: Appropriate location without change. BONY STRUCTURES: No acute findings. HARDWARE: None. OTHER: No other significant finding. IMPRESSION: Improved aeration in the lower lobes. Reading location - IP/workstation name: [email or web address]
[2017-09-24] MEDS: INSULIN LISPRO 100 UNIT/ML 3 ML VIAL SUBCUT PRN ×3 (09:40→22:40)
[2017-09-24] MEDS: LACTOBACILLUS ACIDOPHILUS 250 MG TAB PO SCH ×2 (09:42→17:11)
[2017-09-24] MEDS: ASPIRIN 81 MG TABLET, ENT COATED PO SCH (09:45)
[2017-09-24] MEDS: CEPHALEXIN 500 MG CAPSULE PO SCH ×2 (09:45→21:58)
[2017-09-24] MEDS: ISOSORBIDE MONONITRATE 30 MG TAB.ER.24H PO SCH (09:47)
[2017-09-24] MEDS: DOCUSATE SODIUM 100 MG CAPSULE PO SCH ×2 (09:48→17:08)
[2017-09-24] MEDS: AMIODARONE HCL 200 MG TABLET PO SCH ×2 (09:48→21:59)
[2017-09-24] MEDS: IPRATROPIUM/ALBUTEROL 0.5-2.5 MG/3 ML AMPUL NEB SCH ×2 (10:16→16:29)
[2017-09-24 12:37] LABS: HEMATOCRIT 23.1 % (36.0-47.0); MEAN CORPUSCULAR HEMOGLOBIN 31.3 pg (27.0-33.4); MEAN CORPUSCULAR HGB CONC 33.9 g/dL (32.0-36.0); MEAN CORPUSCULAR VOLUME 92 fl (80-97); PLATELET COUNT 209 10^3/uL (150-450); RED CELL DISTRIBUTION WIDTH 13.7 % (11.5-14.0); WHITE BLOOD COUNT 8.9 10^3/uL (4.0-10.5)
[2017-09-24 12:41] LABS: HEMOGLOBIN 7.8 g/dL (12.0-15.5)
--- NOTE | 2017-09-24 13:48 | PDOC PROGRESS REPORT ---
Subjective Progress Note for:: 09/23/17 Subjective:: Patient had episode of atrial fibrillation for which she currently on amiodarone p.o. Currently she is maintaining sinus rhythm. No further seizures noted. Patient however still somewhat reluctant to engage in conversation. Heart rate has been satisfactory. Blood pressure has been satisfactory. Serum sodium has improved.. Reason For Visit: BETABLOCKER OD, SUICIDE ATTEMPT, CHRONIC PAIN, Physical Exam Vital Signs: Temp Pulse Resp BP Pulse Ox 99.5 F 89 20 164/72 H 92 09/23/17 16:00 09/23/17 16:36 09/23/17 18:00 09/23/17 17:58 09/23/17 18:00 Intake & Output 09/22/17 09/23/17 09/24/17 06:59 06:59 06:59 Intake Total 3073 7164 1533 Output Total 2440 9610 2560 Balance 069 -8191 -7965 Weight 94 kg 90.3 kg Exam: GENERAL: well-nourished and in no acute distress. Alert and oriented x3. Patient does not want to engage in much conversation. HEAD: Atraumatic, normocephalic. EYES: Pupils equal round and reactive to light, extraocular movements intact, sclera anicteric, conjunctiva are normal. ENT: TMs normal, nares patent, oropharynx clear without exudates. Moist mucous membranes. No oral ulcerations or bleeding gums noted NECK: supple without lymphadenopathy. Trachea is central. No cervical or axillary lymphadenopathy noted. Carotids are 2+, JVD WNL LUNGS: Respiration seems nonlabored, no significant accessory muscle action noted. Breath sounds clear to auscultation bilaterally and equal noted. No wheezes rales or rhonchi noted. No significant dullness noted on percussion. CHEST: Palpation of the chest wall shows no significant chest wall tenderness. No other significant abnormalities noted. 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 ABDOMEN: Soft, no significant tenderness appreciated, normoactive bowel sounds. No guarding, no rebound. No rigidity noted . No masses appreciated. EXTREMITIES: Pedal pulses are 1-2+, no calf tenderness noted. No clubbing or cyanosis.trace + pedal edema noted NEUROLOGICAL: Focused neurological exam showed no significant neurologic deficit. Normal speech, no focal weakness appreciated. PSYCH: Normal mood, normal affect. Judgment and insight within normal limits. SKIN: No significant ecchymosis, skin is noted to be warm. MUSCULOSKELETAL EXAM: No significant acute joint swelling noted. Results Laboratory Results: 09/23/17 05:53 09/23/17 05:53 09/23/17 09/23/17 05:53 05:53 WBC 9.0 RBC 2.57 L Hgb 8.1 L Hct 23.6 L MCV 92 MCH 31.4 MCHC 34.2 RDW 13.7 Plt Count 192 Seg Neutrophils % 72.6 Lymphocytes % 15.1 Monocytes % 9.6 Eosinophils % 2.0 Basophils % 0.7 Absolute Neutrophils 6.5 Absolute Lymphocytes 1.4 Absolute Monocytes 0.9 Absolute Eosinophils 0.2 Absolute Basophils 0.1 Sodium 147.5 H Potassium 3.8 Chloride 107 Carbon Dioxide 31 H Anion Gap 10 BUN 8 Creatinine 1.53 H Est GFR ( Amer) 41 L Est GFR (Non-Af Amer) 34 L Glucose 132 H Calcium 9.2 Total Bilirubin 0.2 AST 84 H ALT 59 H Alkaline Phosphatase 83 Total Protein 5.3 L Albumin 3.0 L 09/17/17 09/17/17 09/17/17 06:41 06:41 12:08 Creatine Kinase 63 67 CK-MB (CK-2) 0.80 Troponin I < 0.012 09/17/17 09/17/17 09/17/17 12:08 18:40 18:40 Creatine Kinase 85 CK-MB (CK-2) 0.79 1.14 Troponin I < 0.012 < 0.012 EKG Comments: Shows sinus rhythm without any sustained tachycardia or bradycardia. Impressions: Hip/Pelvis X-Ray 09/17/17 01:38 IMPRESSION: Mild symmetrical degenerative narrowing of the hip joints. No other hip pathology. Degenerative changes lower lumbar spine. Chest CT 09/18/17 00:00 IMPRESSION: Bilateral pleural effusions with mild associated atelectasis. No acute pulmonary infiltrate is appreciated. Tubes and catheters as described. KUB X-Ray 09/18/17 00:00 IMPRESSION: Nasogastric tube in the stomach. Cervical Spine CT 09/18/17 08:00 IMPRESSION: Multilevel degenerative disc disease and spondylosis. Head CT 09/18/17 08:00 IMPRESSION: MILD CHRONIC CHANGES OF ATROPHY AND MICROVASCULAR ISCHEMIA. NO ACUTE PROCESS. EVIDENCE OF ACUTE STROKE: No Renal Ultrasound 09/22/17 00:00 IMPRESSION: Distended urinary bladder No gross hydronephrosis Incidental finding of gallstones Chest X-Ray 09/22/17 06:00 IMPRESSION: 1. Stable appearance of the chest. Assessment & Plan - Diagnosis (1) Atrial fibrillation Qualifiers: Atrial fibrillation type: unspecified Qualified Code(s): I48.91 - Unspecified atrial fibrillation Is this a current diagnosis for this admission?: Yes (2) Suicide attempt by beta anton overdose Qualifiers: Encounter type: subsequent encounter Qualified Code(s): T44.7X2D - Poisoning by beta-adrenoreceptor antagonists, intentional self-harm, subsequent encounter Is this a current diagnosis for this admission?: Yes (3) Hypotension Qualifiers: Hypotension type: other hypotension type Qualified Code(s): I95.89 - Other hypotension Is this a current diagnosis for this admission?: Yes (4) Hypertension Qualifiers: Hypertension type: unspecified Qualified Code(s): I10 - Essential (primary ) hypertension Is this a current diagnosis for this admission?: Yes (5) Opiate dependence, continuous Is this a current diagnosis for this admission?: Yes (6) Type 2 diabetes mellitus Qualifiers: Diabetes mellitus intermediate card tender insulin use: unspecified intermediate card tender insulin use status Diabetes mellitus complication status: with unspecified complications Qualified Code(s): E11.8 - Type 2 diabetes mellitus with unspecified complications Is this a current diagnosis for this admission?: Yes - Notes Notes: Atrial fibrillation: Currently patient in sinus rhythm. Continue amiodarone 200 p.o. twice daily for 1 month. Patient would be a candidate for chronic anticoagulation based on [id number], however feel that patient would be a poor candidate due to her noncompliance and suicide attempt. Recommend additional rate lowering agents such as beta-anton or Cardizem as tolerated by blood pressure. Will consider adding carvedilol 3.125 mg p.o. twice daily. Suicide attempt by beta-anton overdose: Resolved. Blood pressure and heart rate has been stable. Seizure disorder: No recurrence noted. Possibly withdrawals from multidrug use could be causing this. Patient to report any recurrence. Diabetes: Currently stable. Patient being well managed by hospitalist Hypertension: Noted to be intermittently high. Will consider adding carvedilol 6.25 mg p.o. twice daily, if blood pressure remains high Opiate dependence: This is a chronic problem. Patient noted to have urine growing gram-negative rods, currently E. coli. Patient on antibiotics. - Time Time with patient: 15-25 minutes - CODE STATUS was discussed, patient remains full code. Surrogate decision-maker unchanged. Multiple medical problems were addressed. More than 50% of the time spent coordinating care, discussing management plans with involved caregivers. Management plans discussed with involved personnels. Medical decision making was of moderate to high complexity , patient's has multiple comorbidities. Medications reviewed and adjusted accordingly: Yes
[2017-09-24] MEDS ORDERED: CARVEDILOL 3.125 MG TABLET PO SCH (14:00)
--- NOTE | 2017-09-24 15:40 | PSYCHOLOGICAL NOTE ---
Psych Note - Psych Note Psych Note: Reason for consult: overdose; alleged suicide attempt Eval : 1450 Final Dispo 1500 Patient is a 61-year-old female. Patient reports that she is "sorry because she realized her sons loves her". Patient reports that she realized her son's care about her because since she has woken up they have been "hugging on her and kissing on her". Patient reports that she is sorry for writing the letter, but still does not remember taking more than 1 pill. Patient reports that she did not go to [place]. Patient reports that she went to [place] for surgery on her neck and that it is hurting but states "it will be okay". Clinician utilized solution focused brief therapy techniques to assist patient in identifying strengths, and solution to her problem. Patient reports that she wants to "be alive" for her son's; and realized that they need her. Patient reports she is ok with her pain, stating that her neck hurts because of the endorectomy. Per nurse: Patient is currently not medically cleared, behavioral health unable to seek placement at an inpatient psychiatric facility. Medication recommendation made by [facility] contracted psychiatric provider Dr. Bernabe MD. includes: 1. Begin Celexa 20 mg daily Impression/plan: Recommendation to maintain involuntary commitment due to patient meeting criteria [place] GS 122 C. Clinician observed patient's mood is depressed, displays flat affect,poor eye contact, and guarded. Clinician observed patient displays avoidance , and will not further elaborate on the attempted suicide ( patient took excessive amount of blood pressure medication and was found with Do not resuscitate note and the words "I'm sorry". Clinician observed patient is primarily staring at the ma ( prior to entering her room for assessment and following); and declined watching television. Clinician observed patient repeats what clinician says, and does not elaborate further. Behavioral health to reassess at a later time. Consulted with Dr. Mcadams regarding the management and care of patient.
--- NOTE | 2017-09-24 15:41 | PDOC PROGRESS REPORT ---
Subjective Progress Note for:: 09/24/17 Subjective:: The patient is a 61-year-old female with past medical history of Morbid obesity Diabetes Chronic pain Anxiety and depression IBS The patient was admitted on September 17 after being found unresponsive on the floor by her family with an empty bottle of labetalol and a note expressing DNR wishes. The patient was involuntarily committed and was treated with IV fluids glucagon pressors and Narcan for hypotension and bradycardia. She was found to have multiple electrolyte abnormalities including hyponatremia hypokalemia and hypomagnesemia leading to metabolic encephalopathy, These were all treated with subsequent improvement in her metabolic encephalopathy. Hypotension due to beta-anton overdose was treated with IV fluids and pressors. She was evaluated by [facility] for her suicide attempt. Overnight on September 19 the patient developed acute respiratory failure secondary to seizures and was intubated to protect her airway. She was also given hypertonic saline for severe hyponatremia. The patient was also started on antibiotics for aspiration pneumonia suspected due to gram-positive bacteria and cystitis due to gram-negative rods. She underwent endoscopy and colonoscopy on September 23. 5 small ulcers with central necrotic eschar were seen in the proximal stomach. Duodenum was noted to be normal. Colonoscopy revealed external hemorrhoids large and collapsed nonthrombosed. Linear area of patchy colitis early erosive changes but no ulceration was noted by Dr. Rodriguez. Reason For Visit: BETABLOCKER OD, SUICIDE ATTEMPT, CHRONIC PAIN, Physical Exam Vital Signs: Temp Pulse Resp BP Pulse Ox 99.0 F 85 20 154/72 H 98 09/24/17 07:12 09/24/17 07:12 09/24/17 07:12 09/24/17 07:12 09/24/17 07:12 Intake & Output 09/23/17 09/24/17 09/25/17 06:59 06:59 06:59 Intake Total 7150 2238 Output Total 5729 9233 Balance -8920 -232 Weight 90.3 kg 86.5 kg General appearance: PRESENT: no acute distress Eye exam: PRESENT: EOMI Mouth exam: PRESENT: moist Throat exam: ABSENT: tonsillar exudate Neck exam: ABSENT: tracheal deviation Respiratory exam: PRESENT: clear to auscultation avel, symmetrical, unlabored Cardiovascular exam: PRESENT: RRR GI/Abdominal exam: PRESENT: normal bowel sounds, soft. ABSENT: tenderness Rectal exam: PRESENT: deferred Extremities exam: ABSENT: calf tenderness, pedal edema Results Laboratory Results: 09/24/17 04:35 09/24/17 04:35 09/22/17 09/24/17 09/24/17 10:05 04:35 04:35 WBC 9.2 RBC 2.49 L Hgb 7.8 L Hct 23.1 L MCV 93 MCH 31.5 MCHC 34.0 RDW 14.1 H Plt Count 204 Seg Neutrophils % 68.6 Lymphocytes % 20.1 Monocytes % 8.0 Eosinophils % 2.4 Basophils % 0.9 Absolute Neutrophils 6.3 Absolute Lymphocytes 1.9 Absolute Monocytes 0.7 Absolute Eosinophils 0.2 Absolute Basophils 0.1 Carbonic Acid HCO3/H2CO3 Ratio ABG pH ABG pCO2 ABG pO2 ABG HCO3 ABG O2 Saturation ABG Base Excess FiO2 Sodium 138.7 Potassium 3.6 Chloride 99 Carbon Dioxide 32 H Anion Gap 8 BUN 9 Creatinine 1.55 H Est GFR ( Amer) 41 L Est GFR (Non-Af Amer) 34 L Glucose 171 H Calcium 8.6 Magnesium 1.8 Transferrin 116 L 09/24/17 06:52 WBC RBC Hgb Hct MCV MCH MCHC RDW Plt Count Seg Neutrophils % Lymphocytes % Monocytes % Eosinophils % Basophils % Absolute Neutrophils Absolute Lymphocytes Absolute Monocytes Absolute Eosinophils Absolute Basophils Carbonic Acid 1.25 HCO3/H2CO3 Ratio 23:1 ABG pH 7.47 H ABG pCO2 41.5 ABG pO2 77.2 L ABG HCO3 29.5 H ABG O2 Saturation 96.1 ABG Base Excess 5.3 FiO2 1.5L Sodium Potassium Chloride Carbon Dioxide Anion Gap BUN Creatinine Est GFR ( Amer) Est GFR (Non-Af Amer) Glucose Calcium Magnesium Transferrin 09/18/17 22:35 Blood Blood Culture - Final NO GROWTH IN 5 DAYS 09/18/17 21:10 Blood Blood Culture - Final NO GROWTH IN 5 DAYS 09/17/17 09/17/17 09/17/17 06:41 06:41 12:08 Creatine Kinase 63 67 CK-MB (CK-2) 0.80 Troponin I < 0.012 09/17/17 09/17/17 09/17/17 12:08 18:40 18:40 Creatine Kinase 85 CK-MB (CK-2) 0.79 1.14 Troponin I < 0.012 < 0.012 Impressions: Hip/Pelvis X-Ray 09/17/17 01:38 IMPRESSION: Mild symmetrical degenerative narrowing of the hip joints. No other hip pathology. Degenerative changes lower lumbar spine. Chest CT 09/18/17 00:00 IMPRESSION: Bilateral pleural effusions with mild associated atelectasis. No acute pulmonary infiltrate is appreciated. Tubes and catheters as described. KUB X-Ray 09/18/17 00:00 IMPRESSION: Nasogastric tube in the stomach. Cervical Spine CT 09/18/17 08:00 IMPRESSION: Multilevel degenerative disc disease and spondylosis. Head CT 09/18/17 08:00 IMPRESSION: MILD CHRONIC CHANGES OF ATROPHY AND MICROVASCULAR ISCHEMIA. NO ACUTE PROCESS. EVIDENCE OF ACUTE STROKE: No Renal Ultrasound 09/22/17 00:00 IMPRESSION: Distended urinary bladder No gross hydronephrosis Incidental finding of gallstones Assessment & Plan - Diagnosis (1) Suicide attempt by beta anton overdose Qualifiers: Encounter type: subsequent encounter Qualified Code(s): T44.7X2D - Poisoning by beta-adrenoreceptor antagonists, intentional self-harm, subsequent encounter Is this a current diagnosis for this admission?: Yes (2) Acute cystitis Is this a current diagnosis for this admission?: Yes Plan: Day 3 of Keflex. Urine culture grew E. coli which is sensitive. (3) Acute renal injury Is this a current diagnosis for this admission?: Yes Plan: Improving. Continue to monitor. (4) Acute respiratory failure Qualifiers: Respiratory failure complication: unspecified whether with hypoxia or hypercapnia Qualified Code(s): J96.00 - Acute respiratory failure, unspecified whether with hypoxia or hypercapnia Is this a current diagnosis for this admission?: Yes Plan: Due to seizures. Resolved (5) Aspiration pneumonia Is this a current diagnosis for this admission?: Yes (6) Hypokalemia Is this a current diagnosis for this admission?: Yes (7) Hypomagnesemia Is this a current diagnosis for this admission?: Yes (8) Hyponatremia Is this a current diagnosis for this admission?: Yes Plan: Due to hypervolemia. Resolved (9) Seizure Is this a current diagnosis for this admission?: Yes Plan: Secondary to severe hyponatremia. Resolved (10) Benzodiazepine dependence, continuous Is this a current diagnosis for this admission?: Yes (11) Chronic pain Qualifiers: Chronic pain type: other chronic pain Qualified Code(s): G89.29 - Other chronic pain (12) Opiate dependence, continuous Is this a current diagnosis for this admission?: Yes (13) Type 2 diabetes mellitus Qualifiers: Diabetes mellitus nursing home insulin use: unspecified nursing home insulin use status Diabetes mellitus complication status: with unspecified complications Qualified Code(s): E11.8 - Type 2 diabetes mellitus with unspecified complications Is this a current diagnosis for this admission?: Yes Plan: On insulin sliding scale. (14) Anemia Qualifiers: Anemia type: iron deficiency Iron deficiency anemia type: chronic blood loss Qualified Code(s): D50.0 - Iron deficiency anemia secondary to blood loss (chronic) Is this a current diagnosis for this admission?: Yes Plan: Monitor hemoglobin. Transfuse if hemoglobin drops below 7.5 - Time Time Spent with patient: 35 or more minutes - Plan Summary Plan Summary: Continue to encourage physical activity. Assess for home with home health/PT vs rehab.
[2017-09-24] MEDS: CARVEDILOL 3.125 MG TABLET PO SCH (17:08)
[2017-09-24] MEDS: OXYCODONE-ACETAMINOPHEN 5-325 MG TABLET PO PRN ×2 (17:12→23:23)
--- NOTE | 2017-09-24 19:47 | PDOC PROGRESS REPORT ---
Subjective Progress Note for:: 09/24/17 Subjective:: Patient had episode of atrial fibrillation for which she currently on amiodarone p.o. Currently she is maintaining sinus rhythm. No further seizures noted. Patient however still somewhat reluctant to engage in conversation. Heart rate has been satisfactory. Blood pressure has been noted to be elevated. Serum sodium has improved.. Reason For Visit: BETABLOCKER OD, SUICIDE ATTEMPT, CHRONIC PAIN, Physical Exam Vital Signs: Temp Pulse Resp BP Pulse Ox 100.0 F 89 16 164/72 H 96 09/24/17 16:11 09/24/17 16:29 09/24/17 16:29 09/24/17 16:11 09/24/17 16:29 Intake & Output 09/23/17 09/24/17 09/25/17 06:59 06:59 06:59 Intake Total 7164 2418 993 Output Total 9610 3260 900 Balance -2446 -842 93 Weight 90.3 kg 86.5 kg Exam: GENERAL: well-nourished and in no acute distress. Alert and oriented x3 HEAD: Atraumatic, normocephalic. EYES: Pupils equal round and reactive to light, extraocular movements intact, sclera anicteric, conjunctiva are normal. ENT: TMs normal, nares patent, oropharynx clear without exudates. Moist mucous membranes. No oral ulcerations or bleeding gums noted NECK: supple without lymphadenopathy. Trachea is central. No cervical or axillary lymphadenopathy noted. Carotids are 2+, JVD WNL LUNGS: Respiration seems nonlabored, no significant accessory muscle action noted. Breath sounds clear to auscultation bilaterally and equal noted. No wheezes rales or rhonchi noted. No significant dullness noted on percussion. CHEST: Palpation of the chest wall shows no significant chest wall tenderness. No other significant abnormalities noted. HEART: [place] [employer], No PSH, 1/6 HERVE aortic area, 1/6 mcdonough systolic murmur mitral area, no rubs, no gallops. ABDOMEN: Soft, no significant tenderness appreciated, normoactive bowel sounds. No guarding, no rebound. No rigidity noted . No masses appreciated. EXTREMITIES: Pedal pulses are 1-2+, no calf tenderness noted. No clubbing or cyanosis. Negative pedal edema noted NEUROLOGICAL: Focused neurological exam showed no significant neurologic deficit. Normal speech, no focal weakness appreciated. PSYCH: Mood is depressed. Judgment and insight not checked. SKIN: No significant ecchymosis, skin is noted to be warm. MUSCULOSKELETAL EXAM: No significant acute joint swelling noted. Results Laboratory Results: 09/24/17 12:10 09/24/17 04:35 09/22/17 09/24/17 09/24/17 10:05 04:35 04:35 WBC 9.2 RBC 2.49 L Hgb 7.8 L Hct 23.1 L MCV 93 MCH 31.5 MCHC 34.0 RDW 14.1 H Plt Count 204 Seg Neutrophils % 68.6 Lymphocytes % 20.1 Monocytes % 8.0 Eosinophils % 2.4 Basophils % 0.9 Absolute Neutrophils 6.3 Absolute Lymphocytes 1.9 Absolute Monocytes 0.7 Absolute Eosinophils 0.2 Absolute Basophils 0.1 Carbonic Acid HCO3/H2CO3 Ratio ABG pH ABG pCO2 ABG pO2 ABG HCO3 ABG O2 Saturation ABG Base Excess FiO2 Sodium 138.7 Potassium 3.6 Chloride 99 Carbon Dioxide 32 H Anion Gap 8 BUN 9 Creatinine 1.55 H Est GFR ( Amer) 41 L Est GFR (Non-Af Amer) 34 L Glucose 171 H Calcium 8.6 Magnesium 1.8 Transferrin 116 L 09/24/17 09/24/17 06:52 12:10 WBC 8.9 RBC 2.50 L Hgb 7.8 L Hct 23.1 L MCV 92 MCH 31.3 MCHC 33.9 RDW 13.7 Plt Count 209 Seg Neutrophils % Lymphocytes % Monocytes % Eosinophils % Basophils % Absolute Neutrophils Absolute Lymphocytes Absolute Monocytes Absolute Eosinophils Absolute Basophils Carbonic Acid 1.25 HCO3/H2CO3 Ratio 23:1 ABG pH 7.47 H ABG pCO2 41.5 ABG pO2 77.2 L ABG HCO3 29.5 H ABG O2 Saturation 96.1 ABG Base Excess 5.3 FiO2 1.5L Sodium Potassium Chloride Carbon Dioxide Anion Gap BUN Creatinine Est GFR ( Amer) Est GFR (Non-Af Amer) Glucose Calcium Magnesium Transferrin 09/18/17 22:35 Blood Blood Culture - Final NO GROWTH IN 5 DAYS 09/18/17 21:10 Blood Blood Culture - Final NO GROWTH IN 5 DAYS 09/17/17 09/17/17 09/17/17 06:41 06:41 12:08 Creatine Kinase 63 67 CK-MB (CK-2) 0.80 Troponin I < 0.012 09/17/17 09/17/17 09/17/17 12:08 18:40 18:40 Creatine Kinase 85 CK-MB (CK-2) 0.79 1.14 Troponin I < 0.012 < 0.012 EKG Comments: Telemetry shows sinus rhythm without any sustained tachycardia or bradycardia. Impressions: Hip/Pelvis X-Ray 09/17/17 01:38 IMPRESSION: Mild symmetrical degenerative narrowing of the hip joints. No other hip pathology. Degenerative changes lower lumbar spine. Chest CT 09/18/17 00:00 IMPRESSION: Bilateral pleural effusions with mild associated atelectasis. No acute pulmonary infiltrate is appreciated. Tubes and catheters as described. KUB X-Ray 09/18/17 00:00 IMPRESSION: Nasogastric tube in the stomach. Cervical Spine CT 09/18/17 08:00 IMPRESSION: Multilevel degenerative disc disease and spondylosis. Head CT 09/18/17 08:00 IMPRESSION: MILD CHRONIC CHANGES OF ATROPHY AND MICROVASCULAR ISCHEMIA. NO ACUTE PROCESS. EVIDENCE OF ACUTE STROKE: No Renal Ultrasound 09/22/17 00:00 IMPRESSION: Distended urinary bladder No gross hydronephrosis Incidental finding of gallstones Chest X-Ray 09/24/17 06:00 IMPRESSION: Improved aeration in the lower lobes. Assessment & Plan - Diagnosis (1) Atrial fibrillation Qualifiers: Atrial fibrillation type: unspecified Qualified Code(s): I48.91 - Unspecified atrial fibrillation Is this a current diagnosis for this admission?: Yes (2) Suicide attempt by beta anton overdose Qualifiers: Encounter type: subsequent encounter Qualified Code(s): T44.7X2D - Poisoning by beta-adrenoreceptor antagonists, intentional self-harm, subsequent encounter Is this a current diagnosis for this admission?: Yes (3) Hypotension Qualifiers: Hypotension type: other hypotension type Qualified Code(s): I95.89 - Other hypotension Is this a current diagnosis for this admission?: Yes (4) Hypertension Qualifiers: Hypertension type: unspecified Qualified Code(s): I10 - Essential (primary ) hypertension Is this a current diagnosis for this admission?: Yes (5) Opiate dependence, continuous Is this a current diagnosis for this admission?: Yes (6) Type 2 diabetes mellitus Qualifiers: 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 Continue amiodarone 200 p.o. twice daily for 1 month. Patient would be a candidate for chronic anticoagulation based on [id number], however feel that patient would be a poor candidate due to her noncompliance and suicide attempt. Suicide attempt by beta-anton overdose: Resolved. Blood pressure and heart rate has been stable. Seizure disorder: No recurrence noted. Possibly withdrawals from multidrug use could be causing this. Patient to report any recurrence. Diabetes: Currently stable. Patient being well managed by hospitalist Hypertension: Noted to be intermittently high. Added carvedilol 6.25 mg p.o. twice daily, titrate up if blood pressure remains high Opiate dependence: This is a chronic problem. Patient noted to have urine growing gram-negative rods, currently E. coli. Patient on antibiotics. - Time Time with patient: 15-25 minutes - CODE STATUS was discussed, patient remains full code. Surrogate decision-maker unchanged. Multiple medical problems were addressed. More than 50% of the time spent coordinating care, discussing management plans with involved caregivers. Management plans discussed with involved personnels. Medical decision making was of moderate to high complexity , patient's has multiple comorbidities. Medications reviewed and adjusted accordingly: Yes
[2017-09-24] MEDS: CITALOPRAM HYDROBROMIDE 20 MG TABLET PO SCH (21:58)
[2017-09-25] MEDS: IPRATROPIUM/ALBUTEROL 0.5-2.5 MG/3 ML AMPUL NEB SCH ×3 (00:35→15:57)
[2017-09-25] MEDS: LANSOPRAZOLE 30 MG TAB.RAP.DR PO SCH ×2 (05:03→16:55)
[2017-09-25] MEDS: GABAPENTIN 100 MG CAPSULE PO SCH ×3 (05:03→21:27)
[2017-09-25] MEDS: CARVEDILOL 3.125 MG TABLET PO SCH (05:03)
[2017-09-25 05:46] LABS: HEMATOCRIT 25.3 % (36.0-47.0); HEMOGLOBIN 8.7 g/dL (12.0-15.5); MEAN CORPUSCULAR HEMOGLOBIN 31.7 pg (27.0-33.4); MEAN CORPUSCULAR HGB CONC 34.3 g/dL (32.0-36.0); MEAN CORPUSCULAR VOLUME 93 fl (80-97); PLATELET COUNT 221 10^3/uL (150-450); RED BLOOD COUNT 2.74 10^6/uL (3.72-5.28); RED CELL DISTRIBUTION WIDTH 13.8 % (11.5-14.0); WHITE BLOOD COUNT 8.6 10^3/uL (4.0-10.5)
[2017-09-25 06:03] LABS: ANION GAP 8 (5-19); BLOOD UREA NITROGEN 14 mg/dL (7-20); CALCIUM 8.8 mg/dL (8.4-10.2); CARBON DIOXIDE 32 mmol/L (22-30); CHLORIDE 99 mmol/L (98-107); GLUCOSE 122 mg/dL (75-110); SODIUM 139.4 mmol/L (137-145)
[2017-09-25] MEDS ORDERED: CARVEDILOL 3.125 MG TABLET PO SCH (07:52)
[2017-09-25] MEDS: OXYCODONE-ACETAMINOPHEN 5-325 MG TABLET PO PRN ×2 (08:14→16:54)
[2017-09-25] MEDS: FERROUS SULFATE 325 MG TABLET PO SCH ×3 (08:14→16:54)
[2017-09-25] MEDS: 1/2 NORMAL SALINE 1,000 ML IV PRN ×2 (08:17→17:33)
[2017-09-25] MEDS: SUCRALFATE 1 GM TABLET PO SCH ×4 (08:17→21:26)
[2017-09-25] MEDS: HYDRALAZINE HCL INJ/PF 20 MG/1 ML SDV IV PRN ×2 (08:17→17:07)
[2017-09-25] MEDS: ASPIRIN 81 MG TABLET, ENT COATED PO SCH (09:22)
[2017-09-25] MEDS: ISOSORBIDE MONONITRATE 30 MG TAB.ER.24H PO SCH (09:22)
[2017-09-25] MEDS: MAGNESIUM OXIDE 400 MG TABLET PO SCH (09:22)
[2017-09-25] MEDS: AMIODARONE HCL 200 MG TABLET PO SCH ×2 (09:22→21:25)
[2017-09-25] MEDS: LACTOBACILLUS ACIDOPHILUS 250 MG TAB PO SCH ×2 (09:22→18:37)
[2017-09-25] MEDS: DOCUSATE SODIUM 100 MG CAPSULE PO SCH ×2 (09:22→18:37)
[2017-09-25] MEDS: CEPHALEXIN 500 MG CAPSULE PO SCH ×2 (09:22→21:26)
[2017-09-25] MEDS: INSULIN LISPRO 100 UNIT/ML 3 ML VIAL SUBCUT PRN ×2 (11:47→18:38)
[2017-09-25] MEDS ORDERED: CARVEDILOL 6.25 MG TABLET PO SCH (18:00)
--- NOTE | 2017-09-25 19:00 | PDOC PROGRESS REPORT ---
Subjective Progress Note for:: 09/25/17 Subjective:: The patient is a 61-year-old female with past medical history of Morbid obesity Diabetes Chronic pain Anxiety and depression IBS The patient was admitted on September 17 after being found unresponsive on the floor by her family with an empty bottle of labetalol and a note expressing DNR wishes. The patient was involuntarily committed and was treated with IV fluids glucagon pressors and Narcan for hypotension and bradycardia. She was found to have multiple electrolyte abnormalities including hyponatremia hypokalemia and hypomagnesemia leading to metabolic encephalopathy, These were all treated with subsequent improvement in her metabolic encephalopathy. Hypotension due to beta-anton overdose was treated with IV fluids and pressors. She was evaluated by [facility] for her suicide attempt. Overnight on September 19 the patient developed acute respiratory failure secondary to seizures and was intubated to protect her airway. She was also given hypertonic saline for severe hyponatremia. The patient was also started on antibiotics for aspiration pneumonia suspected due to gram-positive bacteria and cystitis due to gram-negative rods. She underwent endoscopy and colonoscopy on September 23. 5 small ulcers with central necrotic eschar were seen in the proximal stomach. Duodenum was noted to be normal. Colonoscopy revealed external hemorrhoids large and collapsed nonthrombosed. Linear area of patchy colitis early erosive changes but no ulceration was noted by Dr. Rodriguez. No complaints at present. Metastases to having been depressed at home. Says that she mistakenly took a few extra blood pressure pills. She has had at the time she had been having thoughts of ending her life due to severe depression. Denies any suicidal ideation or intent at present. She says she plans to enjoy life and wants to go back to working 3 times a day. Appetite is good. No nausea or abdominal pain. Reason For Visit: BETABLOCKER OD, SUICIDE ATTEMPT, CHRONIC PAIN, Physical Exam Vital Signs: Temp Pulse Resp BP Pulse Ox 99.6 F 78 18 180/82 H 99 09/25/17 16:40 09/25/17 16:40 09/25/17 16:40 09/25/17 16:40 09/25/17 16:40 Intake & Output 09/24/17 09/25/17 09/26/17 06:59 06:59 06:59 Intake Total 2418 1173 1638 Output Total 3260 1400 675 Balance -842 -227 963 Weight 86.5 kg 86 kg General appearance: PRESENT: no acute distress, obese Eye exam: PRESENT: EOMI Ear exam: PRESENT: normal external ear exam Mouth exam: PRESENT: moist, neck supple Neck exam: ABSENT: tenderness, tracheal deviation Respiratory exam: PRESENT: clear to auscultation avel, symmetrical, unlabored Cardiovascular exam: PRESENT: RRR GI/Abdominal exam: PRESENT: normal bowel sounds, soft. ABSENT: tenderness Rectal exam: PRESENT: deferred Extremities exam: ABSENT: calf tenderness, pedal edema Neurological exam: PRESENT: alert, awake, oriented to person Skin exam: ABSENT: rash Results Laboratory Results: 09/25/17 05:40 09/25/17 05:40 09/25/17 09/25/17 05:40 05:40 WBC 8.6 RBC 2.74 L Hgb 8.7 L Hct 25.3 L MCV 93 MCH 31.7 MCHC 34.3 RDW 13.8 Plt Count 221 Sodium 139.4 Potassium 4.0 Chloride 99 Carbon Dioxide 32 H Anion Gap 8 BUN 14 Creatinine 1.81 H Est GFR ( Amer) 34 L Est GFR (Non-Af Amer) 28 L Glucose 122 H Calcium 8.8 Magnesium 1.8 09/17/17 09/17/17 09/17/17 06:41 06:41 12:08 Creatine Kinase 63 67 CK-MB (CK-2) 0.80 Troponin I < 0.012 09/17/17 09/17/17 09/17/17 12:08 18:40 18:40 Creatine Kinase 85 CK-MB (CK-2) 0.79 1.14 Troponin I < 0.012 < 0.012 Impressions: Hip/Pelvis X-Ray 09/17/17 01:38 IMPRESSION: Mild symmetrical degenerative narrowing of the hip joints. No other hip pathology. Degenerative changes lower lumbar spine. Chest CT 09/18/17 00:00 IMPRESSION: Bilateral pleural effusions with mild associated atelectasis. No acute pulmonary infiltrate is appreciated. Tubes and catheters as described. KUB X-Ray 09/18/17 00:00 IMPRESSION: Nasogastric tube in the stomach. Cervical Spine CT 09/18/17 08:00 IMPRESSION: Multilevel degenerative disc disease and spondylosis. Head CT 09/18/17 08:00 IMPRESSION: MILD CHRONIC CHANGES OF ATROPHY AND MICROVASCULAR ISCHEMIA. NO ACUTE PROCESS. EVIDENCE OF ACUTE STROKE: No Renal Ultrasound 09/22/17 00:00 IMPRESSION: Distended urinary bladder No gross hydronephrosis Incidental finding of gallstones Chest X-Ray 09/24/17 06:00 IMPRESSION: Improved aeration in the lower lobes. Assessment & Plan - Diagnosis (1) Suicide attempt by beta anton overdose Qualifiers: Encounter type: subsequent encounter Qualified Code(s): T44.7X2D - Poisoning by beta-adrenoreceptor antagonists, intentional self-harm, subsequent encounter Is this a current diagnosis for this admission?: Yes (2) Acute cystitis Is this a current diagnosis for this admission?: Yes (3) Acute renal injury Is this a current diagnosis for this admission?: Yes (4) Acute respiratory failure Qualifiers: Respiratory failure complication: unspecified whether with hypoxia or hypercapnia Qualified Code(s): J96.00 - Acute respiratory failure, unspecified whether with hypoxia or hypercapnia Is this a current diagnosis for this admission?: Yes (5) Aspiration pneumonia Is this a current diagnosis for this admission?: Yes (6) Hypokalemia Is this a current diagnosis for this admission?: Yes (7) Hypomagnesemia Is this a current diagnosis for this admission?: Yes (8) Hyponatremia Is this a current diagnosis for this admission?: Yes (9) Seizure Is this a current diagnosis for this admission?: Yes (10) Benzodiazepine dependence, continuous Is this a current diagnosis for this admission?: Yes (11) Chronic pain Qualifiers: Chronic pain type: other chronic pain Qualified Code(s): G89.29 - Other chronic pain (12) Opiate dependence, continuous Is this a current diagnosis for this admission?: Yes (13) Type 2 diabetes mellitus Qualifiers: Diabetes mellitus 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
--- NOTE | 2017-09-25 19:54 | PDOC PROGRESS REPORT ---
Subjective Progress Note for:: 09/25/17 Subjective:: Patient seems to be gradually getting better. She has not ambulated much. Patient is maintaining sinus rhythm. Blood pressure is still noted to be significantly elevated at times. Patient still does not maintain good eye contact. Patient being followed by telephone claims representative as well as psychiatrist. Heart rate has been satisfactory. Blood pressure has been noted to be elevated. Serum sodium has improved.. Reason For Visit: BETABLOCKER OD, SUICIDE ATTEMPT, CHRONIC PAIN, Physical Exam Vital Signs: Temp Pulse Resp BP Pulse Ox 99.1 F 80 16 155/71 H 95 09/25/17 11:17 09/25/17 11:17 09/25/17 11:17 09/25/17 11:17 09/25/17 11:17 Intake & Output 09/24/17 09/25/17 09/26/17 06:59 06:59 06:59 Intake Total 2418 1173 Output Total 3260 1400 Balance -842 -227 Weight 86.5 kg 86 kg Exam: GENERAL: well-nourished and in no acute distress. Alert and oriented x3 HEAD: Atraumatic, normocephalic. EYES: Pupils equal round and reactive to light, extraocular movements intact, sclera anicteric, conjunctiva are normal. ENT: TMs normal, nares patent, oropharynx clear without exudates. Moist mucous membranes. No oral ulcerations or bleeding gums noted NECK: supple without lymphadenopathy. Trachea is central. No cervical or axillary lymphadenopathy noted. Carotids are 2+, JVD WNL LUNGS: Respiration seems nonlabored, no significant accessory muscle action noted. Breath sounds clear to auscultation bilaterally and equal noted. No wheezes rales or rhonchi noted. No significant dullness noted on percussion. CHEST: Palpation of the chest wall shows no significant chest wall tenderness. No other significant abnormalities noted. 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 ABDOMEN: Soft, no significant tenderness appreciated, normoactive bowel sounds. No guarding, no rebound. No rigidity noted . No masses appreciated. EXTREMITIES: Pedal pulses are 1-2+, no calf tenderness noted. No clubbing or cyanosis.trace to 1+ pedal edema noted NEUROLOGICAL: Focused neurological exam showed no significant neurologic deficit. Normal speech, no focal weakness appreciated. PSYCH: Normal mood, normal affect. Judgment and insight within normal limits. SKIN: No significant ecchymosis, skin is noted to be warm. MUSCULOSKELETAL EXAM: No significant acute joint swelling noted. Results Laboratory Results: 09/25/17 05:40 09/25/17 05:40 09/25/17 09/25/17 05:40 05:40 WBC 8.6 RBC 2.74 L Hgb 8.7 L Hct 25.3 L MCV 93 MCH 31.7 MCHC 34.3 RDW 13.8 Plt Count 221 Sodium 139.4 Potassium 4.0 Chloride 99 Carbon Dioxide 32 H Anion Gap 8 BUN 14 Creatinine 1.81 H Est GFR ( Amer) 34 L Est GFR (Non-Af Amer) 28 L Glucose 122 H Calcium 8.8 Magnesium 1.8 09/17/17 09/17/17 09/17/17 06:41 06:41 12:08 Creatine Kinase 63 67 CK-MB (CK-2) 0.80 Troponin I < 0.012 09/17/17 09/17/17 09/17/17 12:08 18:40 18:40 Creatine Kinase 85 CK-MB (CK-2) 0.79 1.14 Troponin I < 0.012 < 0.012 Impressions: Hip/Pelvis X-Ray 09/17/17 01:38 IMPRESSION: Mild symmetrical degenerative narrowing of the hip joints. No other hip pathology. Degenerative changes lower lumbar spine. Chest CT 09/18/17 00:00 IMPRESSION: Bilateral pleural effusions with mild associated atelectasis. No acute pulmonary infiltrate is appreciated. Tubes and catheters as described. KUB X-Ray 09/18/17 00:00 IMPRESSION: Nasogastric tube in the stomach. Cervical Spine CT 09/18/17 08:00 IMPRESSION: Multilevel degenerative disc disease and spondylosis. Head CT 09/18/17 08:00 IMPRESSION: MILD CHRONIC CHANGES OF ATROPHY AND MICROVASCULAR ISCHEMIA. NO ACUTE PROCESS. EVIDENCE OF ACUTE STROKE: No Renal Ultrasound 09/22/17 00:00 IMPRESSION: Distended urinary bladder No gross hydronephrosis Incidental finding of gallstones Chest X-Ray 09/24/17 06:00 IMPRESSION: Improved aeration in the lower lobes. Assessment & Plan - Diagnosis (1) Atrial fibrillation Qualifiers: Atrial fibrillation type: unspecified Qualified Code(s): I48.91 - Unspecified atrial fibrillation Is this a current diagnosis for this admission?: Yes (2) Suicide attempt by beta anton overdose Qualifiers: Encounter type: subsequent encounter Qualified Code(s): T44.7X2D - Poisoning by beta-adrenoreceptor antagonists, intentional self-harm, subsequent encounter Is this a current diagnosis for this admission?: Yes (3) Hypotension Qualifiers: Hypotension type: other hypotension type Qualified Code(s): I95.89 - Other hypotension Is this a current diagnosis for this admission?: Yes (4) Hypertension Qualifiers: Hypertension type: unspecified Qualified Code(s): I10 - Essential (primary ) hypertension Is this a current diagnosis for this admission?: Yes (5) Opiate dependence, continuous Is this a current diagnosis for this admission?: Yes (6) Type 2 diabetes mellitus Qualifiers: Diabetes mellitus ferry terminal agent insulin use: unspecified mcfp insulin use status Diabetes mellitus complication status: with unspecified complications Qualified Code(s): E11.8 - Type 2 diabetes mellitus with unspecified complications Is this a current diagnosis for this admission?: Yes (7) Anemia Qualifiers: Anemia type: iron deficiency Iron deficiency anemia type: chronic blood loss Qualified Code(s): D50.0 - Iron deficiency anemia secondary to blood loss (chronic) Is this a current diagnosis for this admission?: Yes (8) Acute renal injury Is this a current diagnosis for this admission?: Yes - Notes Notes: Atrial fibrillation: Currently patient in sinus rhythm. Continue amiodarone 200 p.o. twice daily for 1 month. Patient would be a candidate for chronic anticoagulation based on [id number], however feel that patient would be a poor candidate due to her noncompliance and suicide attempt. For rate control and blood pressure controlled, patient has been placed on carvedilol. Suicide attempt by beta-anton overdose: Resolved. Blood pressure and heart rate has been stable. Seizure disorder: No recurrence noted. Possibly withdrawals from multidrug use could be causing this. Patient to report any recurrence. Diabetes: Currently stable. Patient being well managed by hospitalist Hypertension: Noted to be mostly high. Increased carvedilol to 12.5 mg p.o. twice daily, titrate up if blood pressure remains high Opiate dependence: This is a chronic problem. Patient noted to have urine growing gram-negative rods, currently E. coli. Patient on antibiotics. Anemia: [place] to be related to GI bleed, hemoglobin is stable. Patient did undergo GI evaluation. Acute kidney injury: Exact etiology not clear. Patient being closely monitored. - Time Time with patient: 15-25 minutes - CODE STATUS was discussed, patient remains full code. Surrogate decision-maker unchanged. Multiple medical problems were addressed. More than 50% of the time spent coordinating care, discussing management plans with involved caregivers. Management plans discussed with involved personnels. Medical decision making was of moderate to high complexity , patient's has multiple comorbidities. Medications reviewed and adjusted accordingly: Yes
[2017-09-25] MEDS: CARVEDILOL 12.5 MG TABLET PO SCH (21:25)
[2017-09-25] MEDS: CITALOPRAM HYDROBROMIDE 20 MG TABLET PO SCH (21:27)
[2017-09-26] MEDS: IPRATROPIUM/ALBUTEROL 0.5-2.5 MG/3 ML AMPUL NEB SCH ×3 (00:37→16:31)
[2017-09-26] MEDS: OXYCODONE-ACETAMINOPHEN 5-325 MG TABLET PO PRN ×2 (02:14→23:38)
[2017-09-26] MEDS: LANSOPRAZOLE 30 MG TAB.RAP.DR PO SCH ×2 (05:09→18:21)
[2017-09-26] MEDS: GABAPENTIN 100 MG CAPSULE PO SCH ×3 (05:11→23:35)
[2017-09-26 06:18] LABS: MEAN CORPUSCULAR HEMOGLOBIN 31.6 pg (27.0-33.4); MEAN CORPUSCULAR VOLUME 93 fl (80-97); PLATELET COUNT 231 10^3/uL (150-450); RED BLOOD COUNT 2.47 10^6/uL (3.72-5.28); RED CELL DISTRIBUTION WIDTH 13.4 % (11.5-14.0); WHITE BLOOD COUNT 7.7 10^3/uL (4.0-10.5)
[2017-09-26 06:35] LABS: ANION GAP 7 (5-19); BLOOD UREA NITROGEN 17 mg/dL (7-20); CALCIUM 8.8 mg/dL (8.4-10.2); CARBON DIOXIDE 32 mmol/L (22-30); CHLORIDE 96 mmol/L (98-107); GLUCOSE 116 mg/dL (75-110); PHOSPHORUS 3.6 mg/dL (2.5-4.5); POTASSIUM 4.4 mmol/L (3.6-5.0); SODIUM 135.2 mmol/L (137-145)
[2017-09-26 06:39] LABS: HEMOGLOBIN 7.8 g/dL (12.0-15.5)
[2017-09-26] MEDS: FERROUS SULFATE 325 MG TABLET PO SCH ×3 (08:54→18:21)
[2017-09-26] MEDS: SUCRALFATE 1 GM TABLET PO SCH ×4 (08:54→22:56)
[2017-09-26] MEDS: CARVEDILOL 12.5 MG TABLET PO SCH ×2 (10:44→22:56)
[2017-09-26] MEDS: ISOSORBIDE MONONITRATE 30 MG TAB.ER.24H PO SCH (10:44)
[2017-09-26] MEDS: LACTOBACILLUS ACIDOPHILUS 250 MG TAB PO SCH ×2 (10:44→18:21)
[2017-09-26] MEDS: AMIODARONE HCL 200 MG TABLET PO SCH ×2 (10:45→22:58)
[2017-09-26] MEDS: ASPIRIN 81 MG TABLET, ENT COATED PO SCH (10:45)
[2017-09-26] MEDS: MAGNESIUM OXIDE 400 MG TABLET PO SCH (10:45)
[2017-09-26] MEDS: CEPHALEXIN 500 MG CAPSULE PO SCH ×2 (10:45→22:58)
[2017-09-26] MEDS: DOCUSATE SODIUM 100 MG CAPSULE PO SCH ×2 (11:53→18:21)
--- NOTE | 2017-09-26 11:57 | PDOC PROGRESS REPORT ---
Subjective Progress Note for:: 09/26/17 Subjective:: The patient is a 61-year-old female with past medical history of Morbid obesity Diabetes Chronic pain Anxiety and depression IBS The patient was admitted on September 17 after being found unresponsive on the floor by her family with an empty bottle of labetalol and a note expressing DNR wishes. The patient was involuntarily committed and was treated with IV fluids glucagon pressors and Narcan for hypotension and bradycardia. She was found to have multiple electrolyte abnormalities including hyponatremia hypokalemia and hypomagnesemia leading to metabolic encephalopathy, These were all treated with subsequent improvement in her metabolic encephalopathy. Hypotension due to beta-anton overdose was treated with IV fluids and pressors. She was evaluated by [facility] for her suicide attempt. Overnight on September 19 the patient developed acute respiratory failure secondary to seizures and was intubated to protect her airway. She was also given hypertonic saline for severe hyponatremia. The patient was also started on antibiotics for aspiration pneumonia suspected due to gram-positive bacteria and cystitis due to gram-negative rods. She underwent endoscopy and colonoscopy on September 23. 5 small ulcers with central necrotic eschar were seen in the proximal stomach. Duodenum was noted to be normal. Colonoscopy revealed external hemorrhoids large and collapsed nonthrombosed. Linear area of patchy colitis early erosive changes but no ulceration was noted by Dr. Rodriguez. Admits to having been depressed at home. Reported that she mistakenly took a few extra blood pressure pills. At the time she had been having thoughts of ending her life due to severe depression. Denies any suicidal ideation or intent at present. Appetite is good. No nausea or abdominal pain. has been unable to sleep due to door being open constantly 24 hours a day for IVC- sitter. Reason For Visit: BETABLOCKER OD, SUICIDE ATTEMPT, CHRONIC PAIN, Physical Exam Vital Signs: Temp Pulse Resp BP Pulse Ox 99.3 F 67 18 171/70 H 96 09/26/17 08:20 09/26/17 09:17 09/26/17 09:17 09/26/17 08:20 09/26/17 09:17 Intake & Output 09/25/17 09/26/17 09/27/17 06:59 06:59 06:59 Intake Total 1173 3303 Output Total 1400 1775 Balance -227 1528 Weight 86 kg 89 kg General appearance: PRESENT: no acute distress, obese Eye exam: PRESENT: EOMI Ear exam: PRESENT: normal external ear exam Mouth exam: PRESENT: moist, neck supple Neck exam: ABSENT: tracheal deviation Respiratory exam: PRESENT: clear to auscultation avel, symmetrical, unlabored. ABSENT: wheezes Cardiovascular exam: PRESENT: RRR GI/Abdominal exam: PRESENT: normal bowel sounds, soft. ABSENT: tenderness Rectal exam: PRESENT: deferred Extremities exam: ABSENT: calf tenderness, pedal edema Neurological exam: PRESENT: alert, awake, oriented to person, oriented to place , oriented to time Results Laboratory Results: 09/26/17 05:30 09/26/17 05:30 09/26/17 09/26/17 05:30 05:30 WBC 7.7 RBC 2.47 L Hgb 7.8 L Hct 23.0 L MCV 93 MCH 31.6 MCHC 34.0 RDW 13.4 Plt Count 231 Sodium 135.2 L Potassium 4.4 Chloride 96 L Carbon Dioxide 32 H Anion Gap 7 BUN 17 Creatinine 1.58 H Est GFR ( Amer) 40 L Est GFR (Non-Af Amer) 33 L Glucose 116 H Calcium 8.8 Phosphorus 3.6 09/17/17 09/17/17 09/17/17 06:41 06:41 12:08 Creatine Kinase 63 67 CK-MB (CK-2) 0.80 Troponin I < 0.012 09/17/17 09/17/17 09/17/17 12:08 18:40 18:40 Creatine Kinase 85 CK-MB (CK-2) 0.79 1.14 Troponin I < 0.012 < 0.012 Impressions: Hip/Pelvis X-Ray 09/17/17 01:38 IMPRESSION: Mild symmetrical degenerative narrowing of the hip joints. No other hip pathology. Degenerative changes lower lumbar spine. Chest CT 09/18/17 00:00 IMPRESSION: Bilateral pleural effusions with mild associated atelectasis. No acute pulmonary infiltrate is appreciated. Tubes and catheters as described. KUB X-Ray 09/18/17 00:00 IMPRESSION: Nasogastric tube in the stomach. Cervical Spine CT 09/18/17 08:00 IMPRESSION: Multilevel degenerative disc disease and spondylosis. Head CT 09/18/17 08:00 IMPRESSION: MILD CHRONIC CHANGES OF ATROPHY AND MICROVASCULAR ISCHEMIA. NO ACUTE PROCESS. EVIDENCE OF ACUTE STROKE: No Renal Ultrasound 09/22/17 00:00 IMPRESSION: Distended urinary bladder No gross hydronephrosis Incidental finding of gallstones Chest X-Ray 09/24/17 06:00 IMPRESSION: Improved aeration in the lower lobes. Assessment & Plan - Diagnosis (1) Suicide attempt by beta anton overdose Qualifiers: Encounter type: subsequent encounter Qualified Code(s): T44.7X2D - Poisoning by beta-adrenoreceptor antagonists, intentional self-harm, subsequent encounter Is this a current diagnosis for this admission?: Yes Plan: Continue IVC per Psych (2) Acute cystitis Is this a current diagnosis for this admission?: Yes Plan: Day 4 of Keflex. Urine culture grew E. coli which is sensitive. (3) Acute renal injury Is this a current diagnosis for this admission?: Yes Plan: Improving. Continue to monitor. gentle IV fluids (4) Acute respiratory failure Qualifiers: Respiratory failure complication: unspecified whether with hypoxia or hypercapnia Qualified Code(s): J96.00 - Acute respiratory failure, unspecified whether with hypoxia or hypercapnia Is this a current diagnosis for this admission?: Yes (5) Aspiration pneumonia Is this a current diagnosis for this admission?: Yes (6) Hypokalemia Is this a current diagnosis for this admission?: Yes Plan: resolved (7) Hypomagnesemia Is this a current diagnosis for this admission?: Yes Plan: resolved (8) Hyponatremia Is this a current diagnosis for this admission?: Yes Plan: Due to hypervolemia. Resolved (9) Seizure Is this a current diagnosis for this admission?: Yes (10) Benzodiazepine dependence, continuous Is this a current diagnosis for this admission?: Yes (11) Chronic pain Qualifiers: Chronic pain type: other chronic pain Qualified Code(s): G89.29 - Other chronic pain (12) Opiate dependence, continuous Is this a current diagnosis for this admission?: Yes (13) Type 2 diabetes mellitus Qualifiers: Diabetes mellitus terminal gauger insulin use: unspecified long-term insulin use status Diabetes mellitus complication status: with unspecified complications Qualified Code(s): E11.8 - Type 2 diabetes mellitus with unspecified complications Is this a current diagnosis for this admission?: Yes (14) Anemia Qualifiers: Anemia type: iron deficiency Iron deficiency anemia type: chronic blood loss Qualified Code(s): D50.0 - Iron deficiency anemia secondary to blood loss (chronic) Is this a current diagnosis for this admission?: Yes Plan: Monitor hemoglobin. Transfuse if hemoglobin drops below 7.5. Continue iron supplements - Time Time Spent with patient: 35 or more minutes
[2017-09-26] MEDS: INSULIN LISPRO 100 UNIT/ML 3 ML VIAL SUBCUT PRN (12:47)
[2017-09-26] MEDS: 1/2 NORMAL SALINE 1,000 ML IV PRN (12:54)
[2017-09-26] MEDS: HYDRALAZINE HCL INJ/PF 20 MG/1 ML SDV IV PRN (15:59)
--- NOTE | 2017-09-26 16:54 | PSYCHOLOGICAL NOTE ---
Psych Note - Psych Note Psych Note: Reason for consult: overdose; alleged suicide attempt Patient is a 61-year-old female. Patient reports that she is "sorry because she realized her sons loves her". Patient reports that she realized her son's care about her because since she has woken up they have been "hugging on her and kissing on her". Patient reports that she is sorry for writing the letter, but still does not remember taking more than 1 pill. Patient reports that she did not go to [place]. Patient reports that she went to [facility] for surgery on her neck and that it is hurting but states "it will be okay". Clinician conducted check-in: Patient is actively hallucinating. She is also having difficulties with information recall and confusion; "they told me I have to stand up to sleep...they said my pillow is an alarm but its not." Patient then asked if there was water running along the ceiling and bugs on the door. Per nurse: Patient is currently not medically cleared, behavioral health unable to seek placement at an inpatient psychiatric facility. Medication recommendation made by [facility] contracted psychiatric provider Dr. Bernabe MD. includes: 1.Celexa 20 mg daily 2. Rispirdone 0.25mg Q 8am and Q4pm Impression/plan: Recommendation to maintain involuntary commitment due to patient meeting criteria [place] GS 122 C. Clinician observed patient's affect is flat, poor eye contact,and is having active hallucinations with confusion. Behavioral health to reassess at a later time. Consulted with Dr. Mcadams regarding the management and care of patient.
[2017-09-26] MEDS: CITALOPRAM HYDROBROMIDE 20 MG TABLET PO SCH (22:58)
[2017-09-27] MEDS: IPRATROPIUM/ALBUTEROL 0.5-2.5 MG/3 ML AMPUL NEB SCH ×3 (00:46→16:26)
[2017-09-27] MEDS: GABAPENTIN 100 MG CAPSULE PO SCH ×3 (05:37→22:05)
[2017-09-27] MEDS: LANSOPRAZOLE 30 MG TAB.RAP.DR PO SCH ×2 (05:37→17:44)
[2017-09-27 06:34] LABS: ANION GAP 6 (5-19); BLOOD UREA NITROGEN 16 mg/dL (7-20); CALCIUM 8.5 mg/dL (8.4-10.2); CARBON DIOXIDE 33 mmol/L (22-30); CHLORIDE 98 mmol/L (98-107); GLUCOSE 122 mg/dL (75-110); POTASSIUM 4.1 mmol/L (3.6-5.0); SODIUM 136.8 mmol/L (137-145)
[2017-09-27 06:39] LABS: HEMATOCRIT 20.7 % (36.0-47.0); MEAN CORPUSCULAR HEMOGLOBIN 31.9 pg (27.0-33.4); MEAN CORPUSCULAR HGB CONC 34.4 g/dL (32.0-36.0); MEAN CORPUSCULAR VOLUME 93 fl (80-97); PLATELET COUNT 235 10^3/uL (150-450); RED BLOOD COUNT 2.23 10^6/uL (3.72-5.28); RED CELL DISTRIBUTION WIDTH 13.3 % (11.5-14.0)
[2017-09-27 06:50] LABS: HEMOGLOBIN 7.1 g/dL (12.0-15.5)
[2017-09-27] MEDS ORDERED: LORAZEPAM 0.5 MG TABLET PO PRN (08:42)
[2017-09-27] MEDS ORDERED: ESCITALOPRAM OXALATE 10 MG TABLET PO SCH (08:45)
[2017-09-27] MEDS ORDERED: NORMAL SALINE 250 ML IV PRN ×2 (09:22)
[2017-09-27] MEDS: DOCUSATE SODIUM 100 MG CAPSULE PO SCH ×2 (09:58→17:44)
[2017-09-27] MEDS: FERROUS SULFATE 325 MG TABLET PO SCH ×3 (09:58→17:43)
[2017-09-27] MEDS: SUCRALFATE 1 GM TABLET PO SCH ×4 (09:58→22:04)
[2017-09-27] MEDS: AMIODARONE HCL 200 MG TABLET PO SCH (09:59)
[2017-09-27] MEDS: LACTOBACILLUS ACIDOPHILUS 250 MG TAB PO SCH ×2 (09:59→17:43)
[2017-09-27] MEDS: MAGNESIUM OXIDE 400 MG TABLET PO SCH (09:59)
[2017-09-27] MEDS: ASPIRIN 81 MG TABLET, ENT COATED PO SCH (09:59)
[2017-09-27] MEDS: CEPHALEXIN 500 MG CAPSULE PO SCH ×2 (09:59→22:04)
[2017-09-27] MEDS ORDERED: LORAZEPAM 1 MG TABLET PO SCH (10:00)
[2017-09-27] MEDS: CARVEDILOL 12.5 MG TABLET PO SCH ×2 (11:20→22:04)
[2017-09-27] MEDS: OXYCODONE-ACETAMINOPHEN 5-325 MG TABLET PO PRN ×2 (11:20→17:49)
[2017-09-27] MEDS: AMLODIPINE BESYLATE 10 MG TABLET PO SCH (11:21)
--- NOTE | 2017-09-27 13:35 | PDOC PROGRESS REPORT ---
Subjective Progress Note for:: 09/26/17 Subjective:: Patient seems to be gradually getting better. She has not ambulated much. Patient is maintaining sinus rhythm. Blood pressure is still noted to be significantly elevated at times. Patient still does not maintain good eye contact. Patient being followed by aircraft instrument mechanic as well as psychiatrist. Heart rate has been satisfactory. Blood pressure has been noted to be elevated. Serum sodium has improved.. Reason For Visit: BETABLOCKER OD, SUICIDE ATTEMPT, CHRONIC PAIN, Physical Exam Vital Signs: Temp Pulse Resp BP Pulse Ox 100.0 F 81 18 154/69 H 98 09/26/17 11:49 09/26/17 11:49 09/26/17 11:49 09/26/17 11:49 09/26/17 11:49 Intake & Output 09/25/17 09/26/17 09/27/17 06:59 06:59 06:59 Intake Total 1173 3303 645 Output Total 1400 1775 1200 Balance -227 1528 -555 Weight 86 kg 89 kg Exam: GENERAL: well-nourished and in no acute distress. Alert and oriented x3 HEAD: Atraumatic, normocephalic. EYES: Pupils equal round and reactive to light, extraocular movements intact, sclera anicteric, conjunctiva are normal. ENT: TMs normal, nares patent, oropharynx clear without exudates. Moist mucous membranes. No oral ulcerations or bleeding gums noted NECK: supple without lymphadenopathy. Trachea is central. No cervical or axillary lymphadenopathy noted. Carotids are 2+, JVD WNL LUNGS: Respiration seems nonlabored, no significant accessory muscle action noted. Breath sounds clear to auscultation bilaterally and equal noted. No wheezes rales or rhonchi noted. No significant dullness noted on percussion. CHEST: Palpation of the chest wall shows no significant chest wall tenderness. No other significant abnormalities noted. 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 ABDOMEN: Soft, no significant tenderness appreciated, normoactive bowel sounds. No guarding, no rebound. No rigidity noted . No masses appreciated. EXTREMITIES: Pedal pulses are 1-2+, no calf tenderness noted. No clubbing or cyanosis. Negative pedal edema noted NEUROLOGICAL: Focused neurological exam showed no significant neurologic deficit. Normal speech, no focal weakness appreciated. PSYCH: Mood seems depressed. Judgment not checked. SKIN: No significant ecchymosis, skin is noted to be warm. MUSCULOSKELETAL EXAM: No significant acute joint swelling noted. Results Laboratory Results: 09/26/17 05:30 09/26/17 05:30 09/26/17 09/26/17 05:30 05:30 WBC 7.7 RBC 2.47 L Hgb 7.8 L Hct 23.0 L MCV 93 MCH 31.6 MCHC 34.0 RDW 13.4 Plt Count 231 Sodium 135.2 L Potassium 4.4 Chloride 96 L Carbon Dioxide 32 H Anion Gap 7 BUN 17 Creatinine 1.58 H Est GFR ( Amer) 40 L Est GFR (Non-Af Amer) 33 L Glucose 116 H Calcium 8.8 Phosphorus 3.6 09/17/17 09/17/17 09/17/17 06:41 06:41 12:08 Creatine Kinase 63 67 CK-MB (CK-2) 0.80 Troponin I < 0.012 09/17/17 09/17/17 09/17/17 12:08 18:40 18:40 Creatine Kinase 85 CK-MB (CK-2) 0.79 1.14 Troponin I < 0.012 < 0.012 Impressions: Hip/Pelvis X-Ray 09/17/17 01:38 IMPRESSION: Mild symmetrical degenerative narrowing of the hip joints. No other hip pathology. Degenerative changes lower lumbar spine. Chest CT 09/18/17 00:00 IMPRESSION: Bilateral pleural effusions with mild associated atelectasis. No acute pulmonary infiltrate is appreciated. Tubes and catheters as described. KUB X-Ray 09/18/17 00:00 IMPRESSION: Nasogastric tube in the stomach. Cervical Spine CT 09/18/17 08:00 IMPRESSION: Multilevel degenerative disc disease and spondylosis. Head CT 09/18/17 08:00 IMPRESSION: MILD CHRONIC CHANGES OF ATROPHY AND MICROVASCULAR ISCHEMIA. NO ACUTE PROCESS. EVIDENCE OF ACUTE STROKE: No Renal Ultrasound 09/22/17 00:00 IMPRESSION: Distended urinary bladder No gross hydronephrosis Incidental finding of gallstones Chest X-Ray 09/24/17 06:00 IMPRESSION: Improved aeration in the lower lobes. Assessment & Plan - Diagnosis (1) Atrial fibrillation Qualifiers: Atrial fibrillation type: unspecified Qualified Code(s): I48.91 - Unspecified atrial fibrillation Is this a current diagnosis for this admission?: Yes (2) Suicide attempt by beta anton overdose Qualifiers: Encounter type: subsequent encounter Qualified Code(s): T44.7X2D - Poisoning by beta-adrenoreceptor antagonists, intentional self-harm, subsequent encounter Is this a current diagnosis for this admission?: Yes (3) Hypotension Qualifiers: Hypotension type: other hypotension type Qualified Code(s): I95.89 - Other hypotension Is this a current diagnosis for this admission?: Yes (4) Hypertension Qualifiers: Hypertension type: unspecified Qualified Code(s): I10 - Essential (primary ) hypertension Is this a current diagnosis for this admission?: Yes (5) Opiate dependence, continuous Is this a current diagnosis for this admission?: Yes (6) Type 2 diabetes mellitus Qualifiers: Diabetes mellitus chcf insulin use: unspecified rn long term care insulin use status Diabetes mellitus complication status: with unspecified complications Qualified Code(s): E11.8 - Type 2 diabetes mellitus with unspecified complications Is this a current diagnosis for this admission?: Yes (7) Anemia Qualifiers: Anemia type: iron deficiency Iron deficiency anemia type: chronic blood loss Qualified Code(s): D50.0 - Iron deficiency anemia secondary to blood loss (chronic) Is this a current diagnosis for this admission?: Yes (8) Acute renal injury Is this a current diagnosis for this admission?: Yes - Notes Notes: Atrial fibrillation: Currently patient in sinus rhythm. Continue amiodarone 200 p.o. twice daily for 1 month. Patient would be a candidate for chronic anticoagulation based on [id number], however feel that patient would be a poor candidate due to her noncompliance and suicide attempt. For rate control and blood pressure controlled, patient has been placed on carvedilol. Suicide attempt by beta-anton overdose: Resolved. Blood pressure and heart rate has been stable. Seizure disorder: No recurrence noted. Possibly withdrawals from multidrug use could be causing this. Patient to report any recurrence. Diabetes: Currently stable. Patient being well managed by hospitalist Hypertension: Noted to be mostly high. Increased carvedilol to 12.5 mg p.o. twice daily, titrate up if blood pressure remains high. Discussed with hospitalist regarding further escalation of antihypertensive therapy. Opiate dependence: This is a chronic problem. Patient noted to have urine growing gram-negative rods, currently E. coli. Patient on antibiotics. Anemia: [place] to be related to GI bleed, hemoglobin is stable. Patient did undergo GI evaluation. Acute kidney injury: Exact etiology not clear. Patient being closely monitored. At this point will sign off. Please reconsult if needed. - Time Time with patient: 15-25 minutes - CODE STATUS was discussed, patient remains full code. Surrogate decision-maker unchanged. Multiple medical problems were addressed. More than 50% of the time spent coordinating care, discussing management plans with involved caregivers. Management plans discussed with involved personnels. Medical decision making was of moderate to high complexity , patient's has multiple comorbidities. Medications reviewed and adjusted accordingly: Yes
--- NOTE | 2017-09-27 13:47 | EKG REPORT ---
SEVERITY:- NORMAL ECG - SINUS RHYTHM : Confirmed by: Moiz Coker MD 27-Sep-2017 13:47:19
[2017-09-27] MEDS ORDERED: RISPERIDONE 0.25 MG TABLET PO ONE (14:00)
[2017-09-27] MEDS: HYDRALAZINE HCL INJ/PF 20 MG/1 ML SDV IV PRN (14:30)
[2017-09-27] MEDS ORDERED: BISACODYL 5 MG TABEC PO ONE (14:30)
--- NOTE | 2017-09-27 17:10 | PDOC PROGRESS REPORT ---
Subjective Progress Note for:: 09/27/17 Subjective:: The patient is a 61-year-old female with past medical history of Morbid obesity Diabetes Chronic pain Anxiety and depression IBS The patient was admitted on September 17 after being found unresponsive on the floor by her family with an empty bottle of labetalol and a note expressing DNR wishes. The patient was involuntarily committed and was treated with IV fluids glucagon pressors and Narcan for hypotension and bradycardia. She was found to have multiple electrolyte abnormalities including hyponatremia hypokalemia and hypomagnesemia leading to metabolic encephalopathy, These were all treated with subsequent improvement in her metabolic encephalopathy. Hypotension due to beta-anton overdose was treated with IV fluids and pressors. She was evaluated by [facility] for her suicide attempt. Overnight on September 19 the patient developed acute respiratory failure secondary to seizures and was intubated to protect her airway. She was also given hypertonic saline for severe hyponatremia. The patient was also started on antibiotics for aspiration pneumonia suspected due to gram-positive bacteria and cystitis due to gram-negative rods. She underwent endoscopy and colonoscopy on September 23. 5 small ulcers with central necrotic eschar were seen in the proximal stomach. Duodenum was noted to be normal. Colonoscopy revealed external hemorrhoids large and collapsed nonthrombosed. Linear area of patchy colitis early erosive changes but no ulceration was noted by Dr. Rodriguez. Admits to having been depressed at home. Reported that she mistakenly took a few extra blood pressure pills. At the time she had been having thoughts of ending her life due to severe depression. Denies any suicidal ideation or intent at present. Appetite is good. No nausea or abdominal pain. She has been unable to sleep due to door being open constantly 24 hours a day for IVC- sitter and has been having hallucinations. Patient and family declining Celexa since they attribute hallucinations to it. She does not want to take Ativan or Lexapro. Amiodarone stopped after discussing with Dr. Hadley. Coreg dose increased and Amlodipine added for better BP control. Reason For Visit: BETABLOCKER OD, SUICIDE ATTEMPT, CHRONIC PAIN, Physical Exam Vital Signs: Temp Pulse Resp BP Pulse Ox 98.8 F 59 L 20 102/54 L 95 09/27/17 16:09 09/27/17 16:09/27/17 16:09/27/17 16:09/27/17 16:09 Intake & Output 09/26/17 09/27/17 09/28/17 06:59 06:59 06:59 Intake Total 3303 3715 250 Output Total 1775 3000 700 Balance 1528 715 -450 Weight 89 kg 90.3 kg General appearance: PRESENT: no acute distress, obese Eye exam: PRESENT: PERRLA. ABSENT: scleral icterus Mouth exam: PRESENT: moist, neck supple Neck exam: ABSENT: tracheal deviation Respiratory exam: PRESENT: clear to auscultation avel, symmetrical, unlabored Cardiovascular exam: PRESENT: RRR GI/Abdominal exam: PRESENT: normal bowel sounds, soft. ABSENT: tenderness Rectal exam: PRESENT: deferred Results Laboratory Results: 09/27/17 05:30 09/27/17 05:30 09/27/17 09/27/17 09/27/17 05:30 05:30 10:12 WBC 7.0 RBC 2.23 L Hgb 7.1 L Hct 20.7 L MCV 93 MCH 31.9 MCHC 34.4 RDW 13.3 Plt Count 235 Sodium 136.8 L Potassium 4.1 Chloride 98 Carbon Dioxide 33 H Anion Gap 6 BUN 16 Creatinine 1.60 H Est GFR ( Amer) 39 L Est GFR (Non-Af Amer) 33 L Glucose 122 H Calcium 8.5 Blood Type Cancelled Antibody Screen Cancelled 09/27/17 11:50 WBC RBC Hgb Hct MCV MCH MCHC RDW Plt Count Sodium Potassium Chloride Carbon Dioxide Anion Gap BUN Creatinine Est GFR ( Amer) Est GFR (Non-Af Amer) Glucose Calcium Blood Type A POSITIVE Antibody Screen NEGATIVE 09/17/17 09/17/17 09/17/17 06:41 06:41 12:08 Creatine Kinase 63 67 CK-MB (CK-2) 0.80 Troponin I < 0.012 09/17/17 09/17/17 09/17/17 12:08 18:40 18:40 Creatine Kinase 85 CK-MB (CK-2) 0.79 1.14 Troponin I < 0.012 < 0.012 Impressions: Hip/Pelvis X-Ray 09/17/17 01:38 IMPRESSION: Mild symmetrical degenerative narrowing of the hip joints. No other hip pathology. Degenerative changes lower lumbar spine. Chest CT 09/18/17 00:00 IMPRESSION: Bilateral pleural effusions with mild associated atelectasis. No acute pulmonary infiltrate is appreciated. Tubes and catheters as described. KUB X-Ray 09/18/17 00:00 IMPRESSION: Nasogastric tube in the stomach. Cervical Spine CT 09/18/17 08:00 IMPRESSION: Multilevel degenerative disc disease and spondylosis. Head CT 09/18/17 08:00 IMPRESSION: MILD CHRONIC CHANGES OF ATROPHY AND MICROVASCULAR ISCHEMIA. NO ACUTE PROCESS. EVIDENCE OF ACUTE STROKE: No Renal Ultrasound 09/22/17 00:00 IMPRESSION: Distended urinary bladder No gross hydronephrosis Incidental finding of gallstones Chest X-Ray 09/24/17 06:00 IMPRESSION: Improved aeration in the lower lobes. Assessment & Plan - Diagnosis (1) Suicide attempt by beta anton overdose Qualifiers: Encounter type: subsequent encounter Qualified Code(s): T44.7X2D - Poisoning by beta-adrenoreceptor antagonists, intentional self-harm, subsequent encounter Is this a current diagnosis for this admission?: Yes Plan: Continue IVC per Psych. Will start Risperidone for hallucinations. QTc today is normal (2) Acute cystitis Is this a current diagnosis for this admission?: Yes Plan: Day 5 of Keflex. Urine culture grew E. coli which is sensitive. (3) Acute renal injury Is this a current diagnosis for this admission?: Yes Plan: Improving. Continue to monitor. gentle IV fluids (4) Acute respiratory failure Qualifiers: Respiratory failure complication: unspecified whether with hypoxia or hypercapnia Qualified Code(s): J96.00 - Acute respiratory failure, unspecified whether with hypoxia or hypercapnia Is this a current diagnosis for this admission?: Yes Plan: Due to seizures. Resolved (5) Aspiration pneumonia Is this a current diagnosis for this admission?: Yes Plan: Treated. (6) Hypokalemia Is this a current diagnosis for this admission?: Yes Plan: resolved (7) Hypomagnesemia Is this a current diagnosis for this admission?: Yes Plan: resolved. (8) Hyponatremia Is this a current diagnosis for this admission?: Yes Plan: Due to hypervolemia. Resolved. (9) Seizure Is this a current diagnosis for this admission?: Yes Plan: Secondary to severe hyponatremia. Resolved. (10) Benzodiazepine dependence, continuous Is this a current diagnosis for this admission?: Yes (11) Chronic pain Qualifiers: Chronic pain type: other chronic pain Qualified Code(s): G89.29 - Other chronic pain (12) Opiate dependence, continuous Is this a current diagnosis for this admission?: Yes Plan: Oxycodone prn pain. (13) Type 2 diabetes mellitus Qualifiers: Diabetes mellitus intermediate accountant insulin use: unspecified fpc insulin use status Diabetes mellitus complication status: with unspecified complications Qualified Code(s): E11.8 - Type 2 diabetes mellitus with unspecified complications Is this a current diagnosis for this admission?: Yes Plan: On insulin sliding scale. (14) Anemia Qualifiers: Anemia type: iron deficiency Iron deficiency anemia type: chronic blood loss Qualified Code(s): D50.0 - Iron deficiency anemia secondary to blood loss (chronic) Is this a current diagnosis for this admission?: Yes Plan: Monitor hemoglobin. Transfuse one unit PRBC today. Continue iron supplements. - Time Time Spent with patient: 35 or more minutes
[2017-09-27] MEDS: RISPERIDONE 0.25 MG TABLET PO SCH (17:44)
[2017-09-27 20:09] LABS: ABSOLUTE BASOPHILS # (AUTO) 0.1 10^3/uL (0.0-0.2); ABSOLUTE EOSINOPHILS # (AUTO) 0.2 10^3/uL (0.0-0.6); ABSOLUTE LYMPHOCYTES (AUTO) 1.1 10^3/uL (0.5-4.7); ABSOLUTE MONOCYTES (AUTO) 0.7 10^3/uL (0.1-1.4); ABSOLUTE NEUT (AUTO) 7.3 10^3/uL (1.7-8.2); BASOPHILS % (AUTO) 0.7 % (0-2); EOSINOPHILS % (AUTO) 1.7 % (0-6); HEMATOCRIT 26.6 % (36.0-47.0); HEMOGLOBIN 9.1 g/dL (12.0-15.5); LYMPHOCYTES % (AUTO) 12.3 % (13-45); MEAN CORPUSCULAR HGB CONC 34.2 g/dL (32.0-36.0); MEAN CORPUSCULAR VOLUME 91 fl (80-97); MONOCYTES % (AUTO) 7.3 % (3-13); PLATELET COUNT 264 10^3/uL (150-450); RED BLOOD COUNT 2.94 10^6/uL (3.72-5.28); RED CELL DISTRIBUTION WIDTH 14.5 % (11.5-14.0); TOTAL CELLS COUNTED % (AUTO) 100 %; WHITE BLOOD COUNT 9.3 10^3/uL (4.0-10.5)
[2017-09-27] MEDS: SENNOSIDES/DOCUSATE 8.6-50 MG 1 EACH TABLET PO SCH (22:04)
[2017-09-28] MEDS: IPRATROPIUM/ALBUTEROL 0.5-2.5 MG/3 ML AMPUL NEB SCH ×4 (00:05→23:30)
[2017-09-28] MEDS: OXYCODONE-ACETAMINOPHEN 5-325 MG TABLET PO PRN ×3 (03:20→17:29)
[2017-09-28] MEDS: GABAPENTIN 100 MG CAPSULE PO SCH ×3 (05:22→22:16)
[2017-09-28] MEDS: LANSOPRAZOLE 30 MG TAB.RAP.DR PO SCH ×2 (05:34→17:28)
[2017-09-28 06:16] LABS: HEMATOCRIT 25.6 % (36.0-47.0); HEMOGLOBIN 8.7 g/dL (12.0-15.5); MEAN CORPUSCULAR HEMOGLOBIN 30.6 pg (27.0-33.4); MEAN CORPUSCULAR HGB CONC 33.8 g/dL (32.0-36.0); MEAN CORPUSCULAR VOLUME 91 fl (80-97); PLATELET COUNT 279 10^3/uL (150-450); RED BLOOD COUNT 2.83 10^6/uL (3.72-5.28); RED CELL DISTRIBUTION WIDTH 14.6 % (11.5-14.0); WHITE BLOOD COUNT 9.4 10^3/uL (4.0-10.5)
[2017-09-28] MEDS: FERROUS SULFATE 325 MG TABLET PO SCH ×3 (09:28→17:28)
[2017-09-28] MEDS: MAGNESIUM OXIDE 400 MG TABLET PO SCH (09:29)
[2017-09-28] MEDS: SUCRALFATE 1 GM TABLET PO SCH ×4 (09:29→22:19)
[2017-09-28] MEDS: CEPHALEXIN 500 MG CAPSULE PO SCH ×2 (09:30→22:19)
[2017-09-28] MEDS: RISPERIDONE 0.25 MG TABLET PO SCH ×2 (09:30→17:27)
[2017-09-28] MEDS: DOCUSATE SODIUM 100 MG CAPSULE PO SCH ×2 (09:32→17:28)
[2017-09-28] MEDS: AMLODIPINE BESYLATE 10 MG TABLET PO SCH (09:33)
[2017-09-28] MEDS: CARVEDILOL 12.5 MG TABLET PO SCH ×2 (09:33→22:19)
[2017-09-28] MEDS: LACTOBACILLUS ACIDOPHILUS 250 MG TAB PO SCH ×2 (09:33→17:27)
[2017-09-28] MEDS: HYDRALAZINE HCL INJ/PF 20 MG/1 ML SDV IV PRN (09:34)
[2017-09-28] MEDS: INSULIN LISPRO 100 UNIT/ML 3 ML VIAL SUBCUT PRN (12:46)
[2017-09-28] MEDS ORDERED: MAGNESIUM CITRATE 296 ML BOTTLE PO ONE (13:00)
--- NOTE | 2017-09-28 13:29 | PDOC PROGRESS REPORT ---
Subjective Progress Note for:: 09/28/17 Subjective:: The patient is a 61-year-old female with past medical history of Morbid obesity Diabetes Chronic pain Anxiety and depression IBS The patient was admitted on September 17 after being found unresponsive on the floor by her family with an empty bottle of labetalol and a note expressing DNR wishes. The patient was involuntarily committed and was treated with IV fluids glucagon pressors and Narcan for hypotension and bradycardia. She was found to have multiple electrolyte abnormalities including hyponatremia hypokalemia and hypomagnesemia leading to metabolic encephalopathy, These were all treated with subsequent improvement in her metabolic encephalopathy. Hypotension due to beta-anton overdose was treated with IV fluids and pressors. She was evaluated by [facility] for her suicide attempt. Overnight on September 19 the patient developed acute respiratory failure secondary to seizures and was intubated to protect her airway. She was also given hypertonic saline for severe hyponatremia. The patient was also started on antibiotics for aspiration pneumonia suspected due to gram-positive bacteria and cystitis due to gram-negative rods. She underwent endoscopy and colonoscopy on September 23. 5 small ulcers with central necrotic eschar were seen in the proximal stomach. Duodenum was noted to be normal. Colonoscopy revealed external hemorrhoids large and collapsed nonthrombosed. Linear area of patchy colitis early erosive changes but no ulceration was noted by Dr. Rodriguez. Admits to having been depressed at home. Reported that she mistakenly took a few extra blood pressure pills. At the time she had been having thoughts of ending her life due to severe depression. Denies any suicidal ideation or intent at present. Appetite is good. No nausea or abdominal pain. She has been unable to sleep due to door being open constantly 24 hours a day for IVC- sitter and has been having hallucinations. Patient and family declining Celexa since they attribute hallucinations to it. She does not want to take Ativan or Lexapro. Amiodarone stopped after discussing with Dr. Hadley. Coreg dose increased and Amlodipine added for better BP control. She was started on risperidone for her hallucinations yesterday. She has tolerated this well and reports that her hallucinations have resolved. Reason For Visit: BETABLOCKER OD, SUICIDE ATTEMPT, CHRONIC PAIN, Physical Exam Vital Signs: Temp Pulse Resp BP Pulse Ox 98.3 F 69 15 159/76 H 100 09/28/17 12:05 09/28/17 12:05 09/28/17 12:05 09/28/17 12:05 09/28/17 12:05 Intake & Output 09/27/17 09/28/17 09/29/17 06:59 06:59 06:59 Intake Total 3715 1900 354 Output Total 3000 1100 Balance 715 800 354 Weight 90.3 kg 94.4 kg General appearance: PRESENT: no acute distress Head exam: PRESENT: atraumatic, normocephalic Eye exam: PRESENT: PERRLA. ABSENT: scleral icterus Ear exam: PRESENT: normal external ear exam Mouth exam: PRESENT: neck supple Neck exam: ABSENT: tracheal deviation Respiratory exam: PRESENT: clear to auscultation avel, symmetrical, unlabored Cardiovascular exam: PRESENT: RRR GI/Abdominal exam: PRESENT: normal bowel sounds, soft. ABSENT: tenderness Rectal exam: PRESENT: deferred Neurological exam: PRESENT: alert, awake Results Laboratory Results: 09/28/17 05:30 09/27/17 05:30 09/27/17 09/27/17 09/28/17 11:50 19:45 05:30 WBC 9.3 9.4 RBC 2.94 L 2.83 L Hgb 9.1 L 8.7 L Hct 26.6 L 25.6 L MCV 91 91 MCH 31.0 30.6 MCHC 34.2 33.8 RDW 14.5 H 14.6 H Plt Count 264 279 Seg Neutrophils % 78.0 Lymphocytes % 12.3 L Monocytes % 7.3 Eosinophils % 1.7 Basophils % 0.7 Absolute Neutrophils 7.3 Absolute Lymphocytes 1.1 Absolute Monocytes 0.7 Absolute Eosinophils 0.2 Absolute Basophils 0.1 Blood Type A POSITIVE Antibody Screen NEGATIVE 09/17/17 09/17/17 09/17/17 06:41 06:41 12:08 Creatine Kinase 63 67 CK-MB (CK-2) 0.80 Troponin I < 0.012 09/17/17 09/17/17 09/17/17 12:08 18:40 18:40 Creatine Kinase 85 CK-MB (CK-2) 0.79 1.14 Troponin I < 0.012 < 0.012 Impressions: Hip/Pelvis X-Ray 09/17/17 01:38 IMPRESSION: Mild symmetrical degenerative narrowing of the hip joints. No other hip pathology. Degenerative changes lower lumbar spine. Chest CT 09/18/17 00:00 IMPRESSION: Bilateral pleural effusions with mild associated atelectasis. No acute pulmonary infiltrate is appreciated. Tubes and catheters as described. KUB X-Ray 09/18/17 00:00 IMPRESSION: Nasogastric tube in the stomach. Cervical Spine CT 09/18/17 08:00 IMPRESSION: Multilevel degenerative disc disease and spondylosis. Head CT 09/18/17 08:00 IMPRESSION: MILD CHRONIC CHANGES OF ATROPHY AND MICROVASCULAR ISCHEMIA. NO ACUTE PROCESS. EVIDENCE OF ACUTE STROKE: No Renal Ultrasound 09/22/17 00:00 IMPRESSION: Distended urinary bladder No gross hydronephrosis Incidental finding of gallstones Chest X-Ray 09/24/17 06:00 IMPRESSION: Improved aeration in the lower lobes. Assessment & Plan - Diagnosis (1) Suicide attempt by beta anton overdose Qualifiers: Encounter type: subsequent encounter Qualified Code(s): T44.7X2D - Poisoning by beta-adrenoreceptor antagonists, intentional self-harm, subsequent encounter Is this a current diagnosis for this admission?: Yes Plan: Continue IVC per Psych. Will start Risperidone for hallucinations. QTc today is normal (2) Acute cystitis Is this a current diagnosis for this admission?: Yes Plan: Day 5 of Keflex. Urine culture grew E. coli which is sensitive. (3) Acute renal injury Is this a current diagnosis for this admission?: Yes Plan: Improving. Continue to monitor. gentle IV fluids (4) Acute respiratory failure Qualifiers: Respiratory failure complication: unspecified whether with hypoxia or hypercapnia Qualified Code(s): J96.00 - Acute respiratory failure, unspecified whether with hypoxia or hypercapnia Is this a current diagnosis for this admission?: Yes Plan: Due to seizures. Resolved (5) Aspiration pneumonia Is this a current diagnosis for this admission?: Yes Plan: Treated. (6) Hypokalemia Is this a current diagnosis for this admission?: Yes Plan: resolved (7) Hypomagnesemia Is this a current diagnosis for this admission?: Yes Plan: resolved. (8) Hyponatremia Is this a current diagnosis for this admission?: Yes Plan: Due to hypervolemia. Resolved. (9) Seizure Is this a current diagnosis for this admission?: Yes Plan: Secondary to severe hyponatremia. Resolved. (10) Benzodiazepine dependence, continuous Is this a current diagnosis for this admission?: Yes (11) Chronic pain Qualifiers: Chronic pain type: other chronic pain Qualified Code(s): G89.29 - Other chronic pain Is this a current diagnosis for this admission?: Yes (12) Opiate dependence, continuous Is this a current diagnosis for this admission?: Yes Plan: Oxycodone prn pain. (13) Type 2 diabetes mellitus Qualifiers: Diabetes mellitus nursing home insulin use: unspecified nursing home insulin use status Diabetes mellitus complication status: with unspecified complications Qualified Code(s): E11.8 - Type 2 diabetes mellitus with unspecified complications Is this a current diagnosis for this admission?: Yes Plan: On insulin sliding scale. (14) Anemia Qualifiers: Anemia type: iron deficiency Iron deficiency anemia type: chronic blood loss Qualified Code(s): D50.0 - Iron deficiency anemia secondary to blood loss (chronic) Is this a current diagnosis for this admission?: Yes Plan: Monitor hemoglobin. Transfused one unit PRBC on 09/27/17 Continue iron supplements. (15) Depression Is this a current diagnosis for this admission?: Yes Plan: Management per psychiatry service. (16) Hallucination, visual Is this a current diagnosis for this admission?: Yes Plan: Improved with risperidone. - Time Time Spent with patient: 25-34 minutes
--- NOTE | 2017-09-28 20:26 | PDOC PROGRESS REPORT ---
Subjective Progress Note for:: 09/23/17 Subjective:: 24HRS S/P EXTUBATION STABLE Reason For Visit: BETABLOCKER OD, SUICIDE ATTEMPT, CHRONIC PAIN, Physical Exam Vital Signs: Temp Pulse Resp BP Pulse Ox 99.3 F 97 20 161/78 H 97 09/23/17 08:04 09/23/17 08:04 09/23/17 08:04 09/23/17 08:04 09/23/17 08:04 Intake & Output 09/22/17 09/23/17 09/24/17 06:59 06:59 06:59 Intake Total 3073 7164 Output Total 2440 9610 420 Balance 183 -2133 -420 Weight 94 kg 90.3 kg General appearance: PRESENT: no acute distress, cooperative, disheveled, obese Head exam: PRESENT: atraumatic, normocephalic Eye exam: PRESENT: conjunctiva pale, EOMI. ABSENT: nystagmus, periorbital swelling, scleral icterus Mouth exam: PRESENT: moist, neck supple, tongue midline Neck exam: ABSENT: carotid bruit, JVD, lymphadenopathy, thyromegaly, tracheal deviation, tracheostomy Respiratory exam: PRESENT: decreased breath sounds, prolonged expiratory phas, rales, rhonchi, symmetrical, unlabored. ABSENT: retraction, stridor, tachypnea Cardiovascular exam: PRESENT: RRR, +S1, +S2 Pulses: PRESENT: normal radial pulses GI/Abdominal exam: PRESENT: diminished bowel sounds, soft Extremities exam: ABSENT: calf tenderness, clubbing, joint swelling Musculoskeletal exam: ABSENT: deformity, dislocation Neurological exam: PRESENT: alert, awake Psychiatric exam: PRESENT: flat affect Skin exam: PRESENT: dry, warm Results Laboratory Results: 09/23/17 05:53 09/23/17 05:53 09/22/17 09/22/17 09/22/17 10:05 10:05 10:05 WBC 9.3 RBC 2.53 L Hgb 8.0 L Hct 23.3 L MCV 92 MCH 31.7 MCHC 34.5 RDW 13.8 Plt Count 168 Seg Neutrophils % Lymphocytes % Monocytes % Eosinophils % Basophils % Absolute Neutrophils Absolute Lymphocytes Absolute Monocytes Absolute Eosinophils Absolute Basophils Retic Count (auto) 1.50 Absolute Retic 0.038 Sodium 143.0 Potassium 3.5 L Chloride 110 H Carbon Dioxide 27 Anion Gap 6 BUN 10 Creatinine 1.80 H Est GFR ( Amer) 34 L Est GFR (Non-Af Amer) 28 L Glucose 119 H Calcium 8.5 Iron TIBC % Saturation Ferritin Total Bilirubin AST ALT Alkaline Phosphatase Total Protein Albumin Vitamin B12 Folate Urine Color Urine Appearance Urine pH Ur Specific [place] Urine Protein Urine Glucose (UA) Urine Ketones Urine Blood Urine Nitrite Ur Leukocyte Esterase Urine WBC (Auto) Urine RBC (Auto) Blood Type Antibody Screen 09/22/17 09/22/17 09/22/17 10:05 13:50 14:10 WBC RBC Hgb Hct MCV MCH MCHC RDW Plt Count Seg Neutrophils % Lymphocytes % Monocytes % Eosinophils % Basophils % Absolute Neutrophils Absolute Lymphocytes Absolute Monocytes Absolute Eosinophils Absolute Basophils Retic Count (auto) Absolute Retic Sodium Potassium Chloride Carbon Dioxide Anion Gap BUN Creatinine Est GFR ( Amer) Est GFR (Non-Af Amer) Glucose Calcium Iron 26.8 L TIBC 187 L % Saturation 14 Ferritin 263.00 Total Bilirubin AST ALT Alkaline Phosphatase Total Protein Albumin Vitamin B12 898.0 Folate 11.40 Urine Color COLORLESS Urine Appearance CLEAR Urine pH 6.0 Ur Specific [place] 1.004 Urine Protein NEGATIVE Urine Glucose (UA) 50 H Urine Ketones NEGATIVE Urine Blood MODERATE H Urine Nitrite NEGATIVE Ur Leukocyte Esterase TRACE H Urine WBC (Auto) 5 Urine RBC (Auto) 5 Blood Type A POSITIVE Antibody Screen NEGATIVE 09/23/17 09/23/17 05:53 05:53 WBC 9.0 RBC 2.57 L Hgb 8.1 L Hct 23.6 L MCV 92 MCH 31.4 MCHC 34.2 RDW 13.7 Plt Count 192 Seg Neutrophils % 72.6 Lymphocytes % 15.1 Monocytes % 9.6 Eosinophils % 2.0 Basophils % 0.7 Absolute Neutrophils 6.5 Absolute Lymphocytes 1.4 Absolute Monocytes 0.9 Absolute Eosinophils 0.2 Absolute Basophils 0.1 Retic Count (auto) Absolute Retic Sodium 147.5 H Potassium 3.8 Chloride 107 Carbon Dioxide 31 H Anion Gap 10 BUN 8 Creatinine 1.53 H Est GFR ( Amer) 41 L Est GFR (Non-Af Amer) 34 L Glucose 132 H Calcium 9.2 Iron TIBC % Saturation Ferritin Total Bilirubin 0.2 AST 84 H ALT 59 H Alkaline Phosphatase 83 Total Protein 5.3 L Albumin 3.0 L Vitamin B12 Folate Urine Color Urine Appearance Urine pH Ur Specific [place] Urine Protein Urine Glucose (UA) Urine Ketones Urine Blood Urine Nitrite Ur Leukocyte Esterase Urine WBC (Auto) Urine RBC (Auto) Blood Type Antibody Screen 09/17/17 09/17/17 09/17/17 06:41 06:41 12:08 Creatine Kinase 63 67 CK-MB (CK-2) 0.80 Troponin I < 0.012 09/17/17 09/17/17 09/17/17 12:08 18:40 18:40 Creatine Kinase 85 CK-MB (CK-2) 0.79 1.14 Troponin I < 0.012 < 0.012 Impressions: Hip/Pelvis X-Ray 09/17/17 01:38 IMPRESSION: Mild symmetrical degenerative narrowing of the hip joints. No other hip pathology. Degenerative changes lower lumbar spine. Chest CT 09/18/17 00:00 IMPRESSION: Bilateral pleural effusions with mild associated atelectasis. No acute pulmonary infiltrate is appreciated. Tubes and catheters as described. KUB X-Ray 09/18/17 00:00 IMPRESSION: Nasogastric tube in the stomach. Cervical Spine CT 09/18/17 08:00 IMPRESSION: Multilevel degenerative disc disease and spondylosis. Head CT 09/18/17 08:00 IMPRESSION: MILD CHRONIC CHANGES OF ATROPHY AND MICROVASCULAR ISCHEMIA. NO ACUTE PROCESS. EVIDENCE OF ACUTE STROKE: No Renal Ultrasound 09/22/17 00:00 IMPRESSION: Distended urinary bladder No gross hydronephrosis Incidental finding of gallstones Chest X-Ray 09/22/17 06:00 IMPRESSION: 1. Stable appearance of the chest. Assessment & Plan - Diagnosis (1) Suicide attempt by beta anton overdose Qualifiers: Encounter type: subsequent encounter Qualified Code(s): T44.7X2D - Poisoning by beta-adrenoreceptor antagonists, intentional self-harm, subsequent encounter Is this a current diagnosis for this admission?: Yes Plan: vasopressor agents is recommended by poison control (2) Benzodiazepine dependence, continuous Is this a current diagnosis for this admission?: Yes Plan: SUPP BENZODIAZEPAM (3) Hypertension Qualifiers: Hypertension type: unspecified Qualified Code(s): I10 - Essential (primary ) hypertension Is this a current diagnosis for this admission?: Yes (4) Opiate dependence, continuous Is this a current diagnosis for this admission?: Yes (5) Acute respiratory failure Qualifiers: Respiratory failure complication: unspecified whether with hypoxia or hypercapnia Qualified Code(s): J96.00 - Acute respiratory failure, unspecified whether with hypoxia or hypercapnia Is this a current diagnosis for this admission?: No
--- NOTE | 2017-09-28 20:29 | PDOC PROGRESS REPORT ---
Subjective Progress Note for:: 09/24/17 Subjective:: 24HRS S/P EXTUBATION STABLE Reason For Visit: BETABLOCKER OD, SUICIDE ATTEMPT, CHRONIC PAIN, Physical Exam Vital Signs: Temp Pulse Resp BP Pulse Ox 99.3 F 73 18 171/70 H 96 09/26/17 08:20 09/26/17 08:20 09/26/17 08:20 09/26/17 08:20 09/26/17 08:20 Intake & Output 09/25/17 09/26/17 09/27/17 06:59 06:59 06:59 Intake Total 1173 3303 Output Total 1400 1775 Balance -227 1528 Weight 86 kg 89 kg General appearance: PRESENT: no acute distress, cooperative, disheveled, obese Head exam: PRESENT: atraumatic, normocephalic Eye exam: PRESENT: conjunctiva pale, EOMI. ABSENT: nystagmus, periorbital swelling, scleral icterus Mouth exam: PRESENT: dry mucosa, neck supple, tongue midline Neck exam: ABSENT: carotid bruit, JVD, lymphadenopathy, thyromegaly, tracheal deviation, tracheostomy Respiratory exam: PRESENT: decreased breath sounds, prolonged expiratory phas, rhonchi, symmetrical, unlabored. ABSENT: crackles, rales, retraction, stridor, tachypnea Cardiovascular exam: PRESENT: RRR, +S1, +S2 Pulses: PRESENT: normal radial pulses GI/Abdominal exam: PRESENT: diminished bowel sounds, soft Extremities exam: ABSENT: calf tenderness, clubbing, joint swelling Musculoskeletal exam: ABSENT: deformity, dislocation Neurological exam: PRESENT: awake Skin exam: PRESENT: dry, warm Results Laboratory Results: 09/26/17 05:30 09/26/17 05:30 09/26/17 09/26/17 05:30 05:30 WBC 7.7 RBC 2.47 L Hgb 7.8 L Hct 23.0 L MCV 93 MCH 31.6 MCHC 34.0 RDW 13.4 Plt Count 231 Sodium 135.2 L Potassium 4.4 Chloride 96 L Carbon Dioxide 32 H Anion Gap 7 BUN 17 Creatinine 1.58 H Est GFR ( Amer) 40 L Est GFR (Non-Af Amer) 33 L Glucose 116 H Calcium 8.8 Phosphorus 3.6 09/17/17 09/17/17 09/17/17 06:41 06:41 12:08 Creatine Kinase 63 67 CK-MB (CK-2) 0.80 Troponin I < 0.012 09/17/17 09/17/17 09/17/17 12:08 18:40 18:40 Creatine Kinase 85 CK-MB (CK-2) 0.79 1.14 Troponin I < 0.012 < 0.012 Impressions: Hip/Pelvis X-Ray 09/17/17 01:38 IMPRESSION: Mild symmetrical degenerative narrowing of the hip joints. No other hip pathology. Degenerative changes lower lumbar spine. Chest CT 09/18/17 00:00 IMPRESSION: Bilateral pleural effusions with mild associated atelectasis. No acute pulmonary infiltrate is appreciated. Tubes and catheters as described. KUB X-Ray 09/18/17 00:00 IMPRESSION: Nasogastric tube in the stomach. Cervical Spine CT 09/18/17 08:00 IMPRESSION: Multilevel degenerative disc disease and spondylosis. Head CT 09/18/17 08:00 IMPRESSION: MILD CHRONIC CHANGES OF ATROPHY AND MICROVASCULAR ISCHEMIA. NO ACUTE PROCESS. EVIDENCE OF ACUTE STROKE: No Renal Ultrasound 09/22/17 00:00 IMPRESSION: Distended urinary bladder No gross hydronephrosis Incidental finding of gallstones Chest X-Ray 09/24/17 06:00 IMPRESSION: Improved aeration in the lower lobes. Assessment & Plan - Diagnosis (1) Suicide attempt by beta anton overdose Qualifiers: Encounter type: subsequent encounter Qualified Code(s): T44.7X2D - Poisoning by beta-adrenoreceptor antagonists, intentional self-harm, subsequent encounter Is this a current diagnosis for this admission?: Yes Plan: stable (2) Benzodiazepine dependence, continuous Is this a current diagnosis for this admission?: Yes Plan: SUPP BENZODIAZEPAM avoid withdrawal (3) Hypertension Qualifiers: Hypertension type: unspecified Qualified Code(s): I10 - Essential (primary ) hypertension Is this a current diagnosis for this admission?: Yes (4) Opiate dependence, continuous Is this a current diagnosis for this admission?: Yes Plan: low-dose opiates to avoid withdrawal (5) Acute respiratory failure Qualifiers: Respiratory failure complication: unspecified whether with hypoxia or hypercapnia Qualified Code(s): J96.00 - Acute respiratory failure, unspecified whether with hypoxia or hypercapnia Is this a current diagnosis for this admission?: Yes Plan: stable scattered rhonchi
--- NOTE | 2017-09-28 20:31 | PDOC PROGRESS REPORT ---
Subjective Progress Note for:: 09/25/17 Subjective:: STABLE Reason For Visit: BETABLOCKER OD, SUICIDE ATTEMPT, CHRONIC PAIN, Physical Exam Vital Signs: Temp Pulse Resp BP Pulse Ox 99.3 F 73 18 171/70 H 96 09/26/17 08:20 09/26/17 08:20 09/26/17 08:20 09/26/17 08:20 09/26/17 08:20 Intake & Output 09/25/17 09/26/17 09/27/17 06:59 06:59 06:59 Intake Total 1173 3303 Output Total 1400 1775 Balance -227 1528 Weight 86 kg 89 kg General appearance: PRESENT: no acute distress, cooperative, disheveled, obese Head exam: PRESENT: atraumatic, normocephalic Eye exam: PRESENT: conjunctiva pale, EOMI. ABSENT: nystagmus, periorbital swelling, scleral icterus Mouth exam: PRESENT: moist, neck supple, tongue midline Neck exam: ABSENT: carotid bruit, JVD, lymphadenopathy, thyromegaly, tracheal deviation, tracheostomy Respiratory exam: PRESENT: decreased breath sounds, prolonged expiratory phas, rhonchi, symmetrical, unlabored, wheezes. ABSENT: rales, stridor, tachypnea Cardiovascular exam: PRESENT: RRR, +S1, +S2 Pulses: PRESENT: normal radial pulses GI/Abdominal exam: PRESENT: diminished bowel sounds, soft Extremities exam: ABSENT: calf tenderness, clubbing Musculoskeletal exam: ABSENT: deformity, dislocation Neurological exam: PRESENT: awake Skin exam: PRESENT: dry, warm Results Laboratory Results: 09/26/17 05:30 09/26/17 05:30 09/26/17 09/26/17 05:30 05:30 WBC 7.7 RBC 2.47 L Hgb 7.8 L Hct 23.0 L MCV 93 MCH 31.6 MCHC 34.0 RDW 13.4 Plt Count 231 Sodium 135.2 L Potassium 4.4 Chloride 96 L Carbon Dioxide 32 H Anion Gap 7 BUN 17 Creatinine 1.58 H Est GFR ( Amer) 40 L Est GFR (Non-Af Amer) 33 L Glucose 116 H Calcium 8.8 Phosphorus 3.6 09/17/17 09/17/17 09/17/17 06:41 06:41 12:08 Creatine Kinase 63 67 CK-MB (CK-2) 0.80 Troponin I < 0.012 09/17/17 09/17/17 09/17/17 12:08 18:40 18:40 Creatine Kinase 85 CK-MB (CK-2) 0.79 1.14 Troponin I < 0.012 < 0.012 Impressions: Hip/Pelvis X-Ray 09/17/17 01:38 IMPRESSION: Mild symmetrical degenerative narrowing of the hip joints. No other hip pathology. Degenerative changes lower lumbar spine. Chest CT 09/18/17 00:00 IMPRESSION: Bilateral pleural effusions with mild associated atelectasis. No acute pulmonary infiltrate is appreciated. Tubes and catheters as described. KUB X-Ray 09/18/17 00:00 IMPRESSION: Nasogastric tube in the stomach. Cervical Spine CT 09/18/17 08:00 IMPRESSION: Multilevel degenerative disc disease and spondylosis. Head CT 09/18/17 08:00 IMPRESSION: MILD CHRONIC CHANGES OF ATROPHY AND MICROVASCULAR ISCHEMIA. NO ACUTE PROCESS. EVIDENCE OF ACUTE STROKE: No Renal Ultrasound 09/22/17 00:00 IMPRESSION: Distended urinary bladder No gross hydronephrosis Incidental finding of gallstones Chest X-Ray 09/24/17 06:00 IMPRESSION: Improved aeration in the lower lobes. Assessment & Plan - Diagnosis (1) Suicide attempt by beta anton overdose Qualifiers: Encounter type: subsequent encounter Qualified Code(s): T44.7X2D - Poisoning by beta-adrenoreceptor antagonists, intentional self-harm, subsequent encounter Is this a current diagnosis for this admission?: Yes Plan: stable (2) Benzodiazepine dependence, continuous Is this a current diagnosis for this admission?: Yes Plan: SUPP BENZODIAZEPAM avoid withdrawal (3) Hypertension Qualifiers: Hypertension type: unspecified Qualified Code(s): I10 - Essential (primary ) hypertension Is this a current diagnosis for this admission?: Yes (4) Opiate dependence, continuous Is this a current diagnosis for this admission?: Yes (5) Acute respiratory failure Qualifiers: Respiratory failure complication: unspecified whether with hypoxia or hypercapnia Qualified Code(s): J96.00 - Acute respiratory failure, unspecified whether with hypoxia or hypercapnia Is this a current diagnosis for this admission?: Yes
--- NOTE | 2017-09-28 20:33 | PDOC PROGRESS REPORT ---
Subjective Progress Note for:: 09/26/17 Subjective:: STABLE Reason For Visit: BETABLOCKER OD, SUICIDE ATTEMPT, CHRONIC PAIN, Physical Exam Vital Signs: Temp Pulse Resp BP Pulse Ox 98.8 F 60 12 110/56 L 100 09/28/17 15:53 09/28/17 15:53 09/28/17 15:53 09/28/17 15:53 09/28/17 15:53 Intake & Output 09/27/17 09/28/17 09/29/17 06:59 06:59 06:59 Intake Total 3715 1900 542 Output Total 3000 1100 Balance 715 800 542 Weight 90.3 kg 94.4 kg General appearance: PRESENT: no acute distress, cooperative, disheveled, obese Head exam: PRESENT: atraumatic, normocephalic Eye exam: PRESENT: conjunctiva pale, EOMI. ABSENT: nystagmus, periorbital swelling, scleral icterus Mouth exam: PRESENT: dry mucosa, neck supple, tongue midline Neck exam: ABSENT: carotid bruit, JVD, lymphadenopathy, thyromegaly, tracheal deviation, tracheostomy Respiratory exam: PRESENT: decreased breath sounds, prolonged expiratory phas, rhonchi, symmetrical, unlabored, wheezes. ABSENT: rales, retraction, stridor, tachypnea Cardiovascular exam: PRESENT: RRR, +S1, +S2 Pulses: PRESENT: normal radial pulses GI/Abdominal exam: PRESENT: diminished bowel sounds, soft Extremities exam: ABSENT: calf tenderness, clubbing, joint swelling Musculoskeletal exam: ABSENT: deformity, dislocation Neurological exam: PRESENT: awake Skin exam: PRESENT: dry, warm Results Laboratory Results: 09/28/17 05:30 09/27/17 05:30 09/28/17 05:30 WBC 9.4 RBC 2.83 L Hgb 8.7 L Hct 25.6 L MCV 91 MCH 30.6 MCHC 33.8 RDW 14.6 H Plt Count 279 09/17/17 09/17/17 09/17/17 06:41 06:41 12:08 Creatine Kinase 63 67 CK-MB (CK-2) 0.80 Troponin I < 0.012 09/17/17 09/17/17 09/17/17 12:08 18:40 18:40 Creatine Kinase 85 CK-MB (CK-2) 0.79 1.14 Troponin I < 0.012 < 0.012 Impressions: Hip/Pelvis X-Ray 09/17/17 01:38 IMPRESSION: Mild symmetrical degenerative narrowing of the hip joints. No other hip pathology. Degenerative changes lower lumbar spine. Chest CT 09/18/17 00:00 IMPRESSION: Bilateral pleural effusions with mild associated atelectasis. No acute pulmonary infiltrate is appreciated. Tubes and catheters as described. KUB X-Ray 09/18/17 00:00 IMPRESSION: Nasogastric tube in the stomach. Cervical Spine CT 09/18/17 08:00 IMPRESSION: Multilevel degenerative disc disease and spondylosis. Head CT 09/18/17 08:00 IMPRESSION: MILD CHRONIC CHANGES OF ATROPHY AND MICROVASCULAR ISCHEMIA. NO ACUTE PROCESS. EVIDENCE OF ACUTE STROKE: No Renal Ultrasound 09/22/17 00:00 IMPRESSION: Distended urinary bladder No gross hydronephrosis Incidental finding of gallstones Chest X-Ray 09/24/17 06:00 IMPRESSION: Improved aeration in the lower lobes. Assessment & Plan - Diagnosis (1) Suicide attempt by beta anton overdose Qualifiers: Encounter type: subsequent encounter Qualified Code(s): T44.7X2D - Poisoning by beta-adrenoreceptor antagonists, intentional self-harm, subsequent encounter Is this a current diagnosis for this admission?: Yes Plan: stable (2) Benzodiazepine dependence, continuous Is this a current diagnosis for this admission?: Yes Plan: SUPP BENZODIAZEPAM avoid withdrawal (3) Hypertension Qualifiers: Hypertension type: unspecified Qualified Code(s): I10 - Essential (primary ) hypertension Is this a current diagnosis for this admission?: Yes (4) Opiate dependence, continuous Is this a current diagnosis for this admission?: Yes Plan: low-dose opiates to avoid withdrawal (5) Acute respiratory failure Qualifiers: Respiratory failure complication: unspecified whether with hypoxia or hypercapnia Qualified Code(s): J96.00 - Acute respiratory failure, unspecified whether with hypoxia or hypercapnia Is this a current diagnosis for this admission?: Yes Plan: stable scattered rhonchi
--- NOTE | 2017-09-28 20:34 | PDOC PROGRESS REPORT ---
Subjective Progress Note for:: 09/27/17 Subjective:: STABLE Reason For Visit: BETABLOCKER OD, SUICIDE ATTEMPT, CHRONIC PAIN, Physical Exam Vital Signs: Temp Pulse Resp BP Pulse Ox 99.1 F 74 18 172/69 H 99 09/27/17 11:45 09/27/17 11:45 09/27/17 11:45 09/27/17 11:45 09/27/17 11:45 Intake & Output 09/26/17 09/27/17 09/28/17 06:59 06:59 06:59 Intake Total 3303 3715 250 Output Total 1775 3000 700 Balance 1528 715 -450 Weight 89 kg 90.3 kg General appearance: PRESENT: no acute distress, cooperative, disheveled, obese Head exam: PRESENT: atraumatic, normocephalic Eye exam: PRESENT: conjunctiva pale, EOMI. ABSENT: nystagmus, periorbital swelling, scleral icterus Mouth exam: PRESENT: dry mucosa, neck supple, tongue midline Neck exam: ABSENT: carotid bruit, JVD, lymphadenopathy, thyromegaly, tracheal deviation, tracheostomy Respiratory exam: PRESENT: decreased breath sounds, prolonged expiratory phas, rhonchi, symmetrical, unlabored, wheezes. ABSENT: rales, retraction, stridor, tachypnea Cardiovascular exam: PRESENT: RRR, +S1, +S2 Pulses: PRESENT: normal radial pulses GI/Abdominal exam: PRESENT: diminished bowel sounds, soft Extremities exam: ABSENT: calf tenderness, clubbing Musculoskeletal exam: ABSENT: deformity, dislocation Neurological exam: PRESENT: awake Skin exam: PRESENT: dry, warm Results Laboratory Results: 09/27/17 05:30 09/27/17 05:30 09/27/17 09/27/17 09/27/17 05:30 05:30 10:12 WBC 7.0 RBC 2.23 L Hgb 7.1 L Hct 20.7 L MCV 93 MCH 31.9 MCHC 34.4 RDW 13.3 Plt Count 235 Sodium 136.8 L Potassium 4.1 Chloride 98 Carbon Dioxide 33 H Anion Gap 6 BUN 16 Creatinine 1.60 H Est GFR ( Amer) 39 L Est GFR (Non-Af Amer) 33 L Glucose 122 H Calcium 8.5 Blood Type Cancelled Antibody Screen Cancelled 09/27/17 11:50 WBC RBC Hgb Hct MCV MCH MCHC RDW Plt Count Sodium Potassium Chloride Carbon Dioxide Anion Gap BUN Creatinine Est GFR ( Amer) Est GFR (Non-Af Amer) Glucose Calcium Blood Type A POSITIVE Antibody Screen NEGATIVE 09/17/17 09/17/17 09/17/17 06:41 06:41 12:08 Creatine Kinase 63 67 CK-MB (CK-2) 0.80 Troponin I < 0.012 09/17/17 09/17/17 09/17/17 12:08 18:40 18:40 Creatine Kinase 85 CK-MB (CK-2) 0.79 1.14 Troponin I < 0.012 < 0.012 Impressions: Hip/Pelvis X-Ray 09/17/17 01:38 IMPRESSION: Mild symmetrical degenerative narrowing of the hip joints. No other hip pathology. Degenerative changes lower lumbar spine. Chest CT 09/18/17 00:00 IMPRESSION: Bilateral pleural effusions with mild associated atelectasis. No acute pulmonary infiltrate is appreciated. Tubes and catheters as described. KUB X-Ray 09/18/17 00:00 IMPRESSION: Nasogastric tube in the stomach. Cervical Spine CT 09/18/17 08:00 IMPRESSION: Multilevel degenerative disc disease and spondylosis. Head CT 09/18/17 08:00 IMPRESSION: MILD CHRONIC CHANGES OF ATROPHY AND MICROVASCULAR ISCHEMIA. NO ACUTE PROCESS. EVIDENCE OF ACUTE STROKE: No Renal Ultrasound 09/22/17 00:00 IMPRESSION: Distended urinary bladder No gross hydronephrosis Incidental finding of gallstones Chest X-Ray 09/24/17 06:00 IMPRESSION: Improved aeration in the lower lobes. Assessment & Plan - Diagnosis (1) Suicide attempt by beta anton overdose Qualifiers: Encounter type: subsequent encounter Qualified Code(s): T44.7X2D - Poisoning by beta-adrenoreceptor antagonists, intentional self-harm, subsequent encounter Is this a current diagnosis for this admission?: Yes Plan: stable (2) Benzodiazepine dependence, continuous Is this a current diagnosis for this admission?: Yes Plan: SUPP BENZODIAZEPAM avoid withdrawal (3) Hypertension Qualifiers: Hypertension type: unspecified Qualified Code(s): I10 - Essential (primary ) hypertension Is this a current diagnosis for this admission?: Yes (4) Opiate dependence, continuous Is this a current diagnosis for this admission?: Yes Plan: low-dose opiates to avoid withdrawal (5) Acute respiratory failure Qualifiers: Respiratory failure complication: unspecified whether with hypoxia or hypercapnia Qualified Code(s): J96.00 - Acute respiratory failure, unspecified whether with hypoxia or hypercapnia Is this a current diagnosis for this admission?: Yes Plan: stable scattered rhonchi
[2017-09-28] MEDS: SENNOSIDES/DOCUSATE 8.6-50 MG 1 EACH TABLET PO SCH (22:20)
[2017-09-29] MEDS: OXYCODONE-ACETAMINOPHEN 5-325 MG TABLET PO PRN ×3 (00:07→15:42)
[2017-09-29] MEDS: GABAPENTIN 100 MG CAPSULE PO SCH ×3 (05:12→23:03)
[2017-09-29] MEDS: LANSOPRAZOLE 30 MG TAB.RAP.DR PO SCH ×2 (06:03→17:39)
[2017-09-29] MEDS: SUCRALFATE 1 GM TABLET PO SCH ×4 (07:58→21:59)
[2017-09-29] MEDS: FERROUS SULFATE 325 MG TABLET PO SCH ×3 (07:58→17:40)
--- NOTE | 2017-09-29 08:34 | PSYCHOLOGICAL NOTE ---
Psych Note - Psych Note Psych Note: Reason for consult: overdose; alleged suicide attempt Patient is a 61-year-old female. Patient reports that she is "sorry because she realized her sons loves her". Patient reports that she realized her son's care about her because since she has woken up they have been "hugging on her and kissing on her". Patient reports that she is sorry for writing the letter, but still does not remember taking more than 1 pill. Patient reports that she did not go to [place]. Patient reports that she went to [place] for surgery on her neck and that it is hurting but states "it will be okay". Clinician conducted chart review conducted: Patient and family is refusing celexa as they feel this is the cause of the patient's hallucination. Patient is currently under IVC and cannot refuse mental health or medically needed medications; family cannot refuse for the patient. Patient's hallucinations are reported to be resolved since adding Rispirdone. Medication recommendation made by [facility] contracted psychiatric provider Dr. Bernabe MD. includes: 1.Celexa 20 mg daily 2. Rispirdone 0.25mg Q 8am and Q4pm Impression/plan: Recommendation to maintain involuntary commitment due to patient meeting criteria [place] GS 122 C. Behavioral health to reassess at a later time. Consulted with Dr. Mcadams regarding the management and care of patient.
[2017-09-29] MEDS: IPRATROPIUM/ALBUTEROL 0.5-2.5 MG/3 ML AMPUL NEB SCH ×3 (08:55→23:18)
[2017-09-29] MEDS: CEPHALEXIN 500 MG CAPSULE PO SCH (10:47)
[2017-09-29] MEDS: CITALOPRAM HYDROBROMIDE 20 MG TABLET PO SCH (10:48)
[2017-09-29] MEDS: LACTOBACILLUS ACIDOPHILUS 250 MG TAB PO SCH ×2 (10:48→17:39)
[2017-09-29] MEDS: RISPERIDONE 0.25 MG TABLET PO SCH ×2 (10:48→17:39)
[2017-09-29] MEDS: DOCUSATE SODIUM 100 MG CAPSULE PO SCH ×2 (10:49→17:39)
[2017-09-29] MEDS: CARVEDILOL 12.5 MG TABLET PO SCH ×2 (10:49→21:59)
[2017-09-29] MEDS: MAGNESIUM OXIDE 400 MG TABLET PO SCH (10:49)
[2017-09-29] MEDS: AMLODIPINE BESYLATE 10 MG TABLET PO SCH (10:51)
[2017-09-29] MEDS: INSULIN LISPRO 100 UNIT/ML 3 ML VIAL SUBCUT PRN (13:57)
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
--- NOTE | 2017-09-29 14:50 | PDOC PROGRESS REPORT ---
Subjective Progress Note for:: 09/29/17 Subjective:: The patient is a 61-year-old female with past medical history of Morbid obesity Diabetes Chronic pain Anxiety and depression IBS The patient was admitted on September 17 after being found unresponsive on the floor by her family with an empty bottle of labetalol and a note expressing DNR wishes. The patient was involuntarily committed and was treated with IV fluids glucagon pressors and Narcan for hypotension and bradycardia. She was found to have multiple electrolyte abnormalities including hyponatremia hypokalemia and hypomagnesemia leading to metabolic encephalopathy, These were all treated with subsequent improvement in her metabolic encephalopathy. Hypotension due to beta-anton overdose was treated with IV fluids and pressors. [facility]. Overnight on September 19 the patient developed acute respiratory failure secondary to seizures and was intubated to protect her airway. She was also given hypertonic saline for severe hyponatremia. The patient was also started on antibiotics for aspiration pneumonia suspected due to gram-positive bacteria and cystitis due to gram-negative rods. She underwent endoscopy and colonoscopy on September 23. 5 small ulcers with central necrotic eschar were seen in the proximal stomach. Duodenum was noted to be normal. Colonoscopy revealed external hemorrhoids large and collapsed nonthrombosed. Linear area of patchy colitis early erosive changes but no ulceration was noted by Dr. Rodriguez. Admits to having been depressed at home. Reported that she mistakenly took a few extra blood pressure pills. At the time she had been having thoughts of ending her life due to severe depression. Denies any suicidal ideation or intent at present. Appetite is good. No nausea or abdominal pain. She has been unable to sleep due to door being open constantly 24 hours a day for IVC- sitter and has been having hallucinations. Patient and family declining Celexa since they attribute hallucinations to it. She does not want to take Ativan or Lexapro. Amiodarone stopped after discussing with Dr. Hadley. Coreg dose increased and Amlodipine added for better BP control. She was started on risperidone for her hallucinations. She has tolerated this well and reports that her hallucinations have resolved. Continues to refuse to take her Celexa. Psych reevaluation deems her to be a suicide risk still with plans for her IVC to be renewed tomorrow. Reason For Visit: BETABLOCKER OD, SUICIDE ATTEMPT, CHRONIC PAIN, Physical Exam Vital Signs: Temp Pulse Resp BP Pulse Ox 99.3 F 62 15 128/55 H 95 09/29/17 12:39 09/29/17 12:39 09/29/17 12:39 09/29/17 12:39 09/29/17 12:39 Intake & Output 09/28/17 09/29/17 09/30/17 06:59 06:59 06:59 Intake Total 1900 545 355 Output Total 1100 175 Balance 800 370 355 Weight 94.4 kg 93.7 kg General appearance: PRESENT: no acute distress, obese Head exam: PRESENT: atraumatic, normocephalic Eye exam: PRESENT: EOMI. ABSENT: scleral icterus Ear exam: PRESENT: normal external ear exam Mouth exam: PRESENT: moist Neck exam: ABSENT: tracheal deviation Respiratory exam: PRESENT: clear to auscultation avel, symmetrical, unlabored. ABSENT: wheezes Cardiovascular exam: PRESENT: RRR GI/Abdominal exam: PRESENT: normal bowel sounds, soft. ABSENT: tenderness Rectal exam: PRESENT: deferred Neurological exam: PRESENT: alert, awake, oriented to person, oriented to place Results Laboratory Results: 09/28/17 05:30 09/27/17 05:30 09/17/17 09/17/17 09/17/17 06:41 06:41 12:08 Creatine Kinase 63 67 CK-MB (CK-2) 0.80 Troponin I < 0.012 09/17/17 09/17/17 09/17/17 12:08 18:40 18:40 Creatine Kinase 85 CK-MB (CK-2) 0.79 1.14 Troponin I < 0.012 < 0.012 Impressions: Hip/Pelvis X-Ray 09/17/17 01:38 IMPRESSION: Mild symmetrical degenerative narrowing of the hip joints. No other hip pathology. Degenerative changes lower lumbar spine. Chest CT 09/18/17 00:00 IMPRESSION: Bilateral pleural effusions with mild associated atelectasis. No acute pulmonary infiltrate is appreciated. Tubes and catheters as described. KUB X-Ray 09/18/17 00:00 IMPRESSION: Nasogastric tube in the stomach. Cervical Spine CT 09/18/17 08:00 IMPRESSION: Multilevel degenerative disc disease and spondylosis. Head CT 09/18/17 08:00 IMPRESSION: MILD CHRONIC CHANGES OF ATROPHY AND MICROVASCULAR ISCHEMIA. NO ACUTE PROCESS. EVIDENCE OF ACUTE STROKE: No Renal Ultrasound 09/22/17 00:00 IMPRESSION: Distended urinary bladder No gross hydronephrosis Incidental finding of gallstones Chest X-Ray 09/24/17 06:00 IMPRESSION: Improved aeration in the lower lobes. Assessment & Plan - Diagnosis (1) Suicide attempt by beta anton overdose Qualifiers: Encounter type: subsequent encounter Qualified Code(s): T44.7X2D - Poisoning by beta-adrenoreceptor antagonists, intentional self-harm, subsequent encounter Is this a current diagnosis for this admission?: Yes Plan: Continue IVC per Psych. Will start Risperidone for hallucinations. QTc today is normal (2) Acute cystitis Is this a current diagnosis for this admission?: Yes Plan: Completed a course of Keflex Urine culture grew E. coli which is sensitive. (3) Acute renal injury Is this a current diagnosis for this admission?: Yes Plan: Improving. Continue to monitor. gentle IV fluids (4) Acute respiratory failure Qualifiers: Respiratory failure complication: unspecified whether with hypoxia or hypercapnia Qualified Code(s): J96.00 - Acute respiratory failure, unspecified whether with hypoxia or hypercapnia Is this a current diagnosis for this admission?: Yes Plan: Due to seizures. Resolved (5) Aspiration pneumonia Is this a current diagnosis for this admission?: Yes Plan: Treated. (6) Hypokalemia Is this a current diagnosis for this admission?: Yes Plan: resolved (7) Hypomagnesemia Is this a current diagnosis for this admission?: Yes Plan: resolved. (8) Hyponatremia Is this a current diagnosis for this admission?: Yes Plan: Due to hypervolemia. Resolved. (9) Seizure Is this a current diagnosis for this admission?: Yes Plan: Secondary to severe hyponatremia. Resolved. (10) Benzodiazepine dependence, continuous Is this a current diagnosis for this admission?: Yes (11) Chronic pain Qualifiers: Chronic pain type: other chronic pain Qualified Code(s): G89.29 - Other chronic pain Is this a current diagnosis for this admission?: Yes (12) Opiate dependence, continuous Is this a current diagnosis for this admission?: Yes Plan: Oxycodone prn pain. (13) Type 2 diabetes mellitus Qualifiers: Diabetes mellitus intermediate manager insulin use: unspecified intermediate manager insulin use status Diabetes mellitus complication status: with unspecified complications Qualified Code(s): E11.8 - Type 2 diabetes mellitus with unspecified complications Is this a current diagnosis for this admission?: Yes Plan: On insulin sliding scale. (14) Anemia Qualifiers: Anemia type: iron deficiency Iron deficiency anemia type: chronic blood loss Qualified Code(s): D50.0 - Iron deficiency anemia secondary to blood loss (chronic) Is this a current diagnosis for this admission?: Yes Plan: Likely from upper GI bleed due to gastric ulcers. Stable hemoglobin. Transfused one unit PRBC on 09/27/17 Continue iron supplements. (15) Depression Is this a current diagnosis for this admission?: Yes Plan: Management per psychiatry service. (16) Hallucination, visual Is this a current diagnosis for this admission?: Yes Plan: Improved with risperidone. - Time Time Spent with patient: 25-34 minutes
[2017-09-29] MEDS: SENNOSIDES/DOCUSATE 8.6-50 MG 1 EACH TABLET PO SCH (21:59)
[2017-09-30] MEDS: HYDRALAZINE HCL INJ/PF 20 MG/1 ML SDV IV PRN (04:05)
[2017-09-30] MEDS: GABAPENTIN 100 MG CAPSULE PO SCH ×3 (06:22→22:51)
[2017-09-30] MEDS: LANSOPRAZOLE 30 MG TAB.RAP.DR PO SCH ×2 (06:23→16:30)
[2017-09-30] MEDS: IPRATROPIUM/ALBUTEROL 0.5-2.5 MG/3 ML AMPUL NEB SCH ×3 (07:48→23:49)
[2017-09-30] MEDS: SUCRALFATE 1 GM TABLET PO SCH ×4 (08:22→22:48)
[2017-09-30] MEDS: FERROUS SULFATE 325 MG TABLET PO SCH ×3 (08:22→16:30)
[2017-09-30] MEDS: MAGNESIUM OXIDE 400 MG TABLET PO SCH (10:05)
[2017-09-30] MEDS: CARVEDILOL 12.5 MG TABLET PO SCH ×2 (10:06→22:48)
[2017-09-30] MEDS: AMLODIPINE BESYLATE 10 MG TABLET PO SCH (10:06)
[2017-09-30] MEDS: DOCUSATE SODIUM 100 MG CAPSULE PO SCH ×2 (10:06→17:25)
[2017-09-30] MEDS: LACTOBACILLUS ACIDOPHILUS 250 MG TAB PO SCH ×2 (10:06→17:25)
[2017-09-30] MEDS: RISPERIDONE 0.25 MG TABLET PO SCH ×2 (10:07→17:25)
[2017-09-30] MEDS: OXYCODONE-ACETAMINOPHEN 5-325 MG TABLET PO PRN ×2 (11:02→20:04)
[2017-09-30] MEDS: INSULIN LISPRO 100 UNIT/ML 3 ML VIAL SUBCUT PRN ×2 (11:06→16:54)
[2017-09-30] MEDS: CITALOPRAM HYDROBROMIDE 20 MG TABLET PO SCH (11:25)
--- NOTE | 2017-09-30 13:32 | PDOC PROGRESS REPORT ---
Subjective Progress Note for:: 09/30/17 Subjective:: The patient is a 61-year-old female with past medical history of Morbid obesity Diabetes Chronic pain Anxiety and depression IBS The patient was admitted on September 17 after being found unresponsive on the floor by her family with an empty bottle of labetalol and a note expressing DNR wishes. The patient was involuntarily committed and was treated with IV fluids glucagon pressors and Narcan for hypotension and bradycardia. She was found to have multiple electrolyte abnormalities including hyponatremia hypokalemia and hypomagnesemia leading to metabolic encephalopathy, These were all treated with subsequent improvement in her metabolic encephalopathy. Hypotension due to beta-anton overdose was treated with IV fluids and pressors. She was evaluated by [facility] for her suicide attempt. Overnight on September 19 the patient developed acute respiratory failure secondary to seizures and was intubated to protect her airway. She was also given hypertonic saline for severe hyponatremia. The patient was also started on antibiotics for aspiration pneumonia suspected due to gram-positive bacteria and cystitis due to gram-negative rods. She underwent endoscopy and colonoscopy on September 23. 5 small ulcers with central necrotic eschar were seen in the proximal stomach. Duodenum was noted to be normal. Colonoscopy revealed external hemorrhoids large and collapsed nonthrombosed. Linear area of patchy colitis early erosive changes but no ulceration was noted by Dr. Rodriguez. Admits to having been depressed at home. Reported that she mistakenly took a few extra blood pressure pills. At the time she had been having thoughts of ending her life due to severe depression. Denies any suicidal ideation or intent at present. Appetite is good. No nausea or abdominal pain. She has been unable to sleep due to door being open constantly 24 hours a day for IVC- sitter and has been having hallucinations. Patient and family declining Celexa since they attribute hallucinations to it. She does not want to take Ativan or Lexapro. Amiodarone stopped after discussing with Dr. Hadley. Coreg dose increased and Amlodipine added for better BP control. She was started on risperidone for her hallucinations. She has tolerated this well and reports that her hallucinations have resolved. She refuses to take Celexa. Plan management per psych service Reason For Visit: BETABLOCKER OD, SUICIDE ATTEMPT, CHRONIC PAIN, Physical Exam Vital Signs: Temp Pulse Resp BP Pulse Ox 100.2 F 62 16 117/50 L 95 09/30/17 12:47 09/30/17 12:47 09/30/17 12:47 09/30/17 12:47 09/30/17 12:47 Intake & Output 09/29/17 09/30/17 10/01/17 06:59 06:59 06:59 Intake Total 545 721 200 Output Total 175 325 Balance 370 396 200 Weight 93.7 kg 93.2 kg General appearance: PRESENT: no acute distress, obese Eye exam: PRESENT: PERRLA. ABSENT: scleral icterus Ear exam: PRESENT: normal external ear exam Mouth exam: PRESENT: moist, neck supple Neck exam: ABSENT: tracheal deviation Respiratory exam: PRESENT: clear to auscultation avel, symmetrical, unlabored Cardiovascular exam: PRESENT: RRR GI/Abdominal exam: PRESENT: normal bowel sounds, soft. ABSENT: tenderness Rectal exam: PRESENT: deferred Extremities exam: ABSENT: calf tenderness, pedal edema Neurological exam: PRESENT: alert, awake Results Laboratory Results: 09/28/17 05:30 09/27/17 05:30 09/17/17 09/17/17 09/17/17 06:41 06:41 12:08 Creatine Kinase 63 67 CK-MB (CK-2) 0.80 Troponin I < 0.012 09/17/17 09/17/17 09/17/17 12:08 18:40 18:40 Creatine Kinase 85 CK-MB (CK-2) 0.79 1.14 Troponin I < 0.012 < 0.012 Impressions: Hip/Pelvis X-Ray 09/17/17 01:38 IMPRESSION: Mild symmetrical degenerative narrowing of the hip joints. No other hip pathology. Degenerative changes lower lumbar spine. Chest CT 09/18/17 00:00 IMPRESSION: Bilateral pleural effusions with mild associated atelectasis. No acute pulmonary infiltrate is appreciated. Tubes and catheters as described. KUB X-Ray 09/18/17 00:00 IMPRESSION: Nasogastric tube in the stomach. Cervical Spine CT 09/18/17 08:00 IMPRESSION: Multilevel degenerative disc disease and spondylosis. Head CT 09/18/17 08:00 IMPRESSION: MILD CHRONIC CHANGES OF ATROPHY AND MICROVASCULAR ISCHEMIA. NO ACUTE PROCESS. EVIDENCE OF ACUTE STROKE: No Renal Ultrasound 09/22/17 00:00 IMPRESSION: Distended urinary bladder No gross hydronephrosis Incidental finding of gallstones Chest X-Ray 09/24/17 06:00 IMPRESSION: Improved aeration in the lower lobes. Assessment & Plan - Diagnosis (1) Suicide attempt by beta anton overdose Qualifiers: Encounter type: subsequent encounter Qualified Code(s): T44.7X2D - Poisoning by beta-adrenoreceptor antagonists, intentional self-harm, subsequent encounter Is this a current diagnosis for this admission?: Yes Plan: Continue IVC per Psych. Will start Risperidone for hallucinations. QTc today is normal (2) Acute cystitis Is this a current diagnosis for this admission?: Yes Plan: Completed a course of Keflex Urine culture grew E. coli which is sensitive. (3) Acute renal injury Is this a current diagnosis for this admission?: Yes Plan: Improving. Continue to monitor. gentle IV fluids (4) Acute respiratory failure Qualifiers: Respiratory failure complication: unspecified whether with hypoxia or hypercapnia Qualified Code(s): J96.00 - Acute respiratory failure, unspecified whether with hypoxia or hypercapnia Is this a current diagnosis for this admission?: Yes Plan: Due to seizures. Resolved (5) Aspiration pneumonia Is this a current diagnosis for this admission?: Yes Plan: Treated. (6) Hypokalemia Is this a current diagnosis for this admission?: Yes Plan: resolved (7) Hypomagnesemia Is this a current diagnosis for this admission?: Yes Plan: resolved. (8) Hyponatremia Is this a current diagnosis for this admission?: Yes Plan: Due to hypervolemia. Resolved. (9) Seizure Is this a current diagnosis for this admission?: Yes Plan: Secondary to severe hyponatremia. Resolved. (10) Benzodiazepine dependence, continuous Is this a current diagnosis for this admission?: Yes (11) Chronic pain Qualifiers: Chronic pain type: other chronic pain Qualified Code(s): G89.29 - Other chronic pain Is this a current diagnosis for this admission?: Yes (12) Opiate dependence, continuous Is this a current diagnosis for this admission?: Yes Plan: Oxycodone prn pain. (13) Type 2 diabetes mellitus Qualifiers: Diabetes mellitus jail insulin use: unspecified long chain beamer insulin use status Diabetes mellitus complication status: with unspecified complications Qualified Code(s): E11.8 - Type 2 diabetes mellitus with unspecified complications Is this a current diagnosis for this admission?: Yes Plan: On insulin sliding scale. (14) Anemia Qualifiers: Anemia type: iron deficiency Iron deficiency anemia type: chronic blood loss Qualified Code(s): D50.0 - Iron deficiency anemia secondary to blood loss (chronic) Is this a current diagnosis for this admission?: Yes Plan: Likely from upper GI bleed due to gastric ulcers. Stable hemoglobin. Transfused one unit PRBC on 09/27/17 Continue iron supplements. (15) Depression Is this a current diagnosis for this admission?: Yes Plan: Management per psychiatry service. (16) Hallucination, visual Is this a current diagnosis for this admission?: Yes Plan: Improved with risperidone. - Time Time Spent with patient: 25-34 minutes
[2017-09-30] MEDS: SENNOSIDES/DOCUSATE 8.6-50 MG 1 EACH TABLET PO SCH (22:44)
[2017-10-01] MEDS: LANSOPRAZOLE 30 MG TAB.RAP.DR PO SCH ×2 (05:44→18:08)
[2017-10-01] MEDS: OXYCODONE-ACETAMINOPHEN 5-325 MG TABLET PO PRN (05:45)
[2017-10-01] MEDS: GABAPENTIN 100 MG CAPSULE PO SCH ×3 (05:54→22:00)
[2017-10-01] MEDS: SUCRALFATE 1 GM TABLET PO SCH ×4 (08:36→23:12)
[2017-10-01] MEDS: FERROUS SULFATE 325 MG TABLET PO SCH ×3 (08:36→18:09)
[2017-10-01] MEDS: IPRATROPIUM/ALBUTEROL 0.5-2.5 MG/3 ML AMPUL NEB SCH ×2 (08:37→16:40)
[2017-10-01] MEDS: DOCUSATE SODIUM 100 MG CAPSULE PO SCH ×2 (09:29→18:10)
[2017-10-01] MEDS: MAGNESIUM OXIDE 400 MG TABLET PO SCH (09:29)
[2017-10-01] MEDS: CARVEDILOL 12.5 MG TABLET PO SCH ×2 (09:29→23:11)
[2017-10-01] MEDS: AMLODIPINE BESYLATE 10 MG TABLET PO SCH (09:29)
[2017-10-01] MEDS: RISPERIDONE 0.25 MG TABLET PO SCH ×2 (09:30→18:10)
[2017-10-01] MEDS: LACTOBACILLUS ACIDOPHILUS 250 MG TAB PO SCH ×2 (09:30→18:10)
[2017-10-01] MEDS: CITALOPRAM HYDROBROMIDE 20 MG TABLET PO SCH (09:30)
[2017-10-01] MEDS: INSULIN LISPRO 100 UNIT/ML 3 ML VIAL SUBCUT PRN (12:02)
--- NOTE | 2017-10-01 16:59 | PSYCHOLOGICAL NOTE ---
Psych Note - Psych Note Psych Note: For consult: a re-eval due to patient suicide attempt intentional overdose Patient is a 61-year-old female. Patient reports she is feeling better. Patient reports on a scale of 1 through 10, 10 being things are better reports and 8. Patient reports she would like her sons to continue getting along. Patient reports they are on talking terms and she feels better because of it. Patient reports that she needs to go to [place] to see someone for rehab and states that she wants to get her physical health in order. Patient reports she is not taking her mental health meds because they make her feel "numb". Patient reports she believes the Celexa is causing her to "hallucinate and see spiders". Patient reports that she would not attempt taking more medications than prescribed stating she wants to feel better about herself by going out more not staying home. Patient reports she goes to [facility]. Patient reports she wants her son Medhat to take care of her when she goes home. Patient reports she is not going to take her psychiatric meds stating they "caused her to hallucinate". Patient was upset that nurse gave her psychiatric meds; it is documented that patient is under involuntary commitment and cannot refuse medications. Medication recommendation made by [facility] contracted psychiatric provider Dr. Bernabe MD. includes: 1. Continue Celexa 20 mg daily 2. 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 Patient has not had significant amount of treatment for psychiatric needs to include full session therapy and consistent psychiatric medication regimen. Patient has been refusing medication for psych and was given a dose today however was not taking them previously. Patient is still at risk for harm to herself. Mental health to reassess at a later time. Consulted with Dr. Mcadams regarding the management and care of patient.
--- NOTE | 2017-10-01 17:41 | PDOC PROGRESS REPORT ---
Subjective Progress Note for:: 10/01/17 Subjective:: No specific complaints today. Reason For Visit: The patient was admitted on September 17 after being found unresponsive on the floor by her family with an empty bottle of labetalol and a note expressing DNR wishes. The patient was involuntarily committed and was treated with IV fluids, glucagon , pressors and Narcan for hypotension and bradycardia. She was found to have multiple electrolyte abnormalities including hyponatremia , hypokalemia, and hypomagnesemia leading to metabolic encephalopathy. These were all treated with subsequent improvement in her metabolic encephalopathy. Hypotension due to beta-anton overdose was treated with IV fluids and pressors. She was evaluated by [facility] for her suicide attempt. Overnight on September 19 the patient developed acute respiratory failure secondary to seizures and was intubated to protect her airway. She was also given hypertonic saline for severe hyponatremia. The patient was also started on antibiotics for aspiration pneumonia suspected due to gram-positive bacteria and cystitis due to gram-negative rods. Apparently she had dark stool. Given her anemia, and the fact that she would be on anticoagulation for atrial fibrillation a surgery consultation was obtained. She underwent endoscopy and colonoscopy on September 23. 5 small ulcers with central necrotic eschar were seen in the proximal stomach. Duodenum was noted to be normal. Colonoscopy revealed external hemorrhoids large and collapsed nonthrombosed. Linear area of patchy colitis early erosive changes but no ulceration was noted by Dr. Rodriguez. Admits to having been depressed at home. Reported that she mistakenly took a few extra blood pressure pills. At the time she had been having thoughts of ending her life due to severe depression. Denies any suicidal ideation or intent at present. Appetite is good. No nausea or abdominal pain. She has been unable to sleep due to door being open constantly 24 hours a day for IVC- sitter and has been having hallucinations. Patient and family declining Celexa since they attribute hallucinations to it. She does not want to take Ativan or Lexapro. Amiodarone stopped after discussing with Dr. Hadley. Coreg dose increased and Amlodipine added for better BP control. She was started on risperidone for her hallucinations. She has tolerated this well and reports that her hallucinations have resolved. Plan management per psych service Physical Exam Vital Signs: Temp Pulse Resp BP Pulse Ox 98.0 F 68 16 144/66 H 98 10/01/17 15:09 10/01/17 16:40 10/01/17 16:40 10/01/17 15:09 10/01/17 16:40 Intake & Output 09/30/17 10/01/17 10/02/17 06:59 06:59 06:59 Intake Total 721 490 473 Output Total 325 300 Balance 396 190 473 Weight 93.2 kg 93.4 kg General appearance: PRESENT: no acute distress, obese Head exam: PRESENT: atraumatic, normocephalic Eye exam: PRESENT: EOMI, PERRLA Respiratory exam: PRESENT: clear to auscultation avel. ABSENT: rales, rhonchi, wheezes Cardiovascular exam: PRESENT: RRR. ABSENT: diastolic murmur, rubs, systolic murmur GI/Abdominal exam: PRESENT: normal bowel sounds, soft. ABSENT: distended, guarding, mass, organolmegaly, rebound, tenderness Neurological exam: PRESENT: alert, awake, oriented to person, oriented to place , oriented to time, oriented to situation, CN II-XII grossly intact. ABSENT: motor sensory deficit Psychiatric exam: PRESENT: appropriate affect, normal mood. ABSENT: homicidal ideation, suicidal ideation Skin exam: PRESENT: dry, intact, warm. ABSENT: cyanosis, rash Results Laboratory Results: 09/28/17 05:30 09/27/17 05:30 09/17/17 09/17/17 09/17/17 06:41 06:41 12:08 Creatine Kinase 63 67 CK-MB (CK-2) 0.80 Troponin I < 0.012 09/17/17 09/17/17 09/17/17 12:08 18:40 18:40 Creatine Kinase 85 CK-MB (CK-2) 0.79 1.14 Troponin I < 0.012 < 0.012 Impressions: Hip/Pelvis X-Ray 09/17/17 01:38 IMPRESSION: Mild symmetrical degenerative narrowing of the hip joints. No other hip pathology. Degenerative changes lower lumbar spine. Chest CT 09/18/17 00:00 IMPRESSION: Bilateral pleural effusions with mild associated atelectasis. No acute pulmonary infiltrate is appreciated. Tubes and catheters as described. KUB X-Ray 09/18/17 00:00 IMPRESSION: Nasogastric tube in the stomach. Cervical Spine CT 09/18/17 08:00 IMPRESSION: Multilevel degenerative disc disease and spondylosis. Head CT 09/18/17 08:00 IMPRESSION: MILD CHRONIC CHANGES OF ATROPHY AND MICROVASCULAR ISCHEMIA. NO ACUTE PROCESS. EVIDENCE OF ACUTE STROKE: No Renal Ultrasound 09/22/17 00:00 IMPRESSION: Distended urinary bladder No gross hydronephrosis Incidental finding of gallstones Chest X-Ray 09/24/17 06:00 IMPRESSION: Improved aeration in the lower lobes. Assessment & Plan - Diagnosis (1) Atrial fibrillation Qualifiers: Atrial fibrillation type: chronic Qualified Code(s): I48.2 - Chronic atrial fibrillation Is this a current diagnosis for this admission?: Yes Plan: Continue beta-anton. Anticoagulation contraindicated due to her anemia/GI bleed/ulcer. (2) Suicide attempt by beta anton overdose Qualifiers: Encounter type: subsequent encounter Qualified Code(s): T44.7X2D - Poisoning by beta-adrenoreceptor antagonists, intentional self-harm, subsequent encounter Is this a current diagnosis for this admission?: Yes Plan: Awaiting recommendations regarding further inpatient treatment. (3) Hypertension Qualifiers: Hypertension type: unspecified Qualified Code(s): I10 - Essential (primary ) hypertension Is this a current diagnosis for this admission?: Yes Plan: BP okay. - Time Time Spent with patient: 25-34 minutes Anticipated discharge: Other Within: when bed available - Inpatient Certification I certify that my determination is in accordance with my understanding of Medicare's requirements for reasonable and necessary INPATIENT services [42 CFR 412.3e].: Yes Medical Necessity: Need Close Monitoring Due to Risk of Patient Decompensation
[2017-10-01] MEDS: SENNOSIDES/DOCUSATE 8.6-50 MG 1 EACH TABLET PO SCH (23:07)
[2017-10-02] MEDS: IPRATROPIUM/ALBUTEROL 0.5-2.5 MG/3 ML AMPUL NEB SCH ×3 (00:16→16:11)
[2017-10-02] MEDS: GABAPENTIN 100 MG CAPSULE PO SCH (06:30)
[2017-10-02] MEDS: LACTOBACILLUS ACIDOPHILUS 250 MG TAB PO SCH ×2 (08:54→16:54)
[2017-10-02] MEDS: RISPERIDONE 0.25 MG TABLET PO SCH ×2 (08:55→16:55)
[2017-10-02] MEDS: AMLODIPINE BESYLATE 10 MG TABLET PO SCH (08:57)
[2017-10-02] MEDS: FERROUS SULFATE 325 MG TABLET PO SCH ×3 (08:58→16:54)
[2017-10-02] MEDS: SUCRALFATE 1 GM TABLET PO SCH ×4 (08:59→20:33)
[2017-10-02] MEDS: CITALOPRAM HYDROBROMIDE 20 MG TABLET PO SCH (08:59)
[2017-10-02] MEDS: LANSOPRAZOLE 30 MG TAB.RAP.DR PO SCH ×2 (08:59→16:53)
[2017-10-02] MEDS: CARVEDILOL 12.5 MG TABLET PO SCH ×2 (09:00→22:55)
[2017-10-02] MEDS: MAGNESIUM OXIDE 400 MG TABLET PO SCH (09:00)
[2017-10-02] MEDS: DOCUSATE SODIUM 100 MG CAPSULE PO SCH ×2 (09:00→16:53)
--- NOTE | 2017-10-02 09:37 | PDOC PROGRESS REPORT ---
Subjective Progress Note for:: 10/02/17 Subjective:: The patient was admitted on September 17 after being found unresponsive on the floor by her family with an empty bottle of labetalol and a note expressing DNR wishes. The patient was involuntarily committed and was treated with IV fluids, glucagon , pressors and Narcan for hypotension and bradycardia. She was found to have multiple electrolyte abnormalities including hyponatremia , hypokalemia, and hypomagnesemia leading to metabolic encephalopathy. These were all treated with subsequent improvement in her metabolic encephalopathy. Hypotension due to beta-anton overdose was treated with IV fluids and pressors. She was evaluated by [facility] for her suicide attempt. Overnight on September 19 the patient developed acute respiratory failure secondary to seizures and was intubated to protect her airway. She was also given hypertonic saline for severe hyponatremia. The patient was also started on antibiotics for aspiration pneumonia suspected due to gram-positive bacteria and cystitis due to gram-negative rods. Apparently she had dark stool. Given her anemia, and the fact that she would be on anticoagulation for atrial fibrillation a surgery consultation was obtained. She underwent endoscopy and colonoscopy on September 23. 5 small ulcers with central necrotic eschar were seen in the proximal stomach. Duodenum was noted to be normal. Colonoscopy revealed external hemorrhoids large and collapsed nonthrombosed. Linear area of patchy colitis early erosive changes but no ulceration was noted by Dr. Rodriguez. Admits to having been depressed at home. Reported that she mistakenly took a few extra blood pressure pills. At the time she had been having thoughts of ending her life due to severe depression. Denies any suicidal ideation or intent at present. Appetite is good. No nausea or abdominal pain. She has been unable to sleep due to door being open constantly 24 hours a day for IVC- sitter and has been having hallucinations. Patient and family declining Celexa since they attribute hallucinations to it. She does not want to take Ativan or Lexapro. Amiodarone stopped after discussing with Dr. Hadley. Coreg dose increased and Amlodipine added for better BP control. She was started on risperidone for her hallucinations. She has tolerated this well and reports that her hallucinations have resolved. Plan management per psych service 10/01 No specific complaints today. 10/02 Does not want gabapentin, because it "doesn't work" Also, wants Percocet-10 for arthitic pain. Reason For Visit: BETABLOCKER OD, SUICIDE ATTEMPT, CHRONIC PAIN, Physical Exam Vital Signs: Temp Pulse Resp BP Pulse Ox 99.0 F 79 16 182/72 H 95 10/02/17 07:33 10/02/17 08:17 10/02/17 08:17 10/02/17 07:33 10/02/17 08:17 Intake & Output 10/01/17 10/02/17 10/03/17 06:59 06:59 06:59 Intake Total 490 881 Output Total 300 Balance 190 881 Weight 93.4 kg 90.2 kg General appearance: PRESENT: no acute distress, obese Head exam: PRESENT: atraumatic, normocephalic Eye exam: PRESENT: EOMI, PERRLA Respiratory exam: PRESENT: clear to auscultation avel. ABSENT: rales, rhonchi, wheezes Cardiovascular exam: PRESENT: RRR. ABSENT: diastolic murmur, rubs, systolic murmur Musculoskeletal exam: PRESENT: ambulatory Neurological exam: PRESENT: alert, awake, oriented to person, oriented to place , oriented to time, oriented to situation, CN II-XII grossly intact. ABSENT: motor sensory deficit Psychiatric exam: PRESENT: appropriate affect, normal mood. ABSENT: homicidal ideation, suicidal ideation Results Laboratory Results: 09/28/17 05:30 09/27/17 05:30 09/17/17 09/17/17 09/17/17 06:41 06:41 12:08 Creatine Kinase 63 67 CK-MB (CK-2) 0.80 Troponin I < 0.012 09/17/17 09/17/17 09/17/17 12:08 18:40 18:40 Creatine Kinase 85 CK-MB (CK-2) 0.79 1.14 Troponin I < 0.012 < 0.012 Impressions: Hip/Pelvis X-Ray 09/17/17 01:38 IMPRESSION: Mild symmetrical degenerative narrowing of the hip joints. No other hip pathology. Degenerative changes lower lumbar spine. Chest CT 09/18/17 00:00 IMPRESSION: Bilateral pleural effusions with mild associated atelectasis. No acute pulmonary infiltrate is appreciated. Tubes and catheters as described. KUB X-Ray 09/18/17 00:00 IMPRESSION: Nasogastric tube in the stomach. Cervical Spine CT 09/18/17 08:00 IMPRESSION: Multilevel degenerative disc disease and spondylosis. Head CT 09/18/17 08:00 IMPRESSION: MILD CHRONIC CHANGES OF ATROPHY AND MICROVASCULAR ISCHEMIA. NO ACUTE PROCESS. EVIDENCE OF ACUTE STROKE: No Renal Ultrasound 09/22/17 00:00 IMPRESSION: Distended urinary bladder No gross hydronephrosis Incidental finding of gallstones Chest X-Ray 09/24/17 06:00 IMPRESSION: Improved aeration in the lower lobes. Assessment & Plan - Diagnosis (1) Atrial fibrillation Qualifiers: Atrial fibrillation type: chronic Qualified Code(s): I48.2 - Chronic atrial fibrillation Is this a current diagnosis for this admission?: Yes Plan: Continue beta-anton. Rate controlled. Anticoagulation contraindicated due to her anemia/GI bleed/ulcer. (2) Suicide attempt by beta anton overdose Qualifiers: Encounter type: subsequent encounter Qualified Code(s): T44.7X2D - Poisoning by beta-adrenoreceptor antagonists, intentional self-harm, subsequent encounter Is this a current diagnosis for this admission?: Yes Plan: Awaiting recommendations regarding further inpatient treatment. (3) Hypertension Qualifiers: Hypertension type: unspecified Qualified Code(s): I10 - Essential (primary ) hypertension Is this a current diagnosis for this admission?: Yes Plan: BP okay. - Time Time Spent with patient: 15-24 minutes Medications reviewed and adjusted accordingly: Yes Anticipated discharge: Other - Inpatient psych - Inpatient Certification Based on my medical assessment, after consideration of the patient's comorbidities, presenting symptoms, or acuity I expect that the services needed warrant INPATIENT care.: Yes I certify that my determination is in accordance with my understanding of Medicare's requirements for reasonable and necessary INPATIENT services [42 CFR 412.3e].: Yes Medical Necessity: Significant Comorbidiites Make Outpatient Treatment Too Risky
[2017-10-02] MEDS: INSULIN LISPRO 100 UNIT/ML 3 ML VIAL SUBCUT PRN ×2 (12:31→17:05)
[2017-10-02] MEDS: OXYCODONE-ACETAMINOPHEN 5-325 MG TABLET PO PRN ×2 (12:32→20:34)
--- NOTE | 2017-10-02 13:08 | PSYCHOLOGICAL NOTE ---
Psych Note - Psych Note Psych Note: Reason for re-eval: Intentional overdose Patient is a 61-year-old female. Patient reports she felt that she was "upside down yesterday". Patient reports she has been refusing her psychiatric meds because she felt that they gave her side effects. Patient reports "I just want to go home". Patient reports her sons can take care of her at home. Patient reports "she remembers". Patient reports she understands that she needs to take care of her health. She reports she felt "weird" when she was clapping in [place]. Patient reports that in the past she also saw "spiders" when she was on antidepression meds. Patient's son reports they do not want her to go to a psychiatric hospital however his understanding that the depression is to be treated. Patient's boyfriend is present in the room and stated he was concerned about her going to a psychiatric hospital. Patient's reports he knew she was depressed prior to the event of her intentional overdose and stated that he saw signs because she was talking about suicide. Patient's boyfriend reports patient was experiencing health issues. Medication recommendation made by [facility] contracted psychiatric provider Dr. Bernabe MD. includes: 1. Continue Celexa 20 mg daily 2. 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 Patient has not had significant amount of treatment for psychiatric needs to include full session therapy and consistent psychiatric medication regimen. Patient is still refusing medication for psych. Patient is still at risk for harm to herself. Mental health to reassess at a later time. Consulted with Dr. Mcadams regarding the management and care of patient.
[2017-10-02] MEDS: OXYCODONE HCL IR 5 MG TABLET PO PRN (20:34)
[2017-10-02] MEDS: SENNOSIDES/DOCUSATE 8.6-50 MG 1 EACH TABLET PO SCH (20:35)
[2017-10-03] MEDS: IPRATROPIUM/ALBUTEROL 0.5-2.5 MG/3 ML AMPUL NEB SCH ×2 (00:21→08:40)
[2017-10-03] MEDS: OXYCODONE-ACETAMINOPHEN 5-325 MG TABLET PO PRN (03:39)
[2017-10-03] MEDS: OXYCODONE HCL IR 5 MG TABLET PO PRN (03:40)
[2017-10-03] MEDS: LANSOPRAZOLE 30 MG TAB.RAP.DR PO SCH (06:53)
--- NOTE | 2017-10-03 07:17 | PDOC DISCHARGE SUMMARY ---
General - Admit/Disc Date/PCP Admission Date/Primary Care Provider: 09/17/17 04:56 Discharge Date: 10/03/17 - Discharge Diagnosis (1) Atrial fibrillation Is this a current diagnosis for this admission?: Yes (2) Suicide attempt by beta anton overdose Is this a current diagnosis for this admission?: Yes (3) Hypertension Is this a current diagnosis for this admission?: Yes - Additional Information Resuscitation Status: Full Code Discharge Diet: Cardiac Discharge Activity: Activity As Tolerated Prescriptions: Oxycodone HCl/Acetaminophen [Oxycodone-Acetaminophen 10-325] 1 tab PO Q6HP PRN # 10 tablet PRN Reason: For Pain Home Medications: Dicyclomine HCl [Bentyl 20 mg Tablet] 20 mg PO QIDP PRN 09/17/17 Dulaglutide [Trulicity] 0.75 mg SQ Q7D 09/17/17 Acetaminophen [Tylenol 325 mg Tablet] 325 mg PO Q4HP PRN tablet 10/02/17 Amlodipine Besylate [Norvasc 10 mg Tablet] 10 mg PO DAILY tablet 10/02/17 Carvedilol [Coreg 12.5 mg Tablet] 25 mg PO Q12 tablet 10/02/17 Citalopram Hydrobromide [Celexa 20 mg Tablet] 20 mg PO DAILY tablet 10/02/17 Docusate Sodium [Colace 100 mg Capsule] 100 mg PO BID capsule 10/02/17 Ferrous Sulfate [Feosol 325 mg Tablet] 325 mg PO MEALS tablet 10/02/17 Ipratropium/Albuterol Sulfate [Duoneb 3 ml Ampul] 3 ml [facility] [id number] PRN vial.neb 10/02/17 Ipratropium/Albuterol Sulfate [Duoneb 3 ml Ampul] 3 ml [facility] RTQ8 vial.[facility] Lactobacillus Acidophilus [Bacid 250 mg Tablet] 500 mg PO BID tab 10/02/17 Lansoprazole [Prevacid 30 mg Odt Tablet] 30 mg PO BID@0600,1700 tab. 10/16 Oxycodone HCl/Acetaminophen [Oxycodone-Acetaminophen 10-325] 1 tab PO Q6HP PRN # 10 tablet 10/02/17 Risperidone [Risperdal 0.25 mg Tablet] 0.25 mg PO BID tablet 10/02/17 Sennosides/Docusate 8.6-50 mg [Senna Plus Tablet] 2 each PO QHS tablet Sucralfate [Carafate 1 gm Tablet] 1 gm PO ACHS tablet 10/02/17 History of Present Illness History of Present Illness: The patient was admitted on September 17 after being found unresponsive on the floor by her family with an empty bottle of labetalol and a note expressing DNR wishes. Hospital Course Hospital Course: The patient was involuntarily committed and was treated with IV fluids, glucagon , pressors and Narcan for hypotension and bradycardia. She was found to have multiple electrolyte abnormalities including hyponatremia , hypokalemia, and hypomagnesemia leading to metabolic encephalopathy. These were all treated with subsequent improvement in her metabolic encephalopathy. Hypotension due to beta-anton overdose was treated with IV fluids and pressors. She was evaluated by [facility] for her suicide attempt. Overnight on September 19 the patient developed acute respiratory failure secondary to seizures and was intubated to protect her airway. She was also given hypertonic saline for severe hyponatremia. The patient was also started on antibiotics for aspiration pneumonia suspected due to gram-positive bacteria and cystitis due to gram-negative rods. Apparently she had dark stool. Given her anemia, and the fact that she would be on anticoagulation for atrial fibrillation a surgery consultation was obtained. She underwent endoscopy and colonoscopy on September 23. 5 small ulcers with central necrotic eschar were seen in the proximal stomach. Duodenum was noted to be normal. Colonoscopy revealed external hemorrhoids large and collapsed nonthrombosed. Linear area of patchy colitis early erosive changes but no ulceration was noted by Dr. Rodriguez. Admits to having been depressed at home. Reported that she mistakenly took a few extra blood pressure pills. At the time she had been having thoughts of ending her life due to severe depression. Denies any suicidal ideation or intent at present. Appetite is good. No nausea or abdominal pain. She has been unable to sleep due to door being open constantly 24 hours a day for IVC- sitter and has been having hallucinations. Patient and family declining Celexa since they attribute hallucinations to it. She does not want to take Ativan or Lexapro. Amiodarone stopped after discussing with Dr. Hadley. Coreg dose increased and Amlodipine added for better BP control. She was started on risperidone for her hallucinations. She has tolerated this well and reports that her hallucinations have resolved. Physical Exam Vital Signs: Temp Pulse Resp BP Pulse Ox 98.4 F 60 16 104/56 L 98 10/02/17 15:02 10/02/17 15:02 10/02/17 15:02 10/02/17 15:02 10/02/17 15:02 Intake & Output 10/01/17 10/02/17 10/03/17 06:59 06:59 06:59 Intake Total 490 881 355 Output Total 300 Balance 190 881 355 Weight 93.4 kg 90.2 kg General appearance: PRESENT: no acute distress, obese Head exam: PRESENT: atraumatic, normocephalic Eye exam: PRESENT: EOMI, PERRLA Mouth exam: PRESENT: neck supple Respiratory exam: PRESENT: clear to auscultation avel. ABSENT: rales, rhonchi, wheezes Cardiovascular exam: PRESENT: RRR. ABSENT: diastolic murmur, rubs, systolic murmur GI/Abdominal exam: PRESENT: normal bowel sounds, soft. ABSENT: distended, guarding, mass, organolmegaly, rebound, tenderness Extremities exam: PRESENT: full ROM. ABSENT: calf tenderness, clubbing, pedal edema Neurological exam: PRESENT: alert, awake, oriented to person, oriented to place , oriented to time, oriented to situation, CN II-XII grossly intact. ABSENT: motor sensory deficit Psychiatric exam: PRESENT: appropriate affect, normal mood. ABSENT: homicidal ideation, suicidal ideation Skin exam: PRESENT: dry, intact, warm. ABSENT: cyanosis, rash Results Laboratory Results: 09/28/17 05:30 09/27/17 05:30 09/17/17 09/17/17 09/17/17 06:41 06:41 12:08 Creatine Kinase 63 67 CK-MB (CK-2) 0.80 Troponin I < 0.012 09/17/17 09/17/17 09/17/17 12:08 18:40 18:40 Creatine Kinase 85 CK-MB (CK-2) 0.79 1.14 Troponin I < 0.012 < 0.012 Impressions: Hip/Pelvis X-Ray 09/17/17 01:38 IMPRESSION: Mild symmetrical degenerative narrowing of the hip joints. No other hip pathology. Degenerative changes lower lumbar spine. Chest CT 09/18/17 00:00 IMPRESSION: Bilateral pleural effusions with mild associated atelectasis. No acute pulmonary infiltrate is appreciated. Tubes and catheters as described. KUB X-Ray 09/18/17 00:00 IMPRESSION: Nasogastric tube in the stomach. Cervical Spine CT 09/18/17 08:00 IMPRESSION: Multilevel degenerative disc disease and spondylosis. Head CT 09/18/17 08:00 IMPRESSION: MILD CHRONIC CHANGES OF ATROPHY AND MICROVASCULAR ISCHEMIA. NO ACUTE PROCESS. EVIDENCE OF ACUTE STROKE: No Renal Ultrasound 09/22/17 00:00 IMPRESSION: Distended urinary bladder No gross hydronephrosis Incidental finding of gallstones Chest X-Ray 09/24/17 06:00 IMPRESSION: Improved aeration in the lower lobes. Qualifiers - * PATEINT BEING DISCHARGED WITH ANY OF THE FOLLOWING DIAGNOSIS?: No Plan Time Spent: Greater than 30 Minutes - 36 minutes
[2017-10-03 08:35] VITALS: BP 182/66
== END 2017-10-03 09:02 | DRG 917 ==
LOC: ER 00:13 → EH 04:56 → ICU 06:52 → 3S 09-24
PROVIDERS: ADMIT Internal Medicine; ATTEND Internal Medicine
PROC: 02H633Z Insertion of Infusion Device into Right Atrium, Percutaneous Approach (ICD-10-PCS; 2017-09-17)
PROC: 5A1955Z Respiratory Ventilation, Greater than 96 Consecutive Hours (ICD-10-PCS; principal; 2017-09-18)
PROC: 0BH17EZ Insertion of Endotracheal Airway into Trachea, Via Natural or Artificial Opening (ICD-10-PCS; 2017-09-18)
PROC: 0DJ08ZZ Inspection of Upper Intestinal Tract, Via Natural or Artificial Opening Endoscopic (ICD-10-PCS; 2017-09-23)
PROC: 0DBG8ZX Excision of Left Large Intestine, Via Natural or Artificial Opening Endoscopic, Diagnostic (ICD-10-PCS; 2017-09-23)
PROC: 30233N1 Transfusion of Nonautologous Red Blood Cells into Peripheral Vein, Percutaneous Approach (ICD-10-PCS; 2017-09-27)
DX: T44.8X2A Poisoning by centrally-acting and adrenergic-neuron-blocking agents, intentional self-harm, initial encounter (principal); G93.41 Metabolic encephalopathy; J96.00 Acute respiratory failure, unspecified whether with hypoxia or hypercapnia; K25.4 Chronic or unspecified gastric ulcer with hemorrhage; J69.0 Pneumonitis due to inhalation of food and vomit; R57.8 Other shock; F13.20 Sedative, hypnotic or anxiolytic dependence, uncomplicated; E87.1 Hypo-osmolality and hyponatremia; F11.20 Opioid dependence, uncomplicated; N17.9 Acute kidney failure, unspecified; K57.92 Diverticulitis of intestine, part unspecified, without perforation or abscess without bleeding; J44.9 Chronic obstructive pulmonary disease, unspecified; R56.9 Unspecified convulsions; G89.29 Other chronic pain; E66.01 Morbid (severe) obesity due to excess calories; F32.9 Major depressive disorder, single episode, unspecified; D50.0 Iron deficiency anemia secondary to blood loss (chronic); N30.90 Cystitis, unspecified without hematuria; R44.1 Visual hallucinations; K52.9 Noninfective gastroenteritis and colitis, unspecified; I48.2 Chronic atrial fibrillation; E86.1 Hypovolemia; F41.9 Anxiety disorder, unspecified; K58.9 Irritable bowel syndrome, unspecified; G43.909 Migraine, unspecified, not intractable, without status migrainosus; E83.42 Hypomagnesemia; Z66 Do not resuscitate; E87.6 Hypokalemia; I95.2 Hypotension due to drugs; G35 Multiple sclerosis; E11.9 Type 2 diabetes mellitus without complications; B96.20 Unspecified Escherichia coli [E. coli] as the cause of diseases classified elsewhere; Z91.19 Patient's noncompliance with other medical treatment and regimen; K64.4 Residual hemorrhoidal skin tags; M19.90 Unspecified osteoarthritis, unspecified site; I10 Essential (primary) hypertension; M54.2 Cervicalgia; Z79.82 Long term (current) use of aspirin; Z79.899 Other long term (current) drug therapy; Y92.013 Bedroom of single-family (private) house as the place of occurrence of the external cause; Z86.010 Personal history of colon polyps; Z88.8 Allergy status to other drugs, medicaments and biological substances; Z68.34 Body mass index [BMI] 34.0-34.9, adult; Z78.1 Physical restraint status; K44.9 Diaphragmatic hernia without obstruction or gangrene; K20.8 Other esophagitis
CPT/HCPCS: 00813; 31500; 36415; 36430; 43235; 45380; 70450; 71045; 71250; 72125; 74018; 76775; 80048; 80053; 80202; 80307; 81001; 82272; 82550; 82553; 82565; 82607; 82728; 82746; 82803; 82962; 83036; 83540; 83550; 83605; 83690; 83735; 83880; 83930; 84100; 84443; 84466; 84484; 85025; 85027; 85045; 85610; 85730; 86850; 86900; 86901; 86920; 87040; 87070; 87086; 87088; 87186; 87205; 87493; 88305; 93005; 93010; 93306; 94002; 94003; 94660; 94668; 94799; 96361; 96374; 96375; 99291; C1751; G8978-GP; G8979-GP; J0153; J0171; J0282; J0330; J0360; J0610; J1160; J1265; J1610; J1642; J1644; J1815; J1885; J1940; J2060; J2250; J2310; J2405; J2543; J2704; J3010; J3370; J3475; J3480; J3490; J7030; J7050; J7060; J7120; J7620; P9016; S0164

== ENCOUNTER → 2017-12-04 | Outpatient (CLI) | payer MEDICARE, MEDICAID ==
--- NOTE | 2017-12-04 11:11 | RADIOLOGY REPORT (SQ) ---
EXAM DESCRIPTION: CT CERVICAL SPINE WITHOUT COMPLETED DATE/TIME: 12/04/2017 10:55 am REASON FOR STUDY: CERVICALGIA M54.2 CERVICALGIA COMPARISON: 09/18/2017. TECHNIQUE: Axial images acquired through the cervical spine without intravenous contrast. Images re viewed with lung, soft tissue and bone windows. Reconstructed coronal and sagittal MPR images review ed. Images stored on PACS. All CT scanners at this facility use dose modulation, iterative reconstruction, and/or weight based d osing when appropriate to reduce radiation dose to as low as reasonably achievable (ALARA). [facility]: Dose Right [facility]: CareDose [facility]: Dose Right [facility]: Teradose 4D [facility]: Health Elements RADIATION DOSE: CT Rad equipment meets quality standard of care and radiation dose reduction techniq ues were employed. CTDIvol: 22.8 mGy. DLP: 511 mGy-cm. mGy. LIMITATIONS: None. FINDINGS: ALIGNMENT: Anatomic. MINERALIZATION: Normal. VERTEBRAL BODIES: No fractures or dislocation. DISCS: Multilevel disc space narrowing with osteophytes. 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 FACETS, LATERAL MASSES, POSTERIOR ELEMENTS: Facet arthropathy. No fractures. No dislocation. No ac venetie findings. HARDWARE: None in the spine. VISUALIZED RIBS: No fractures. LUNG APICES AND SOFT TISSUES: No significant or acute findings. OTHER: No other significant finding. IMPRESSION: MULTILEVEL CHRONIC DEGENERATIVE CHANGES. 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 NO ACUTE FINDINGS. NO SIGNIFICANT CHANGE. TECHNICAL DOCUMENTATION: JOB ID: [id number] Quality ID # [id number]: Final reports with documentation of one or more dose reduction techniques (e.g., Au tomated exposure control, adjustment of the mA and/or kV according to patient size, use of iterative reconstruction technique) 2010 [employer]- All Rights Reserved Reading location - IP/workstation name: [email or web address]
== END ==
LOC: RAD 10:30
PROVIDERS: ATTEND Internal Medicine Cardiovascular Disease
DX: M54.2 Cervicalgia (principal); I65.23 Occlusion and stenosis of bilateral carotid arteries
CPT/HCPCS: 72125

== ENCOUNTER 2018-02-11 08:26 | Day surgery (SDC) | payer MEDICARE, MEDICAID ==
[~2018-02-11 08:26] MED LIST: BUPIVACAINE HCL 0.75% INJ/PF (7.5 MG/1 ML) 10 ML SDV OS PRN; CHONDR SU A NA/HYALUR INTRAOC KIT (SURGICARE) ONE; EPINEPHRINE INJ/PF 1 MG/1 ML AMPULE ONE; KETOROLAC TROMETHAMINE 0.45% 4 DROP/0.4 ML DROPERETTE OS PRN; LIDOCAINE 1% INJ-PF (10 MG/ML) 30 ML SDV ONE; LIDOCAINE 4% INJ/PF (40 MG/ML) 5 ML AMPUL OS PRN
[2018-02-11] MEDS: TETRACAINE HCL 0.5% OPH SOLN 0.6 ML DROPERETTE OS PRN ×2 (09:09→09:29)
[2018-02-11] MEDS: BESIFLOXACIN HCL 0.6% OPH SUSP 5 ML BOTTLE OS PRN ×3 (09:09→10:01)
[2018-02-11] MEDS: CYCLOPENTOLATE 0.2%/PHENYLEPHRINE 1% OPH SOLN 2 ML OS PRN ×3 (09:09→09:29)
[2018-02-11] MEDS: TROPICAMIDE 1% OPH SOLN 3 ML OS PRN ×3 (09:09→09:29)
[2018-02-11] MEDS ORDERED: MIDAZOLAM 2 MG/2 ML INJ ONE (09:16)
[2018-02-11] MEDS ORDERED: FENTANYL CITRATE INJ/PF 100 MCG/2 ML AMPUL ONE (09:16)
--- NOTE | 2018-02-11 11:21 | [facility] OPERATIVE REPORT E ---
[facility] Operative Report NAME: ROSLYN SEAMAN AGE: 62Y DATE OF SURGERY: 02/11/2018 ROOM: PREOPERATIVE DIAGNOSIS: Cataract, left eye. POSTOPERATIVE DIAGNOSIS: Cataract, left eye. PROCEDURE PERFORMED: Phacoemulsification with posterior chamber intraocular lens, left eye. SURGEON: DAHIANA DODGE M.D. ANESTHESIA: Topical with MAC. INDICATIONS FOR SURGERY: Difficulty driving. Best corrected visual acuity 20/50. PROCEDURE: The patient was brought to the operating room and placed on the operative table. Following tetracaine drops, topical anesthesia was administered. This consisted of instrument wipe pledgets soaked in a solution of 4% Xylocaine mixed with 0.75% Marcaine in a 1:2 ratio. A 2 x 1 cm pledget was placed in the superior fornix. A 1 x 1 cm pledget was placed in the inferior fornix. The eye was patched shut for 5 minutes. The patch was removed. The eye was sterilely prepped and draped in the usual manner. Lid speculum was placed in the eye. The pledgets were removed and 4-0 black silk sutures were placed around the superior and the inferior rectus muscles to be used as traction. A conjunctival peritomy was made at the 10 o'clock position. Hemostasis was obtained with bipolar cautery. A posterior limbal groove was created using a crescent knife and dissected anteriorly towards the cornea. A sharp point blade was used to create a paracentesis site at the 2 o'clock position. A 2.4 mm keratome was used to enter the anterior chamber through the groove. Viscoelastic was injected into the anterior chamber. An anterior capsulotomy was performed using Utrata forceps in a capsulorrhexis fashion. Hydrodissection and hydrodelineation were performed. Phacoemulsification was performed in [id number] technique. Total phaco time was 3.40 CDE. Following this, the I/A unit was used to remove residual cortex. Viscoelastic was injected into the capsular bag. Intraocular lens model ZKB00, 21.5 diopters, serial number [id number], was placed in the capsular bag. The I/A unit was used to remove residual viscoelastic. The wound was seen to be watertight under high and low pressure, and no sutures were placed. The intraocular lens was well centered. The pressure was adjusted in the eye to normal pressure. The 4-0 black silk sutures and lid speculum were removed. The eye was shielded after Besivance drops were placed. The patient tolerated the procedure well and was sent to the recovery room in good condition. DICTATING PHYSICIAN: DAHIANA DODGE M.D. [id number] PHY#: [id number] ID: [id number] JOB#: [id number] ACCT: [id number] cc:DAHIANA DODGE M.D. >
--- NOTE | 2018-02-11 11:26 | [facility] DISCHARGE SUMMARY E ---
[facility] Discharge Summary NAME: ROSLYN SEAMAN AGE: 62Y ADMITTED: 02/11/2018 DISCHARGED: 02/11/2018 FINAL DIAGNOSIS: Cataract, left eye. HOSPITAL COURSE: The patient is a 62-year-old lady who underwent uneventful cataract extraction with intraocular lens implant, left eye, on 02/11/2018. She will be discharged to home. She was instructed to resume preoperative medications; to take Tylenol as needed for discomfort; to keep her eye shielded; to use Durezol, Ketorolac, and Vigamox at 3 p.m. and 8 p.m.; and to follow up in my office in 1 day. DICTATING PHYSICIAN: DAHIANA DODGE M.D. [id number] PHY#: [id number] ID: [id number] JOB#: [id number] ACCT: [id number] cc:DAHIANA DODGE M.D. >
== END 2018-02-11 10:45 | disposition home or self-care (01) ==
LOC: SC 08:26
PROVIDERS: ATTEND Ophthalmology
DX: H25.812 Combined forms of age-related cataract, left eye (principal); E11.3393 Type 2 diabetes mellitus with moderate nonproliferative diabetic retinopathy without macular edema, bilateral; Z96.1 Presence of intraocular lens; I10 Essential (primary) hypertension; D64.9 Anemia, unspecified; I48.91 Unspecified atrial fibrillation; Z86.73 Personal history of transient ischemic attack (TIA), and cerebral infarction without residual deficits; Z88.8 Allergy status to other drugs, medicaments and biological substances; Z79.899 Other long term (current) drug therapy; Z79.84 Long term (current) use of oral hypoglycemic drugs
CPT/HCPCS: 82962; 66984; V2632; J2250; J3490 ×4; A9270; J0171; J3010; 142

== ENCOUNTER → 2018-04-15 | Outpatient (CLI) | payer MEDICARE, MEDICAID ==
--- NOTE | 2018-04-15 16:58 | RADIOLOGY REPORT (SQ) ---
EXAM DESCRIPTION: MRI CERVICAL SPINE WITHOUT COMPLETED DATE/TIME: 04/15/2018 4:46 pm REASON FOR STUDY: M25.512 PAIN IN LEFT SHOULDER M25.511 PAIN IN RIGHT SHOULDER M25.512 PAIN IN LEFT SHOULDER M25.511 PAIN IN RIGHT SHOULDER COMPARISON: CT cervical spine 12/04/2017, 09/18/2017, 06/13/2012 TECHNIQUE: Sagittal and Axial imaging includes T1, T2, STIR and gradient echo sequences. LIMITATIONS: None. FINDINGS: ALIGNMENT: Normal. VERTEBRAE: Intact. BONE MARROW: Fatty vertebral body endplate changes are present from C5 through T2. DISCS: Diffuse decreased T2 weighted intervertebral disc signal with diffuse disc space loss of heigh t HARDWARE: None in the spine. CORD AND BASE OF BRAIN: Cervical spinal cord is normal in size and signal intensity. Lacunar infarct , right evette SOFT TISSUES: Enlarged heterogeneous nodular thyroid gland likely a goiter C1-C2: No significant spinal stenosis. C2-C3: No significant spinal stenosis or exit foraminal stenosis. C3-C4: No significant spinal stenosis or exit foraminal stenosis. C4-C5: Mild diffuse posterior disc bulging is present without significant central or foraminal stenos is C5-C6: Mild diffuse posterior disc bulging is present, partly effacing the ventral thecal sac without cord flattening or abnormal intrinsic cord signal. Mild bilateral neural foraminal narrowing. C6-C7: Minimal posterior disc bulge and bony spurring is present without significant central or roberto carlos inal encroachment. C7-T1: Moderate posterior disc bulging/ central protrusion effaces the ventral thecal sac and abuts t he ventral cord with very mild ventral cord flattening. No abnormal intrinsic cord signal. Borderli ne central canal narrowing. No foraminal stenosis. UPPER THORACIC: Mild posterior disc bulging at T2-3 and T3-4 without definite central or foraminal st enosis OTHER: No other significant finding. IMPRESSION: Degenerative disc changes lower cervical spine as above. No high-grade foraminal stenos is TECHNICAL DOCUMENTATION: JOB ID: [id number] [employer]- All Rights Reserved Reading location - IP/workstation name: [email or web address]
--- NOTE | 2018-04-15 17:03 | RADIOLOGY REPORT (SQ) ---
EXAM DESCRIPTION: MRI LT UPPER JOINT WITHOUT COMPLETED DATE/TIME: 04/15/2018 4:44 pm REASON FOR STUDY: M25.512 PAIN IN LEFT SHOULDER M25.511 PAIN IN RIGHT SHOULDER M25.512 PAIN IN LEFT SHOULDER M25.511 PAIN IN RIGHT SHOULDER COMPARISON: None. TECHNIQUE: Left shoulder images acquired and stored on PACS. Multiplanar imaging to include fat sens itive sequences such as T1, water sensitive sequences such as FST2/STIR, cartilage sensitive sequence s such as FSPD/gradient-echo sequences. LIMITATIONS: None. FINDINGS: BONE MARROW AND CORTEX: No marrow signal abnormalities worrisome for occult fracture. 1 c m subcortical cyst anterior edge left humeral head greater tuberosity. JOINT OR BURSAL EFFUSION: Trace fluid in the left subacromial/subdeltoid bursa. No significant left glenohumeral joint effusion. No loose bodies. GLENO-HUMERAL ARTICULATION: Normal alignment. Moderate chondromalacia. No bulky bony spurring ACROMION AND AC JOINT: Type 2 acromion with bulky acromioclavicular joint hypertrophy and synovial t hickening with mild narrowing of the subacromial space on coronal image 10 and sagittal image 7 ROTATOR CUFF AND INTERVAL: No significant tear or signal alteration. No cuff muscle atrophy. No rotator interval tear. No rotator interval thickening to suggest adhesive capsulitis. LABRUM AND BICEPS LABRAL COMPLEX: Intra-articular long head biceps tendon is thickened and high in signal from tendinopathy. Suspect a small superior labral tear at its attachment without paralabral cyst. REMAINDER OF LABRUM AND IGHL : No gross tear or paralabral cyst formation. Labral evaluation is less than optimal without joint distention. No thickening of IGHL to suggest adhesive capsulitis. PERIARTICULAR AND ADJACENT SOFT TISSUES: No masses or abnormal nodes. OTHER: No other significant finding. IMPRESSION: Acromioclavicular joint hypertrophy with narrowing of the subacromial space an small sub acromial/subdeltoid bursal effusion Intra-articular long head biceps tendinopathy with possible small superior labral tear Moderate glenohumeral joint chondromalacia No rotator cuff tear TECHNICAL DOCUMENTATION: JOB ID: [id number] [employer]- All Rights Reserved Reading location - IP/workstation name: [email or web address] [email or web address]
== END ==
LOC: RAD 16:44
PROVIDERS: ATTEND Internal Medicine
DX: M54.12 Radiculopathy, cervical region (principal); M25.511 Pain in right shoulder; M25.512 Pain in left shoulder; M94.212 Chondromalacia, left shoulder
CPT/HCPCS: 72141

== ENCOUNTER → 2018-04-26 | Outpatient (CLI) | payer MEDICARE, MEDICAID ==
--- NOTE | 2018-04-27 11:53 | RADIOLOGY REPORT (SQ) ---
EXAM DESCRIPTION: MRI RT UPPER JOINT WITHOUT COMPLETED DATE/TIME: 04/26/2018 12:59 pm REASON FOR STUDY: PAIN IN RIGHT SHOULDER M25.511 PAIN IN RIGHT SHOULDER COMPARISON: None. TECHNIQUE: Right shoulder images acquired and stored on PACS. Multiplanar imaging to include fat sen sitive sequences such as T1, water sensitive sequences such as FST2/STIR, cartilage sensitive sequenc es such as FSPD/gradient-echo sequences. LIMITATIONS: Motion. FINDINGS: BONE MARROW AND CORTEX: No worrisome bone lesions or marrow replacement. No occult fractur es. JOINT OR BURSAL EFFUSION: No significant joint or bursal fluid. No suggestion of loose bodies. GLENO-HUMERAL ARTICULATION: Normal articulation. No subluxation. No cystic change. No osteophytes or cartilage loss. ACROMION AND AC JOINT: Type 2 acromion. Mild AC joint arthropathy. ROTATOR CUFF AND INTERVAL: Diffuse tendinosis. Partial-thickness intrasubstance tear infraspinatus. No full-thickness tear. No rotator interval tear. No rotator interval thickening to suggest adhesive capsulitis. LABRUM AND BICEPS LABRAL COMPLEX: Intact. No labral tear. Intra-articular long-head biceps tendon n ormal. Distal biceps in normal location in bicipital groove. REMAINDER OF LABRUM AND IGHL : No gross tear or paralabral cyst formation. Labral evaluation is less than optimal without joint distention. No thickening of IGHL to suggest adhesive capsulitis. PERIARTICULAR AND ADJACENT SOFT TISSUES: No masses or abnormal nodes. OTHER: No other significant finding. IMPRESSION: 1. Cuff tendinosis. Partial-thickness intrasubstance tear infraspinatus. No full-thickness tear. 2. AC joint arthropathy which can contribute to impingement syndrome. TECHNICAL DOCUMENTATION: JOB ID: [id number] [employer]- All Rights Reserved Reading location - IP/workstation name: [email or web address]
== END ==
LOC: RAD 12:09
PROVIDERS: ATTEND Internal Medicine
DX: M54.12 Radiculopathy, cervical region (principal); M25.512 Pain in left shoulder; M25.511 Pain in right shoulder; M75.111 Incomplete rotator cuff tear or rupture of right shoulder, not specified as traumatic

== ENCOUNTER → 2018-08-15 | Outpatient (CLI) | payer MEDICARE, MEDICAID ==
--- NOTE | 2018-08-16 08:02 | RADIOLOGY REPORT (SQ) ---
EXAM DESCRIPTION: MRI HEAD WITHOUT COMPLETED DATE/TIME: 08/15/2018 8:32 pm REASON FOR STUDY: I62.9 NONTRAUMATIC INTRACRANIAL HEMORRHAGE, UNSPECIFIED I62.9 NONTRAUMATIC INTRAC RANIAL HEMORRHAGE, UNSPECIFIED COMPARISON: CT brain 09/18/2017 MRI brain 10/28/2015 TECHNIQUE: Multiplanar imaging includes non-contrasted T1, T2, FLAIR, and diffusion with ADC map seq uences. Images stored on PACS. LIMITATIONS: None. FINDINGS: ANATOMY: No congenital anomalies. Normal vascular flow voids. Pituitary fossa normal. CSF SPACES: Normal in size and contour. No hemorrhage. CEREBRUM: Multiple foci of increased FLAIR/T2 signal are present in the deep periventricular white ma tter, bilateral basal ganglia, right and left thalamus. Most likely represents chronic small vessel ischemic change. Demyelination could also cause appearance. This is similar compared to 2015. No MR evidence of acute large territory ischemic change, acute intracranial hemorrhage, mass effect, or midline shift. POSTERIOR FOSSA: Moderate increased FLAIR/ T2 signal in the mid evette from demyelinating disease or sm all vessel ischemic change. This is similar compared to 10/28/2015. No acute hemorrhage. No edema, m asses or mass effect. Internal auditory canals, cerebello-pontine angles, mastoids normal. DIFFUSION IMAGING: Negative for acute or sub-acute infarction. ORBITS: No masses. Globes post cataract surgery PARANASAL SINUSES: No fluid levels. Mucosa normal. OTHER: No other significant finding. IMPRESSION: Diffuse white matter disease, either chronic small vessel ischemic change or demyelinati ng disease. No acute findings EVIDENCE OF ACUTE STROKE: NO. TECHNICAL DOCUMENTATION: JOB ID: [id number] [employer]- All Rights Reserved Reading location - IP/workstation name: [email or web address]
== END ==
LOC: RAD 18:51
PROVIDERS: ATTEND Internal Medicine
DX: I62.9 Nontraumatic intracranial hemorrhage, unspecified (principal)
CPT/HCPCS: 70551

== ENCOUNTER → 2019-01-21 | Outpatient (CLI) | payer MEDICARE, MEDICAID ==
--- NOTE | 2019-01-21 19:02 | RADIOLOGY REPORT (SQ) ---
EXAM DESCRIPTION: MRA NECK WITHOUT COMPLETED DATE/TIME: 01/21/2019 5:28 pm REASON FOR STUDY: I63.9 CEREBRAL INFARCTION I63.9 CEREBRAL INFARCTION, UNSPECIFIED COMPARISON: 10/28/2015 TECHNIQUE: Axial 2-D volume acquisition imaging through the extracranial carotid and vertebral arter ies with reformatting using 3-D MIPS. LIMITATIONS: None. FINDINGS: RIGHT CAROTID ARTERY: No stenosis or occlusive changes. Limited visualization of the orig in. LEFT CAROTID ARTERY: No stenosis or occlusive changes. Limited visualization of the origin. VERTEBRAL ARTERY: The extracranial portions of the vertebral basilar system are preserved without kanwal nosis. No aneurysmal dilatation or dissection is seen. OTHER: No other significant finding. IMPRESSION: NO SIGNIFICANT STENOSIS. COMMENT: Quality ID #[id number]: Measurements of distal internal carotid diameter were used as the denomin ator for stenosis measurement. TECHNICAL DOCUMENTATION: JOB ID: [id number] [employer]- All Rights Reserved Reading location - IP/workstation name: [email or web address]
--- NOTE | 2019-01-21 19:08 | RADIOLOGY REPORT (SQ) ---
EXAM DESCRIPTION: MRA HEAD WITHOUT COMPLETED DATE/TIME: 01/21/2019 5:28 pm REASON FOR STUDY: I63.9 CEREBRAL INFARCTION I63.9 CEREBRAL INFARCTION, UNSPECIFIED COMPARISON: 08/15/2018 TECHNIQUE: Axial 3-D iqiq-rj-wyyitc acquisition imaging performed through the brain in the area of t he [place] of [place]. Images reformatted using 3-D MIPS. LIMITATIONS: None. FINDINGS: SOURCE IMAGES: No unexpected findings on source images. No large masses. 3-D MIP: Fewer branches of the left middle cerebral artery are seen compared to the right on the refo rmatted images. However, this is not really seen to be the case on the source images. OTHER: No other significant finding. IMPRESSION: Essentially normal study. Reformatted images suggests fewer branches of the left middle cerebral artery, a finding disputed by the source images. TECHNICAL DOCUMENTATION: JOB ID: [id number] [employer]- All Rights Reserved Reading location - IP/workstation name: [email or web address]
== END ==
LOC: RAD 16:30
PROVIDERS: ATTEND Internal Medicine
DX: I63.9 Cerebral infarction, unspecified (principal)
CPT/HCPCS: 70544; 70547

== ENCOUNTER → 2019-03-21 | Outpatient (CLI) | payer MEDICARE, MEDICAID ==
--- NOTE | 2019-03-21 12:49 | RADIOLOGY REPORT (SQ) ---
EXAM DESCRIPTION: HIPS BILATERAL COMPLETED DATE/TIME: 03/21/2019 12:12 pm REASON FOR STUDY: POLYARTHRITIS, UNSPECIFIED M13.0 POLYARTHRITIS, UNSPECIFIED COMPARISON: None. NUMBER OF VIEWS: 3 views TECHNIQUE: AP pelvis and additional frog-leg view of both hips. LIMITATIONS: None. FINDINGS: There is degenerative sclerosis of the SI joints noted. No acute fracture or bony abnorma lity seen. Vascular calcification abdominal aorta iliac and femoral vessels. IMPRESSION: Degenerative changes of the SI joints. Otherwise, normal pelvis and bilateral hips. TECHNICAL DOCUMENTATION: JOB ID: [id number] [id number] 2010 [employer]- All Rights Reserved Reading location - IP/workstation name: [email or web address]
--- NOTE | 2019-03-21 12:52 | RADIOLOGY REPORT (SQ) ---
EXAM DESCRIPTION: SHOULDER BILAT 2 OR MORE VIEWS COMPLETED DATE/TIME: 03/21/2019 12:12 pm REASON FOR STUDY: POLYARTHRITIS, UNSPECIFIED M13.0 POLYARTHRITIS, UNSPECIFIED COMPARISON: None. NUMBER OF VIEWS: Three views. TECHNIQUE: Internal rotation, external rotation, and Y view images acquired of both shoulder. LIMITATIONS: None. FINDINGS: MINERALIZATION: Normal. BONES: Minimal AC arthrosis at both AC joints. Otherwise no acute fracture or bony abnormality seen. JOINTS: No dislocation. VISUALIZED LUNGS AND RIBS: No pneumothorax. No rib fracture. SOFT TISSUES: No radiopaque foreign body. OTHER: No other significant finding. IMPRESSION: Right and left AC arthrosis. Otherwise, normal bilateral shoulders. TECHNICAL DOCUMENTATION: JOB ID: [id number] [id number] 2010 [employer]- All Rights Reserved Reading location - IP/workstation name: [email or web address]
--- NOTE | 2019-03-21 13:04 | RADIOLOGY REPORT (SQ) ---
EXAM DESCRIPTION: SACROILIAC JOINTS COMPLETED DATE/TIME: 03/21/2019 12:12 pm REASON FOR STUDY: POLYARTHRITIS, UNSPECIFIED M13.0 POLYARTHRITIS, UNSPECIFIED COMPARISON: None. NUMBER OF VIEWS: Three views. TECHNIQUE: AP and oblique views of the sacroiliac joints. LIMITATIONS: None. FINDINGS: MINERALIZATION: Normal. BONES: There is degenerative sclerosis of the SI joints right greater than left. SOFT TISSUES: No soft tissue swelling. No radio-opaque foreign body. OTHER: Vascular calcification of iliac and femoral vessels. IMPRESSION: Degenerative arthritis of the SI joints. TECHNICAL DOCUMENTATION: JOB ID: [id number] SC-[id number] 2010 [employer]- All Rights Reserved Reading location - IP/workstation name: [email or web address]
--- NOTE | 2019-03-21 13:06 | RADIOLOGY REPORT (SQ) ---
EXAM DESCRIPTION: SACRUM AND COCCYX COMPLETED DATE/TIME: 03/21/2019 12:12 pm REASON FOR STUDY: POLYARTHRITIS, UNSPECIFIED M13.0 POLYARTHRITIS, UNSPECIFIED COMPARISON: None. NUMBER OF VIEWS: Three views. TECHNIQUE: AP, lateral, and tilt views of the sacrum and coccyx. LIMITATIONS: None. FINDINGS: MINERALIZATION: Normal. BONES: Degenerative sclerosis of the SI joints, right greater than left. Lumbar spondylosis. SOFT TISSUES: No soft tissue swelling. No foreign body. OTHER: No other significant finding. IMPRESSION: Degenerative arthritis the SI joints. TECHNICAL DOCUMENTATION: JOB ID: [id number] SC-[id number] 2010 [employer]- All Rights Reserved Reading location - IP/workstation name: [email or web address]
== END ==
LOC: OD 11:25
PROVIDERS: ATTEND Internal Medicine
DX: M13.0 Polyarthritis, unspecified (principal)
CPT/HCPCS: 72200; 72220; 73522

== ENCOUNTER → 2019-06-09 | Outpatient (CLI) | payer MEDICARE, MEDICAID ==
--- NOTE | 2019-06-09 15:02 | RADIOLOGY REPORT (SQ) ---
EXAM DESCRIPTION: U/S ABDOMEN COMPLETE W/O DOP COMPLETED DATE/TIME: 06/09/2019 10:06 am REASON FOR STUDY: LUQ PAIN (R10.12), NAUSEA (R11.0) R11.0 NAUSEA R10.12 LEFT UPPER QUADRANT PAIN COMPARISON: None. TECHNIQUE: Dynamic and static grayscale images acquired of the abdomen and recorded on PACS. Additio nal selected color Doppler and spectral images recorded. Note: Study does not meet criteria for complete doppler/duplex scan LIMITATIONS: None. FINDINGS: PANCREAS: No masses. Visualized pancreatic duct normal caliber. LIVER: No masses. Echotexture normal. LIVER VASCULATURE: Normal directional flow of the main portal vein and hepatic veins. GALLBLADDER: No stones. Normal wall thickness. No pericholecystic fluid. ULTRASOUND-DETECTED GRIFFIN'S SIGN: Negative. INTRAHEPATIC DUCTS AND COMMON DUCT: CBD and intrahepatic ducts normal caliber. No filling defects. INFERIOR VENA CAVA: Normal flow. AORTA: No aneurysm. RIGHT KIDNEY:Normal size. Normal echogenicity. No solid or suspicious masses. No hydronephrosis. No c alcifications. LEFT KIDNEY: Normal size. Normal echogenicity. No solid or suspicious masses. No hydronephrosis. No calcifications. SPLEEN: Normal size. No solid masses. PERITONEAL AND PLEURAL SPACES: No ascites or effusions. OTHER: No other significant finding. IMPRESSION: NORMAL ABDOMINAL ULTRASOUND. TECHNICAL DOCUMENTATION: JOB ID: [id number] [employer]- All Rights Reserved Reading location - IP/workstation name: [email or web address]
== END ==
LOC: RAD 09:01
PROVIDERS: ATTEND Internal Medicine Gastroenterology
DX: R10.12 Left upper quadrant pain (principal); R11.0 Nausea
CPT/HCPCS: 76700

== ENCOUNTER → 2020-03-18 | Outpatient (CLI) | payer MEDICARE, MEDICAID ==
--- NOTE | 2020-03-18 17:33 | RADIOLOGY REPORT (SQ) ---
EXAM DESCRIPTION: CT HEAD WITHOUT IMAGES COMPLETED DATE/TIME: 03/18/2020 4:35 pm REASON FOR STUDY: R51 HEADACHE R51 HEADACHE COMPARISON: MR 01/21/2019 MR 08/15/2018 CT 09/18/2017 TECHNIQUE: Axial images acquired through the brain without intravenous contrast. Images reviewed wi th bone, brain and subdural windows. Additional sagittal and coronal reconstructions were generated. Images stored on PACS. All CT scanners at this facility use dose modulation, iterative reconstruction, and/or weight based d osing when appropriate to reduce radiation dose to as low as reasonably achievable (ALARA). [facility]: Dose Right [facility]: CareDose [facility]: Dose Right [facility]: Teradose 4D [facility]: Smart Mag[employer] RADIATION DOSE: CT Rad equipment meets quality standard of care and radiation dose reduction techniq ues were employed. CTDIvol: 48.5 mGy. DLP: 927 mGy-cm. mGy. LIMITATIONS: None. FINDINGS: VENTRICLES: Normal size and contour. CEREBRUM: No masses. No hemorrhage. No midline shift. No evidence for acute infarction. Areas of l ow density in the white matter most likely chronic small vessel ischemic changes. CEREBELLUM: No masses. No hemorrhage. No alteration of density. No evidence for acute infarction. EXTRAAXIAL SPACES: No fluid collections. No masses. ORBITS AND GLOBE: No intra- or extraconal masses. Normal contour of globe without masses. CALVARIUM: No fracture. PARANASAL SINUSES: No fluid or mucosal thickening. SOFT TISSUES: No mass or hematoma. OTHER: No other significant finding. IMPRESSION: Chronic microvascular ischemia with no acute intracranial imaging findings. EVIDENCE OF ACUTE STROKE: NO. COMMENT: Quality ID # [id number]: Final reports with documentation of one or more dose reduction techniques (e.g., Automated exposure control, adjustment of the mA and/or kV according to patient size, use of iterative reconstruction technique) TECHNICAL DOCUMENTATION: JOB ID: [id number] 2010 [employer]- All Rights Reserved Reading location - IP/workstation name: [email or web address]
== END ==
LOC: RAD 14:59
PROVIDERS: ATTEND Internal Medicine
DX: R51 Headache (principal); I67.82 Cerebral ischemia
CPT/HCPCS: 70450

== ENCOUNTER → 2020-04-07 | Outpatient (CLI) | payer MEDICARE, MEDICAID ==
[2020-04-08 07:38] LABS: HEPATITIS C VIRUS AB <0.1 s/co ratio (0.0-0.9)
[2020-04-08 08:27] LABS: HEPATITS B SURFACE ANTIGEN Negative (Negative)
== END ==
LOC: OD 12:10
PROVIDERS: ATTEND Obstetrics & Gynecology
DX: Z11.3 Encounter for screening for infections with a predominantly sexual mode of transmission (principal); Z11.59 Encounter for screening for other viral diseases; Z11.4 Encounter for screening for human immunodeficiency virus [HIV]
CPT/HCPCS: 36415; 86592; 86695; 86696; 86701; 86803; 86804; 87340

== ENCOUNTER → 2020-04-22 | Outpatient (CLI) | payer MEDICARE, MEDICAID ==
--- NOTE | 2020-04-22 17:45 | RADIOLOGY REPORT (SQ) ---
EXAM DESCRIPTION: MRI RT LOWER JOINT WITHOUT IMAGES COMPLETED DATE/TIME: 04/22/2020 5:30 pm REASON FOR STUDY: M25.551 PAIN IN RIGHT HIP M25.551 PAIN IN RIGHT HIP COMPARISON: None. TECHNIQUE: Righthip images acquired and stored on PACS. Multiplanar images to include fat sensitive sequences as T1, fluid sensitive sequences as T2/STIR and gradient echo sequences. Large FOV fat and fluid sensitive sequences include pelvis and opposite hip. LIMITATIONS: None. FINDINGS: BONE CORTEX AND MARROW: No generalized marrow replacement. No occult fracture. No worriso me bone lesions. TARGETED HIP: FEMORAL HEAD: No occult fracture. No osteophytes or subchondral cysts. Normal sphericity of femoral h ead/neck junction. No acetabular dysplasia. No evidence femoroacetabular impingement. No significant effusion. ACETABULUM: No acetabular dysplasia. No subchondral cysts. LABRUM: No loss of cartilage or delamination. Labrum is intact. No paralabral cysts. TROCHANTER: No trochanteric bursal effusion. No edema/fluid at the insertions of the gluteus medius and gluteus minimus. OPPOSITE HIP: Limited evaluation. No worrisome bone lesions. No significant effusion. PELVIS, LOWER LUMBAR SPINE, SACROILIAC JOINTS: PELVIS : No insufficiency/stress fractures. No significant degenerative changes. Sacroiliac joints normal. L SPINE: No significant osteophytes or degenerative changes of the visualized lumbar spine. MUSCLES AND SOFT TISSUES: Adductors and piriformis normal. Abductors and greater trochanteric bursa n ormal without edema or fluid. Iliopsoas bursa without fluid. Hamstring attachments without edema or t ear. PELVIC SOFT TISSUES: No masses or adenopathy. SCIATIC NERVE: Identified, without masses or abnormal signal. OTHER: No other significant finding. IMPRESSION: NO SIGNIFICANT FINDING IN THE HIP. TECHNICAL DOCUMENTATION: JOB ID: [id number] 2010 [employer]- All Rights Reserved Reading location - IP/workstation name: [email or web address]
== END ==
LOC: RAD 16:00
PROVIDERS: ATTEND Internal Medicine
DX: M25.551 Pain in right hip (principal)

== ENCOUNTER 2020-07-16 10:27 | Observation (INO) | payer MEDICARE, MEDICAID ==
--- NOTE | 2020-07-16 11:01 | ER Document Report ---
ED Medical Screen (RME) - General Chief Complaint: Foot Pain Stated Complaint: FOOT PAIN Time Seen by Provider: 07/16/20 10:53 Primary Care Provider: NICOLÁS KOCH MD [Primary Care Provider] - Follow up as needed Notes: HPI: 64-year-old female who is a poor historian brought for evaluation of altered mentation over the last 3 days. Additional history provided by the son. Patient has been mumbling, not acting normally per the family member. Patient states she has had a headache for 2 days. Patient also states that she has been taking medications provided to her by a friend but does not know what the me dications were. Patient is somewhat rambling in her history and is declining to answer questions. Son indicates that patient had told him that she was having tingling in both hands and both feet. He reports a history of diabetes, hypertension and multiple strokes PHYSICAL EXAMINATION: Patient is somewhat resistant to answering questions. Patient is moving all extremities but is mumbling her words and is not staying on topic of the questions being asked. Lung sounds are clear to auscultation. Regular rate and rhythm I have greeted and performed a rapid initial assessment of this patient. A comprehensive ED assessment and evaluation of the patient, analysis of test results and completion of medical decision making process will be conducted by an additional ED providers. Please note that clinical decision making for this patient was made during the 2019 pandemic of novel coronavirus which caused a significant strain on the healthcare system including at this particular [facility] y. Criteria for admission discharge and level of care decisions as well as treatment decisions have necessarily changed TRAVEL OUTSIDE OF THE [place] IN LAST 30 DAYS: No - Related Data Allergies/Adverse Reactions: lisinopril Allergy (Verified 07/16/20 10:46) Past Medical History - Past Medical History Cardiac Medical History: Reports: Hx Hypertension Denies: Hx Heart Attack Pulmonary Medical History: Reports: Hx COPD Denies: Hx Asthma Neurological Medical History: Reports: Hx Migraine, Hx Seizures - 08/2017 D/T REACTION FROM [facility] MEDICATION. Denies: Hx Cerebrovascular Accident Endocrine Medical History: Reports: Hx Diabetes Mellitus Type 2 Renal/ Medical History: Denies: Hx Peritoneal Dialysis GI Medical History: Reports: Hx Ulcer. Denies: Hx Hepatitis, Hx Hiatal Hernia Musculoskeltal Medical History: Reports Hx Arthritis - osteoarthritis, Reports Hx Multiple Sclerosis Psychiatric Medical History: Reports: Hx Anxiety, Hx Depression Infectious Medical History: Denies: Hx Hepatitis Past Surgical History: Reports: Hx Carotid Endarterectomy, Hx Section - 3, Hx Orthopedic Surgery - right foot. Denies: Hx Mastectomy, Hx Open Heart Surgery, Hx Pacemaker - Immunizations Immunizations up to date: Yes Hx Diphtheria, Pertussis, Tetanus Vaccination: Yes Doctor's Discharge - Discharge Referrals: NICOLÁS KOCH MD [Primary Care Provider] - Follow up as needed
--- NOTE | 2020-07-16 11:39 | EKG REPORT ---
SEVERITY:- BORDERLINE ECG - SINUS RHYTHM BORDERLINE PROLONGED QT INTERVAL : Confirmed by: Vivian Nuñez MD 16-Jul-2020 11:38:41
[2020-07-16 11:58] LABS: INTERNATIONAL RATION (INR) 1.02; PROTHROMBIN TIME 13.6 SEC (11.4-15.4)
[2020-07-16 12:02] LABS: ABSOLUTE EOSINOPHILS # (AUTO) 0.1 10^3/uL (0.0-0.6); ABSOLUTE LYMPHOCYTES (AUTO) 1.4 10^3/uL (0.5-4.7); ABSOLUTE MONOCYTES (AUTO) 0.4 10^3/uL (0.1-1.4); TOTAL CELLS COUNTED % (AUTO) 100 %
--- NOTE | 2020-07-16 12:06 | RADIOLOGY REPORT (SQ) ---
EXAM DESCRIPTION: CHEST 2 VIEWS IMAGES COMPLETED DATE/TIME: 07/16/2020 11:37 am REASON FOR STUDY: AMS COMPARISON: Chest films 07/25/2017, 12/28/2016 EXAM PARAMETERS: NUMBER OF VIEWS: two views TECHNIQUE: Digital Frontal and Lateral radiographic views of the chest acquired. RADIATION DOSE: NA LIMITATIONS: none FINDINGS: LUNGS AND PLEURA: No opacities, masses or pneumothorax. No pleural effusion. MEDIASTINUM AND HILAR STRUCTURES: No masses or contour abnormalities. HEART AND VASCULAR STRUCTURES: Heart normal size. No evidence for failure. BONES: No acute findings. HARDWARE: None in the chest. OTHER: No other significant finding. IMPRESSION: NO ACUTE RADIOGRAPHIC FINDING IN THE CHEST. TECHNICAL DOCUMENTATION: JOB ID: [id number] 2010 [employer]- All Rights Reserved Reading location - IP/workstation name: [email or web address]
[2020-07-16 12:10] LABS: ABSOLUTE NEUT (AUTO) 3.5 10^3/uL (1.7-8.2); BASOPHILS % (AUTO) 0.8 % (0-2); EOSINOPHILS % (AUTO) 2.3 % (0-6); HEMATOCRIT 34.6 % (36.0-47.0); HEMOGLOBIN 11.9 g/dL (12.0-15.5); LYMPHOCYTES % (AUTO) 25.8 % (13-45); MEAN CORPUSCULAR HEMOGLOBIN 31.1 pg (27.0-33.4); MEAN CORPUSCULAR HGB CONC 34.3 g/dL (32.0-36.0); MEAN CORPUSCULAR VOLUME 90 fl (80-97); MONOCYTES % (AUTO) 7.6 % (3-13); PLATELET COUNT 222 10^3/uL (150-450); RED BLOOD COUNT 3.82 10^6/uL (3.72-5.28); RED CELL DISTRIBUTION WIDTH 12.8 % (11.5-14.0); SEGMENTED NEUTROPHILS % (AUTO) 63.5 % (42-78); WHITE BLOOD COUNT 5.6 10^3/uL (4.0-10.5)
--- NOTE | 2020-07-16 12:10 | RADIOLOGY REPORT (SQ) ---
EXAM DESCRIPTION: CT HEAD WITHOUT IMAGES COMPLETED DATE/TIME: 07/16/2020 11:55 am REASON FOR STUDY: AMS COMPARISON: CT brain 03/18/2020, 09/18/2017 MRI brain 08/15/2018 TECHNIQUE: Axial images acquired through the brain without intravenous contrast. Images reviewed wi th bone, brain and subdural windows. Additional sagittal and coronal reconstructions were generated. Images stored on PACS. All CT scanners at this facility use dose modulation, iterative reconstruction, and/or weight based d osing when appropriate to reduce radiation dose to as low as reasonably achievable (ALARA). [facility]: Dose Right [facility]: CareDose [facility]: Dose Right [facility]: Teradose 4D [facility]: [employer] RADIATION DOSE: CT Rad equipment meets quality standard of care and radiation dose reduction techniq ues were employed. CTDIvol: 53.2 mGy. DLP: 964 mGy-cm. mGy. LIMITATIONS: None. FINDINGS: VENTRICLES: Normal size and contour. CEREBRUM: Stable low-attenuation in deep periventricular white matter and, left thalamus, right thala mus, right evette from old infarcts. No CT evidence of acute large territory ischemic change, acute intracranial hemorrhage, mass effect, or midline shift. CEREBELLUM: No masses. No hemorrhage. No alteration of density. No evidence for acute infarction. EXTRAAXIAL SPACES: No fluid collections. No masses. ORBITS AND GLOBE: No intra- or extraconal masses. Normal contour of globe without masses. CALVARIUM: No fracture. PARANASAL SINUSES: No fluid or mucosal thickening. SOFT TISSUES: No mass or hematoma. OTHER: No other significant finding. IMPRESSION: Multiple old infarcts. No gross acute findings EVIDENCE OF ACUTE STROKE: NO. COMMENT: Quality ID # [id number]: Final reports with documentation of one or more dose reduction techniques (e.g., Automated exposure control, adjustment of the mA and/or kV according to patient size, use of iterative reconstruction technique) TECHNICAL DOCUMENTATION: JOB ID: [id number] 2010 [employer]- All Rights Reserved Reading location - IP/workstation name: [email or web address]
[2020-07-16 12:14] LABS: ANION GAP 6 (5-19)
[2020-07-16 12:19] LABS: ALBUMIN 4.1 g/dL (3.5-5.0); ALKALINE PHOSPHATASE 61 U/L (38-126); ASPARTATE AMINO TRANSFERASE 24 U/L (14-36); BILIRUBIN,DIRECT 0.2 mg/dL (0.0-0.4); BILIRUBIN,TOTAL 0.4 mg/dL (0.2-1.3); BLOOD UREA NITROGEN 22 mg/dL (7-20); CALCIUM 9.8 mg/dL (8.4-10.2); CARBON DIOXIDE 31 mmol/L (22-30); CHLORIDE 102 mmol/L (98-107); GLUCOSE 102 mg/dL (75-110); POTASSIUM 4.3 mmol/L (3.6-5.0); TOTAL PROTEIN 7.3 g/dL (6.3-8.2)
[2020-07-16] MEDS ORDERED: NORMAL SALINE 1000 ML 1,000 ML IV ONE (12:30)
--- NOTE | 2020-07-16 12:38 | ER Document Report ---
ED General - General Chief Complaint: Altered Mental Status Stated Complaint: FOOT PAIN Time Seen by Provider: 07/16/20 10:53 Primary Care Provider: NICOLÁS KOCH MD [Primary Care Provider] - Follow up as needed TRAVEL OUTSIDE OF THE [place] IN LAST 30 DAYS: No - HPI Notes: Chief complaint: Altered mental status History of present illness: 64-year-old female followed by Dr. Koch brought to emergency department by family members who report she has had several days of increasing confusion and is intermittently complained of dull headache. They indicate patient is not currently compliant with prescribed medications. They also advised nursing staff that they thought patient might have been taking some medication she "borrowed" from another individual. I am not able to get any meaningful history from the patient herself at this time due to altered mentation. I reviewed extensive records for this patient and find that she was previously admitted here after an intentional overdose of a beta-anton in September 2017. She required intubation at that time and had seizure activity due to metabolic disturbances. She was also diagnosed with paroxysmal atrial fibrillation at that time. She had left a suicide note. She was followed by psychiatry service while she was in the hospital. 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 Home Medications at time of prior hospital discharge: Dicyclomine HCl [Bentyl 20 mg Tablet] 20 mg PO QIDP PRN 09/17/17 Dulaglutide [Trulicity] 0.75 mg SQ Q7D 09/17/17 Acetaminophen [Tylenol 325 mg Tablet] 325 mg PO Q4HP PRN tablet 10/02/17 Amlodipine Besylate [Norvasc 10 mg Tablet] 10 mg PO DAILY tablet 10/02/17 Carvedilol [Coreg 12.5 mg Tablet] 25 mg PO Q12 tablet 10/02/17 Citalopram Hydrobromide [Celexa 20 mg Tablet] 20 mg PO DAILY tablet 10/02/17 Docusate Sodium [Colace 100 mg Capsule] 100 mg PO BID capsule 10/02/17 Ferrous Sulfate [Feosol 325 mg Tablet] 325 mg PO MEALS tablet 10/02/17 Ipratropium/Albuterol Sulfate [Duoneb 3 ml Ampul] 3 ml NEB [id number] PRN vial.neb 10/02/17 Ipratropium/Albuterol Sulfate [Duoneb 3 ml Ampul] 3 ml [facility] RTQ8 vial.neb 10/02/17 Lactobacillus Acidophilus [Bacid 250 mg Tablet] 500 mg PO BID tab 10/02/17 Lansoprazole [Prevacid 30 mg Odt Tablet] 30 mg PO BID@0600,1700 tab.jeana. 10/02/17 Oxycodone HCl/Acetaminophen [Oxycodone-Acetaminophen 10-325] 1 tab PO Q6HP PRN #10 tablet 10/02/17 Risperidone [Risperdal 0.25 mg Tablet] 0.25 mg PO BID tablet 10/02/17 Sennosides/Docusate 8.6-50 mg [Senna Plus Tablet] 2 each PO QHS tablet 10/02/17 Sucralfate [Carafate 1 gm Tablet] 1 gm PO ACHS tablet 10/02/17 - Related Data Allergies/Adverse Reactions: lisinopril Allergy (Verified 07/16/20 10:46) Past Medical History - General Information source: [facility] Records Cannot obtain history due to: Altered mental status - Social History Smoking Status: Former Smoker Family History: Hypertension - Past Medical History Cardiac Medical History: Reports: Hx Hypertension Denies: Hx Heart Attack Pulmonary Medical History: Reports: Hx COPD Denies: Hx Asthma Neurological Medical History: Reports: Hx Migraine, Hx Seizures - 08/2017 D/T REACTION FROM BP MEDICATION. Denies: Hx Cerebrovascular Accident Endocrine Medical History: Reports: Hx Diabetes Mellitus Type 2 Renal/ Medical History: Denies: Hx Peritoneal Dialysis GI Medical History: Reports: Hx Ulcer. Denies: Hx Hepatitis, Hx Hiatal Hernia Musculoskeletal Medical History: Reports Hx Arthritis - osteoarthritis, Reports Hx Multiple Sclerosis Psychiatric Medical History: Reports: Hx Anxiety, Hx Depression Infectious Medical History: Denies: Hx Hepatitis Past Surgical History: Reports: Hx Carotid Endarterectomy, Hx Section - 3, Hx Orthopedic Surgery - right foot. Denies: Hx Mastectomy, Hx Open Heart Surgery, Hx Pacemaker - Immunizations Immunizations up to date: Yes Hx Diphtheria, Pertussis, Tetanus Vaccination: Yes Hx Pneumococcal Vaccination: 05/31/11 Review of Systems - Review of Systems -: Yes ROS unobtainable due to patient's medical condition Physical Exam - Vital signs Vitals: Temp Pulse Resp BP Pulse Ox 98.9 F 63 20 186/67 H 100 07/16/20 10:45 07/16/20 10:45 07/16/20 10:45 07/16/20 10:45 07/16/20 10:45 Interpretation: Hypertensive - Notes Notes: GENERAL: Female patient approximately stated age sleeping soundly when I am entering the room but arousable to verbal stimuli. SKIN: Good turgor no rashes. HEAD: Normocephalic atraumatic. EYES: PERRLA. EOMI. Conjunctivae and sclerae clear. EARS: CANALS AND TMS CLEAR. NOSE: CLEAR. MOUTH: Moist mucosa. Good dentition. No stridor or edema. No drooling. NECK: Supple. No masses or thyromegaly. No adenopathy. Carotids 2+ without bruits. No JVD. BACK: Symmetrical without tenderness. CHEST: Respirations unlabored. Breath sounds clear and symmetrical. HEART: Regular rhythm. No murmur gallop or rub. ABDOMEN: Soft nontender without masses, organomegaly or rebound. Bowel sounds normally active. No bruits. GENITALIA: Deferred. EXTREMITIES: No edema. No calf tenderness. Cap refill less than 1.5 seconds. Dorsalis pedis and posterior tibial pulses 3+ and symmetrical. NEUROLOGICAL: GCS 15. Sleeping but arousable. Opens eyes to verbal commands. [employer] fingers on command. Oriented to person and place but not date. Mildly slurred speech. Cranial nerves II through XII intact. Sensorimotor and motor function are grossly normal and symmetrical. PSYCHIATRIC: Patient appears very sleepy and exhibits some confabulation. Course - Re-evaluation Re-evalutation: 07/16/20 18:14 Patient was afebrile here. Her neurologic exam did not show any focal findings. She talks intermittently but seems to be mildly confused and is difficult to maintain a focused conversation. Noncontrast head CT was negative. Her urinalysis and urine drug screen are unremarkable. She is mildly anemic. Her white count is not elevated. She does not have a fever. Her comprehensive metabolic profile is unremarkable. Blood pressure somewhat elevated around 180/75 and looks like she has been chronically hypertensive. She did not have any nuchal rigidity or skin rash. I was nonetheless concerned about her persistent altered mentation. We obtained a noncontrast brain MRI which was remarkable for some microvascular changes only per radiologist. Patient has a significant psychiatric history and it is possible her current symptoms may be related to this. Alternatively she may have hypertensive e ncephalopathy. Her blood pressure is currently under 170 without any further intervention however. Findings were discussed with her private attending Dr. Koch and he will admit the patient to telemetry. - Vital Signs Vital signs: Temp Pulse Resp BP Pulse Ox 98.9 F 63 17 175/74 H 98 07/16/20 10:45 07/16/20 10:45 07/16/20 18:01 07/16/20 18:01 07/16/20 18:01 - Laboratory Results Result Diagrams: 07/16/20 10:58 07/16/20 10:58 Laboratory Results Interpreted: 07/16/20 07/16/20 07/16/20 10:58 10:58 13:20 Hgb 11.9 L Hct 34.6 L Carbon Dioxide 31 H BUN 22 H Est GFR (MDRD) Non-Af 52 L Urine Ketones TRACE H Ur Leukocyte Esterase TRACE H Critical Laboratory Results Reviewed: Yes Attending or Supervising Physician who Reviewed Labs: LOULOU ANGELO - Radiology Results Radiology Results Interpreted: 07/16/20 18:[address] 07/16/20 10:58 IMPRESSION: Multiple old infarcts. No gross acute findings EVIDENCE OF ACUTE STROKE: NO. Chest X-Ray 07/16/20 10:59 IMPRESSION: NO ACUTE RADIOGRAPHIC FINDING IN THE CHEST. Head MRI 07/16/20 14:38 IMPRESSION: No acute intracranial abnormality. Stable background of diffuse white matter disease and age-related involutional changes. EVIDENCE OF ACUTE STROKE: NO. Critical Radiology Results Reviewed: No Critical Results Attending or Supervising Physician who Reviewed Radiology: LOULOU ANGELO - EKG Interpretation by Me Additional EKG results interpreted by me: 07/16/20 12:41 Twelve-lead EKG reviewed by me contemporaneously: 1113 hrs. Indication for study: Altered mental status Rhythm: Normal sinus Rate: 61 Intervals: QT prolongation with QTC of 488 ms QRS axis: +[address]/T wave changes: Prominent peaking of anterior T waves suggesting possible hyperkalemia Comparison with prior tracing: Peaking of the T waves is new compared with prior study 09/27/2017 Interpretation: Peaked T waves suggesting possible hyperkalemia Discharge - Discharge Clinical Impression: Altered mental status Qualifiers: Altered mental status type: unspecified Qualified Code(s): R41.82 - Altered mental status, unspecified Hypertension Qualifiers: Hypertension type: essential hypertension Qualified Code(s): I10 - Essential (primary) hypertension Condition: Fair Disposition: ADMITTED INPATIENT Admitting Provider: [facility] Admitted: Telemetry Referrals: NICOLÁS KOCH MD [Primary Care Provider] - Follow up as needed
[2020-07-16 13:54] LABS: APPEARANCE,URINE CLEAR; BILIRUBIN,URINE NEGATIVE (NEGATIVE); COLOR,URINE STRAW; GLUCOSE, URINE NEGATIVE (NEGATIVE); KETONES,URINE TRACE mg/dL (NEGATIVE); LEUKOCYTE ESTERASE,URINE TRACE (NEGATIVE); NITRITE,URINE NEGATIVE (NEGATIVE); PROTEIN,URINE NEGATIVE (NEGATIVE); URINE SPECIFIC GRAVITY 1.006; UROBILINOGEN,URINE NEGATIVE mg/dL (<2.0)
[2020-07-16 14:06] LABS: URINE AMPHETAMINES SCREEN NEGATIVE; URINE BARBITURATES SCREEN NEGATIVE; URINE BENZODIAZEPINES SCREEN NEGATIVE; URINE COCAINE SCREEN NEGATIVE; URINE MARIJUANA (THC) SCREEN NEGATIVE; URINE METHADONE SCREEN NEGATIVE; URINE PHENCYCLIDINE SCREEN NEGATIVE
--- NOTE | 2020-07-16 16:23 | RADIOLOGY REPORT (SQ) ---
EXAM DESCRIPTION: MRI HEAD WITHOUT IMAGES COMPLETED DATE/TIME: 07/16/2020 4:07 pm REASON FOR STUDY: AMS, r/o encephalitis COMPARISON: Noncontrast head CT 07/16/2020 and MRI brain 01/21/2019, 08/15/2018, 10/28/2015 TECHNIQUE: Multiplanar imaging includes non-contrasted T1, T2, FLAIR, and diffusion with ADC map seq uences. Images stored on PACS. LIMITATIONS: None. FINDINGS: ANATOMY: No anomalies. Normal vascular flow voids. Pituitary fossa normal. CSF SPACES: Atrophy induced prominence of ventricles and CSF spaces. CEREBRUM: High signal intensity lesions scattered throughout the white matter on FLAIR imaging with d istribution suggesting micro-vascular ischemic changes. No evidence of hemorrhage, mass, or extraaxi al fluid collection. POSTERIOR FOSSA: Re- demonstration of T2 prolongation within the evette, not significantly changed in t he study interval. DIFFUSION IMAGING: Negative for acute or sub-acute infarction. ORBITS: No masses. Globes normal. PARANASAL SINUSES: No fluid levels. Mucosa normal. OTHER: Incidental note is made of pneumatized petrous apex on the left with a small effusion. IMPRESSION: No acute intracranial abnormality. Stable background of diffuse white matter disease an d age-related involutional changes. EVIDENCE OF ACUTE STROKE: NO. TECHNICAL DOCUMENTATION: JOB ID: [id number] [employer]- All Rights Reserved Reading location - IP/workstation name: [email or web address]
[2020-07-16] MEDS ORDERED: HYDRALAZINE HCL INJ/PF 20 MG/1 ML SDV IV ONE (17:30)
[2020-07-16] MEDS ORDERED: NITROGLYCERIN/D5W 50 MG/250 ML RTUINJ IV PRN (19:08)
[2020-07-16 19:43] LABS: PHOSPHORUS 3.6 mg/dL (2.5-4.5)
[2020-07-16 19:58] LABS: FREE T4 (FREE THYROXINE) 1.28 ng/dL (0.78-2.19)
[2020-07-16 20:06] LABS: INTERNATIONAL RATION (INR) 1.02; PROTHROMBIN TIME 13.6 SEC (11.4-15.4)
[2020-07-16 20:07] LABS: PARTIAL THROMBOPLASTIN TIME 33.5 SEC (23.5-35.8)
--- NOTE | 2020-07-16 20:11 | PDOC H&P ---
History of Present Illness Admission Date/PCP: 07/16/20 18:31 NICOLÁS KOCH MD History of Present Illness: ROSLYN SEAMAN is a 64 year old female, She was brought to the emergency room by family members for evaluation of progressive confusion the history was that the patient was not compliant with her prescribed medications, no meaningful history could be obtained from the patient by the ED providers, the metabolic profile came back as normal she had imaging including a CAT scan and also MRI of the head, there was no diffusion imaging abnormalities that would suggest acute infarct, there was no mass or lesion there was no space-occupying lesion demonstrated on the MRI, demonstrated stable background diffuse white matter disease and age-related involutional changes.She was found to have elevated blood pressure, there was no seizure, the ED provider felt she may have a hypertensive encephalopathy and inpatient care was recommended.When I saw patient she is not particularly giving me any meaningful history Past Medical History Cardiac Medical History: Reports: Hypertension Pulmonary Medical History: Reports: Chronic Obstructive Pulmonary Disease (COPD) Neurological Medical History: Reports: Migraine, Seizures - 08/2017 D/T REACTION FROM BP MEDICATION Endocrine Medical History: Reports: Diabetes Mellitus Type 2 Musculoskeltal Medical History: Reports: Arthritis - osteoarthritis Psychiatric Medical History: Reports: Depression Hematology: Reports: Anemia Past Surgical History Past Surgical History: Reports: Carotid Endarterectomy, Section - 3, Orthopedic Surgery - right foot Social History Smoking Status: Former Smoker Frequency of Alcohol Use: None Hx Recreational Drug Use: No Drugs: None Hx Prescription Drug Abuse: No Family History Family History: Hypertension Parental Family History Reviewed: Yes Children Family History Reviewed: Yes Sibling(s) Family History Reviewed.: Yes Medication/Allergy Home Medications: RX: Dulaglutide [Trulicity] 0.75 mg SQ Q7D 09/17/17 RX: Amlodipine Besylate [Norvasc 10 mg Tablet] 10 mg PO DAILY tablet 10/02/17 RX: Carvedilol [Coreg 12.5 mg Tablet] 25 mg PO Q12 tablet 10/02/17 RX: Docusate Sodium [Colace 100 mg Capsule] 100 mg PO BID capsule 10/02/17 RX: Ferrous Sulfate [Feosol 325 mg Tablet] 325 mg PO MEALS tablet 10/02/17 RX: Oxycodone HCl/Acetaminophen [Oxycodone-Acetaminophen 10-325] 1 tab PO Q6HP PRN #10 tablet 10/02/17 Difluprednate [Durezol] 5 ml OP DAILY 02/10/18 Ketorolac Tromethamine 0.45% [Acuvail 0.45% Oph Soln 0.4 ml/Dropperette] 1 drop OD ASDIR PRN 02/10/18 Lisdexamfetamine Dimesylate [Vyvanse] 30 mg PO DAILY 02/10/18 Moxifloxacin HCl [Vigamox 0.5% Oph Soln 3 ml] 1 drop OP ASDIR PRN 02/10/18 RX: Fluoxetine HCl 20 mg PO DAILY 02/10/18 RX: Hydrochlorothiazide 12.5 mg PO DAILY 02/10/18 Allergies/Adverse Reactions: lisinopril Allergy (Verified 07/16/20 10:46) Review of Systems ROS unobtainable: Due to mental status Physical Exam Vital Signs: Temp Pulse Resp BP Pulse Ox 98.9 F 63 17 156/63 H 97 07/16/20 10:45 07/16/20 10:45 07/16/20 19:32 07/16/20 19:32 07/16/20 19:32 Intake & Output 07/15/20 07/16/20 07/17/20 06:59 06:59 06:59 Intake Total 1000 Balance 1000 General appearance: PRESENT: no acute distress Eye exam: PRESENT: PERRLA Respiratory exam: PRESENT: clear to auscultation avel Cardiovascular exam: PRESENT: +S1, +S2 GI/Abdominal exam: PRESENT: soft Neurological exam: PRESENT: alert, CN II-XII grossly intact Results Laboratory Results: 07/16/20 10:58 07/16/20 10:58 07/16/20 07/16/20 07/16/20 10:58 10:58 10:58 WBC 5.6 RBC 3.82 Hgb 11.9 L Hct 34.6 L MCV 90 MCH 31.1 MCHC 34.3 RDW 12.8 Plt Count 222 Seg Neutrophils % 63.5 Sodium 138.6 Potassium 4.3 Chloride 102 Carbon Dioxide 31 H Anion Gap 6 BUN 22 H Creatinine 1.05 Est GFR ( Amer) > 60 Glucose 102 Calcium 9.8 Phosphorus 3.6 Magnesium 2.2 Total Bilirubin 0.4 AST 24 Alkaline Phosphatase 61 Total Protein 7.3 Albumin 4.1 Lipase 39.6 Urine Color Urine Appearance Urine pH Ur Specific [place] Urine Protein Urine Glucose (UA) Urine Ketones Urine Blood Urine Nitrite Ur Leukocyte Esterase Urine WBC (Auto) Urine RBC (Auto) 07/16/20 13:20 WBC RBC Hgb Hct MCV MCH MCHC RDW Plt Count Seg Neutrophils % Sodium Potassium Chloride Carbon Dioxide Anion Gap BUN Creatinine Est GFR ( Amer) Glucose Calcium Phosphorus Magnesium Total Bilirubin AST Alkaline Phosphatase Total Protein Albumin Lipase Urine Color STRAW Urine Appearance CLEAR Urine pH 8.0 Ur Specific [place] 1.006 Urine Protein NEGATIVE Urine Glucose (UA) NEGATIVE Urine Ketones TRACE H Urine Blood NEGATIVE Urine Nitrite NEGATIVE Ur Leukocyte Esterase TRACE H Urine WBC (Auto) 1 Urine RBC (Auto) 0 07/16/20 10:58 Troponin I < 0.012 Impressions: Head CT 07/16/20 10:58 IMPRESSION: Multiple old infarcts. No gross acute findings EVIDENCE OF ACUTE STROKE: NO. Chest X-Ray 07/16/20 10:59 IMPRESSION: NO ACUTE RADIOGRAPHIC FINDING IN THE CHEST. Head MRI 07/16/20 14:38 IMPRESSION: No acute intracranial abnormality. Stable background of diffuse white matter disease and age-related involutional changes. EVIDENCE OF ACUTE STROKE: NO. Assessment & Plan - Diagnosis (1) Hypertensive encephalopathy Is this a current diagnosis for this admission?: Yes Plan: Patient felt to have hypertensive encephalopathy, there is no explanation for patient's symptoms from the standpoint of metabolic syndrome I am not overly convinced that the syndrome is secondary to hypertension but she will be treated with IV Vasotec to control blood pressure reevaluate. 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
[2020-07-16 20:12] LABS: THYROID STIMULATING HORMONE 0.55 uIU/mL (0.47-4.68)
[2020-07-16 20:27] LABS: CREATINE KINASE MB 1.04 ng/mL (<4.55)
[2020-07-16 20:28] LABS: TROPONIN I < 0.012 ng/mL
[2020-07-16] MEDS: ENALAPRILAT DIHYDRATE INJ/PF 2.5 MG/2 ML SDV IV SCH (21:19)
[2020-07-16] MEDS ORDERED: OXYCODONE HCL IR 5 MG TABLET PO PRN (22:24)
[2020-07-16] MEDS ORDERED: OXYCODONE-ACETAMINOPHEN 5-325 MG TABLET PO PRN (22:24)
[2020-07-17 02:36] LABS: CREATINE KINASE MB 0.81 ng/mL (<4.55)
[2020-07-17 02:39] LABS: TROPONIN I < 0.012 ng/mL
[2020-07-17 03:48] LABS: APPEARANCE,URINE SLIGHTLY-CLOUDY; BILIRUBIN,URINE NEGATIVE (NEGATIVE); COLOR,URINE YELLOW; GLUCOSE, URINE NEGATIVE (NEGATIVE); KETONES,URINE 20 mg/dL (NEGATIVE); LEUKOCYTE ESTERASE,URINE TRACE (NEGATIVE); NITRITE,URINE NEGATIVE (NEGATIVE); PROTEIN,URINE 30 mg/dL (NEGATIVE); URINE SPECIFIC GRAVITY 1.017; UROBILINOGEN,URINE NEGATIVE mg/dL (<2.0)
[2020-07-17 04:05] LABS: URINE AMPHETAMINES SCREEN NEGATIVE; URINE BARBITURATES SCREEN NEGATIVE; URINE BENZODIAZEPINES SCREEN NEGATIVE; URINE COCAINE SCREEN NEGATIVE; URINE MARIJUANA (THC) SCREEN NEGATIVE; URINE METHADONE SCREEN NEGATIVE; URINE PHENCYCLIDINE SCREEN NEGATIVE
[2020-07-17] MEDS: ENALAPRILAT DIHYDRATE INJ/PF 2.5 MG/2 ML SDV IV SCH ×3 (04:09→14:14)
[2020-07-17 09:55] LABS: ALKALINE PHOSPHATASE 59 U/L (38-126); ANION GAP 8 (5-19); ASPARTATE AMINO TRANSFERASE 24 U/L (14-36); BILIRUBIN,DIRECT 0.1 mg/dL (0.0-0.4); BILIRUBIN,TOTAL 0.4 mg/dL (0.2-1.3); BLOOD UREA NITROGEN 20 mg/dL (7-20); CALCIUM 9.7 mg/dL (8.4-10.2); CARBON DIOXIDE 27 mmol/L (22-30); CHLORIDE 105 mmol/L (98-107); GLUCOSE 134 mg/dL (75-110); POTASSIUM 4.3 mmol/L (3.6-5.0); TOTAL PROTEIN 7.1 g/dL (6.3-8.2)
[2020-07-17] MEDS ORDERED: ENOXAPARIN SODIUM INJ 40 MG/0.4 ML DISP.SYRIN SUBCUT SCH (10:00)
[2020-07-17 10:02] LABS: CREATINE KINASE MB 0.98 ng/mL (<4.55)
[2020-07-17 10:06] LABS: TROPONIN I < 0.012 ng/mL
[2020-07-17 10:08] LABS: ABSOLUTE EOSINOPHILS # (AUTO) 0.1 10^3/uL (0.0-0.6); ABSOLUTE LYMPHOCYTES (AUTO) 1.5 10^3/uL (0.5-4.7); ABSOLUTE MONOCYTES (AUTO) 0.5 10^3/uL (0.1-1.4); ABSOLUTE NEUT (AUTO) 4.4 10^3/uL (1.7-8.2); BASOPHILS % (AUTO) 0.4 % (0-2); HEMATOCRIT 36.6 % (36.0-47.0); HEMOGLOBIN 12.6 g/dL (12.0-15.5); LYMPHOCYTES % (AUTO) 23.3 % (13-45); MEAN CORPUSCULAR HEMOGLOBIN 31.6 pg (27.0-33.4); MEAN CORPUSCULAR HGB CONC 34.4 g/dL (32.0-36.0); MEAN CORPUSCULAR VOLUME 92 fl (80-97); PLATELET COUNT 223 10^3/uL (150-450); RED BLOOD COUNT 3.98 10^6/uL (3.72-5.28); SEGMENTED NEUTROPHILS % (AUTO) 66.3 % (42-78); TOTAL CELLS COUNTED % (AUTO) 100 %; WHITE BLOOD COUNT 6.6 10^3/uL (4.0-10.5)
--- NOTE | 2020-07-17 15:57 | PDOC DISCHARGE SUMMARY ---
Impression - Admit/DC Date/PCP Admission Date/Primary Care Provider: 07/16/20 18:31 NICOLÁS KOCH MD Discharge Date: 07/17/20 - Discharge Diagnosis (1) Hypertensive encephalopathy Is this a current diagnosis for this admission?: Yes (2) White matter abnormality on MRI of brain Is this a current diagnosis for this admission?: Yes (3) Type 2 diabetes mellitus Is this a current diagnosis for this admission?: Yes - Additional Information Referrals: NICOLÁS KOCH MD [Primary Care Provider] - Follow up as needed Home Medications: Dulaglutide [Trulicity] 0.75 mg SQ Q7D 09/17/17 Amlodipine Besylate [Norvasc 10 mg Tablet] 10 mg PO DAILY tablet 10/02/17 Carvedilol [Coreg 12.5 mg Tablet] 25 mg PO Q12 tablet 10/02/17 Docusate Sodium [Colace 100 mg Capsule] 100 mg PO BID capsule 10/02/17 Ferrous Sulfate [Feosol 325 mg Tablet] 325 mg PO MEALS tablet 10/02/17 Oxycodone HCl/Acetaminophen [Oxycodone-Acetaminophen 10-325] 1 tab PO Q6HP PRN #10 tablet 10/02/17 Difluprednate [Durezol] 5 ml OP DAILY 02/10/18 Fluoxetine HCl 20 mg PO DAILY 02/10/18 Hydrochlorothiazide 12.5 mg PO DAILY 02/10/18 Ketorolac Tromethamine 0.45% [Acuvail 0.45% Oph Soln 0.4 ml/Dropperette] 1 drop OD ASDIR PRN 02/10/18 Lisdexamfetamine Dimesylate [Vyvanse] 30 mg PO DAILY 02/10/18 Moxifloxacin HCl [Vigamox 0.5% Oph Soln 3 ml] 1 drop OP ASDIR PRN 02/10/18 History of Present Illiness History of Present Illness: ROSLYN SEAMAN is a 64 year old female, She was brought to the emergency room by family members for evaluation of progressive confusion the history was that the patient was not compliant with her prescribed medications, no meaningful history could be obtained from the patient by the ED providers, the metabolic profile came back as normal she had imaging including a CAT scan and also MRI of the head, there was no diffusion imaging abnormalities that would suggest acute infarct, there was no mass or lesion there was no space-occupying lesion demonstrated on the MRI, demonstrated stable background diffuse white matter disease and age-related involutional changes.She was found to have elevated blood pressure, there was no seizure, the ED provider felt she may have a hypertensive encephalopathy and inpatient care was recommended.When I saw patient she is not particularly giving me any meaningful history Hospital Course Hospital Course: Patient was admitted yesterday because it was felt she may have hypertensive encephalopathy, this morning she was very emotional, I spoke to the son, he stated that patient is not supposed to be admitted he said she seems to have short of memory loss that she was forgetting to take her medications as scheduled for instance she forgot to take a weekly Trulicity injection for diabetes, he believes she is upset because she does not want to be admitted to the hospital. As indicated I do not see any compelling medical reason for her to stay in the hospital either, I felt she could be discharged home to follow-up outpatient for further evaluation, initial plan was to obtain EEG but that could not be done today until tomorrow, but because of patient son strong feelings that inpatient care is not warranted ,patient could be discharge home to have outpatient EEG Physical Exam Vital Signs: Temp Pulse Resp BP Pulse Ox 99.1 F 60 18 159/74 H 96 07/17/20 11:21 07/17/20 14:14 07/17/20 11:21 07/17/20 14:14 07/17/20 11:21 Intake & Output 07/16/20 07/17/20 07/18/20 06:59 06:59 06:59 Intake Total 1120 Output Total 200 Balance 920 Weight 85.5 kg General appearance: PRESENT: no acute distress Eye exam: PRESENT: PERRLA Respiratory exam: PRESENT: clear to auscultation avel Cardiovascular exam: PRESENT: +S1, +S2 GI/Abdominal exam: PRESENT: soft Neurological exam: PRESENT: alert Results Laboratory Results: WBC 6.6 10^3/uL (4.0-10.5) 07/17/20 09:07 RBC 3.98 10^6/uL (3.72-5.28) 07/17/20 09:07 Hgb 12.6 g/dL (12.0-15.5) 07/17/20 09:07 Hct 36.6 % (36.0-47.0) 07/17/20 09:07 MCV 92 fl (80-97) 07/17/20 09:07 MCH 31.6 pg (27.0-33.4) 07/17/20 09:07 MCHC 34.4 g/dL (32.0-36.0) 07/17/20 09:07 RDW 13.0 % (11.5-14.0) 07/17/20 09:07 Plt Count 223 10^3/uL (150-450) 07/17/20 09:07 Lymph % (Auto) 23.3 % (13-45) 07/17/20 09:07 Mccreary % (Auto) 8.0 % (3-13) 07/17/20 09:07 Eos % (Auto) 2.0 % (0-6) 07/17/20 09:07 Baso % (Auto) 0.4 % (0-2) 07/17/20 09:07 Absolute Neuts (auto) 4.4 10^3/uL (1.7-8.2) 07/17/20 09:07 Absolute Lymphs (auto) 1.5 10^3/uL (0.5-4.7) 07/17/20 09:07 Absolute Monos (auto) 0.5 10^3/uL (0.1-1.4) 07/17/20 09:07 Absolute Eos (auto) 0.1 10^3/uL (0.0-0.6) 07/17/20 09:07 Absolute Basos (auto) 0.0 10^3/uL (0.0-0.2) 07/17/20 09:07 Seg Neutrophils % 66.3 % (42-78) 07/17/20 09:07 PT 13.6 SEC (11.4-15.4) 07/16/20 19:45 INR 1.02 07/16/20 19:45 APTT 33.5 SEC (23.5-35.8) 07/16/20 19:45 Sodium 140.0 mmol/L (137-145) 07/17/20 09:07 Potassium 4.3 mmol/L (3.6-5.0) 07/17/20 09:07 Chloride 105 mmol/L (98-107) 07/17/20 09:07 Carbon Dioxide 27 mmol/L (22-30) 07/17/20 09:07 Anion Gap 8 (5-19) 07/17/20 09:07 BUN 20 mg/dL (7-20) 07/17/20 09:07 Creatinine 1.07 mg/dL (0.52-1.25) 07/17/20 09:07 Est GFR ( Amer) > 60 (>60) 07/17/20 09:07 Est GFR (MDRD) Non-Af 51 (>60) L 07/17/20 09:07 Glucose 134 mg/dL (75-110) H 07/17/20 09:07 POC Glucose 90 mg/dL (70-110) 07/16/20 18:17 Hemoglobin A1c % 5.5 % (4.7-6.0) 07/17/20 09:07 Calcium 9.7 mg/dL (8.4-10.2) 07/17/20 09:07 Phosphorus 3.6 mg/dL (2.5-4.5) 07/16/20 10:58 Magnesium 2.2 mg/dL (1.6-2.3) 07/16/20 10:58 Total Bilirubin 0.4 mg/dL (0.2-1.3) 07/17/20 09:07 Direct Bilirubin 0.1 mg/dL (0.0-0.4) 07/17/20 09:07 Neonat Total Bilirubin Not Reportable 07/17/20 09:07 Neonat Direct Bilirubin Not Reportable 07/17/20 09:07 Neonat Indirect Bili Not Reportable 07/17/20 09:07 AST 24 U/L (14-36) 07/17/20 09:07 ALT 16 U/L (<35) 07/17/20 09:07 Alkaline Phosphatase 59 U/L (38-126) 07/17/20 09:07 Creatine Kinase 68 U/L (30-135) 07/17/20 09:07 CK-MB (CK-2) 0.98 ng/mL (<4.55) 07/17/20 09:07 Troponin I < 0.012 ng/mL 07/17/20 09:07 Total Protein 7.1 g/dL (6.3-8.2) 07/17/20 09:07 Albumin 4.0 g/dL (3.5-5.0) 07/17/20 09:07 Lipase 39.6 U/L (23-300) 07/16/20 10:58 TSH 0.55 uIU/mL (0.47-4.68) 07/16/20 10:58 Free T4 1.28 ng/dL (0.78-2.19) 07/16/20 10:58 Urine Color Cancelled 07/17/20 03:25 Urine Color YELLOW 07/17/20 03:25 Urine Appearance Cancelled 07/17/20 03:25 Urine Appearance SLIGHTLY-CLOUDY 07/17/20 03:25 Urine pH 6.0 (5.0-9.0) 07/17/20 03:25 Urine pH Cancelled 07/17/20 03:25 Ur Specific [place] 1.017 07/17/20 03:25 Ur Specific [place] Cancelled 07/17/20 03:25 Urine Protein 30 mg/dL (NEGATIVE) H 07/17/20 03:25 Urine Protein Cancelled 07/17/20 03:25 Urine Glucose (UA) Cancelled 07/17/20 03:25 Urine Glucose (UA) NEGATIVE mg/dL (NEGATIVE) 07/17/20 03:25 Urine Ketones 20 mg/dL (NEGATIVE) H 07/17/20 03:25 Urine Ketones Cancelled 07/17/20 03:25 Urine Blood Cancelled 07/17/20 03:25 Urine Blood NEGATIVE (NEGATIVE) 07/17/20 03:25 Urine Nitrite NEGATIVE (NEGATIVE) 07/17/20 03:25 Urine Nitrite (Reflex) Cancelled 07/17/20 03:25 Urine Bilirubin Cancelled 07/17/20 03:25 Urine Bilirubin NEGATIVE (NEGATIVE) 07/17/20 03:25 Urine Urobilinogen Cancelled 07/17/20 03:25 Urine Urobilinogen NEGATIVE mg/dL (<2.0) 07/17/20 03:25 Ur Leukocyte Esterase TRACE (NEGATIVE) H 07/17/20 03:25 Leukocyte Esterase Rfl Cancelled 07/17/20 03:25 Urine WBC (Auto) 3 /HPF 07/17/20 03:25 Urine RBC (Auto) 1 /HPF 07/17/20 03:25 Urine RBC (Auto) Cancelled 07/17/20 03:25 U Hyaline Cast (Auto) 9 /LPF 07/17/20 03:25 U Hyaline Cast (Auto) Cancelled 07/17/20 03:25 Urine Bacteria (Auto) Cancelled 07/17/20 03:25 Urine Red Cell Clumps Cancelled 07/17/20 03:25 Urine WBC (Reflex) Cancelled 07/17/20 03:25 Urine WBC Clumps Cancelled 07/17/20 03:25 Squamous Epi Cells Auto 10 /HPF 07/17/20 03:25 Squamous Epi Cells Auto Cancelled 07/17/20 03:25 U Non-Squamous Epis Auto Cancelled 07/17/20 03:25 Calcium Carbonate Cryst Cancelled 07/17/20 03:25 Calcium Phosphate Cryst Cancelled 07/17/20 03:25 Calcium Oxalate Cr Auto Cancelled 07/17/20 03:25 Leucine Crystals Cancelled 07/17/20 03:25 Cystine Crystals Cancelled 07/17/20 03:25 Uric Acid Cryst (Auto) Cancelled 07/17/20 03:25 Triple Phos Cryst (Auto) Cancelled 07/17/20 03:25 Tyrosine Crystals Cancelled 07/17/20 03:25 Amorphous Sediment Auto Cancelled 07/17/20 03:25 Cellular Casts Cancelled 07/17/20 03:25 Epithelial Casts (Auto) Cancelled 07/17/20 03:25 Fatty Casts Cancelled 07/17/20 03:25 Granular Casts (Auto) Cancelled 07/17/20 03:25 Waxy Casts (Auto) Cancelled 07/17/20 03:25 Broad Casts Cancelled 07/17/20 03:25 RBC Casts (Auto) Cancelled 07/17/20 03:25 WBC Casts (Auto) Cancelled 07/17/20 03:25 Urine Mucus (Auto) Cancelled 07/17/20 03:25 Urine Mucus (Auto) OCC /LPF 07/17/20 03:25 U Trichomonas (Auto) Cancelled 07/17/20 03:25 Ur Yeast w Hyphae Cancelled 07/17/20 03:25 Urine Yeast (Budding) Cancelled 07/17/20 03:25 Urine Ascorbic Acid Cancelled 07/17/20 03:25 Urine Ascorbic Acid NEGATIVE (NEGATIVE) 07/17/20 03:25 [place] Human Metapneumo PCR NOT DETECTED (NOT DETECT) 07/17/20 01:50 Urine Opiates Screen NEGATIVE 07/17/20 03:25 Urine Methadone Screen NEGATIVE 07/17/20 03:25 Ur Barbiturates Screen NEGATIVE 07/17/20 03:25 Ur Phencyclidine Scrn NEGATIVE 07/17/20 03:25 Ur Amphetamines Screen NEGATIVE 07/17/20 03:25 U Benzodiazepines Scrn NEGATIVE 07/17/20 03:25 Urine Cocaine Screen NEGATIVE 07/17/20 03:25 U Marijuana (THC) Screen NEGATIVE 07/17/20 03:25 Serum Alcohol < 10 mg/dL (NONE DETECTED) 07/16/20 10:58 Adenovirus (PCR) NOT DETECTED (NOT DETECT) 07/17/20 01:50 B. pertussis DNA (PCR) NOT DETECTED (NOT DETECT) 07/17/20 01:50 B.parapertussis DNA PCR NOT DETECTED (NOT DETECT) 07/17/20 01:50 C. pneumoniae DNA (PCR) NOT DETECTED (NOT DETECT) 07/17/20 01:50 Coronavirus OC43 (PCR) NOT DETECTED (NOT DETECT) 07/17/20 01:50 Coronavirus HKU1 (PCR) NOT DETECTED (NOT DETECT) 07/17/20 01:50 Coronavirus 229E (PCR) NOT DETECTED (NOT DETECT) 07/17/20 01:50 Coronavirus NL63 (PCR) NOT DETECTED (NOT DETECT) 07/17/20 01:50 Influenza A (H1) PCR NOT DETECTED (NOT DETECT) 07/17/20 01:50 Influ A (H1N1/09) PCR NOT DETECTED (NOT DETECT) 07/17/20 01:50 Influenza A (H3) PCR NOT DETECTED (NOT DETECT) 07/17/20 01:50 Influenza Type A (PCR) NOT DETECTED (NOT DETECT) 07/17/20 01:50 Influenza Type B (PCR) NOT DETECTED (NOT DETECT) 07/17/20 01:50 M. pneumoniae (PCR) NOT DETECTED (NOT DETECT) 07/17/20 01:50 Parainfluenza 1 (PCR) NOT DETECTED (NOT DETECT) 07/17/20 01:50 Parainfluenza 2 (PCR) NOT DETECTED (NOT DETECT) 07/17/20 01:50 Parainfluenza 3 (PCR) NOT DETECTED (NOT DETECT) 07/17/20 01:50 Parainfluenza 4 (PCR) NOT DETECTED (NOT DETECT) 07/17/20 01:50 RSV (PCR) NOT DETECTED (NOT DETECT) 07/17/20 01:50 Entero/Rhino (PCR) NOT DETECTED (NOT DETECT) 07/17/20 01:50 SARS-CoV-2 (PCR) NOT DETECTED (NOT DETECT) 07/17/20 01:50 07/16/20 07/16/20 07/17/20 10:58 19:45 01:40 CK-MB (CK-2) 1.04 0.81 Troponin I < 0.012 < 0.012 < 0.012 07/17/20 09:07 CK-MB (CK-2) 0.98 Troponin I < 0.012 Impressions: Head CT 07/16/20 10:58 IMPRESSION: Multiple old infarcts. No gross acute findings EVIDENCE OF ACUTE STROKE: NO. Chest X-Ray 07/16/20 10:59 IMPRESSION: NO ACUTE RADIOGRAPHIC FINDING IN THE CHEST. Head MRI 07/16/20 14:38 IMPRESSION: No acute intracranial abnormality. Stable background of diffuse white matter disease and age-related involutional changes. EVIDENCE OF ACUTE STROKE: NO. Stroke Is this a Stroke Patient?: No Acute Heart Failure Is this a Heart Failure Patient?: No
[2020-07-17 16:02] VITALS: BP 112/75
== END 2020-07-17 16:47 | disposition home health service (06) ==
LOC: ER 10:27 → EH 18:31 → INTOOBSV 18:31 → 3W 20:44
PROVIDERS: ADMIT Internal Medicine; ATTEND Internal Medicine
DX: I67.4 Hypertensive encephalopathy (principal); R90.82 White matter disease, unspecified; E11.42 Type 2 diabetes mellitus with diabetic polyneuropathy; J44.9 Chronic obstructive pulmonary disease, unspecified; I48.0 Paroxysmal atrial fibrillation; F32.3 Major depressive disorder, single episode, severe with psychotic features; Z91.5 Personal history of self-harm; Z20.822 Contact with and (suspected) exposure to COVID-19; Z87.891 Personal history of nicotine dependence; G35 Multiple sclerosis; R41.3 Other amnesia; M19.90 Unspecified osteoarthritis, unspecified site; Z86.73 Personal history of transient ischemic attack (TIA), and cerebral infarction without residual deficits; Z91.19 Patient's noncompliance with other medical treatment and regimen; Z82.49 Family history of ischemic heart disease and other diseases of the circulatory system
CPT/HCPCS: 93005; 99285; 96360; 36415 ×2; 87086; 84439; 82553 ×2; 82962; 80307 ×3; 82550 ×2; 83690; 83735; 84100; 84443; 85025 ×2; 85610; 85730; 0202U; 80053 ×2; 81001 ×2; 84484 ×2; 83036; 70551; 71046; 70450; 93010; J3490 ×4; J1650; A9270 ×2; J7030

== ENCOUNTER 2020-07-19 16:18 | Inpatient (IN) | payer MEDICARE, MEDICAID ==
--- NOTE | 2020-07-19 17:56 | ER Document Report ---
ED General - General Chief Complaint: Altered Mental Status Stated Complaint: PSYCH Time Seen by Provider: 07/19/20 17:56 TRAVEL OUTSIDE OF THE [place] IN LAST 30 DAYS: No - HPI Notes: 64-year-old female presents with altered mental status. Information is provided by patient's son, as patient is uncooperative and shouts such things as "fuck you bitch" and "you don't know me". Patient son states that she has been belligerent at home since Saturday. Patient was taken to the emergency department on Sunday 07/16 for altered mental status, she had complained of her hands and feet tingling prior to this. She was admitted for concerns for potentially high blood pressure contributing to her altered mental status, she was discharged home on 07/17. Son reports no improvement in her change in behavior. He states that she does have some lucid periods. He is unsure if she is taking her medications. He really is not able to say if she has any other symptoms other than to the altered mental status. - Related Data Allergies/Adverse Reactions: lisinopril Allergy (Verified 07/16/20 10:46) Home Medications: Carvedilol, Amlodipine, Tralicity Past Medical History - General Information source: Relative - Social History Smoking Status: Unknown if Ever Smoked Family History: Hypertension - Past Medical History Cardiac Medical History: Reports: Hx Hypertension Denies: Hx Heart Attack Pulmonary Medical History: Reports: Hx COPD Denies: Hx Asthma Neurological Medical History: Reports: Hx Migraine, Hx Seizures - 08/2017 D/T REACTION FROM BP MEDICATION. Denies: Hx Cerebrovascular Accident Endocrine Medical History: Reports: Hx Diabetes Mellitus Type 2 Renal/ Medical History: Denies: Hx Peritoneal Dialysis GI Medical History: Reports: Hx Ulcer. Denies: Hx Hepatitis, Hx Hiatal Hernia Musculoskeletal Medical History: Reports Hx Arthritis - osteoarthritis, Reports Hx Multiple Sclerosis Psychiatric Medical History: Reports: Hx Anxiety, Hx Depression Infectious Medical History: Denies: Hx Hepatitis Past Surgical History: Reports: Hx Carotid Endarterectomy, Hx Section - 3, Hx Orthopedic Surgery - right foot. Denies: Hx Mastectomy, Hx Open Heart Surgery, Hx Pacemaker - Immunizations Immunizations up to date: Yes Hx Diphtheria, Pertussis, Tetanus Vaccination: Yes Hx Pneumococcal Vaccination: 05/31/11 Review of Systems - Review of Systems -: Yes ROS unobtainable due to patient's medical condition Physical Exam - Vital signs Vitals: BP 204/98 H 07/19/20 17:57 - General General appearance: Alert In distress: None Notes: Patient intermittently combative, yelling, staring at the ceiling and pointing with her left hand held up in the air - HEENT Head: Normocephalic, Atraumatic Eyes: No: Scleral icterus Extraocular movements intact: Yes Pupils: PERRL - Respiratory Breath sounds: Normal - Cardiovascular Rhythm: Regular Heart sounds: Normal auscultation Pulses: Normal: Radial, Dorsalis pedis Normal capillary refill: Yes - Abdominal Inspection: Obese Distension: No distension Tenderness: Nontender - Extremities General upper extremity: Normal ROM General lower extremity: Normal ROM. No: Edema - Neurological Notes: Patient is alert, when she does communicate is with a clear voice, she has no facial asymmetry, she moves all of her extremities and is able to hold up her extremities in the air for prolonged periods of time - Psychological Associated symptoms: Other - Altered sensorium - Skin Skin Temperature: Warm Course - Re-evaluation Re-evalutation: 64-year-old female arrives from home for altered mental status, belligerent behavior per her son. Has been altered since 07/16, was brought to the emergency department and admitted, discharged 117. Relatively reassuring work-up. Had an MRI which showed white matter changes, no stroke. An EEG was to be performed in patient, however this I do this as an outpatient. I reviewed the notes from the ED physician and admitting physician. There is a note referencing potentially she is taking unknown substances from a friend and is known to not take her prescribed medications. Patient is altered. She is screaming profanities, appears to be hallucinating as she is staring at the ceiling and pointing at something, she does regard her son and seems to recognize him. She effectively is not able to participate in information gathering process. Grossly is neurologically intact. Hypertensive, otherwise hemodynamically stable. Will order her home dose of carvedilol. Lungs are clear, abdomen is soft, no periphe ral edema, no obvious wounds. Will reinitiate work-up to see if we can elucidate a cause for her altered mental status such as electrolyte abnormality versus UTI versus pneumonia or other organic process. Hold on imaging head given that she just recently had these done 2 days ago. Suspected dementia is contributing, possible psychiatric issue as well. 07/19/20 18:55 Per nursing, patient is refusing carvedilol 07/19/20 19:38 Into reassess patient, she remains altered and uncooperative. She is noted to be touching her genital region and refusing to answer questions, though she will make eye contact. It and out cath was performed with multiple staff members present. Patient try to scratch and kick, have ordered Ativan to see if we can help calm her Lab work essentially remarkable for elevated creatinine, have ordered fluids. Urine to be sent for analysis 07/19/20 20:34 Urine does show some evidence of dehydration, not overtly concerning for UTI. Her urine drug screen is negative, though of note patient is prescribed Vyvanse and opioids Patient was discussed with admission for Dr. Hull - Vital Signs Vital signs: Temp Pulse Resp BP Pulse Ox 84 20 155/71 H 94 07/19/20 18:03 07/19/20 18:03 07/19/20 21:01 07/19/20 18:03 - Laboratory Results Result Diagrams: 07/19/20 17:29 07/19/20 17:29 Laboratory Results Interpreted: 07/19/20 07/19/20 07/19/20 17:29 17:29 19:40 Potassium 5.3 H BUN 25 H Creatinine 1.70 H Est GFR ( Amer) 36 L Est GFR (MDRD) Non-Af 30 L Calcium 10.3 H Total Protein 8.6 H Urine Protein 100 H Urine Ketones 20 H Salicylates < 1.0 L Acetaminophen < 10 L Critical Laboratory Results Reviewed: No Critical Results - Radiology Results Critical Radiology Results Reviewed: No Critical Results Discharge - Discharge Clinical Impression: Delirium, MAGNUS (acute kidney injury) Disposition: ADMITTED INPATIENT Admitting Provider: Kurt[facility] Unit Admitted: Telemetry
[2020-07-19] MEDS ORDERED: CARVEDILOL 12.5 MG TABLET PO ONE (18:21)
[2020-07-19 18:26] LABS: ABSOLUTE BASOPHILS # (AUTO) 0.1 10^3/uL (0.0-0.2); ABSOLUTE LYMPHOCYTES (AUTO) 2.7 10^3/uL (0.5-4.7); ABSOLUTE MONOCYTES (AUTO) 0.8 10^3/uL (0.1-1.4); ABSOLUTE NEUT (AUTO) 5.6 10^3/uL (1.7-8.2); BASOPHILS % (AUTO) 0.7 % (0-2); EOSINOPHILS % (AUTO) 0.5 % (0-6); HEMATOCRIT 40.2 % (36.0-47.0); HEMOGLOBIN 13.8 g/dL (12.0-15.5); LYMPHOCYTES % (AUTO) 29.2 % (13-45); MEAN CORPUSCULAR HEMOGLOBIN 31.7 pg (27.0-33.4); MEAN CORPUSCULAR HGB CONC 34.4 g/dL (32.0-36.0); MEAN CORPUSCULAR VOLUME 92 fl (80-97); MONOCYTES % (AUTO) 8.7 % (3-13); PLATELET COUNT 248 10^3/uL (150-450); RED BLOOD COUNT 4.36 10^6/uL (3.72-5.28); RED CELL DISTRIBUTION WIDTH 13.2 % (11.5-14.0); SEGMENTED NEUTROPHILS % (AUTO) 60.9 % (42-78); TOTAL CELLS COUNTED % (AUTO) 100 %; WHITE BLOOD COUNT 9.3 10^3/uL (4.0-10.5)
--- NOTE | 2020-07-19 18:33 | RADIOLOGY REPORT (SQ) ---
EXAM DESCRIPTION: CHEST SINGLE VIEW IMAGES COMPLETED DATE/TIME: 07/19/2020 6:21 pm REASON FOR STUDY: eval consolidation COMPARISON: 07/16/2020 EXAM PARAMETERS: NUMBER OF VIEWS: One view. TECHNIQUE: Single frontal radiographic view of the chest acquired. RADIATION DOSE: NA LIMITATIONS: None. FINDINGS: LUNGS AND PLEURA: No opacities, masses or pneumothorax. No pleural effusion. MEDIASTINUM AND HILAR STRUCTURES: No masses. Contour normal. HEART AND VASCULAR STRUCTURES: Heart normal in size. Normal vasculature. BONES: No acute findings. HARDWARE: None in the chest. OTHER: No other significant finding. IMPRESSION: NO ACUTE RADIOGRAPHIC FINDING IN THE CHEST. TECHNICAL DOCUMENTATION: JOB ID: [id number] [employer]- All Rights Reserved Reading location - IP/workstation name: [email or web address]
[2020-07-19 18:46] LABS: ALKALINE PHOSPHATASE 65 U/L (38-126); ANION GAP 14 (5-19); ASPARTATE AMINO TRANSFERASE 35 U/L (14-36); BILIRUBIN,DIRECT 0.3 mg/dL (0.0-0.4); BILIRUBIN,TOTAL 0.8 mg/dL (0.2-1.3); BLOOD UREA NITROGEN 25 mg/dL (7-20); CALCIUM 10.3 mg/dL (8.4-10.2); CARBON DIOXIDE 25 mmol/L (22-30); CHLORIDE 103 mmol/L (98-107); GLUCOSE 96 mg/dL (75-110); POTASSIUM 5.3 mmol/L (3.6-5.0); TOTAL PROTEIN 8.6 g/dL (6.3-8.2)
[2020-07-19 18:48] LABS: ALCOHOL < 10 mg/dL (NONE DETECTED)
[2020-07-19 19:14] LABS: ACETAMINOPHEN < 10 ug/mL (10-30); SALICYLATE < 1.0 mg/dL (2.0-20.0)
[2020-07-19] MEDS ORDERED: LORAZEPAM INJ 2 MG/1 ML VIAL IV ONE (19:37)
[2020-07-19] MEDS ORDERED: NORMAL SALINE 500 ML IV ONE (19:44)
[2020-07-19 20:19] LABS: APPEARANCE,URINE SLIGHTLY-CLOUDY; BILIRUBIN,URINE NEGATIVE (NEGATIVE); COLOR,URINE YELLOW; GLUCOSE, URINE NEGATIVE (NEGATIVE); KETONES,URINE 20 mg/dL (NEGATIVE); LEUKOCYTE ESTERASE,URINE NEGATIVE (NEGATIVE); NITRITE,URINE NEGATIVE (NEGATIVE); PROTEIN,URINE 100 mg/dL (NEGATIVE); URINE SPECIFIC GRAVITY 1.024; UROBILINOGEN,URINE NEGATIVE mg/dL (<2.0)
[2020-07-19 20:30] LABS: URINE AMPHETAMINES SCREEN NEGATIVE; URINE BARBITURATES SCREEN NEGATIVE; URINE BENZODIAZEPINES SCREEN NEGATIVE; URINE COCAINE SCREEN NEGATIVE; URINE MARIJUANA (THC) SCREEN NEGATIVE; URINE METHADONE SCREEN NEGATIVE; URINE PHENCYCLIDINE SCREEN NEGATIVE
[2020-07-19] MEDS ORDERED: RIMEGEPANT SULFATE 75 MG PO PRN ×2 (21:34→21:57)
[2020-07-19] MEDS ORDERED: (PENDING PHARMACY ID) (Oxycodone Hcl/Acetaminophen [Oxycodone-Acetaminophen 10-325] 1 EACH PO PRN (21:34)
[2020-07-19] MEDS ORDERED: DEXTROSE 40% GEL 15 GM TUBE PO PRN ×2 (21:41)
[2020-07-19] MEDS ORDERED: DEXTROSE 50%-WATER 25 GM/50 ML DISP.SYRIN IV PRN ×2 (21:41)
[2020-07-19] MEDS ORDERED: GLUCAGON,HUMAN RECOMB 1 MG INJ IM PRN (21:41)
[2020-07-19] MEDS ORDERED: DULAGLUTIDE 0.75 MG/0.5 ML SQ SCH (21:45)
[2020-07-19] MEDS ORDERED: CARVEDILOL PHOSPHATE 40 MG PO SCH ×2 (21:45→22:00)
[2020-07-19] MEDS ORDERED: LISDEXAMFETAMINE DIMESYLATE 30 MG PO SCH ×2 (21:45→22:00)
[2020-07-19] MEDS ORDERED: OXYCODONE HCL IR 5 MG TABLET PO PRN (21:55)
[2020-07-19] MEDS ORDERED: OXYCODONE-ACETAMINOPHEN 5-325 MG TABLET PO PRN (21:55)
[2020-07-19] MEDS ORDERED: DULAGLUTIDE 0.75 MG/0.5 ML SUBCUT SCH (22:00)
[2020-07-19] MEDS ORDERED: (PENDING PHARMACY ID) (Fluoxetine Hcl [Prozac] 40 MG Capsule) PO SCH (22:00)
[2020-07-19] MEDS ORDERED: HYDROXYZINE HCL 10 MG TABLET PO ONE (22:15)
[2020-07-19] MEDS: HEPARIN SOD (PORCINE) 5,000 UNIT/ML 1 ML VIAL SUBCUT SCH (23:08)
[2020-07-19] MEDS: INSULIN LISPRO 100 UNIT/ML 3 ML VIAL SUBCUT SCH (23:09)
[2020-07-19] MEDS: AMLODIPINE BESYLATE 10 MG TABLET PO SCH (23:10)
[2020-07-19] MEDS: FLUOXETINE HCL 20 MG CAPSULE PO SCH (23:11)
[2020-07-19] MEDS ORDERED: HALOPERIDOL LACTATE INJ 5 MG/1 ML VIAL ONE (23:39)
[2020-07-19] MEDS ORDERED: HALOPERIDOL LACTATE INJ 5 MG/1 ML VIAL IM ONE (23:45)
[2020-07-20 01:29] LABS: FREE T4 (FREE THYROXINE) 1.71 ng/dL (0.78-2.19)
[2020-07-20 01:44] LABS: THYROID STIMULATING HORMONE 1.57 uIU/mL (0.47-4.68)
[2020-07-20 04:42] LABS: ABSOLUTE BASOPHILS # (AUTO) 0.1 10^3/uL (0.0-0.2); ABSOLUTE EOSINOPHILS # (AUTO) 0.1 10^3/uL (0.0-0.6); ABSOLUTE LYMPHOCYTES (AUTO) 2.1 10^3/uL (0.5-4.7); ABSOLUTE MONOCYTES (AUTO) 0.7 10^3/uL (0.1-1.4); ABSOLUTE NEUT (AUTO) 6.2 10^3/uL (1.7-8.2); BASOPHILS % (AUTO) 0.8 % (0-2); HEMATOCRIT 36.5 % (36.0-47.0); HEMOGLOBIN 12.4 g/dL (12.0-15.5); LYMPHOCYTES % (AUTO) 23.2 % (13-45); MEAN CORPUSCULAR HEMOGLOBIN 31.1 pg (27.0-33.4); MEAN CORPUSCULAR HGB CONC 33.9 g/dL (32.0-36.0); MEAN CORPUSCULAR VOLUME 92 fl (80-97); PLATELET COUNT 231 10^3/uL (150-450); RED BLOOD COUNT 3.98 10^6/uL (3.72-5.28); RED CELL DISTRIBUTION WIDTH 13.2 % (11.5-14.0); TOTAL CELLS COUNTED % (AUTO) 100 %; WHITE BLOOD COUNT 9.2 10^3/uL (4.0-10.5)
[2020-07-20 04:56] LABS: ALBUMIN 4.4 g/dL (3.5-5.0); ALKALINE PHOSPHATASE 61 U/L (38-126); ANION GAP 11 (5-19); ASPARTATE AMINO TRANSFERASE 52 U/L (14-36); BILIRUBIN,DIRECT 0.2 mg/dL (0.0-0.4); BILIRUBIN,TOTAL 0.7 mg/dL (0.2-1.3); BLOOD UREA NITROGEN 23 mg/dL (7-20); CALCIUM 9.7 mg/dL (8.4-10.2); CARBON DIOXIDE 25 mmol/L (22-30); CHLORIDE 105 mmol/L (98-107); CHOLESTEROL 252.27 mg/dL (0-200); GLUCOSE 100 mg/dL (75-110); TOTAL PROTEIN 7.8 g/dL (6.3-8.2); TRIGLYCERIDES 94 mg/dL (<150)
[2020-07-20 04:59] LABS: INTERNATIONAL RATION (INR) 1.06
[2020-07-20 05:01] LABS: APPEARANCE,URINE SLIGHTLY-CLOUDY; BILIRUBIN,URINE NEGATIVE (NEGATIVE); COLOR,URINE YELLOW; GLUCOSE, URINE NEGATIVE (NEGATIVE); KETONES,URINE 20 mg/dL (NEGATIVE); LEUKOCYTE ESTERASE,URINE TRACE (NEGATIVE); NITRITE,URINE NEGATIVE (NEGATIVE); PROTEIN,URINE 100 mg/dL (NEGATIVE); URINE SPECIFIC GRAVITY 1.026; UROBILINOGEN,URINE NEGATIVE mg/dL (<2.0)
[2020-07-20 05:07] LABS: DIRECT LDL 156 mg/dL (<100)
[2020-07-20 05:07] LABS: URINE AMPHETAMINES SCREEN NEGATIVE; URINE BARBITURATES SCREEN NEGATIVE; URINE BENZODIAZEPINES SCREEN NEGATIVE; URINE COCAINE SCREEN NEGATIVE; URINE MARIJUANA (THC) SCREEN NEGATIVE; URINE METHADONE SCREEN NEGATIVE; URINE PHENCYCLIDINE SCREEN NEGATIVE
[2020-07-20] MEDS: HEPARIN SOD (PORCINE) 5,000 UNIT/ML 1 ML VIAL SUBCUT SCH ×3 (05:22→21:53)
[2020-07-20] MEDS: INSULIN LISPRO 100 UNIT/ML 3 ML VIAL SUBCUT SCH ×4 (08:57→21:48)
[2020-07-20] MEDS: HYDROXYZINE HCL 10 MG TABLET PO SCH ×3 (09:53→17:16)
[2020-07-20] MEDS: FLUOXETINE HCL 20 MG CAPSULE PO SCH ×2 (09:53→21:51)
[2020-07-20] MEDS: 1/2 NORMAL SALINE 1,000 ML IV PRN (15:08)
--- NOTE | 2020-07-20 15:29 | NEURO WORKBENCH EEG REPORT ---
EEG Report Patient: Padmini Bray ID: [id number] Referring Doctor: Kurtis Greene MD DOS: 07/20/2020 Medications: norvasc, prozac, porcine, atarax, insulin History This is a 64 year old right handed female with a history of stroke, seizure in 2018, migraine, MS, irregular heartbeat, hypertension, COPD, type 2 diabetes, depression, anxiety. DDD, GERD admitted with AMS and acute kidney injury. This EEG was requested for possible seizure. EEG Interpretation This EEG was recorded in the awake and minimal drowsy states. The awake EEG is characterized by a well-organized background with a well-developed and reactive posterior dominant rhythm of 9 Hz. The remainder of the background was characterized by a combination of alpha with some beta frequencies. There was prominent artifact throughout the recording that impaired interpretation. Drowsiness was characterized by slowing of the background rhythms. Photic stimulation resulted in a minimal driving response. There were no epileptiform abnormalities. The EKG showed an irregular beat. EEG Classification * EKG irregular rhythm EEG Impression This EEG is within normal limits for age. The EKG showed an irregular rhythm as noted in the history. INTERPRETING NEUROLOGIST: Elisabeth Reilly MD, FRCPC Board Certified in Neurology, with special qualification in Child Neurology, and in Clinical Neurophysiology [facility]
--- NOTE | 2020-07-20 16:35 | PDOC H&P ---
History of Present Illness Admission Date/PCP: 07/19/20 20:45 NICOLÁS KOCH MD History of Present Illness: ROSLYN SEAMAN is a 64 year old female, She was recently admitted on July 17, 2020 when she presented with confusion, at the time she was found to have elevated blood pressure there was concern she may have hypertensive encephalopathy. She was admitted for observation and discharged home, she was brought to the emergency room by family because patient was acting inap propriately, throwing things on the floor, the son stated that this behavior is of acute onset. She has a history of nonspecific white matter disease. I cannot get any history from the patient that is meaningful, the son was in the room, he gave me most of the history, The lab work that was done in the emergency room demonstrated serum creatinine 1.7, the last time she was discharged serum creatinine was normal, The son said she has not been eating or drinking for last couple of days. Past Medical History Cardiac Medical History: Reports: Hypertension Pulmonary Medical History: Reports: Chronic Obstructive Pulmonary Disease (COPD) Neurological Medical History: Reports: Migraine, Seizures - 08/2017 D/T REACTION FROM BP MEDICATION Endocrine Medical History: Reports: Diabetes Mellitus Type 2 Musculoskeltal Medical History: Reports: Arthritis - osteoarthritis Psychiatric Medical History: Reports: Depression Hematology: Reports: Anemia Past Surgical History Past Surgical History: Reports: Carotid Endarterectomy, Section - 3, Orthopedic Surgery - right foot Social History Smoking Status: Unknown if Ever Smoked Frequency of Alcohol Use: None Hx Recreational Drug Use: No Drugs: None Hx Prescription Drug Abuse: No Family History Family History: Hypertension Parental Family History Reviewed: Yes Children Family History Reviewed: Yes Sibling(s) Family History Reviewed.: Yes Medication/Allergy Home Medications: Amlodipine Besylate [Norvasc 10 mg Tablet] 10 mg PO DAILY 07/19/20 Carvedilol Phosphate [Carvedilol ER] 40 mg PO DAILY 07/19/20 Dulaglutide [Trulicity] 0.75 mg SQ Q7D 07/19/20 Fluoxetine HCl [Prozac] 40 mg PO Q12 07/19/20 Hydroxyzine HCl [Atarax 10 mg Tablet] 10 mg PO TID 07/19/20 Lisdexamfetamine Dimesylate [Vyvanse] 30 mg PO DAILY 07/19/20 Oxycodone HCl/Acetaminophen [Oxycodone-Acetaminophen 10-325] 1 tab PO Q6HP PRN 07/19/20 Rimegepant Sulfate [Nurtec Odt] 75 mg PO DAILYP PRN MDD 75 MG 07/19/20 Allergies/Adverse Reactions: lisinopril Allergy (Verified 07/16/20 10:46) Review of Systems ROS unobtainable: Other - Confused Physical Exam Vital Signs: Temp Pulse Resp BP Pulse Ox 97.6 F 91 20 104/73 98 07/20/20 08:44 07/20/20 14:00 07/20/20 00:00 07/20/20 00:00 07/20/20 00:00 Intake & Output 07/19/20 07/20/20 07/21/20 06:59 06:59 06:59 Intake Total 500 Output Total 250 Balance 250 Weight 84.8 kg General appearance: PRESENT: no acute distress Eye exam: PRESENT: PERRLA Respiratory exam: PRESENT: clear to auscultation avel Cardiovascular exam: PRESENT: +S1, +S2 GI/Abdominal exam: PRESENT: soft Neurological exam: PRESENT: alert Results Laboratory Results: 07/20/20 04:17 07/20/20 04:17 07/19/20 07/19/20 07/19/20 17:29 17:29 17:29 WBC 9.3 RBC 4.36 Hgb 13.8 Hct 40.2 MCV 92 MCH 31.7 MCHC 34.4 RDW 13.2 Plt Count 248 Seg Neutrophils % 60.9 Sodium 141.6 Potassium 5.3 H Chloride 103 Carbon Dioxide 25 Anion Gap 14 BUN 25 H Creatinine 1.70 H Est GFR ( Amer) 36 L Glucose 96 Calcium 10.3 H Phosphorus Magnesium 2.0 Total Bilirubin 0.8 AST 35 Alkaline Phosphatase 65 Ammonia Total Protein 8.6 H Albumin 5.0 Triglycerides Cholesterol LDL Cholesterol Direct VLDL Cholesterol HDL Cholesterol Amylase Lipase TSH 1.57 Free T4 1.71 Urine Color Urine Appearance Urine pH Ur Specific [place] Urine Protein Urine Glucose (UA) Urine Ketones Urine Blood Urine Nitrite Ur Leukocyte Esterase Urine WBC (Auto) Urine RBC (Auto) 07/19/20 07/20/20 07/20/20 19:40 00:40 04:17 WBC RBC Hgb Hct MCV MCH MCHC RDW Plt Count Seg Neutrophils % Sodium Potassium Chloride Carbon Dioxide Anion Gap BUN Creatinine Est GFR ( Amer) Glucose Calcium Phosphorus 4.0 Magnesium 1.8 Total Bilirubin AST Alkaline Phosphatase Ammonia < 8.7 L Total Protein Albumin Triglycerides Cholesterol LDL Cholesterol Direct VLDL Cholesterol HDL Cholesterol Amylase 46 Lipase 83.1 TSH Free T4 Urine Color YELLOW Urine Appearance SLIGHTLY-CLOUDY Urine pH 5.0 Ur Specific [place] 1.024 Urine Protein 100 H Urine Glucose (UA) NEGATIVE Urine Ketones 20 H Urine Blood NEGATIVE Urine Nitrite NEGATIVE Ur Leukocyte Esterase NEGATIVE Urine WBC (Auto) 1 Urine RBC (Auto) 12 07/20/20 07/20/20 07/20/20 04:17 04:17 04:20 WBC 9.2 RBC 3.98 Hgb 12.4 Hct 36.5 MCV 92 MCH 31.1 MCHC 33.9 RDW 13.2 Plt Count 231 Seg Neutrophils % 67.0 Sodium 140.9 Potassium 4.0 D Chloride 105 Carbon Dioxide 25 Anion Gap 11 BUN 23 H Creatinine 1.39 H Est GFR ( Amer) 46 L Glucose 100 Calcium 9.7 Phosphorus Magnesium Total Bilirubin 0.7 AST 52 H Alkaline Phosphatase 61 Ammonia Total Protein 7.8 Albumin 4.4 Triglycerides 94 Cholesterol 252.27 H LDL Cholesterol Direct 156 H VLDL Cholesterol 19.0 HDL Cholesterol 60 Amylase Lipase TSH Free T4 Urine Color YELLOW Urine Appearance SLIGHTLY-CLOUDY Urine pH 5.0 Ur Specific [place] 1.026 Urine Protein 100 H Urine Glucose (UA) NEGATIVE Urine Ketones 20 H Urine Blood NEGATIVE Urine Nitrite NEGATIVE Ur Leukocyte Esterase TRACE H Urine WBC (Auto) 12 Urine RBC (Auto) 16 07/19/20 07/19/20 07/20/20 17:29 17:29 04:17 Creatine Kinase 166 H 348 H CK-MB (CK-2) 2.17 07/20/20 07/20/20 07/20/20 04:17 09:05 09:05 Creatine Kinase 337 H CK-MB (CK-2) 20.40 H 19.10 H Impressions: Chest X-Ray 07/19/20 18:11 IMPRESSION: NO ACUTE RADIOGRAPHIC FINDING IN THE CHEST. Assessment & Plan - Diagnosis (1) Delirium Is this a current diagnosis for this admission?: Yes Plan: There is no metabolic explanation for the delirium, this could be behavioral/psychological problem, I will consult psychiatry for evaluation (2) Acute renal injury Is this a current diagnosis for this admission?: Yes Plan: This most likely from dehydration start IV fluid (3) Type 2 diabetes mellitus Qualifiers: Diabetes mellitus exterminator termite insulin use: unspecified exterminator termite insulin use status Diabetes mellitus complication status: with neurologic complications Diabetes mellitus complication detail: with polyneuropathy Qualified Code(s): E11.42 - Type 2 diabetes mellitus with diabetic polyneuropathy Is this a current diagnosis for this admission?: Yes - Time Time Spent: 50 to 70 Minutes Medications reviewed and adjusted accordingly: Yes Anticipated Discharge Disposition: Home, Self Care Anticipated Discharge Timeframe: 7 days
--- NOTE | 2020-07-20 18:15 | PDOC CONSULTATION ---
Consultation-Blank Consultation: Behavioral Health Consult: Delirium with no metabolic explanation Chart review at 1652 and ongoing. Evaluation with patient and son (Ken) present from [id number]. Patient is a 64 year old female who presented to the emergency department 07/19/2020 at 1618 via EMS for altered mental status which had worsened (patient more belligerent and verbally aggressive, confusion- she was a poor historian and son provided history per medical documentation) since her emergency department visit 07/17/2020 (chief complaint confusion- acting inappropriate and throwing things on the floor, elevated blood pressure, concerns for hypertensive encephalopathy). Medical documentation noted son reported acute onset of symptoms and behaviors. Patient was admitted same day at 1618 for delirium, acute renal injury, and type II diabetes mellitus. She has a history of hypertension, chronic obstructive pulmonary disease, migraines, seizure (08/2017 believed to be reaction to blood pressure medication), diabetes mellitus II, osteoarthritis, depression, anemia, and nonspecific white matter disease. Chart review revealed patient sees Jacobo Portillo at [facility] ([facility]) for medication management. She is prescribed Prozac 40MG every 12 hours, Atarax 10MG every three hours, and Vyvanse 30MG daily. Same medication being administered during hospital stay. Patient was laying in bed on her back eyes closed. Her son Ken was present tending to her. Son reported "this time was different than the first episode." He admitted she was more belligerent this time. He denied mental health history but patient spoke up and corrected him mentioning depression. She confirmed she goes to [facility] for outpatient services. She reported "I've not been taking the Atarax" when her and son were made aware of medication changes and why. When asked if she takes her other medications as directed she said "yes." Then when asked about her Prozac she stated "I've not been taking that one, I'm scared to take these medications," but did not say why just that medications worry her. Son identified patient "is much better today than she was yesterday, that other behavior is not like her, she is normally sweet and caring." He noted something must have stressed her out. Patient had started moaning slightly and son asked her what was wrong. She said her stomach hurt, then a few minutes later started crying and when son asked what was wrong she again stated her stomach hurt. This sba underwriter informed attending nurse. Son had also asked about medical records and was made aware patient has to sign release of information and request it via medical records. Patient was alert and oriented to self, person, and place. Mood was at first euthymic with congruent affect, then seemed depressed with tearful affect which was when she identified stomach pain. She denied current suicidal and homicidal ideation. Patient did not appear to be responding to internal stimuli as evidenced by answering questions when addressed. Thought processes seemed linear. Conversational speech was within normal limits for rate, tone and prosody. Intellectual abilities are estimated to be average. Insight, judgment and impulse control were fair as evidenced by initiating her engagement/involvement in evaluation. Attending Nurse noted patient had been calm all day. She further reported patient knew where she was: hospital but would then say "I don't know where I'm at." She acknowledged patient had been in restraints last evening into regional education manager, was administered Ativan yesterday and administered Haldol 2MG last evening. Clinical Presentation: Concern for anticholinergic delirium (patient denied taking medication however seems to have some confusion still so unsure if her report is accurate) Concern for what was patient taking in terms of her prescribed medications given confusion and altered mental status Concern for Neurodegenerative processes Medication recommendations made by the psychiatric medication provider Dr. Bernabe DINERO., includes: Discontinue Vyvanse 30MG daily for attention/concentration/focus Discontinue Atarax 10MG three times a day for anxiety/calming effect Decrease Prozac to 20MG daily for depression Discontinue use of Ativan and Haldol (often times low dose Risperdal 0.25 twice a day or as needed is utilized in individuals with concerns for neurodegenerative processes, minimal use of both these medications and others in their class, if need to use should be small dose) Anticholinergic drugs have been associated with promoting confusion among older adults, and can promote a higher risk for cognitive decline overall. Treating Physicians are asked to consider avoiding the use of antipsychotic medications (Haldol, Geodon, Zyprexa, Thorazine), benzodiazepines (Ativan, Valium, Xanax, Klonopin), many sleep aids (Ambien, Lunesta, Trazodone, Seroquel), prolonged use of steroids (Prednisone), and narcotic pain medications as these have been known to cause and/or exacerbate mental health symptoms such as psychosis (paranoia, hallucinations, delusions), aggression, agitation, impaired cognition, personality changes in individuals with neurodegenerative issues (such as Dementia, Alzheimer's, Traumatic Brain Injury, Strokes). If there is a pre-existing mental health disorder the risk is increased. Impression/Plan: Patient is cleared from acute psychiatric services. There are concerns for patient's medication compliance as a result of her altered state. It is recommended son or another adult be in charge of her medications and administration to assist with this. Neurology follow up is recommended and suggested given history of nonspecific white matter disease, especially if she has not had any recently, to identify any further degeneration and thus impact on cognitive abilities. Patient also needs to follow up with outpatient medication management provider [facility]. Consulted with Dr. Mcadams regarding the management and care of patient. Attending Hospitalist aware of recommendations via this note. Please re consult [facility] for any other needs.
[2020-07-20] MEDS: AMLODIPINE BESYLATE 10 MG TABLET PO SCH (21:50)
[2020-07-21] MEDS: HEPARIN SOD (PORCINE) 5,000 UNIT/ML 1 ML VIAL SUBCUT SCH ×3 (05:51→21:57)
[2020-07-21 06:16] LABS: ABSOLUTE BASOPHILS # (AUTO) 0.1 10^3/uL (0.0-0.2); ABSOLUTE EOSINOPHILS # (AUTO) 0.1 10^3/uL (0.0-0.6); ABSOLUTE LYMPHOCYTES (AUTO) 2.3 10^3/uL (0.5-4.7); ABSOLUTE MONOCYTES (AUTO) 0.7 10^3/uL (0.1-1.4); ABSOLUTE NEUT (AUTO) 5.3 10^3/uL (1.7-8.2); BASOPHILS % (AUTO) 0.6 % (0-2); EOSINOPHILS % (AUTO) 1.6 % (0-6); HEMATOCRIT 32.6 % (36.0-47.0); HEMOGLOBIN 11.2 g/dL (12.0-15.5); LYMPHOCYTES % (AUTO) 27.5 % (13-45); MEAN CORPUSCULAR HEMOGLOBIN 31.9 pg (27.0-33.4); MEAN CORPUSCULAR HGB CONC 34.4 g/dL (32.0-36.0); MEAN CORPUSCULAR VOLUME 93 fl (80-97); MONOCYTES % (AUTO) 8.1 % (3-13); PLATELET COUNT 176 10^3/uL (150-450); RED BLOOD COUNT 3.51 10^6/uL (3.72-5.28); RED CELL DISTRIBUTION WIDTH 13.4 % (11.5-14.0); SEGMENTED NEUTROPHILS % (AUTO) 62.2 % (42-78); TOTAL CELLS COUNTED % (AUTO) 100 %; WHITE BLOOD COUNT 8.5 10^3/uL (4.0-10.5)
[2020-07-21] MEDS: INSULIN LISPRO 100 UNIT/ML 3 ML VIAL SUBCUT SCH ×4 (08:49→21:57)
[2020-07-21] MEDS: FLUOXETINE HCL 20 MG CAPSULE PO SCH (09:41)
[2020-07-21] MEDS: CARVEDILOL 12.5 MG TABLET PO SCH ×2 (09:41→21:59)
[2020-07-21] MEDS: HYDROXYZINE HCL 10 MG TABLET PO SCH ×3 (09:41→17:14)
[2020-07-21] MEDS: 1/2 NORMAL SALINE 1,000 ML IV PRN (09:45)
[2020-07-21] MEDS: LORAZEPAM INJ 2 MG/1 ML VIAL IV PRN (18:04)
--- NOTE | 2020-07-21 20:24 | PDOC PROGRESS REPORT ---
Subjective Date:: 07/21/20 Subjective:: Patient agitated, requiring lorazepam Reason For Visit: ALTERED MENTAL STATUS, ACUTE KIDNEY INJURY Physical Exam Vital Signs: Temp Pulse Resp BP Pulse Ox 97.9 F 77 14 125/58 L 95 07/21/20 11:07 07/21/20 14:00 07/21/20 11:07 07/21/20 11:07 07/21/20 11:07 Intake & Output 07/20/20 07/21/20 07/22/20 06:59 06:59 06:59 Intake Total 500 1490 0 Output Total 250 0 Balance 250 1490 0 Weight 84.8 kg 84.6 kg General appearance: PRESENT: no acute distress Eye exam: PRESENT: PERRLA Respiratory exam: PRESENT: clear to auscultation avel Cardiovascular exam: PRESENT: +S1, +S2 GI/Abdominal exam: PRESENT: soft Neurological exam: PRESENT: alert Results Laboratory Results: 07/21/20 04:56 07/20/20 04:17 07/21/20 04:56 WBC 8.5 RBC 3.51 L Hgb 11.2 L Hct 32.6 L MCV 93 MCH 31.9 MCHC 34.4 RDW 13.4 Plt Count 176 Seg Neutrophils % 62.2 07/19/20 07/19/20 07/20/20 17:29 17:29 04:17 Creatine Kinase 166 H 348 H CK-MB (CK-2) 2.17 07/20/20 07/20/20 07/20/20 04:17 09:05 09:05 Creatine Kinase 337 H CK-MB (CK-2) 20.40 H 19.10 H Impressions: Chest X-Ray 07/19/20 18:11 IMPRESSION: NO ACUTE RADIOGRAPHIC FINDING IN THE CHEST. Assessment & Plan - Diagnosis (1) Delirium Is this a current diagnosis for this admission?: Yes Plan: Patient continues to be delirious,Use lorazepam as needed (2) Acute renal injury Is this a current diagnosis for this admission?: Yes Plan: Continue hydration with fluid (3) Type 2 diabetes mellitus Qualifiers: Diabetes mellitus manager long term care insulin use: unspecified prison insulin use status Diabetes mellitus complication status: with neurologic complications Diabetes mellitus complication detail: with polyneuropathy Qualified Code(s): E11.42 - Type 2 diabetes mellitus with diabetic polyneuropathy Is this a current diagnosis for this admission?: Yes - Time Time Spent with patient: 15-24 minutes Level of Care: MEDICAL Medications reviewed and adjusted accordingly: Yes Anticipated discharge: Home Anticipated DC Timeframe: within 72 hours
[2020-07-21 20:39] LABS: ALBUMIN 3.5 g/dL (3.5-5.0); ALKALINE PHOSPHATASE 53 U/L (38-126); ANION GAP 8 (5-19); ASPARTATE AMINO TRANSFERASE 52 U/L (14-36); BILIRUBIN,DIRECT 0.1 mg/dL (0.0-0.4); BILIRUBIN,TOTAL 0.4 mg/dL (0.2-1.3); BLOOD UREA NITROGEN 29 mg/dL (7-20); CARBON DIOXIDE 24 mmol/L (22-30); CHLORIDE 105 mmol/L (98-107); GLUCOSE 100 mg/dL (75-110); POTASSIUM 4.1 mmol/L (3.6-5.0); TOTAL PROTEIN 6.6 g/dL (6.3-8.2)
[2020-07-21] MEDS: AMLODIPINE BESYLATE 10 MG TABLET PO SCH (21:59)
[2020-07-22 05:21] LABS: ABSOLUTE EOSINOPHILS # (AUTO) 0.1 10^3/uL (0.0-0.6); ABSOLUTE LYMPHOCYTES (AUTO) 2.4 10^3/uL (0.5-4.7); ABSOLUTE MONOCYTES (AUTO) 0.7 10^3/uL (0.1-1.4); ABSOLUTE NEUT (AUTO) 4.8 10^3/uL (1.7-8.2); BASOPHILS % (AUTO) 0.6 % (0-2); EOSINOPHILS % (AUTO) 1.8 % (0-6); HEMATOCRIT 31.7 % (36.0-47.0); HEMOGLOBIN 10.9 g/dL (12.0-15.5); LYMPHOCYTES % (AUTO) 29.1 % (13-45); MEAN CORPUSCULAR HEMOGLOBIN 31.9 pg (27.0-33.4); MEAN CORPUSCULAR HGB CONC 34.5 g/dL (32.0-36.0); MEAN CORPUSCULAR VOLUME 92 fl (80-97); MONOCYTES % (AUTO) 8.5 % (3-13); PLATELET COUNT 173 10^3/uL (150-450); RED BLOOD COUNT 3.43 10^6/uL (3.72-5.28); RED CELL DISTRIBUTION WIDTH 12.9 % (11.5-14.0); TOTAL CELLS COUNTED % (AUTO) 100 %; WHITE BLOOD COUNT 8.1 10^3/uL (4.0-10.5)
[2020-07-22] MEDS: HEPARIN SOD (PORCINE) 5,000 UNIT/ML 1 ML VIAL SUBCUT SCH ×3 (06:10→21:56)
[2020-07-22] MEDS: 1/2 NORMAL SALINE 1,000 ML IV PRN (06:31)
[2020-07-22] MEDS: INSULIN LISPRO 100 UNIT/ML 3 ML VIAL SUBCUT SCH ×4 (07:44→22:30)
[2020-07-22] MEDS: CARVEDILOL 12.5 MG TABLET PO SCH ×3 (10:32→21:58)
[2020-07-22] MEDS: HYDROXYZINE HCL 10 MG TABLET PO SCH ×4 (10:33→17:13)
[2020-07-22] MEDS: FLUOXETINE HCL 20 MG CAPSULE PO SCH ×2 (10:33→10:40)
[2020-07-22] MEDS: LORAZEPAM INJ 2 MG/1 ML VIAL IV PRN (10:46)
[2020-07-22] MEDS: AMLODIPINE BESYLATE 10 MG TABLET PO SCH (21:58)
--- NOTE | 2020-07-22 22:17 | PDOC PROGRESS REPORT ---
Subjective Date:: 07/22/20 Subjective:: Patient agitated, requiring lorazepam 07/22/2020 Patient seen by the bedside, She is alert but somewhat confused, she had diarrhea loose stool Reason For Visit: ALTERED MENTAL STATUS, ACUTE KIDNEY INJURY Physical Exam Vital Signs: Temp Pulse Resp BP Pulse Ox 97.4 F 83 22 H 138/67 H 94 07/22/20 20:26 07/22/20 20:26 07/22/20 20:26 07/22/20 20:26 07/22/20 20:26 Intake & Output 07/21/20 07/22/20 07/23/20 06:59 06:59 06:59 Intake Total 1490 1000 740 Output Total 0 400 Balance 1490 600 740 Weight 84.6 kg 84.6 kg General appearance: PRESENT: no acute distress Eye exam: PRESENT: PERRLA Respiratory exam: PRESENT: clear to auscultation avel Cardiovascular exam: PRESENT: +S1, +S2 GI/Abdominal exam: PRESENT: soft Neurological exam: PRESENT: alert Results Laboratory Results: 07/22/20 04:39 07/21/20 04:56 07/22/20 04:39 WBC 8.1 RBC 3.43 L Hgb 10.9 L Hct 31.7 L MCV 92 MCH 31.9 MCHC 34.5 RDW 12.9 Plt Count 173 Seg Neutrophils % 60.0 07/20/20 04:20 Catheterized Urine Urine Culture - Final NO GROWTH 2 DAYS 07/19/20 07/19/20 07/20/20 17:29 17:29 04:17 Creatine Kinase 166 H 348 H CK-MB (CK-2) 2.17 07/20/20 07/20/20 07/20/20 04:17 09:05 09:05 Creatine Kinase 337 H CK-MB (CK-2) 20.40 H 19.10 H Impressions: Chest X-Ray 07/19/20 18:11 IMPRESSION: NO ACUTE RADIOGRAPHIC FINDING IN THE CHEST. Assessment & Plan - Diagnosis (1) Delirium Is this a current diagnosis for this admission?: Yes (2) Acute renal injury Is this a current diagnosis for this admission?: Yes Plan: Resolved (3) Type 2 diabetes mellitus Qualifiers: Diabetes mellitus retirement insulin use: unspecified retirement insulin use status Diabetes mellitus complication status: with neurologic complications Diabetes mellitus complication detail: with polyneuropathy Qualified Code(s): E11.42 - Type 2 diabetes mellitus with diabetic polyneuropathy Is this a current diagnosis for this admission?: Yes - Time Time Spent with patient: 35 or more minutes Level of Care: MEDICAL Medications reviewed and adjusted accordingly: Yes Anticipated discharge: Home Anticipated DC Timeframe: Other - Inpatient Certification Based on my medical assessment, after consideration of the patient's comorbidities, presenting symptoms, or acuity I expect that the services needed warrant INPATIENT care.: Yes I certify that my determination is in accordance with my understanding of Medicare's requirements for reasonable and necessary INPATIENT services [42 CFR 412.3e].: Yes
[2020-07-22 22:34] LABS: C DIFFICILE GDH NEGATIVE (NEGATIVE)
[2020-07-23] MEDS: HEPARIN SOD (PORCINE) 5,000 UNIT/ML 1 ML VIAL SUBCUT SCH ×4 (05:00→23:34)
[2020-07-23] MEDS: INSULIN LISPRO 100 UNIT/ML 3 ML VIAL SUBCUT SCH ×4 (08:56→21:59)
[2020-07-23] MEDS: CARVEDILOL 12.5 MG TABLET PO SCH ×2 (10:41→21:49)
[2020-07-23] MEDS ORDERED: LORAZEPAM INJ 2 MG/1 ML VIAL ONE (17:56)
[2020-07-23] MEDS ORDERED: HALOPERIDOL LACTATE INJ 5 MG/1 ML VIAL IM ONE (18:30)
[2020-07-23] MEDS ORDERED: LORAZEPAM INJ 2 MG/1 ML VIAL IM ONE (18:30)
[2020-07-23] MEDS: AMLODIPINE BESYLATE 10 MG TABLET PO SCH (21:49)
--- NOTE | 2020-07-24 01:47 | PDOC PROGRESS REPORT ---
Subjective Date:: 07/23/20 Subjective:: Patient continue to refused meal and verbally not engaging. No reported fever. N o vomiting. No diarrhea so far today. Reason For Visit: ALTERED MENTAL STATUS, ACUTE KIDNEY INJURY Physical Exam Vital Signs: Temp Pulse Resp BP Pulse Ox 97.4 F 81 16 147/75 H 96 07/22/20 22:00 07/23/20 07:13 07/23/20 07:13 07/23/20 07:13 07/23/20 07:13 Intake & Output 07/22/20 07/23/20 07/24/20 06:59 06:59 06:59 Intake Total 1000 740 Output Total 400 Balance 600 740 Weight 84.6 kg 84 kg General appearance: PRESENT: no acute distress, obese Head exam: PRESENT: atraumatic, normocephalic Mouth exam: PRESENT: moist Respiratory exam: PRESENT: clear to auscultation avel, decreased breath sounds - at lung bases Cardiovascular exam: PRESENT: RRR, +S1, +S2 Vascular exam: ABSENT: pallor GI/Abdominal exam: PRESENT: normal bowel sounds, soft. ABSENT: tenderness Extremities exam: ABSENT: pedal edema Neurological exam: PRESENT: alert, awake Psychiatric exam: PRESENT: unusual affect - verbally not engaging but scream intermittently Skin exam: PRESENT: dry, warm Results Laboratory Results: 07/22/20 04:39 07/21/20 04:56 07/20/20 04:20 Catheterized Urine Urine Culture - Final NO GROWTH 2 DAYS 07/19/20 07/19/20 07/20/20 17:29 17:29 04:17 Creatine Kinase 166 H 348 H CK-MB (CK-2) 2.17 07/20/20 07/20/20 07/20/20 04:17 09:05 09:05 Creatine Kinase 337 H CK-MB (CK-2) 20.40 H 19.10 H Impressions: Chest X-Ray 07/19/20 18:11 IMPRESSION: NO ACUTE RADIOGRAPHIC FINDING IN THE CHEST. Assessment & Plan - Diagnosis (1) Diabetes mellitus type 2 in obese Is this a current diagnosis for this admission?: Yes Plan: Continue current medication management. (2) Hypertension Qualifiers: Hypertension type: essential hypertension Qualified Code(s): I10 - Essential (primary) hypertension Is this a current diagnosis for this admission?: Yes Plan: Continue current medication management. (3) Major depression with psychotic features Is this a current diagnosis for this admission?: Yes Plan: Continue current medication management. Follow up with psychiatrist senior sales consultant recommendations. - Time Time Spent with patient: 25-34 minutes Level of Care: MEDICAL Medications reviewed and adjusted accordingly: Yes Anticipated discharge: SNF Anticipated DC Timeframe: within 72 hours - Inpatient Certification Based on my medical assessment, after consideration of the patient's comorbidities, presenting symptoms, or acuity I expect that the services needed warrant INPATIENT care.: Yes I certify that my determination is in accordance with my understanding of [facility]'s requirements for reasonable and necessary INPATIENT services [42 CFR 412.3e].: Yes Medical Necessity: Significant Comorbidiites Make Outpatient Treatment Too Risky, Need Close Monitoring Due to Risk of Patient Decompensation, Risk of Complication if Not Cared For in Hospital Post Hospital Care: D/C Line Controller Documentation, D/C or Transfer Summary - Plan Summary Plan Summary: Continue current medication management.
[2020-07-24] MEDS: LORAZEPAM INJ 2 MG/1 ML VIAL IM PRN (03:45)
[2020-07-24] MEDS: HEPARIN SOD (PORCINE) 5,000 UNIT/ML 1 ML VIAL SUBCUT SCH ×3 (06:50→23:06)
[2020-07-24] MEDS: INSULIN LISPRO 100 UNIT/ML 3 ML VIAL SUBCUT SCH ×4 (07:39→23:07)
[2020-07-24] MEDS: CARVEDILOL 12.5 MG TABLET PO SCH ×2 (09:38→23:06)
[2020-07-24] MEDS: LORAZEPAM INJ 2 MG/1 ML VIAL IV PRN (09:38)
--- NOTE | 2020-07-24 14:01 | PDOC PROGRESS REPORT ---
Subjective Date:: 07/24/20 Subjective:: Patient is more verbally engaging today but occasionally scream out. Asking for Dr. Goel! No reported fever. No vomiting. No diarrhea so far today. Son at bedside visiting. Reason For Visit: ALTERED MENTAL STATUS, ACUTE KIDNEY INJURY Physical Exam Vital Signs: Temp Pulse Resp BP Pulse Ox 98.6 F 73 16 114/59 L 95 07/24/20 10:00 07/24/20 08:00 07/24/20 08:00 07/24/20 08:00 07/24/20 08:00 Intake & Output 07/23/20 07/24/20 07/25/20 06:59 06:59 06:59 Intake Total 740 0 Balance 740 0 Weight 84 kg 84 kg Physical Exam: General appearance: PRESENT: no acute distress, obese Head exam: PRESENT: atraumatic, normocephalic Eye: Conjunctiva pink, ABSENT: pallor, sclera icterus Mouth exam: PRESENT: moist Respiratory exam: PRESENT: clear to auscultation avel, decreased breath sounds - at lung bases Cardiovascular exam: PRESENT: RRR, +S1, +S2 GI/Abdominal exam: PRESENT: normal bowel sounds, soft. ABSENT: tenderness Extremities exam: ABSENT: pedal edema Neurological exam: PRESENT: alert, awake Psychiatric exam: PRESENT: unusual affect - verbally not engaging but scream intermittently Skin exam: PRESENT: dry, warm Results Laboratory Results: 07/22/20 04:39 07/21/20 04:56 07/19/20 07/19/20 07/20/20 17:29 17:29 04:17 Creatine Kinase 166 H 348 H CK-MB (CK-2) 2.17 07/20/20 07/20/20 07/20/20 04:17 09:05 09:05 Creatine Kinase 337 H CK-MB (CK-2) 20.40 H 19.10 H Impressions: Chest X-Ray 07/19/20 18:11 IMPRESSION: NO ACUTE RADIOGRAPHIC FINDING IN THE CHEST. Assessment & Plan - Diagnosis (1) Diabetes mellitus type 2 in obese Is this a current diagnosis for this admission?: Yes (2) Hypertension Qualifiers: Hypertension type: essential hypertension Qualified Code(s): I10 - Essential (primary) hypertension Is this a current diagnosis for this admission?: Yes (3) Major depression with psychotic features Is this a current diagnosis for this admission?: Yes - Time Time Spent with patient: 25-34 minutes Level of Care: TELE Medications reviewed and adjusted accordingly: Yes Anticipated discharge: SNF Anticipated DC Timeframe: within 72 hours - Inpatient Certification Based on my medical assessment, after consideration of the patient's comorbidities, presenting symptoms, or acuity I expect that the services needed warrant INPATIENT care.: Yes I certify that my determination is in accordance with my understanding of Medicare's requirements for reasonable and necessary INPATIENT services [42 CFR 412.3e].: Yes Medical Necessity: Significant Comorbidiites Make Outpatient Treatment Too Risky, Need Close Monitoring Due to Risk of Patient Decompensation, Need For Continuous Telemetry Monitoring, Risk of Complication if Not Cared For in Hospital, Risk of Diagnosis Which Will Require Inpatient Eval/Care/Monitoring Post Hospital Care: D/C Executive Receptionist Documentation, D/C or Transfer Summary - Plan Summary Plan Summary: Start on Risperdal 0.25 mg po bid. Continue all other current medication man agement.
[2020-07-24] MEDS: RISPERIDONE 0.25 MG TABLET PO SCH ×2 (15:09→23:06)
[2020-07-24] MEDS: AMLODIPINE BESYLATE 10 MG TABLET PO SCH (23:06)
[2020-07-25] MEDS: LORAZEPAM INJ 2 MG/1 ML VIAL IM PRN ×2 (01:18→11:32)
[2020-07-25] MEDS: HEPARIN SOD (PORCINE) 5,000 UNIT/ML 1 ML VIAL SUBCUT SCH ×2 (06:03→14:00)
[2020-07-25] MEDS: INSULIN LISPRO 100 UNIT/ML 3 ML VIAL SUBCUT SCH ×3 (10:12→16:35)
[2020-07-25] MEDS: RISPERIDONE 0.25 MG TABLET PO SCH (10:12)
[2020-07-25] MEDS: CARVEDILOL 12.5 MG TABLET PO SCH (10:13)
[2020-07-25 16:04] VITALS: BP 110/60
--- NOTE | 2020-07-25 19:27 | PDOC DISCHARGE SUMMARY ---
Impression - Admit/DC Date/PCP Admission Date/Primary Care Provider: 07/25/20 08:00 NICOLÁS KOCH MD Discharge Date: 07/25/20 - Discharge Diagnosis (1) Delirium Is this a current diagnosis for this admission?: Yes (2) Acute renal injury Is this a current diagnosis for this admission?: Yes (3) Type 2 diabetes mellitus Is this a current diagnosis for this admission?: Yes - Additional Information Discharge Diet: As Tolerated, Diabetic Discharge Activity: Activity As Tolerated, Balance Activity w/Rest Referrals: NICOLÁS KOCH MD [Primary Care Provider] - 08/01/20 2:45 pm Prescriptions: Fluoxetine HCl [Prozac 20 mg Capsule] 20 mg PO DAILY #30 capsule Home Medications: Amlodipine Besylate [Norvasc 10 mg Tablet] 10 mg PO DAILY 07/19/20 Carvedilol Phosphate [Carvedilol ER] 40 mg PO DAILY 07/19/20 Dulaglutide [Trulicity] 0.75 mg SQ Q7D 07/19/20 Oxycodone HCl/Acetaminophen [Oxycodone-Acetaminophen 10-325] 1 tab PO Q6HP PRN 07/19/20 Rimegepant Sulfate [Nurtec Odt] 75 mg PO DAILYP PRN MDD 75 MG 07/19/20 Fluoxetine HCl [Prozac 20 mg Capsule] 20 mg PO DAILY #30 capsule 07/25/20 History of Present Illiness History of Present Illness: ROSLYN SEAMAN is a 64 year old female, She was recently admitted on July 17, 2020 when she presented with confusion, at the time she was found to have elevated blood pressure there was concern she may have hypertensive encephalopathy. She was admitted for observation and discharged home, she was brought to the emergency room by family because patient was acting inappropria tely, throwing things on the floor, the son stated that this behavior is of acute onset. She has a history of nonspecific white matter disease. I cannot get any history from the patient that is meaningful, the son was in the room, he gave me most of the history, The lab work that was done in the emergency room demonstrated serum creatinine 1.7, the last time she was discharged serum creatinine was normal, The son said she has not been eating or drinking for last couple of days. Hospital Course Hospital Course: Patient was admitted for the management of confusion,Prerenal azotemia, she was treated with IV fluid the kidney function was normalized with hydration.There was no metabolic explanation for the confusion she also was manifesting symptoms that suggest psychosis, consultation was obtained from psychiatry, she was seen in consultation, it was recommended by psychiatry that she should stop taking some of her regular psychotropic drugs including Adderall and to also reduce the dosage of Prozac that she was taking Physical Exam Vital Signs: Temp Pulse Resp BP Pulse Ox 97.3 F 70 19 110/60 95 07/25/20 16:37 07/25/20 16:37 07/25/20 16:37 07/25/20 16:37 07/25/20 16:37 Intake & Output 07/24/20 07/25/20 07/26/20 06:59 06:59 06:59 Intake Total 0 270 240 Output Total 400 Balance 0 -130 240 Weight 84 kg 84.3 kg General appearance: PRESENT: no acute distress Eye exam: PRESENT: PERRLA Respiratory exam: PRESENT: clear to auscultation avel Cardiovascular exam: PRESENT: +S1, +S2 GI/Abdominal exam: PRESENT: soft Results Laboratory Results: WBC 8.1 10^3/uL (4.0-10.5) 07/22/20 04:39 RBC 3.43 10^6/uL (3.72-5.28) L 07/22/20 04:39 Hgb 10.9 g/dL (12.0-15.5) L 07/22/20 04:39 Hct 31.7 % (36.0-47.0) L 07/22/20 04:39 MCV 92 fl (80-97) 07/22/20 04:39 MCH 31.9 pg (27.0-33.4) 07/22/20 04:39 MCHC 34.5 g/dL (32.0-36.0) 07/22/20 04:39 RDW 12.9 % (11.5-14.0) 07/22/20 04:39 Plt Count 173 10^3/uL (150-450) 07/22/20 04:39 Lymph % (Auto) 29.1 % (13-45) 07/22/20 04:39 [place] % (Auto) 8.5 % (3-13) 07/22/20 04:39 Eos % (Auto) 1.8 % (0-6) 07/22/20 04:39 Baso % (Auto) 0.6 % (0-2) 07/22/20 04:39 Absolute Neuts (auto) 4.8 10^3/uL (1.7-8.2) 07/22/20 04:39 Absolute Lymphs (auto) 2.4 10^3/uL (0.5-4.7) 07/22/20 04:39 Absolute Monos (auto) 0.7 10^3/uL (0.1-1.4) 07/22/20 04:39 Absolute Eos (auto) 0.1 10^3/uL (0.0-0.6) 07/22/20 04:39 Absolute Basos (auto) 0.0 10^3/uL (0.0-0.2) 07/22/20 04:39 Seg Neutrophils % 60.0 % (42-78) 07/22/20 04:39 PT 14.0 SEC (11.4-15.4) 07/20/20 04:17 INR 1.06 07/20/20 04:17 APTT 32.0 SEC (23.5-35.8) 07/20/20 04:17 Sodium 137.0 mmol/L (137-145) 07/21/20 04:56 Potassium 4.1 mmol/L (3.6-5.0) 07/21/20 04:56 Chloride 105 mmol/L (98-107) 07/21/20 04:56 Carbon Dioxide 24 mmol/L (22-30) 07/21/20 04:56 Anion Gap 8 (5-19) 07/21/20 04:56 BUN 29 mg/dL (7-20) H 07/21/20 04:56 Creatinine 1.10 mg/dL (0.52-1.25) 07/21/20 04:56 Est GFR ( Amer) > 60 (>60) 07/21/20 04:56 Est GFR (MDRD) Non-Af 50 (>60) L 07/21/20 04:56 Glucose 100 mg/dL (75-110) 07/21/20 04:56 POC Glucose 140 mg/dL (70-110) H 07/25/20 10:56 Hemoglobin A1c % 5.4 % (4.7-6.0) 07/20/20 04:17 Calcium 9.0 mg/dL (8.4-10.2) 07/21/20 04:56 Phosphorus 4.0 mg/dL (2.5-4.5) 07/20/20 00:40 Magnesium 1.8 mg/dL (1.6-2.3) 07/20/20 00:40 Total Bilirubin 0.4 mg/dL (0.2-1.3) 07/21/20 04:56 Direct Bilirubin 0.1 mg/dL (0.0-0.4) 07/21/20 04:56 Neonat Total Bilirubin Not Reportable 07/21/20 04:56 Neonat Direct Bilirubin Not Reportable 07/21/20 04:56 Neonat Indirect Bili Not Reportable 07/21/20 04:56 AST 52 U/L (14-36) H 07/21/20 04:56 ALT 20 U/L (<35) 07/21/20 04:56 Alkaline Phosphatase 53 U/L (38-126) 07/21/20 04:56 Ammonia < 8.7 umol/L (9-33) L 07/20/20 04:17 Creatine Kinase 337 U/L (30-135) H 07/20/20 09:05 CK-MB (CK-2) 19.10 ng/mL (<4.55) H 07/20/20 09:05 Total Protein 6.6 g/dL (6.3-8.2) 07/21/20 04:56 Albumin 3.5 g/dL (3.5-5.0) 07/21/20 04:56 Triglycerides 94 mg/dL (<150) 07/20/20 04:17 Cholesterol 252.27 mg/dL (0-200) H 07/20/20 04:17 LDL Cholesterol Direct 156 mg/dL (<100) H 07/20/20 04:17 VLDL Cholesterol 19.0 mg/dL (10-31) 07/20/20 04:17 HDL Cholesterol 60 mg/dL (>40) 07/20/20 04:17 Amylase 46 U/L (30-110) 07/20/20 00:40 Lipase 83.1 U/L (23-300) 07/20/20 00:40 TSH 1.57 uIU/mL (0.47-4.68) 07/19/20 17:29 Free T4 1.71 ng/dL (0.78-2.19) 07/19/20 17:29 Urine Color YELLOW 07/20/20 04:20 Urine Appearance SLIGHTLY-CLOUDY 07/20/20 04:20 Urine pH 5.0 (5.0-9.0) 07/20/20 04:20 Ur Specific [place] 1.026 07/20/20 04:20 Urine Protein 100 mg/dL (NEGATIVE) H 07/20/20 04:20 Urine Glucose (UA) NEGATIVE mg/dL (NEGATIVE) 07/20/20 04:20 Urine Ketones 20 mg/dL (NEGATIVE) H 07/20/20 04:20 Urine Blood NEGATIVE (NEGATIVE) 07/20/20 04:20 Urine Nitrite NEGATIVE (NEGATIVE) 07/20/20 04:20 Urine Bilirubin NEGATIVE (NEGATIVE) 07/20/20 04:20 Urine Urobilinogen NEGATIVE mg/dL (<2.0) 07/20/20 04:20 Ur Leukocyte Esterase TRACE (NEGATIVE) H 07/20/20 04:20 Urine WBC (Auto) 12 /HPF 07/20/20 04:20 Urine RBC (Auto) 16 /HPF 07/20/20 04:20 U Hyaline Cast (Auto) 13 /LPF 07/20/20 04:20 Squamous Epi Cells Auto <1 /HPF 07/20/20 04:20 Urine Mucus (Auto) MOD /LPF 07/20/20 04:20 Urine Ascorbic Acid NEGATIVE (NEGATIVE) 07/20/20 04:20 Stl C. Difficile GDH Ag NEGATIVE (NEGATIVE) 07/22/20 20:45 Stl C.difficile Tox A&B NEGATIVE (NEGATIVE) 07/22/20 20:45 Salicylates < 1.0 mg/dL (2.0-20.0) L 07/19/20 17:29 Urine Opiates Screen NEGATIVE 07/20/20 04:20 Urine Methadone Screen NEGATIVE 07/20/20 04:20 Acetaminophen < 10 ug/mL (10-30) L 07/19/20 17:29 Ur Barbiturates Screen NEGATIVE 07/20/20 04:20 Ur Phencyclidine Scrn NEGATIVE 07/20/20 04:20 Ur Amphetamines Screen NEGATIVE 07/20/20 04:20 U Benzodiazepines Scrn NEGATIVE 07/20/20 04:20 Urine Cocaine Screen NEGATIVE 07/20/20 04:20 U Marijuana (THC) Screen NEGATIVE 07/20/20 04:20 Serum Alcohol < 10 mg/dL (NONE DETECTED) 07/19/20 17:29 07/19/20 07/20/20 07/20/20 17:29 04:17 09:05 CK-MB (CK-2) 2.17 20.40 H 19.10 H Impressions: Chest X-Ray 07/19/20 18:11 IMPRESSION: NO ACUTE RADIOGRAPHIC FINDING IN THE CHEST. Stroke Is this a Stroke Patient?: No Acute Heart Failure Is this a Heart Failure Patient?: No
== END 2020-07-25 18:50 | disposition home health service (06) | DRG 683 ==
LOC: ER 16:18 → INTOOBSV 20:45 → EH 20:45 → UNDOADMOB 20:45 → 4N 22:15 → EH 22:15 → OBSVTOIN 07-23 08:00 → 4N 07-23 08:00 → EH 07-23 08:00 → INTOOBSV 07-25 08:00 → OBSVTOIN 07-25 08:00 → UNDODISIN 07-25 18:50
PROVIDERS: ADMIT Internal Medicine; ATTEND Internal Medicine
DX: N17.9 Acute kidney failure, unspecified (principal); F32.3 Major depressive disorder, single episode, severe with psychotic features; I10 Essential (primary) hypertension; E11.42 Type 2 diabetes mellitus with diabetic polyneuropathy; J44.9 Chronic obstructive pulmonary disease, unspecified; E86.0 Dehydration; R41.82 Altered mental status, unspecified; G43.909 Migraine, unspecified, not intractable, without status migrainosus; M19.90 Unspecified osteoarthritis, unspecified site
CPT/HCPCS: 36415; 71045; 80053; 80061; 80307; 81001; 82140; 82150; 82550; 82553; 82962; 83036; 83690; 83735; 84100; 84439; 84443; 85025; 85610; 85730; 87040; 87086; 87324; 87449; 95819; 96361; 96374; 99285; G0378; J1630; J1644; J1815; J2060; J3490; J7040